=== PATIENT | female | born 1980 | race Caucasian/White ===

== ENCOUNTER 2016-10-01 10:56 | Outpatient (CLI) | payer OTHER ==
[2016-10-01 11:44] LABS: AMNISURE (ROM) POSITIVE (NEGATIVE)
[2016-10-01 11:57] LABS: APPEARANCE,URINE SLIGHTLY HAZY; BILIRUBIN,URINE NEGATIVE (NEGATIVE); GLUCOSE, URINE NEGATIVE (NEGATIVE); KETONES,URINE NEGATIVE (NEGATIVE); PROTEIN,URINE 30 mg/dL (NEGATIVE); URINE SPECIFIC GRAVITY 1.023; UROBILINOGEN,URINE NEGATIVE mg/dL (<2.0)
[2016-10-01 11:58] LABS: LEUKOCYTE ESTERASE,URINE NEGATIVE (NEGATIVE); NITRITE,URINE NEGATIVE (NEGATIVE)
--- NOTE | 2016-10-01 12:00 | L&D Flow Sheet ---
LD Flowsheet Datetime Report Generated by CPN: 10/01/2016 12:00 Datetime: 10/01/2016 11:57 NBP Sys/Lizbet/Mean (mmHg): 132 (QS system process) : 78 (QS system process) : 100 (QS system process) Pulse: 76 (QS system process) LaborFlag: Antepartum (QS system process) Datetime: 10/01/2016 11:40 NBP Sys/Lizbet/Mean (mmHg): 105 (QS system process) : 60 (QS system process) : 77 (QS system process) Pulse: 88 (QS system process) LaborFlag: Antepartum (QS system process) Datetime: 10/01/2016 11:30 Monitor Mode: External; Palpation (Sandra Hall RN) Frequency (min): occasional (Sandra Hall RN) Quality: Mild/Moderate (Sandra Hall, BLANCA) Duration (sec): 50-60 (Sandra Hall RN) Duration Criteria: Less than Two 120 Second Contractions (Sandra Hall RN) Pattern: Normal: <= 5 Contractions in 10 Minutes (Sandra Hall RN) Resting Tone (Palpate): Relaxed (Sandra Hall, RN) Monitor Mode: External US (Sandra Hall, BLANCA) FHR Baseline Rate : 145 (Sandra Hall, RN) Variability: Moderate 6-25 bpm (Sandra Hall, RN) Accelerations: 15X15 (Sandra Hall, RN) Decelerations: None (Sandra Hall, RN) Datetime: 10/01/2016 11:25 NBP Sys/Lizbet/Mean (mmHg): 103 (QS system process) : 58 (QS system process) : 75 (QS system process) Pulse: 83 (QS system process) LaborFlag: Antepartum (QS system process) Datetime: 10/01/2016 11:18 Communication Comments: Fareed Talbot CNM at bedside, cervical exam performed, order for amnisure obtained (Sandra Hall RN) Datetime: 10/01/2016 11:16 Dilatation (cm): 0.0 (Sandra Hall RN) Effacement (%): 50 (Sandra Hall RN) Station: -2 (Sandra Hall RN) Exam by: Fareed Talbot CNM (Sandra Hall RN) Vaginal Bleeding: None (Sandra Hall RN) Cervix, Consistency: Soft (Sandra Hall RN) Cervix, Position: Midposition (Sandra Hall RN) Datetime: 10/01/2016 11:11 NBP Sys/Lizbet/Mean (mmHg): 112 (QS system process) : 61 (QS system process) : 80 (QS system process) Pulse: 86 (QS system process) LaborFlag: Antepartum (QS system process) Datetime: 10/01/2016 11:04 Monitor Interventions for UA: [place] Adjusted (Sandra Hall RN) Frequency (min): patient states contractions are appox. 4 minutes apart (Sandra Hall RN) Quality: Mild/Moderate (Sandra Hall RN) Pattern: Normal: <= 5 Contractions in 10 Minutes (Sandra Hall RN) Resting Tone (Palpate): Relaxed (Sandra Hall RN) Monitor Mode: External US (Sandra Hall RN) Pain Scale: 4 (Sandra Hall RN) Pain Presence: Intermittent (Sandra Hall RN) Pain Type: Contraction (Sandra Hall RN) Pain Location: Abdomen (Sandra Hall RN) Pain Goal: 1 (Sandra Hall RN) Pain Relief Measures: Comfort Measures (Sandra Hall RN) Pain Coping: Talking Through Contractions (Sandra Hall RN) Membrane Status: Intact (Annotations: intact per patient) (Sandra Hall RN) Vaginal Bleeding: None (Sandra Hall RN) Level of Consciousness: Fully Conscious (Sandra Hall RN) DTR's/Clonus: DTRs 2+; No Clonus (Sandra Rafael, RN) Headache: Denies (Sandra Hall, RN) Breath Sounds, Left: Clear and Equal (Sandra Hall RN) Breath Sounds, Right: Clear and Equal (Sandra Hall, RN) Nausea/Vomiting: Denies (Sandra Hall, BLANCA) RUQ Epigastric Pain: Denies (Sandra Hall, RN) Oxygen Method: Room Air (Sandra Hall, RN) Patient Position/Activity: Right Tilt; Low Fowlers (Sandra Hall, RN) I/O Interventions: Clear Liquids Given (Sandra Hall RN) Provider Reviewed Strip: Yes (Sandra Hall, BLANCA) Instructional Method: Verbal (Sandra Hall RN) Plan of Care: Plan of Care Discussed (Sandra Hall, RN) Unit Routine: [place] to Room; Call [place]; Bed; Visiting Policy (Sandra Hall, BLANCA) Labor/Induction: Labor Stages (Sandra Hall, RN) Related: Common Discomforts of (Sandra Hall, RN) LaborFlag: Antepartum (QS system process)
[2016-10-01 12:14] LABS: URINE BARBITURATES SCREEN NEGATIVE; URINE METHADONE SCREEN NEGATIVE; URINE PHENCYCLIDINE SCREEN NEGATIVE
--- NOTE | 2016-10-01 12:56 | Non Stress Test Report ---
Non Stress Test Datetime Report Generated by CPN: 10/01/2016 12:55 DEMOGRAPHIC EGA NST: 39.0 INDICATION Indication for Study: Ordered by Provider MONITORING Monitor Explained: Monitor Explained; Test Explained; Patient Verbalized Understanding Time on Monitor: 10/01/2016 11:07 Time off Monitor: 10/01/2016 12:15 NST Duration: 68 NST INTERVENTIONS NST Interventions: PO Hydration; Reposition Patient Physician Notified NST: H. Antione, CNM BABY A Contraction Frequency : occasional FHR Baseline : 140 Accelerations : 15X15 Decelerations : None Variability : Moderate 6-25bpm NST Review: Meets Criteria for Reactive NST NST Review and Verified By : BLANCA Serrano Results: Reactive NST COMMENTS NST Comments: see flowsheet for vital signs NST REPORT Report Trigger: Send Report
--- NOTE | 2016-10-02 04:45 | Antepartum Discharge Summary ---
Antepartum DC Datetime Report Generated by CPN: 10/02/2016 04:45 Diet: Regular (10/01/2016 11:42:Sandra Hall RN) Activity: Normal Activity (10/01/2016 11:42:Sandra Hall RN) Instructions Given To: patient and patient's (10/01/2016 11:42:Sandra Hall RN) Instructions Understood: Patient Verbalized Understanding; Support Person Verbalized Understanding (10/01/2016 11:42:Sandra Hall RN) Referrals: None (10/01/2016 11:42:Sandra Hall RN) Educational Materials- Other: kiverónica counts, (10/01/2016 11:42:Sandra Hall RN) Discharged AMA: No (10/01/2016 11:42:Sandra Hall RN) Discharged To: Home (10/01/2016 11:42:Sandra Hall RN) Discharge Provider Name: Fareed Talbot CNM (10/01/2016 11:42:Sandra Hall RN) Accompanied By: (10/01/2016 11:42:Sandra Hall RN) Discharge Method: Ambulatory (10/01/2016 11:42:Sandra Hall RN) Condition: Stable (10/01/2016 11:42:Sandra Hall RN) Follow Up With: [facility] (10/01/2016 11:42:Sandra Hall RN) Follow Up On: As Scheduled (10/01/2016 11:42:Sandra Hall RN) Follow Up Phone Number: [facility] - (10/01/2016 11:42:Sandra Hall RN) Contractions: Contractions or cramps become more frequent than 8 in one hour or 4 in 20 minutes; Regular painful contractions every 5 minutes or less for one hour. Time your contractions from the beginning of one to the beginning of the next (10/01/2016 11:42:Sandra Hall RN) Pressure: Pressure in your vagina or lower abdomen that may feel like the baby is pushing down (10/01/2016 11:42:Sandra Hall RN) Period Like Cramps: Period-like cramps or low dull backache that may come and go (10/01/2016 11:42:Sandra Hall RN) Cramps/Diarrhea: Abdominal cramps that may be accompanied by diarrhea (10/01/2016 11:42:Sandra Hall RN) Gush of Fluid/Blood: Gush of fluid or blood from your vagina (it is normal to have spotting after vaginal exam or intercourse) (10/01/2016 11:42:Sandra Hall RN) Vaginal Discharge: Change in the type or amount of vaginal discharge (10/01/2016 11:42:Sandra Hall RN) Decreased Movement: Your baby is not moving as much as usual- 4 movements in 1 hour after drinking and resting on side (10/01/2016 11:42:Sandra Hall RN) Temperature: Temperature greater than 100.0(F) orally (10/01/2016 11:42:Sandra Hall RN) Hypertension Signs/Symptoms: Severe headache which is not relieved 30 minutes after taking Tylenol(Acetaminophen); Blurry vision or spots before your eyes; Severe heartburn or pain on the upper right side of your abdomen that is not relieved by an antacid; Increased swelling in your face, hands or feet (10/01/2016 11:42:Sandra Hall RN) Urinary Output: Decreased urinary output or dark colored urine (10/01/2016 11:42:Sandra Hall RN)
--- NOTE | 2016-10-03 11:08 | Antepartum Discharge Summary ---
Antepartum DC Datetime Report Generated by CPN: 10/03/2016 11:08 Diet: Regular (10/01/2016 11:42:Sandra Hall RN) Activity: Normal Activity (10/01/2016 11:42:Sandra Hall RN) Instructions Given To: patient and patient's (10/01/2016 11:42:Sandra Hall RN) Instructions Understood: Patient Verbalized Understanding; Support Person Verbalized Understanding (10/01/2016 11:42:Sandra Hall RN) Referrals: None (10/01/2016 11:42:Sandra Hall RN) Educational Materials- Other: kiverónica counts, (10/01/2016 11:42:Sandra Hall RN) Discharged AMA: No (10/01/2016 11:42:Snadra Hall RN) Discharged To: Home (10/01/2016 11:42:Sandra Hall RN) Discharge Provider Name: Fareed Talbot CNM (10/01/2016 11:42:Sandra Hall RN) Accompanied By: (10/01/2016 11:42:Sandra Hall RN) Discharge Method: Ambulatory (10/01/2016 11:42:Sandra Hall RN) Condition: Stable (10/01/2016 11:42:Sandra Hall RN) Follow Up With: [facility] (10/01/2016 11:42:Sandra Hall RN) Follow Up On: As Scheduled (10/01/2016 11:42:Sandra Hlal RN) Follow Up Phone Number: [facility] - (10/01/2016 11:42:Sandra Hall RN) Contractions: Contractions or cramps become more frequent than 8 in one hour or 4 in 20 minutes; Regular painful contractions every 5 minutes or less for one hour. Time your contractions from the beginning of one to the beginning of the next (10/01/2016 11:42:Sandra Hall RN) Pressure: Pressure in your vagina or lower abdomen that may feel like the baby is pushing down (10/01/2016 11:42:Sandra Hall RN) Period Like Cramps: Period-like cramps or low dull backache that may come and go (10/01/2016 11:42:Sandra Hall RN) Cramps/Diarrhea: Abdominal cramps that may be accompanied by diarrhea (10/01/2016 11:42:Sandra Hall RN) Gush of Fluid/Blood: Gush of fluid or blood from your vagina (it is normal to have spotting after vaginal exam or intercourse) (10/01/2016 11:42:Sandra Hall RN) Vaginal Discharge: Change in the type or amount of vaginal discharge (10/01/2016 11:42:Sandra Hlal RN) Decreased Movement: Your baby is not moving as much as usual- 4 movements in 1 hour after drinking and resting on side (10/01/2016 11:42:Sandra Hall RN) Temperature: Temperature greater than 100.0(F) orally (10/01/2016 11:42:Sandra Hall RN) Hypertension Signs/Symptoms: Severe headache which is not relieved 30 minutes after taking Tylenol(Acetaminophen); Blurry vision or spots before your eyes; Severe heartburn or pain on the upper right side of your abdomen that is not relieved by an antacid; Increased swelling in your face, hands or feet (10/01/2016 11:42:Sandra Hall RN) Urinary Output: Decreased urinary output or dark colored urine (10/01/2016 11:42:Sandra Hall RN)
--- NOTE | 2016-10-03 11:10 | L&D Flow Sheet ---
LD Flowsheet Datetime Report Generated by CPN: 10/03/2016 11:10 Datetime: 10/01/2016 13:02 Communication Comments: Kick counts and term care notes reviewed with patient, patient and verablize understanding. Patient states she doesn't need Vistaril that she has a prescription at home (Sandra Hall, RN) Datetime: 10/01/2016 12:50 Communication Comments: H. Antione, CNM notified of patient's US results of THANG of 10.2. Negative fern. Order received for patient's discharge home, Vistaril 50 mg PO. (Sandra Hall, RN) Datetime: 10/01/2016 12:42 Communication Comments: patient returned to room from US, order received for patient to remain off monitors (Sandra Hall, RN) Datetime: 10/01/2016 12:40 NBP Sys/Lizbet/Mean (mmHg): 122 (QS system process) : 76 (QS system process) : 94 (QS system process) Pulse: 82 (QS system process) Datetime: 10/01/2016 12:35 Communication: Returns from U/S . Provider on unit verbal report of negative fern result given. Strip reviewed. order received not to place EFM (Melanie Aguirre, NICKO) Datetime: 10/01/2016 12:15 Monitor Mode: External; Palpation (Sandra Hall, BLANCA) Frequency (min): 3-7 (Sandra Hall RN) Quality: Mild/Moderate (Sandra Hall RN) Duration (sec): 60-150 (Sandra Hall, BLANCA) Duration Criteria: Less than Two 120 Second Contractions (Sandra Hall, BLANCA) Pattern: Normal: <= 5 Contractions in 10 Minutes (Sandra Hall, BLANCA) Resting Tone (Palpate): Relaxed (Sandra Hall, RN) Contraction Comments: irritability (Sandra Hall, RN) Monitor Mode: External US (Sandra Hall, RN) FHR Baseline Rate : 140 (Sandra Hall, RN) Variability: Moderate 6-25 bpm (Sandra Hall, RN) Accelerations: 15X15 (Sandra Hall, RN) Decelerations: None (Sandra Hall, BLANCA) Communication Comments: monitors removed for patient's transport to US (Sandra Hall, BLANCA) Datetime: 10/01/2016 12:14 NBP Sys/Lizbet/Mean (mmHg): 119 (QS system process) : 71 (QS system process) : 91 (QS system process) Pulse: 82 (QS system process) Datetime: 10/01/2016 12:10 I/O Interventions: Up to BR (Sandra Hall RN) Datetime: 10/01/2016 12:00 Monitor Mode: External; Palpation (Sandra Hall RN) Frequency (min): x2 (Sandra Hall RN) Quality: Mild/Moderate (Sandra Hall RN) Duration (sec): 70-80 (Sandra Hall RN) Duration Criteria: Less than Two 120 Second Contractions (Sandra Hall RN) Pattern: Normal: <= 5 Contractions in 10 Minutes (Sandra Hall RN) Resting Tone (Palpate): Relaxed (Sandra Hall RN) Contraction Comments: irritability (Sandra Hall RN) Monitor Mode: External US (Sandra Hall RN) FHR Baseline Rate : 140 (Sandra Hall, RN) Variability: Moderate 6-25 bpm (Sandra Hall, RN) Accelerations: 15X15 (Sandra Hall, RN) Decelerations: None (Sandra Hall, RN) Datetime: 10/01/2016 11:57 NBP Sys/Lizbet/Mean (mmHg): 132 (QS system process) : 78 (QS system process) : 100 (QS system process) Pulse: 76 (QS system process) Respirations: 16 (Melanie Camp, RNC) Datetime: 10/01/2016 11:55 Communication: RN at Bedside (Sandra Hall, RN) Communication Comments: wet prep and fern collected and sent (Sandra Hall, RN) Datetime: 10/01/2016 11:52 Communication Comments: H. Antione, CNM notified of positive amnisure, order recieved for wet prep and fern (Sandra Hall RN) Datetime: 10/01/2016 11:40 NBP Sys/Lizbet/Mean (mmHg): 105 (QS system process) : 60 (QS system process) : 77 (QS system process) Pulse: 88 (QS system process) Respirations: 16 (Melanie Camp, RNC) Datetime: 10/01/2016 11:30 Monitor Mode: External; Palpation (Sandra Hall RN) Frequency (min): occasional (Sandra Hall RN) Quality: Mild/Moderate (Sandra Hall RN) Duration (sec): 50-60 (Sandra Hall RN) Duration Criteria: Less than Two 120 Second Contractions (Sandra Hall RN) Pattern: Normal: <= 5 Contractions in 10 Minutes (Sandra Hall RN) Resting Tone (Palpate): Relaxed (Sandra Hall RN) Monitor Mode: External US (Sandra Hall RN) FHR Baseline Rate : 145 (Sandra Hall RN) Variability: Moderate 6-25 bpm (Sandra Hall RN) Accelerations: 15X15 (Sandra Hall RN) Decelerations: None (Sandra Hall, RN) Datetime: 10/01/2016 11:25 NBP Sys/Lizbet/Mean (mmHg): 103 (QS system process) : 58 (QS system process) : 75 (QS system process) Pulse: 83 (QS system process) Datetime: 10/01/2016 11:18 Communication Comments: H. Antione CNM at bedside, cervical exam performed, order for amnisure obtained (Sandra Hall RN) Datetime: 10/01/2016 11:16 Dilatation (cm): 0.0 (Sandra Hall RN) Effacement (%): 50 (Sandra Hall RN) Station: -2 (Sandra Hall RN) Exam by: Fareed Talbot CNM (Sandra Hall RN) Vaginal Bleeding: None (Sandra Hall RN) Cervix, Consistency: Soft (Sandra Hall RN) Cervix, Position: Midposition (Sandra Hall RN) Datetime: 10/01/2016 11:11 NBP Sys/Lizbet/Mean (mmHg): 112 (QS system process) : 61 (QS system process) : 80 (QS system process) Pulse: 86 (QS system process) Datetime: 10/01/2016 11:04 Monitor Interventions for UA: [place] Adjusted (Sandra Hall RN) Frequency (min): patient states contractions are appox. 4 minutes apart (Sandra Hall RN) Quality: Mild/Moderate (Sandra Hall RN) Pattern: Normal: <= 5 Contractions in 10 Minutes (Sandra Hall RN) Resting Tone (Palpate): Relaxed (Sandra Hall RN) Monitor Mode: External US (Sandra Hall RN) Pain Scale: 4 (Sandra Hall RN) Pain Presence: Intermittent (Sandra Hall RN) Pain Type: Contraction (Sandra Hall RN) Pain Location: Abdomen (Sandra Hall RN) Pain Goal: 1 (Sandra Hall RN) Pain Relief Measures: Comfort Measures (Sandra Hall RN) Pain Coping: Talking Through Contractions (Sandra Hall RN) Membrane Status: Intact (Annotations: intact per patient) (Sandra Hall RN) Vaginal Bleeding: None (Sandra Hall RN) Level of Consciousness: Fully Conscious (Sandra Hall RN) DTR's/Clonus: DTRs 2+; No Clonus (Sandra Hall RN) Headache: Denies (Sandra Hall RN) Breath Sounds, Left: Clear and Equal (Sandra Hall RN) Breath Sounds, Right: Clear and Equal (Sandra Hall RN) Nausea/Vomiting: Denies (Sandra Hall RN) RUQ Epigastric Pain: Denies (Sandra Hall, BLANCA) Oxygen Method: Room Air (Sandra Hall RN) Patient Position/Activity: Right Tilt; Low Fowlers (Sandra Hall, RN) I/O Interventions: Clear Liquids Given (Sandra Hall RN) Provider Reviewed Strip: Yes (Sandra Hall RN) Instructional Method: Verbal (Sandra Hall RN) Plan of Care: Plan of Care Discussed (Sandra Hall, RN) Unit Routine: [place] to Room; Call [facility]; Bed; Visiting Policy (Sandra Hall, BLANCA) Labor/Induction: Labor Stages (Sandra Hall, BLANCA) Related: Common Discomforts of (Sandra Hall, BLANCA)
--- NOTE | 2016-10-03 11:17 | L&D Discharge Summary ---
OB Discharge Summary Datetime Report Generated by CPN: 10/03/2016 11:17 DISCHARGE DIAGNOSIS Diagnosis/Symptoms: False Labor Diagnoses/Symptoms Other: IUP at 39 weeks, not in labor, membranes intact Treatment/Procedures Other: amnisure - negative Gestation: 39.2 Number of Babies in Womb: 1 Parity: 0 DIET/ACTIVITY/RESTRICTIONS Diet: Regular Activity: Normal Activity TEACHING/INSTRUCTIONS/REFERRALS Instructions Given To: patient and patient's Instructions Understood: Patient Verbalized Understanding; Support Person Verbalized Understanding Referrals: None Educational Materials- Other: kick counts, DISCHARGE INFORMATION Discharged AMA: No Discharge Date/Time: 10/01/2016 11:42 Discharged To: Home Discharge Provider Name: Fareed Talbot CNM Accompanied By: Discharge Method: Ambulatory Condition: Stable FOLLOW UP INFORMATION Follow Up With: [facility] Follow Up On: As Scheduled Follow Up Phone Number: [facility] - Comments: Pt verbalizes understanding instructions, s/s to report, when to return to hospital for evaluation, to keep scheduled appointments. No distress noted, ambulates without difficulty, denies complaints. Reactive NST GENERAL INSTR-CALL PROVIDER IF: Contractions: Contractions or cramps become more frequent than 8 in one hour or 4 in 20 minutes; Regular painful contractions every 5 minutes or less for one hour. Time your contractions from the beginning of one to the beginning of the next Pressure: Pressure in your vagina or lower abdomen that may feel like the baby is pushing down Period Like Cramps: Period-like cramps or low dull backache that may come and go Cramps/Diarrhea: Abdominal cramps that may be accompanied by diarrhea Gush of Fluid/Blood: Gush of fluid or blood from your vagina (it is normal to have spotting after vaginal exam or intercourse) Vaginal Discharge: Change in the type or amount of vaginal discharge Decreased Movement: Your baby is not moving as much as usual- 4 movements in 1 hour after drinking and resting on side Temperature: Temperature greater than 100.0(F) orally
--- NOTE | 2016-10-03 11:24 | L&D General Admission ---
General Admit Datetime Report Generated by CPN: 10/03/2016 11:24 INFORMATION Patient Age: 36 (07/16/2016 14:28:QS system process) EDC: 10/08/2016 00:00 (08/25/2016 11:43:Maddy Pierson RN) EDC per Ultrasound: 10/12/2016 00:00 (08/25/2016 11:43:Maddy Pierson RN) LMP: 01/02/2016 00:00 (08/25/2016 11:43:Maddy Pierson RN) Para: 0 (10/01/2016 11:42:Sandra Hall RN) Para: 0 (09/27/2016 15:55:Ellie Galeana RN) Para: 0 (08/26/2016 17:25:Nathaly Piedra RN) Para: 0 (08/25/2016 11:43:Maddy Pierson RN) Term: 0 (08/25/2016 11:43:Maddy Pierson RN) : 0 (08/25/2016 11:43:Maddy Pierson RN) Induced Abortions: 0 (08/25/2016 11:43:Maddy Pierson RN) Livin (08/25/2016 11:43:Maddy Pierson RN) Cesareans: 0 (08/25/2016 11:43:Maddy Pierson RN) VBACs: 0 (08/25/2016 11:43:Maddy Pierson RN) Ectopic: 0 (08/25/2016 11:43:Maddy Pierson RN) Multiple Births: 0 (08/25/2016 11:43:Maddy Pierson RN) Baby, Number in Womb: 1 (10/01/2016 11:42:Sandra Hall RN) Baby, Number in Womb: 1 (09/27/2016 15:55:Ellie Galeana RN) Baby, Number in Womb: 1 (08/26/2016 17:25:NICKO Jaquez) Baby, Number in Womb: 0 (08/25/2016 11:43:Maddy Pierson RN) CARE Primary Drum Handler: [facility] (08/25/2016 11:43:Maddy Pierson RN) Month of 1st Visit: February 2016 (08/25/2016 11:43:Ellie Galeana RN) Adequate Care: Yes (08/25/2016 11:43:Maddy Pierson RN) Prepregnancy Weight (lb): 160 (08/25/2016 11:43:Maddy Pierson RN) ALLERGIES Medication Allergy: No (08/25/2016 11:43:Maddy Pierson RN) Medication Allergies: No Known Allergies (10/01/2016) (10/01/2016 11:05:QS system process) Medication Allergies: No Known Allergies (09/12/2016) (09/12/2016 13:51:QS system process) Medication Allergies: No Known Allergies (09/09/2016) (09/09/2016 12:05:QS system process) Medication Allergies: No Known Allergies (08/25/2016) (08/25/2016 12:07:QS system process) Latex Allergy: No Latex Allergies (08/25/2016 11:43:Maddy Pierson RN) Food Allergies: None (08/25/2016 11:43:Maddy Pierson RN) Environmental Allergies: None (08/25/2016 11:43:Maddy Pierson RN) COMMUNICATION Primary Language: Kyrgyz (08/25/2016 11:43:Maddy Pierson RN) Medical Tx Preferred Language: Kyrgyz (08/25/2016 11:43:Maddy Pierson RN) Communication Barrier(s): None (08/25/2016 11:43:Ellie Galeana RN) DEMOGRAPHICS Address: [address] [place] [address] (09/09/2016 11:47:QS system process) Address: [address] [place] [address] (07/16/2016 14:28:QS system process) Zipcode: [address] (09/09/2016 11:47:QS system process) Zipcode: [address] (07/16/2016 14:28:QS system process) Home (07/16/2016 14:28:QS system process) SSN: [id number] (07/16/2016 14:28:QS system process) Next of Kin Name: TOVA RODRIGUEZ (07/16/2016 14:28:QS system process) Next of Kin (07/16/2016 14:28:QS system process) Next of Kin Relationship: SPO (07/16/2016 14:28:QS system process) Date of : 1980 (07/16/2016 14:28:QS system process) Marital Status: (07/16/2016 14:28:QS system process) Sex: Female (07/16/2016 14:28:QS system process) 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 [id number] (08/25/2016 11:43:Maddy Pierson RN) Marijuana: No (08/25/2016 11:43:Maddy Pierson RN) Cocaine: No (08/25/2016 11:43:Maddy Pierson RN) Other Illicit Drugs: No (08/25/2016 11:43:Maddy Pierson RN) VACCINE HISTORY Influenza Vaccine: Yes (08/25/2016 11:43:Maddy Pierson RN) Influenza Date: 07/16/2016 (08/25/2016 11:43:Maddy Pierson RN) Pneumococcal Vaccine: No (08/25/2016 11:43:Maddy Pierson RN) Tetanus Vaccine: Yes (08/25/2016 11:43:Ellie Galeana RN) Tetanus Date: 08/06/2016 (08/25/2016 11:43:Ellie Galeana RN) Tdap Vaccine: Yes (08/25/2016 11:43:Maddy Pierson RN) Tdap Date: 08/06/2016 (08/25/2016 11:43:Maddy Pierson RN) Hepatitis B Vaccine: Yes (08/25/2016 11:43:Maddy Pierson RN) Feeding Preference: Breast (08/25/2016 11:43:Maddy Pierson RN) Benefit of Breast Feed Discussed: Yes (08/25/2016 11:43:Maddy Pierson RN) Circumcision: N/A (08/25/2016 11:43:Maddy Pierson RN) Classes Attended: No (08/25/2016 11:43:Maddy Pierson RN) Tubal Ligation: No (08/25/2016 11:43:Maddy Pierson RN) Tubal Authorization Signed: N/A (08/25/2016 11:43:Maddy Pierson RN) Consent: N/A (08/25/2016 11:43:Maddy Pierson RN) Consent Signed: N/A (08/25/2016 11:43:Maddy Pierson RN) Pain Management Plans: Medications; Epidural (08/25/2016 11:43:Maddy Pierson RN) Plans for Labor and Delivery: None (08/25/2016 11:43:Maddy Pierson RN) Support Person: Tovaradha Rodriguez (08/25/2016 11:43:Maddy Pierson RN) Support Person Relationship: (08/25/2016 11:43:Maddy Pierson RN) Cultural/Spritual Practice: No (08/25/2016 11:43:Maddy Pierson RN) Spir/Cult Dietary Needs: No (08/25/2016 11:43:Maddy Pierson RN) LIVING SITUATION/DISCHARGE PLAN Living Arrangements: House (08/25/2016 11:43:Maddy Pierson RN) Adequate Access to:: Electric; Heat; Refrigeration; Plumbing/Running water; Phone; Transportation (08/25/2016 11:43:Maddy Pierson RN) WIC Program: Yes (08/25/2016 11:43:Maddy Pierson RN) Discharge Pediatric Geneticist Person: Tova Rodriguez (08/25/2016 11:43:Maddy Pierson RN) Person to Help after Discharge: Braulio (08/25/2016 11:43:Maddy Pierson RN) Currently Using Commun Resources: No (08/25/2016 11:43:Maddy Pierson RN) Outside Agency/Hole Filler: No (08/25/2016 11:43:Maddy Pierson RN) Car Seat for Discharge: Yes (08/25/2016 11:43:Maddy Pierson RN) Adoption Requested: No (08/25/2016 11:43:Maddy Pierson RN) Pt Contact w/ Post : N/A (08/25/2016 11:43:Maddy Pierson RN) LABS Blood Type: B Positive (08/25/2016 11:43:Renetta Paniagua RN) Hemoglobin: 11.6 L (08/25/2016 15:10:QS system process) Hematocrit: 33.3 L (08/25/2016 15:10:QS system process) MCV: 88 (08/25/2016 15:10:QS system process) Group Beta Strep: Unknown (08/25/2016 11:43:Renetta Paniagua RN) Gonorrhea: Negative (08/25/2016 11:43:Renetta Paniagua RN) Chlamydia: Negative (08/25/2016 11:43:Renetta Paniagua RN) RPR/VDRL: Nonreactive (08/25/2016 11:43:Renetta Paniagua RN) Hepatitis B: Negative (08/25/2016 11:43:Renetta Paniagua RN) Rubella: Immune (08/25/2016 11:43:Renetta Paniagua RN) OB/PREVIOUS HISTORY LMP: 01/02/2016 00:00 (08/25/2016 11:43:Maddy Pierson RN) Previous Procedures: None (08/25/2016 11:43:Maddy Pierson RN) Current Procedures: Ultrasound (08/25/2016 11:43:Maddy Pierson RN) History of Previous : No (08/25/2016 11:43:Maddy Pierson RN) History of Gestational Diabetes: No (08/25/2016 11:43:Maddy Pierson RN) History of PIH: No (08/25/2016 11:43:Maddy Pierson RN) History of Incompetent Cervix: No (08/25/2016 11:43:Maddy Pierson RN) History of Placenta Previa/Abrup: No (08/25/2016 11:43:Maddy Pierson RN) History of Macrosomia: No (08/25/2016 11:43:Maddy Pierson RN) History of IUGR: No (08/25/2016 11:43:Maddy Pierson RN) History of Hemorrhage: No (08/25/2016 11:43:Maddy Pierson RN) History of Loss/Stillborn: No (08/25/2016 11:43:Maddy Pierson RN) History of : No (08/25/2016 11:43:Maddy Pierson RN) History of D (Rh) Sensitization: No (08/25/2016 11:43:Maddy Pierson RN) History Recurrent Loss/Stillborn: No (08/25/2016 11:43:Maddy Pierson RN) History Depression/PP Depression: No (08/25/2016 11:43:Maddy Pierson RN) History of Uterine Anomaly/JA: No (08/25/2016 11:43:Maddy Pierson RN) History of Infertility: Yes (08/25/2016 11:43:Maddy Pierson RN) History of ART Treatment: No (08/25/2016 11:43:Maddy Pierson RN) History of JA: No (08/25/2016 11:43:Maddy Pierson RN) Comments Obstetrical History: G1 - SAB G2 - current - AMA Infertility r/t uterine fibroids (08/25/2016 11:43:Maddy Pierson RN) MEDICAL HISTORY Med Hx Diabetes: No (08/25/2016 11:43:Maddy Pierson RN) Med Hx Hypertension: No (08/25/2016 11:43:Maddy Pierson RN) Med Hx Heart Disease: Yes (08/25/2016 11:43:Maddy Pierson RN) Med Hx Autoimmune Disorder: No (08/25/2016 11:43:Maddy Pierson RN) Med Hx Kidney Disease/UTI: No (08/25/2016 11:43:Maddy Pierson RN) Med Hx Neurologic/Epilepsy: No (08/25/2016 11:43:Maddy Pierson RN) Med Hx Psychiatric Disorders: No (08/25/2016 11:43:Maddy Pierson RN) Med Hx Hepatitis/Liver Disease: No (08/25/2016 11:43:Maddy Pierson RN) Med Hx Varicosities/Phlebitis: No (08/25/2016 11:43:Maddy Pierson RN) Med Hx Thyroid Dysfunction: No (08/25/2016 11:43:Maddy Pierson RN) Med Hx Trauma/Violence: No (08/25/2016 11:43:Maddy Pierson RN) Med Hx Blood Transfusion: No (08/25/2016 11:43:Maddy Pierson RN) Med Hx Pulmonary (Asthma,TB): No (08/25/2016 11:43:Maddy Pierson RN) Med Hx Breast: No (08/25/2016 11:43:Maddy Pierson RN) Med Hx SHALLOT PACKER Surgery: No (08/25/2016 11:43:Maddy Pierson RN) Med Hx Hospitalization/Surgery: Yes (08/25/2016 11:43:Maddy Pierson RN) Med Hx Anesthetic Complications: No (08/25/2016 11:43:Maddy Pierson RN) Med Hx Abnormal Pap Smear: No (08/25/2016 11:43:Maddy Pierson RN) Other Medical Diseases: No (08/25/2016 11:43:Maddy Pierson RN) Med Hx Significant Family Hx: No (08/25/2016 11:43:Maddy Pierson RN) Details of Med/Surg Hx: Hx of PVC - took Ca Channel kellee, stopped for 2014 - Ear surgery for ear drum 2013 - surgical removal of mirena 2000 - right knee surgery (08/25/2016 11:43:Maddy Pierson RN) INFECTIOUS HISTORY Inf Hx Gonorrhea: No (08/25/2016 11:43:Maddy Pierson RN) Inf Hx Chlamydia: No (08/25/2016 11:43:Maddy Pierson RN) Inf Hx Syphilis: No (08/25/2016 11:43:Maddy Pierson RN) Inf Hx HIV/AIDS: No (08/25/2016 11:43:Maddy Pierson RN) Inf Hx Human Papilloma Virus: No (08/25/2016 11:43:Maddy Pierson RN) Inf Hx Pt/Partner Genital Herpes: No (08/25/2016 11:43:Maddy Pierson RN) Inf Hx Tuberculosis/Exposure: No (08/25/2016 11:43:Maddy Pierson RN) Inf Hx Hepatitis B,C: No (08/25/2016 11:43:Maddy Pierson RN) Inf Hx Rash or Viral Illness: No (08/25/2016 11:43:Maddy Pierson RN) GENETIC HISTORY Gen Hx Age >=35 at [place]: No (08/25/2016 11:43:Maddy Pierson RN) Gen Hx Thalassemia: No (08/25/2016 11:43:Maddy Pierson RN) Gen Hx Congenital Heart Defect: No (08/25/2016 11:43:Maddy Pierson RN) Gen Hx Neural Tube Defect: No (08/25/2016 11:43:Maddy Pierson RN) Gen Hx Down's Syndrome: No (08/25/2016 11:43:Maddy Pierson RN) Gen Hx Celestino-Sachs: No (08/25/2016 11:43:Maddy Pierson RN) Gen Hx Doug: No (08/25/2016 11:43:Maddy Pierson RN) Gen Hx Familial Dysautonomia: No (08/25/2016 11:43:Maddy Pierson RN) Gen Hx Sickle Cell Disease/Trait: No (08/25/2016 11:43:Maddy Pierson RN) Gen Hx Hemophilia/Blood Disorder: No (08/25/2016 11:43:Maddy Pierson RN) Gen Hx Muscular Dystrophy: No (08/25/2016 11:43:Maddy Pierson RN) Gen Hx Cystic Fibrosis: No (08/25/2016 11:43:Maddy Pierson RN) Gen Hx Huntingtons Chorea: No (08/25/2016 11:43:Maddy Pierson RN) Gen Hx Mental Retardation/Autism: No (08/25/2016 11:43:Maddy Pierson RN) Gen Hx Tested for Fragile X: No (08/25/2016 11:43:Maddy Pierson RN) Gen Hx Other Inher/Chromosomal: No (08/25/2016 11:43:Maddy Pierson RN) Gen Hx Maternal Metabolic DO: No (08/25/2016 11:43:Maddy Pierson RN) Gen Hx Pt Father or FOB Defect: No (08/25/2016 11:43:Maddy Pierson RN) Gen Hx Other Genetic History: No (08/25/2016 11:43:Maddy Pierson RN) Gen Hx Drugs/Meds since LMP: Yes (08/25/2016 11:43:Maddy Pierson RN) Gen Hx Medications: PNV, Prilosec (08/25/2016 11:43:Maddy Pierson RN)
== END 2016-10-01 13:02 | disposition home or self-care (01) ==
LOC: LC 10:56
PROVIDERS: ATTEND Obstetrics & Gynecology
PROC: 4A1HXCZ Monitoring of Products of Conception, Cardiac Rate, External Approach (ICD-10-PCS; principal; 2016-10-01)
DX: O47.1 False labor at or after 37 completed weeks of gestation (principal); Z3A.39 39 weeks gestation of pregnancy
CPT/HCPCS: 59025; 84112; 87210; 81005; 76815; Q0114; G0479; 80307

== ENCOUNTER 2016-10-02 00:37 | Inpatient (IN) | payer OTHER ==
[2016-10-02 01:18] LABS: APPEARANCE,URINE SLIGHTLY-CLOUDY; BILIRUBIN,URINE NEGATIVE (NEGATIVE); GLUCOSE, URINE NEGATIVE (NEGATIVE); KETONES,URINE NEGATIVE (NEGATIVE); LEUKOCYTE ESTERASE,URINE NEGATIVE (NEGATIVE); NITRITE,URINE NEGATIVE (NEGATIVE); PROTEIN,URINE NEGATIVE (NEGATIVE); URINE SPECIFIC GRAVITY 1.016; UROBILINOGEN,URINE NEGATIVE mg/dL (<2.0)
[2016-10-02 01:20] LABS: AMNISURE (ROM) POSITIVE (NEGATIVE)
[2016-10-02 01:41] LABS: URINE BARBITURATES SCREEN NEGATIVE; URINE METHADONE SCREEN NEGATIVE; URINE PHENCYCLIDINE SCREEN NEGATIVE
[2016-10-02] MEDS ORDERED: RINGERS SOLUTION,LACTATED 1,000 ML IV PRN (01:41)
[2016-10-02] MEDS ORDERED: RINGERS SOLUTION,LACTATED 1,000 ML IV ONE (01:41)
[2016-10-02 02:12] LABS: ABSOLUTE BASOPHILS # (AUTO) 0.1 10^3/uL (0.0-0.2); ABSOLUTE EOSINOPHILS # (AUTO) 0.1 10^3/uL (0.0-0.6); ABSOLUTE MONOCYTES (AUTO) 1.1 10^3/uL (0.1-1.4); ABSOLUTE NEUT (AUTO) 10.5 10^3/uL (1.7-8.2); BASOPHILS % (AUTO) 0.4 % (0-2); EOSINOPHILS % (AUTO) 0.6 % (0-6); HEMATOCRIT 35.4 % (36.0-47.0); HEMOGLOBIN 12.4 g/dL (12.0-15.5); HGB HCT DIFFERENCE 1.8; LYMPHOCYTES % (AUTO) 14.6 % (13-45); MEAN CORPUSCULAR HEMOGLOBIN 30.5 pg (27.0-33.4); MEAN CORPUSCULAR HGB CONC 35.1 g/dL (32.0-36.0); MEAN CORPUSCULAR VOLUME 87 fl (80-97); MONOCYTES % (AUTO) 8.3 % (3-13); RED BLOOD COUNT 4.08 10^6/uL (3.72-5.28); RED CELL DISTRIBUTION WIDTH 13.3 % (11.5-14.0); SEGMENTED NEUTROPHILS % (AUTO) 76.1 % (42-78); WHITE BLOOD COUNT 13.8 10^3/uL (4.0-10.5)
[2016-10-02] MEDS ORDERED: PROMETHAZINE HCL INJ 25 MG/1 ML VIAL ONE (02:34)
[2016-10-02] MEDS ORDERED: DINOPROSTONE 10 MG VAGINAL INSERT.SR ONE (02:35)
[2016-10-02] MEDS ORDERED: NALBUPHINE HCL INJ 10 MG/1 ML AMPULE ONE (02:35)
--- NOTE | 2016-10-02 04:45 | L&D Current Admission ---
Current Admit Datetime Report Generated by CPN: 10/02/2016 04:45 ADMISSION INFORMATION Current Admit Date/Time: 10/02/2016 01:43 (10/02/2016 01:30:Socorro Biswas RN) Reason for Admission: Rupture of Membranes (10/02/2016 01:30:Socorro Biswas RN) Chief Complaint: Suspected Rupture of Membranes (10/02/2016 01:30:Socorro Biswas RN) Chief Complaint: Contractions; Suspected Rupture of Membranes (10/02/2016 01:05:Socorro Biswas RN) Chief Complaint: Contractions (10/01/2016 11:04:Sandra Hall RN) Chief Complaint: Contractions (09/27/2016 14:25:Ellie Galeana RN) Medications During : Vitamin; Hydroxyzine (Vistaril) (10/02/2016 01:30:Socorro Biswas RN) EGA per Dates: 39.1 (10/02/2016 01:30:QS system process) EGA per US: 38.4 (10/02/2016 01:30:QS system process) Method of Arrival: Wheelchair (10/02/2016 01:30:Socorro Biswas RN) Admitted From: Home (10/02/2016 01:30:Socorro Biswas RN) Reason for Induction: Premature Rupture of Membranes (10/02/2016 01:30:Socorro Biswas RN) Records Available: Yes (10/02/2016 01:30:Socorro Biswas RN) General Admission Information: Reviewed; Updated; Confirmed (10/02/2016 01:30:Socorro Biswas RN) General Admission Reviewed By: Janice Biswas RN (10/02/2016 01:30:Socorro Biswas RN) BELONGINGS/ADVANCED DIRECTIVES Other Belongings: See [facility] belongings from (10/02/2016 01:30:Socorro Biswas RN) Durable Power of Floor Assembler: No (10/02/2016 01:30:Socorro Biswas RN) Living Will: No (10/02/2016 01:30:Socorro Biswas RN) Organ Donor: No (10/02/2016 01:30:Socorro Biswas RN) Pt Rights Information Given: Yes (10/02/2016 01:30:Socorro Biswas RN) Pt Understands Pt Rights: Yes (10/02/2016 01:30:Socorro Biswas RN) LEARNING ASSESSMENT Knowledge Level: Understands L_D Process (10/02/2016 01:30:Socorro Biswas RN) Barriers to Learning: Emotional State; Pain (10/02/2016 01:30:Socorro Biswas RN) Learning Readiness: Motivated (10/02/2016 01:30:Socorro Biswas RN) Learns Best By: 1 to 1 Instruction (10/02/2016 01:30:Socorro Biswas RN) Learning Needs: Labor and Delivery Process; Pain Management; Symptoms to Report; Treatment Plan; Medication; Diagnosis; Nutrition; Equipment; Care (10/02/2016 01:30:Socorro Biswas RN) DOMESTIC VIOLANCE SCREENING Reason Unable to Complete Screen: No Opportunity to Talk Privately (10/02/2016 01:30:Socorro Biswas RN) NUTRITIONAL/FUNCTIONAL SCREENING Problem with Appetite >5 Days: No (10/02/2016 01:30:Socorro Biswas RN) Chew/Swallow Difficulties: No (10/02/2016 01:30:Socorro Biswas RN) Inappropriate Wt Gain/Loss: No (10/02/2016 01:30:Socorro Biswas RN) Presence Skin Breakdown/Ulcer: No (10/02/2016 01:30:Socorro Biswas RN) Special Diet: No (10/02/2016 01:30:Socorro Biswas RN) Pt Requests Smooth And Burr Worker Composites Visit: No (10/02/2016 01:30:Socorro Biswas RN) Hx of Any of the Following?: N/A (10/02/2016 01:30:Socorro Biswas RN) New Diagnosis of: N/A (10/02/2016 01:30:Socorro Biswas RN) Requires Assist w/Ambulation: No (10/02/2016 01:30:Socorro Biswas RN) Uses Assist Device to Ambulate: No (10/02/2016 01:30:Socorro Biswas RN) Pt Requires Help w/ADL's: No (10/02/2016 01:30:Socorro Biswas RN)
--- NOTE | 2016-10-02 04:45 | L&D Admission Assessment ---
LD ADM ASMT Datetime Report Generated by CPN: 10/02/2016 04:45 Assessment Type: Triage (10/02/2016 01:05:Socorro Biswas RN) Assessment Type: Admission Assessment (10/01/2016 11:04:Sandra Hall RN) Weight (lb): 191 (10/02/2016 01:39:QS system process) Weight (lb): 189 (10/01/2016 11:22:QS system process) Weight (kg): 86.8 (10/02/2016 01:39:QS system process) Weight (kg): 85.9 (10/01/2016 11:22:QS system process) Total Wt Gain (lb): 31 (10/02/2016 01:39:QS system process) Total Wt Gain (lb): 29 (10/01/2016 11:22:QS system process) Wt Gain (kg): 14.3 (10/02/2016 01:39:QS system process) Wt Gain (kg): 13.3 (10/01/2016 11:22:QS system process) BMI: 29.0 (10/02/2016 01:39:QS system process) BMI: 28.7 (10/01/2016 11:22:QS system process) Pain Scale: 4.5 (10/02/2016 01:05:Socorro Biswas RN) Pain Scale: 4 (10/01/2016 11:04:Sandra Hall RN) Pain Presence: Intermittent (10/02/2016 01:05:Socorro Biswas RN) Pain Presence: Intermittent (10/01/2016 11:04:Sandra Hall RN) Pain Type: Contraction (10/02/2016 01:05:Socorro Biswas RN) Pain Type: Contraction (10/01/2016 11:04:Sandra Hall RN) Pain Location: Abdomen (10/02/2016 01:05:Socorro Biswas RN) Pain Location: Abdomen (10/01/2016 11:04:Sandra Hall RN) Pain Goal: 2 (10/02/2016 01:05:Socorro Biswas RN) Pain Goal: 1 (10/01/2016 11:04:Sandra Hall RN) Pain Related to Contraction: Yes (10/02/2016 01:05:Socorro Biswas RN) Pain Related to Contraction: Yes (10/01/2016 11:04:Sandra Hall RN) Frequency (min): 4-7 (10/02/2016 03:00:Socorro Biswas RN) Frequency (min): 2-6 (10/02/2016 02:30:Socorro Biswas RN) Frequency (min): 2-6 (10/02/2016 02:00:Socorro Biswas RN) Frequency (min): 2-5 (10/02/2016 01:30:Socorro Biswas RN) Frequency (min): q 4 per pt (10/02/2016 01:05:Socorro Biswas RN) Frequency (min): 3-7 (10/01/2016 12:15:Sandra Hall RN) Frequency (min): x2 (10/01/2016 12:00:Sandra Hall RN) Frequency (min): occasional (10/01/2016 11:30:Sandra Hall RN) Frequency (min): patient states contractions are appox. 4 minutes apart (10/01/2016 11:04:Sandra Hall RN) Duration (sec): 70-120 (10/02/2016 03:00:Socorro Biswas RN) Duration (sec): 60-180 (10/02/2016 02:30:Socorro Biswas RN) Duration (sec): 60-100 (10/02/2016 02:00:Socorro Biswas RN) Duration (sec): 50-120 (10/02/2016 01:30:Socorro True, RN) Duration (sec): 60-150 (10/01/2016 12:15:Sandra Hall RN) Duration (sec): 70-80 (10/01/2016 12:00:Sandra Hall RN) Duration (sec): 50-60 (10/01/2016 11:30:Sandra Hall, RN) Quality: Moderate (10/02/2016 03:00:Socorro True, RN) Quality: Moderate (10/02/2016 02:30:Socorro True, RN) Quality: Moderate (10/02/2016 02:00:Socorrokarina Tiwaril, RN) Quality: Moderate (10/02/2016 01:30:Socorro Biswas, RN) Quality: Mild/Moderate (10/01/2016 12:15:Sandra Hall RN) Quality: Mild/Moderate (10/01/2016 12:00:Sandra Hall RN) Quality: Mild/Moderate (10/01/2016 11:30:Sandra Hall RN) Quality: Mild/Moderate (10/01/2016 11:04:Sandra Hall RN) Pattern: Normal: <= 5 Contractions in 10 Minutes (10/01/2016 12:15:Sandra Hall RN) Pattern: Normal: <= 5 Contractions in 10 Minutes (10/01/2016 12:00:Sandra Hall RN) Pattern: Normal: <= 5 Contractions in 10 Minutes (10/01/2016 11:30:Sandra Hall, RN) Pattern: Normal: <= 5 Contractions in 10 Minutes (10/01/2016 11:04:Sandra Hall RN) Resting Tone [place]: Relaxed (10/02/2016 03:00:Socorro True, RN) Resting Tone [place]: Relaxed (10/02/2016 02:30:Socorrokarina Tiwaril, RN) Resting Tone [place]: Relaxed (10/02/2016 02:00:Socorro True, RN) Resting Tone [place]: Relaxed (10/02/2016 01:30:Socorrokarina [place], RN) Resting Tone [place]: Relaxed (10/01/2016 12:15:Sandra Hall RN) Resting Tone [place]: Relaxed (10/01/2016 12:00:Sandra Hall RN) Resting Tone [place]: Relaxed (10/01/2016 11:30:Sandra Hall RN) Resting Tone [place]: Relaxed (10/01/2016 11:04:Sandra Hall RN) Contraction Comments: irritability (10/01/2016 12:15:Sandra Hall RN) Contraction Comments: irritability (10/01/2016 12:00:Sandra Hall RN) Dilatation (cm): 0.0 (10/02/2016 01:05:Socorro Biswas RN) Dilatation (cm): 0.0 (10/01/2016 11:16:Sandra Hall RN) Effacement (%): 50 (10/02/2016 01:05:Socorro Biswas RN) Effacement (%): 50 (10/01/2016 11:16:Sandra Hall RN) Station: -3 (10/02/2016 01:05:Socorro Biswas RN) Station: -2 (10/01/2016 11:16:Sandra Hall RN) Membranes Status: Ruptured (10/02/2016 01:21:Amy Rodríguez RN) Membranes Status: Intact (Annotations: intact per patient) (10/01/2016 11:04:Sandra Hall RN) Membranes Rupture D/ (10/02/2016 01:21:Amy Rodríguez RN) ROM Method: Spontaneous (10/02/2016 01:21:Amy Rodríguez RN) Fern: Positive (10/02/2016 01:21:Socorro Biswas RN) Fern: collected and sent (10/02/2016 01:04:Socorro Biswas RN) Holcomb's Score Dilatation (cm): Closed (10/02/2016 01:05:Socorro Biswas RN) Holcomb's Score Effacement (%): 40-50_ effaced (10/02/2016 01:05:Socorro Biswas RN) Holcomb's Score Station: minus 3 (10/02/2016 01:05:Socorro Biswas RN) Holcomb's Score Consistency: Firm (10/02/2016 01:05:Socorro Biswas RN) Holcomb's Score Position: Posterior (10/02/2016 01:05:Socorro Biswas RN) Total Holcomb's Score: 1 (10/02/2016 01:05:QS system process) Holcomb's Score Text: 0-4 = Unfavorable cervix (10/02/2016 01:05:QS system process) Level of Consciousness: Fully Conscious (10/02/2016 01:05:Socorro Biswas RN) Level of Consciousness: Fully Conscious (10/01/2016 11:04:Sandra Hall RN) DTR's/Clonus: DTRs 2+; No Clonus (10/02/2016 01:05:Socorro Biswas RN) DTR's/Clonus: DTRs 2+; No Clonus (10/01/2016 11:04:Sandra Hall RN) Headache: Denies (10/02/2016 01:05:Socorro Biswas RN) Headache: Denies (10/01/2016 11:04:Sandra Hall RN) Dizziness: No (10/02/2016 01:05:Socorro Biswas RN) Dizziness: No (10/01/2016 11:04:Sandra Hall RN) Blurred Vision: No (10/02/2016 01:05:Socorro Biswas RN) Blurred Vision: No (10/01/2016 11:04:Sandra Hall RN) Extremity Numbness/Tingling : None (10/02/2016 01:05:Socorro Biswas RN) Extremity Numbness/Tingling : None (10/01/2016 11:04:Sandra Hall RN) Extremity Movement: Full Range of Motion (10/02/2016 01:05:Socorro Biswas RN) Extremity Movement: Full Range of Motion (10/01/2016 11:04:Sandra Hall RN) Heart Rhythm: Regular (10/02/2016 01:05:Socorro Biswas RN) Heart Rhythm: Regular (10/01/2016 11:04:Sandra Hall RN) Nailbeds: [place] (10/02/2016 01:05:Socorro Biswas RN) Nailbeds: [place] (10/01/2016 11:04:Sandra Hall RN) Capillary Refill: Less than 3 Seconds (10/02/2016 01:05:Socorro Biswas RN) Capillary Refill: Less than 3 Seconds (10/01/2016 11:04:Sandra Hall RN) Lower Extremities Edema: None (10/02/2016 01:05:Socorro Biswas RN) Lower Extremities Edema: None (10/01/2016 11:04:Sandra Hall RN) Lower Extremities Edema Degree: None (10/02/2016 01:05:Socorro Biswas RN) Lower Extremities Edema Degree: None (10/01/2016 11:04:Sandra Hall RN) Upper Extremities Edema: None (10/02/2016 01:05:Socorro Biswas RN) Upper Extremities Edema: None (10/01/2016 11:04:Sandra Hall RN) Upper Extremities Edema Degree: None (10/02/2016 01:05:Socorro Biswas RN) Upper Extremities Edema Degree: None (10/01/2016 11:04:Sandra Hall RN) Facial Edema: None (10/02/2016 01:05:Socorro Biswas RN) Facial Edema: None (10/01/2016 11:04:Sandra Hall RN) Kamila's Sign Left Leg: Negative (10/01/2016 11:04:Sandra Hall RN) Kamila's Sign Right Leg: Negative (10/01/2016 11:04:Sandra Hall RN) DVT Risk Age: Age less than 41 years (10/01/2016 11:04:Sandra Hall RN) DVT Risk BMI: BMI<31 (10/01/2016 11:04:Sandra Hall RN) DVT Risk Surgery: None Applicable (10/01/2016 11:04:Sandra Hall RN) DVT Risk Other: Women Only- or (<1 month) (10/01/2016 11:04:Sandra Hall RN) DVT Risk Total: 1 (10/01/2016 11:04:QS system process) DVT Risk Text: Low Risk (<10%) No specific measures, early ambulation (10/01/2016 11:04:QS system process) Respiratory Effort: Unlabored (10/02/2016 01:05:Socorro Biswas RN) Respiratory Effort: Unlabored; Regular Rhythm; Equal Expansion (10/01/2016 11:04:Sandra Hall RN) Breath Sounds, Left: Clear and Equal (10/01/2016 11:04:Sandra Hall RN) Breath Sounds, Right: Clear and Equal (10/02/2016 01:05:Socorro Biswas RN) Breath Sounds, Right: Clear and Equal (10/01/2016 11:04:Sandra Hall RN) Cough Productivity: None (10/02/2016 01:05:Socorro Biswas RN) Cough Productivity: None (10/01/2016 11:04:Sandra Hall RN) Nausea/Vomiting: Denies (10/02/2016 01:05:Socorro Biswas RN) Nausea/Vomiting: Denies (10/01/2016 11:04:Sandra Hall RN) Bowel Sounds: Normoactive; All Quadrants (10/02/2016 01:05:Socorro Biswas RN) Bowel Sounds: Normoactive (10/01/2016 11:04:Sandra Hall RN) RUQ Epigastric Pain: Denies (10/02/2016 01:05:Socorro Biswas RN) RUQ Epigastric Pain: Denies (10/01/2016 11:04:Sandra Hall RN) Bowel Patterns: Soft, Formed Stool (10/01/2016 11:04:Sandra Hall RN) Hemorrhoids: None (10/01/2016 11:04:Sandra Hall RN) Diet Type: Regular diet (10/01/2016 11:04:Sandra Hall RN) Last Meal: 10/01/2016 09:00 (10/01/2016 11:04:Sandra Hall RN) Bladder: Nondistended (10/02/2016 01:05:Socorro Biswas RN) Bladder: Nondistended (10/01/2016 11:04:Sandra Hall RN) Frequency of Urination: No (10/02/2016 01:05:Socorro Biswas RN) Frequency of Urination: No (10/01/2016 11:04:Sandra Hall RN) Urination Burning: No (10/02/2016 01:05:Socorro Biswas RN) Urination Burning: No (10/01/2016 11:04:Sandra Hall RN) CVA Tenderness: No (10/02/2016 01:05:Socorro Biswas RN) CVA Tenderness: No (10/01/2016 11:04:Sandra Hall RN) Vaginal Bleeding: None (10/02/2016 01:05:Socorro Biswas RN) Vaginal Bleeding: None (10/01/2016 11:04:Sandra Hall RN) Vaginal Discharge Amount: None noted (10/02/2016 01:05:Socorro Biswas RN) Vaginal Discharge Amount: None (10/01/2016 11:04:Sandra Hall RN) Vaginal Discharge Color: N/A (10/02/2016 01:05:Socorro Biswas RN) Vaginal Discharge Color: N/A (10/01/2016 11:04:Sandra Hall RN) Vaginal Discharge Character: None (10/01/2016 11:04:Sandra Hall RN) Skin Color: Normal for Race (10/02/2016 01:05:Socorro Biswas RN) Skin Color: Normal for Race (10/01/2016 11:04:Sandra Hall RN) Skin Temperature: Warm (10/02/2016 01:05:Socorro Biswas RN) Skin Temperature: Warm (10/01/2016 11:04:Sandra Hall RN) Skin Moisture: Dry (10/02/2016 01:05:Socorro Biswas RN) Skin Moisture: Dry (10/01/2016 11:04:Sandra Hall RN) Abelino Scale Sensory Perception: No Impairment- Responds to verbal commands. Has no sensory deficit which would limit ability to feel or voice pain or discomfort (10/02/2016 01:05:Socorro Biswas RN) Abelino Scale Sensory Perception: No Impairment- Responds to verbal commands. Has no sensory deficit which would limit ability to feel or voice pain or discomfort (10/01/2016 11:04:Sandra Hall RN) Abelino Scale Moisture: Rarely Moist- Skin is usually dry. Linen only requires changing at routine intervals (10/02/2016 01:05:Socorro Biswas RN) Abelino Scale Moisture: Rarely Moist- Skin is usually dry. Linen only requires changing at routine intervals (10/01/2016 11:04:Sandra Hall RN) Abelino Scale Activity: Walks Frequently- Walks outside the room at least twice a day and inside room at least every 2 hours during the day. (10/02/2016 01:05:Socorro Biswas RN) Abelino Scale Activity: Walks Frequently- Walks outside the room at least twice a day and inside room at least every 2 hours during the day. (10/01/2016 11:04:Sandra Hall RN) Abelino Scale Mobility: No Limitations- Makes major and frequent changes in position without assistance (10/02/2016 01:05:Socorro Biswas RN) Abelino Scale Mobility: No Limitations- Makes major and frequent changes in position without assistance (10/01/2016 11:04:Sandra Hall RN) Abelino Scale Nutrition: Excellent- Eats most of every meal. Never refuses a meal. Usually eats a total of 4 or more servings of meat and dairy products. Occasionally eats between meals. Does not require supplementation (10/02/2016 01:05:Socorro Biswas RN) Abelino Scale Nutrition: Excellent- Eats most of every meal. Never refuses a meal. Usually eats a total of 4 or more servings of meat and dairy products. Occasionally eats between meals. Does not require supplementation (10/01/2016 11:04:Sandra Hall RN) Abelino Scale Friction and Shear: No Apparent Problem- Moves in bed and in chair independently and has sufficient muscle strength to lift up completely during move. Maintains good position in bed or chair at all times (10/02/2016 01:05:Socorro Biswas RN) Abelino Scale Friction and Shear: No Apparent Problem- Moves in bed and in chair independently and has sufficient muscle strength to lift up completely during move. Maintains good position in bed or chair at all times (10/01/2016 11:04:Sandra Hall RN) Abelino Scale Total: 23 (10/02/2016 01:05:QS system process) Abelino Scale Total: 23 (10/01/2016 11:04:QS system process) Abelino Scale Risk: No Risk of Pressure Ulcer Noted at this Time (10/02/2016 01:05:QS system process) Abelino Scale Risk: No Risk of Pressure Ulcer Noted at this Time (10/01/2016 11:04:QS system process) Family Support: Significant Other supportive, at bedside frequently (10/01/2016 11:04:Sandra Hall RN) Emotional State: Calm/Relaxed (10/01/2016 11:04:Sandra Hall RN) Call Dom[place]uez Within Reach: Yes (10/02/2016 01:05:Socorro Biswas RN) Call Dominguez Within Reach: Yes (10/01/2016 11:04:Sandra Hall RN) Side Rails Up: Yes (10/02/2016 01:05:Socorro Biswas RN) Side Rails Up: Yes (10/01/2016 11:04:Sandra Hall RN) Bed Wheels Locked: Yes (10/02/2016 01:05:Socorro Biswas RN) Bed Wheels Locked: Yes (10/01/2016 11:04:Sandra Hall RN) Arm Bands Present: Yes (10/02/2016 01:05:Socorro Biswas RN) Arm Bands Present: Yes (10/01/2016 11:04:Sandra Hall RN) Isolation: [place] (10/01/2016 11:04:Sandra Hall RN) Fall Risk History of Falling: (0) No (10/02/2016 01:05:Socorro Biswas RN) Fall Risk History of Falling: (0) No (10/01/2016 11:04:Sandra Hall RN) Fall Risk Secondary Diagnosis: (0) No (10/02/2016 01:05:Socorro Biswas RN) Fall Risk Secondary Diagnosis: (0) No (10/01/2016 11:04:Sandra Hall RN) Fall Risk Ambulatory Aid: (0) None/Bedrest/Wheelchair/Nurse Assist (10/02/2016 01:05:Socorro Biswas RN) Fall Risk Ambulatory Aid: (0) None/Bedrest/Wheelchair/Nurse Assist (10/01/2016 11:04:Sandra Hall RN) Fall Risk IV Therapy: (0) No (10/02/2016 01:05:Socorro Biswas RN) Fall Risk IV Therapy: (0) No (10/01/2016 11:04:Sandra Hall RN) Fall Risk Gait: (0) Normal/Bedrest/Immobile (10/02/2016 01:05:Socorro Biswas RN) Fall Risk Gait: (0) Normal/Bedrest/Immobile (10/01/2016 11:04:Sandra Hall RN) Fall Risk Mental Status: (0) Oriented to Own Ability (10/02/2016 01:05:Socorro Biswas RN) Fall Risk Mental Status: (0) Oriented to Own Ability (10/01/2016 11:04:Sandra Hall RN) Fall Risk Score: 0 (10/02/2016 01:05:QS system process) Fall Risk Score: 0 (10/01/2016 11:04:QS system process) Fall Risk Score Definition: No Risk: No action required (10/02/2016 01:05:QS system process) Fall Risk Score Definition: No Risk: No action required (10/01/2016 11:04:QS system process) Recent Exp Communicable Disease: No (10/01/2016 11:04:Sandra Hall RN) Cough or Fever: No (10/01/2016 11:04:Sandra Hall RN) Foreign Travel Past 10 Days: No (10/01/2016 11:04:Sandra Hall RN) Open Wounds or Sores: No (10/01/2016 11:04:Sadnra Hall RN) Prior Antibiotic Resistance Tx: No (10/01/2016 11:04:Sandra Hall RN) Cultures Obtained: Not Applicable (10/01/2016 11:04:Sandra Hall RN) Isolation Initiated: No (10/01/2016 11:04:Sandra Hall RN) Pt/Family Education: Handwashing Hygiene (10/01/2016 11:04:Sandra Hall RN) FHR Baseline Rate (bpm) Baby A: 135 (10/02/2016 03:00:Socorro Biswas RN) FHR Baseline Rate (bpm) Baby A: 135 (10/02/2016 02:30:Socorro Biswas RN) FHR Baseline Rate (bpm) Baby A: 125 (10/02/2016 02:00:Socorro Biswas RN) FHR Baseline Rate (bpm) Baby A: 130 (10/02/2016 01:30:Socorro Biswas RN) FHR Baseline Rate (bpm) Baby A: 140 (10/01/2016 12:15:Sandra Hall RN) FHR Baseline Rate (bpm) Baby A: 140 (10/01/2016 12:00:Sandra Hall RN) FHR Baseline Rate (bpm) Baby A: 145 (10/01/2016 11:30:Sandra Hall RN) Variability Baby A: Moderate 6-25 bpm (10/02/2016 03:00:Socorro Biswas RN) Variability Baby A: Moderate 6-25 bpm (10/02/2016 02:30:Socorro Biswas RN) Variability Baby A: Moderate 6-25 bpm (10/02/2016 02:00:Socorro Biswas RN) Variability Baby A: Moderate 6-25 bpm (10/02/2016 01:30:Socorro Biswas RN) Variability Baby A: Moderate 6-25 bpm (10/01/2016 12:15:Sandra Hall RN) Variability Baby A: Moderate 6-25 bpm (10/01/2016 12:00:Sandra Hall RN) Variability Baby A: Moderate 6-25 bpm (10/01/2016 11:30:Sandra Hall RN) Accelerations Baby A: 15X15 (10/02/2016 03:00:Socorro Biswas RN) Accelerations Baby A: 15X15 (10/02/2016 02:30:Socorro Biswas RN) Accelerations Baby A: 15X15 (10/02/2016 02:00:Socorro Biswas RN) Accelerations Baby A: 10X10 (10/02/2016 01:30:Socorro Biswas RN) Accelerations Baby A: 15X15 (10/01/2016 12:15:Sandra Hall RN) Accelerations Baby A: 15X15 (10/01/2016 12:00:Sandra Hall RN) Accelerations Baby A: 15X15 (10/01/2016 11:30:Sandra Hall RN) Decelerations Baby A: None (10/02/2016 03:00:Socorro Biswas RN) Decelerations Baby A: None (10/02/2016 02:30:Socorro Biswas RN) Decelerations Baby A: None (10/02/2016 02:00:Socorro Biswas RN) Decelerations Baby A: None (10/02/2016 01:30:Socorro Biswas RN) Decelerations Baby A: None (10/01/2016 12:15:Sandra Hall RN) Decelerations Baby A: None (10/01/2016 12:00:Sandra Hall RN) Decelerations Baby A: None (10/01/2016 11:30:Sandra Hall RN) Assessment Flag: Admission Assessment (10/01/2016 11:04:QS system process)
--- NOTE | 2016-10-02 04:45 | L&D Discharge Summary ---
OB Discharge Summary Datetime Report Generated by CPN: 10/02/2016 04:45 DISCHARGE DIAGNOSIS Diagnosis/Symptoms: False Labor Diagnoses/Symptoms Other: IUP at 39 weeks, not in labor, membranes intact Treatment/Procedures Other: amnisure - negative Gestation: 39.0 Number of Babies in Womb: 1 Parity: 0 DIET/ACTIVITY/RESTRICTIONS Diet: Regular Activity: Normal Activity TEACHING/INSTRUCTIONS/REFERRALS Instructions Given To: patient and patient's Instructions Understood: Patient Verbalized Understanding; Support Person Verbalized Understanding Referrals: None Educational Materials- Other: kick counts, DISCHARGE INFORMATION Discharged AMA: No Discharge Date/Time: 09/27/2016 15:55 Discharged To: Home Discharge Provider Name: Fareed Talbot CNM Accompanied By: Discharge Method: Ambulatory Condition: Stable FOLLOW UP INFORMATION Follow Up With: [facility] Follow Up On: As Scheduled Follow Up Phone Number: [facility] - Comments: Pt verbalizes understanding instructions, s/s to report, when to return to hospital for evaluation, to keep scheduled appointments. No distress noted, ambulates without difficulty, denies complaints. Reactive NST GENERAL INSTR-CALL PROVIDER IF: Contractions: Contractions or cramps become more frequent than 8 in one hour or 4 in 20 minutes; Regular painful contractions every 5 minutes or less for one hour. Time your contractions from the beginning of one to the beginning of the next Pressure: Pressure in your vagina or lower abdomen that may feel like the baby is pushing down Period Like Cramps: Period-like cramps or low dull backache that may come and go Cramps/Diarrhea: Abdominal cramps that may be accompanied by diarrhea Gush of Fluid/Blood: Gush of fluid or blood from your vagina (it is normal to have spotting after vaginal exam or intercourse) Vaginal Discharge: Change in the type or amount of vaginal discharge Decreased Movement: Your baby is not moving as much as usual- 4 movements in 1 hour after drinking and resting on side Temperature: Temperature greater than 100.0(F) orally
--- NOTE | 2016-10-02 04:45 | L&D General Admission ---
General Admit Datetime Report Generated by CPN: 10/02/2016 04:45 INFORMATION Para: 0 (10/01/2016 11:42:Sandra Hall RN) Para: 0 (09/27/2016 15:55:Ellie Galeana RN) Baby, Number in Womb: 1 (10/01/2016 11:42:Sandra Hall RN) Baby, Number in Womb: 1 (09/27/2016 15:55:Ellie Galeana RN) CARE Height (in): 68 (10/02/2016 01:39:QS system process) Height (in): 68 (10/01/2016 11:22:QS system process) Height (in): 68 (09/27/2016 14:48:QS system process) Height (in): 68 (09/12/2016 13:52:QS system process) Height (in): 69 (09/09/2016 12:06:QS system process) ALLERGIES Medication Allergies: No Known Allergies (10/01/2016) (10/01/2016 11:05:QS system process) Medication Allergies: No Known Allergies (09/12/2016) (09/12/2016 13:51:QS system process) Medication Allergies: No Known Allergies (09/09/2016) (09/09/2016 12:05:QS system process) DEMOGRAPHICS Address: [address] [place] [id number] (09/09/2016 11:47:QS system process) Zipcode: [address] (09/09/2016 11:47:QS system process) LABS Hemoglobin: 12.4 (10/02/2016 01:52:QS system process) Hematocrit: 35.4 L (10/02/2016 01:52:QS system process) MCV: 87 (10/02/2016 01:52:QS system process)
--- NOTE | 2016-10-02 04:45 | L&D Flow Sheet ---
LD Flowsheet Datetime Report Generated by CPN: 10/02/2016 04:45 Datetime: 10/02/2016 03:00 Monitor Mode: External (Socorro True, RN) Frequency (min): 4-7 (Socorro True, RN) Quality: Moderate (Socorro True, RN) Duration (sec): 70-120 (Socorro True, RN) Resting Tone (Palpate): Relaxed (Socorro True, RN) Monitor Mode: External US (Socorro True, RN) FHR Baseline Rate : 135 (Socorro True, RN) Variability: Moderate 6-25 bpm (Socorro True, RN) Accelerations: 15X15 (Socorro True, RN) Decelerations: None (Socorro True, RN) Datetime: 10/02/2016 02:50 Medication Comments: nubain 10 mg and phenergan 12.5 mg IV (Socorro True, RN) Datetime: 10/02/2016 02:48 Cervical Ripening Agents: Cervidil (Socorro True, RN) Datetime: 10/02/2016 02:40 I/O Interventions: Up to BR (Socorro True, RN) Datetime: 10/02/2016 02:30 Monitor Mode: External (Socorro True, RN) Frequency (min): 2-6 (Socorro True, RN) Quality: Moderate (Socorro True, RN) Duration (sec): 60-180 (Socorro True, RN) Resting Tone (Palpate): Relaxed (Socorro True, RN) Monitor Mode: External US (Socorro True, RN) FHR Baseline Rate : 135 (Socorro True, RN) Variability: Moderate 6-25 bpm (Socorro True, RN) Accelerations: 15X15 (Socorro True, RN) Decelerations: None (Socorro True, RN) Datetime: 10/02/2016 02:12 I/O Interventions: Up to BR (Socorro True, RN) Datetime: 10/02/2016 02:00 Monitor Mode: External (Socorro True, RN) Frequency (min): 2-6 (Socorro True, RN) Quality: Moderate (Socorro True, RN) Duration (sec): 60-100 (Socorro True, RN) Resting Tone (Palpate): Relaxed (Socorro True, RN) Monitor Mode: External US (Socorro True, RN) FHR Baseline Rate : 125 (Socorro True, RN) Variability: Moderate 6-25 bpm (Socorro True, RN) Accelerations: 15X15 (Socorro True, RN) Decelerations: None (Socorro True, RN) Datetime: 10/02/2016 01:59 IV/Blood Work: IV Started; IV Bolus Started; IV Bolus Given ml @ 300 (Socorro True, RN) Datetime: 10/02/2016 01:56 IV/Blood Work: Labs Drawn (Socorro True, RN) Datetime: 10/02/2016 01:31 Provider Reviewed Strip: Yes (Socorro True, RN) Datetime: 10/02/2016 01:30 Monitor Mode: External (Socorro True, RN) Frequency (min): 2-5 (Socorro True, RN) Quality: Moderate (Socorro True, RN) Duration (sec): 50-120 (Socorro True, RN) Resting Tone (Palpate): Relaxed (Socorro True, RN) Monitor Mode: External US (Socorro True, RN) FHR Baseline Rate : 130 (Socorro True, RN) Variability: Moderate 6-25 bpm (Socorro True, RN) Accelerations: 10X10 (Socorro True, RN) Decelerations: None (Socorro True, RN) Datetime: 10/02/2016 01:21 Membrane Status: Ruptured (Amy Rodríguez RN) Membranes Ruptured Date/Time: 10/01/2016 11:21 (Amy DwyertibBLANCA turner) Membranes Rupture Method: Spontaneous (Amy Rodríguez RN) Fern: Positive (Socorrokarina Biswas RN) Datetime: 10/02/2016 01:20 Communication Comments: Dr Cantu on unit, report given to include pt hx, SVE, positive amnisure/negative fern/THANG 10.2 from 10/01/16 and positive amnisure/positive fern this visit. Orders for nubain 10 mg IV _ phenergan 12.5 mg IV for pain control, cervidil for cervical ripening. POC to include considering ROM from first positive amnisure 10-01-16 at 1121. Pt and state amnisure from 10-01-16 was disregarded by providers d/t SVE using lubricating jelly. (Socorrokarina Biswas, BLANCA) Datetime: 10/02/2016 01:11 NBP Sys/Lizbet/Mean (mmHg): 125 (QS system process) : 76 (QS system process) : 95 (QS system process) Pulse: 86 (QS system process) Respirations: 16 (Socorro True, RN) Temperature (F): 98.0 (Socorro True, RN) Temperature (C): 36.7 (QS system process) Temperature Route: Oral (Socorro True, RN) LaborFlag: Antepartum (QS system process) Datetime: 10/02/2016 01:07 Stage of : Antepartum (Socorro True, RN) Datetime: 10/02/2016 01:05 Frequency (min): q 4 per pt (Socorro Biswas RN) Pain Scale: 4.5 (Socorro Biswas RN) Pain Presence: Intermittent (Socorro Biswas RN) Pain Type: Contraction (Socorro Biswas RN) Pain Location: Abdomen (Socorro Biswas RN) Pain Goal: 2 (Socorro Biswas RN) Pain Relief Measures: Comfort Measures (Socorro Biswas RN) Pain Coping: Breathing Through Contractions (Socorro Biswas RN) Dilatation (cm): 0.0 (Socorro Biswas RN) Effacement (%): 50 (Socorro Biswas RN) Station: -3 (Socorro Biswas RN) Exam by: Janice Biswas RN (Socorro Biswas RN) Vaginal Bleeding: None (Socorro Biswas RN) Cervix, Consistency: Firm (Socorro Biswas RN) Cervix, Position: Posterior (Socorro Biswas RN) Presentation 'A': Unable to Assess (Socorro Biswas RN) Vaginal Exam Comments: Rupture not evident upon SVE or examination of perineum (Socorro Biswas RN) Dilatation (cm): Closed (Socorro Biswas RN) Effacement: 40-50_ effaced (oScorro Biswas RN) Station: minus 3 (Socorro Biswas RN) Consistency: Firm (Socorro Biswas RN) Position: Posterior (Socorro Biswas RN) Total Holcomb's Score: 1 (QS system process) : 0-4 = Unfavorable cervix (QS system process) Level of Consciousness: Fully Conscious (Socorro Biswas RN) DTR's/Clonus: DTRs 2+; No Clonus (Socorro Biswas RN) Headache: Denies (Socorro Biswas RN) Breath Sounds, Right: Clear and Equal (Socorro Biswas RN) Nausea/Vomiting: Denies (Socorro Biswas RN) RUQ Epigastric Pain: Denies (Socorro Biswas RN) LaborFlag: Antepartum (QS system process) Datetime: 10/02/2016 01:04 Fern: collected and sent (Socorro Biswas RN)
--- NOTE | 2016-10-02 06:16 | L&D General Admission ---
General Admit Datetime Report Generated by CPN: 10/02/2016 06:00 INFORMATION Patient Age: 36 (07/16/2016 14:28:QS system process) EDC: 10/08/2016 00:00 (08/25/2016 11:43:Maddy Pierson RN) EDC per Ultrasound: 10/12/2016 00:00 (08/25/2016 11:43:Maddy Pierson RN) LMP: 01/02/2016 00:00 (08/25/2016 11:43:Maddy Pierson RN) : 2 (08/25/2016 11:43:Socorro Biswas RN) Para: 0 (10/01/2016 11:42:Sandra Hall RN) Term: 0 (08/25/2016 11:43:Maddy Pierson RN) : 0 (08/25/2016 11:43:Maddy Pierson RN) Spontaneous Abortions: 0 (08/25/2016 11:43:Maddy Pierson RN) Induced Abortions: 0 (08/25/2016 11:43:Maddy Pierson RN) Livin (08/25/2016 11:43:Maddy Pierson RN) Cesareans: 0 (08/25/2016 11:43:Maddy Pierson RN) VBACs: 0 (08/25/2016 11:43:Maddy Pierson RN) Ectopic: 0 (08/25/2016 11:43:Maddy Pierson RN) Multiple Births: 0 (08/25/2016 11:43:Maddy Pierson RN) Baby, Number in Womb: 1 (10/01/2016 11:42:Sandra Hall RN) 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: [employer] (08/25/2016 11:43:Maddy Pierson RN) Month of 1st Visit: February 2016 (08/25/2016 11:43:Ellie Galeana RN) Adequate Care: Yes (08/25/2016 11:43:Maddy Pierson RN) Prepregnancy Weight (lb): 160 (08/25/2016 11:43:Maddy Pierson RN) Prepregnancy Weight (kg): 72.7 (08/25/2016 11:43:QS system process) Height (in): 68 (10/02/2016 01:39:QS system process) ALLERGIES Medication Allergy: No (08/25/2016 11:43:Maddy Pierson RN) Medication Allergies: No Known Allergies (10/01/2016) (10/01/2016 11:05:QS system process) Latex Allergy: No Latex Allergies (08/25/2016 11:43:Maddy Pierson RN) Food Allergies: None (08/25/2016 11:43:Maddy Pierson RN) Environmental Allergies: None (08/25/2016 11:43:Maddy Pierson RN) COMMUNICATION Primary Language: Greek (08/25/2016 11:43:Maddy Pierson RN) Medical Tx Preferred Language: Greek (08/25/2016 11:43:Maddy Pierson RN) Communication Barrier(s): None (08/25/2016 11:43:Ellie Galeana RN) DEMOGRAPHICS Address: [address] [place] [id number] (09/09/2016 11:47:QS system process) Zipcode: [address] (09/09/2016 11:47:QS system process) Home (07/16/2016 14:28:QS system process) SSN: [id number] (07/16/2016 14:28:QS system process) Next of Kin Name: TOVA RODRIGUEZ (07/16/2016 14:28:QS system process) Next of Kin (07/16/2016 14:28:QS system process) Next of Kin Relationship: SPO (07/16/2016 14:28:QS system process) Date of : 1980 (07/16/2016 14:28:QS system process) Marital Status: (07/16/2016 14:28:QS system process) Sex: Female (07/16/2016 14:28:QS system process) 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 [id number] (08/25/2016 11:43:Maddy Pierson RN) Marijuana: No (08/25/2016 11:43:Maddy Pierson RN) Cocaine: No (08/25/2016 11:43:Maddy Pierson RN) Other Illicit Drugs: No (08/25/2016 11:43:Maddy Pierson RN) VACCINE HISTORY Influenza Vaccine: Yes (08/25/2016 11:43:Maddy Pierson RN) Influenza Date: 07/16/2016 (08/25/2016 11:43:Maddy Pierson RN) Pneumococcal Vaccine: No (08/25/2016 11:43:Maddy Pierson RN) Tetanus Vaccine: Yes (08/25/2016 11:43:Ellie Galeana RN) Tetanus Date: 08/06/2016 (08/25/2016 11:43:Ellie Galeana RN) Tdap Vaccine: Yes (08/25/2016 11:43:Maddy Pierson RN) Tdap Date: 08/06/2016 (08/25/2016 11:43:Maddy Pierson RN) Hepatitis B Vaccine: Yes (08/25/2016 11:43:Maddy Pierson RN) 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: [facility] (08/25/2016 11:43:Socorro Biswas RN) Feeding Preference: Breast (08/25/2016 11:43:Maddy Pierson RN) Benefit of Breast Feed Discussed: Yes (08/25/2016 11:43:Maddy Pierson RN) Circumcision: N/A (08/25/2016 11:43:Maddy Pierson RN) Classes Attended: No (08/25/2016 11:43:Maddy Pierson RN) Tubal Ligation: No (08/25/2016 11:43:Maddy Pierson RN) Tubal Authorization Signed: N/A (08/25/2016 11:43:Maddy Pierson RN) Consent: N/A (08/25/2016 11:43:Maddy Pierson RN) Consent Signed: N/A (08/25/2016 11:43:Maddy Pierson RN) Pain Management Plans: Medications; Epidural (08/25/2016 11:43:Maddy Pierson RN) Plans for Labor and Delivery: None (08/25/2016 11:43:Maddy Pierson RN) Support Person: Tova Rodriguez (08/25/2016 11:43:Maddy Pierson RN) Support Person Relationship: (08/25/2016 11:43:Maddy Pierson RN) Cultural/Spritual Practice: No (08/25/2016 11:43:Maddy Pierson RN) Spir/Cult Dietary Needs: No (08/25/2016 11:43:Maddy Pierson RN) LIVING SITUATION/DISCHARGE PLAN Living Arrangements: House (08/25/2016 11:43:Maddy Pierson RN) Adequate Access to:: Electric; Heat; Refrigeration; Plumbing/Running water; Phone; Transportation (08/25/2016 11:43:Maddy Pierson RN) WIC Program: Yes (08/25/2016 11:43:Maddy Pierson RN) 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 (08/25/2016 11:43:Maddy Pierson RN) Person to Help after Discharge: Braulio (08/25/2016 11:43:Maddy Pierson RN) Currently Using Commun Resources: No (08/25/2016 11:43:Maddy Pierson RN) Outside Agency/Chief Deputy: No (08/25/2016 11:43:Maddy Pierson RN) Car Seat for Discharge: Yes (08/25/2016 11:43:Maddy Pierson RN) Adoption Requested: No (08/25/2016 11:43:Maddy Pierson RN) Pt Contact w/ Post : N/A (08/25/2016 11:43:Maddy Pierson RN) LABS Blood Type: B Positive (08/25/2016 11:43:Renetta Paniagua RN) Antibody Screen: Negative (08/25/2016 11:43:Amy Rodríguez RN) Rho(G) this : Not Applicable (08/25/2016 11:43:Amy Rodrígeuz RN) Hemoglobin: 12.4 (10/02/2016 01:52:QS system process) Hematocrit: 35.4 L (10/02/2016 01:52:QS system process) MCV: 87 (10/02/2016 01:52:QS system process) Group Beta Strep: Negative (08/25/2016 14:25:Amy Rodríguez RN) Gonorrhea: Negative (08/25/2016 11:43:Renetta Paniagua RN) Chlamydia: Negative (08/25/2016 11:43:Renetta Paniagua RN) RPR/VDRL: Nonreactive (08/25/2016 11:43:Renetta Paniagua RN) HIV Results: Negative (08/25/2016 11:43:Amy Rodríguez RN) Hepatitis B: Negative (08/25/2016 11:43:Renetta Paniagua RN) Rubella: Immune (08/25/2016 11:43:Renetta Paniagua RN) OB/PREVIOUS HISTORY LMP: 01/02/2016 00:00 (08/25/2016 11:43:Maddy Pierson RN) Previous Procedures: None (08/25/2016 11:43:Maddy Pierson RN) Current Procedures: Ultrasound (08/25/2016 11:43:Maddy Pierson RN) History of Previous : No (08/25/2016 11:43:Maddy Pierson RN) History of Gestational Diabetes: No (08/25/2016 11:43:Maddy Pierson RN) History of PIH: No (08/25/2016 11:43:Maddy Pierson RN) History of Incompetent Cervix: No (08/25/2016 11:43:Maddy Pierson RN) History of Placenta Previa/Abrup: No (08/25/2016 11:43:Maddy Pierson RN) History of Macrosomia: No (08/25/2016 11:43:Maddy Pierson RN) History of IUGR: No (08/25/2016 11:43:Maddy Pierson RN) History of Hemorrhage: No (08/25/2016 11:43:Maddy Pierson RN) History of Loss/Stillborn: No (08/25/2016 11:43:Maddy Pierson RN) History of : No (08/25/2016 11:43:Maddy Pierson RN) History of D (Rh) Sensitization: No (08/25/2016 11:43:Maddy Pierson RN) History Recurrent Loss/Stillborn: No (08/25/2016 11:43:Maddy Pierson RN) History Depression/PP Depression: No (08/25/2016 11:43:Maddy Pierson RN) History of Uterine Anomaly/JA: No (08/25/2016 11:43:Maddy Pierson RN) History of Infertility: Yes (08/25/2016 11:43:Maddy Pierson RN) History of ART Treatment: No (08/25/2016 11:43:Maddy Pierson RN) History of JA: No (08/25/2016 11:43:Maddy Pierson RN) Comments Obstetrical History: G1 - SAB G2 - current - AMA Infertility r/t uterine fibroids (08/25/2016 11:43:Maddy Pierson RN) MEDICAL HISTORY Med Hx Diabetes: No (08/25/2016 11:43:Maddy Pierson RN) Med Hx Hypertension: No (08/25/2016 11:43:Maddy Pierson RN) Med Hx Heart Disease: Yes (08/25/2016 11:43:Maddy Pierson RN) Med Hx Autoimmune Disorder: No (08/25/2016 11:43:Maddy Pierson RN) Med Hx Kidney Disease/UTI: No (08/25/2016 11:43:Maddy Pierson RN) Med Hx Neurologic/Epilepsy: No (08/25/2016 11:43:Maddy Pierson RN) Med Hx Psychiatric Disorders: No (08/25/2016 11:43:Maddy Pierson RN) Med Hx Hepatitis/Liver Disease: No (08/25/2016 11:43:Maddy Pierson RN) Med Hx Varicosities/Phlebitis: No (08/25/2016 11:43:Maddy Pierson RN) Med Hx Thyroid Dysfunction: No (08/25/2016 11:43:Maddy Pierson RN) Med Hx Trauma/Violence: No (08/25/2016 11:43:Maddy Pierson RN) Med Hx Blood Transfusion: No (08/25/2016 11:43:Maddy Pierson RN) Med Hx Pulmonary (Asthma,TB): No (08/25/2016 11:43:Maddy Pierson RN) Med Hx Breast: No (08/25/2016 11:43:Maddy Pierson RN) Med Hx PARADICHLOROBENZENE TENDER Surgery: No (08/25/2016 11:43:Maddy Pierson RN) Med Hx Hospitalization/Surgery: Yes (08/25/2016 11:43:Maddy Pierson RN) Med Hx Anesthetic Complications: No (08/25/2016 11:43:Maddy Pierson RN) Med Hx Abnormal Pap Smear: No (08/25/2016 11:43:Maddy Pierson, RN) Other Medical Diseases: No (08/25/2016 11:43:Maddy Pierson RN) Med Hx Significant Family Hx: No (08/25/2016 11:43:Maddy Pierson RN) Details of Med/Surg Hx: Hx of PVC - took Ca Channel kellee, stopped for 2014 - Ear surgery for ear drum 2013 - surgical removal of mirena 2001 - right knee surgery (08/25/2016 11:43:Maddy Pierson RN) INFECTIOUS HISTORY Inf Hx Gonorrhea: No (08/25/2016 11:43:Maddy Pierson RN) Inf Hx Chlamydia: No (08/25/2016 11:43:Maddy Pierson RN) Inf Hx Syphilis: No (08/25/2016 11:43:Maddy Pierson RN) Inf Hx HIV/AIDS: No (08/25/2016 11:43:Maddy Pierson RN) Inf Hx Human Papilloma Virus: No (08/25/2016 11:43:Maddy Pierson RN) Inf Hx Pt/Partner Genital Herpes: No (08/25/2016 11:43:Maddy Pierson RN) Inf Hx Tuberculosis/Exposure: No (08/25/2016 11:43:Maddy Pierson RN) Inf Hx Hepatitis B,C: No (08/25/2016 11:43:Maddy Pierson RN) Inf Hx Rash or Viral Illness: No (08/25/2016 11:43:Maddy Pierson RN) GENETIC HISTORY Gen Hx Age >=35 at KIMBER[place]: No (08/25/2016 11:43:Maddy Pierson RN) Gen Hx Thalassemia: No (08/25/2016 11:43:Maddy Pierson RN) Gen Hx Congenital Heart Defect: No (08/25/2016 11:43:Maddy Pierson RN) Gen Hx Neural Tube Defect: No (08/25/2016 11:43:Maddy Pierson RN) Gen Hx Down's Syndrome: No (08/25/2016 11:43:Maddy Pierson RN) Gen Hx Celestino-Sachs: No (08/25/2016 11:43:Maddy Pierson RN) Gen Hx Doug: No (08/25/2016 11:43:Maddy Pierson RN) Gen Hx Familial Dysautonomia: No (08/25/2016 11:43:Maddy Pierson RN) Gen Hx Sickle Cell Disease/Trait: No (08/25/2016 11:43:Maddy Pierson RN) Gen Hx Hemophilia/Blood Disorder: No (08/25/2016 11:43:Maddy Pierson RN) Gen Hx Muscular Dystrophy: No (08/25/2016 11:43:Maddy Pierson RN) Gen Hx Cystic Fibrosis: No (08/25/2016 11:43:Maddy Pierson RN) Gen Hx Huntingtons Chorea: No (08/25/2016 11:43:Maddy Pierson RN) Gen Hx Mental Retardation/Autism: No (08/25/2016 11:43:Maddy Pierson RN) Gen Hx Tested for Fragile X: No (08/25/2016 11:43:Maddy Pierson RN) Gen Hx Other Inher/Chromosomal: No (08/25/2016 11:43:Maddy Pierson RN) Gen Hx Maternal Metabolic DO: No (08/25/2016 11:43:Maddy Pierson RN) Gen Hx Pt Father or FOB Defect: No (08/25/2016 11:43:Maddy Pierson RN) Gen Hx Other Genetic History: No (08/25/2016 11:43:Maddy Pierson RN) Gen Hx Drugs/Meds since LMP: Yes (08/25/2016 11:43:Maddy Pierson RN) Gen Hx Medications: PNV, Prilosec (08/25/2016 11:43:Maddy Pierson RN)
--- NOTE | 2016-10-02 06:16 | L&D Current Admission ---
Current Admit Datetime Report Generated by CPN: 10/02/2016 06:00 ADMISSION INFORMATION Current Admit Date/Time: 10/02/2016 01:43 (10/02/2016 01:30:Socorro Biswas RN) Reason for Admission: Rupture of Membranes (10/02/2016 01:30:Socorro Biswas RN) Chief Complaint: Suspected Rupture of Membranes (10/02/2016 01:30:Socorro Biswas RN) Medications During : Vitamin; Hydroxyzine (Vistaril) (10/02/2016 01:30:Socorro Biswas RN) Meds During -Oth: Prilosec (08/25/2016 15:14:Maddy Pierson RN) EGA per Dates: 39.1 (10/02/2016 01:30:QS system process) EGA per US: 38.4 (10/02/2016 01:30:QS system process) Method of Arrival: Wheelchair (10/02/2016 01:30:Socorro Biswas RN) Admitted From: Home (10/02/2016 01:30:Socorro Biswas RN) Reason for Induction: Premature Rupture of Membranes (10/02/2016 01:30:Socorro Biswas RN) Records Available: Yes (10/02/2016 01:30:Socorro Biswas RN) General Admission Information: Reviewed; Updated; Confirmed (10/02/2016 01:30:Socorro Biswas RN) General Admission Reviewed By: Janice Biswas RN (10/02/2016 01:30:Socorro Biswas RN) BELONGINGS/ADVANCED DIRECTIVES Valuables/Personal Effects: None (08/25/2016 15:14:Maddy Pierson RN) Other Belongings: See [facility] belongings from (10/02/2016 01:30:Socorro Biswas RN) Disposition of Belongings: Kept with Patient (08/25/2016 15:14:Maddy Pierson RN) Advance Direct for Healthcare: No, and Wants No Information (08/25/2016 15:14:Maddy Pierson RN) Durable Power of Bed Laster: No (10/02/2016 01:30:Socorro Biswas RN) Living Will: No (10/02/2016 01:30:Socorro Biswas RN) Organ Donor: No (10/02/2016 01:30:Socorro Biswas RN) Pt Rights Information Given: Yes (10/02/2016 01:30:Socorro Biswas RN) Pt Understands Pt Rights: Yes (10/02/2016 01:30:Socorro Biswas RN) LEARNING ASSESSMENT Knowledge Level: Understands L_D Process (10/02/2016 01:30:Socorro Biswas RN) Barriers to Learning: Emotional State; Pain (10/02/2016 01:30:Socorro Biswas RN) Learning Readiness: Motivated (10/02/2016 01:30:Socorro Biswas RN) Learns Best By: 1 to 1 Instruction (10/02/2016 01:30:Socorro Biswas RN) Learning Needs: Labor and Delivery Process; Pain Management; Symptoms to Report; Treatment Plan; Medication; Diagnosis; Nutrition; Equipment; Care (10/02/2016 01:30:Socorro Biswas RN) DOMESTIC VIOLANCE SCREENING Dom Viol Threatened/Hurt: No (08/25/2016 15:14:Maddy Pierson RN) Hx of Abuse/Neglect past 2yrs: No (08/25/2016 15:14:Maddy Pierson RN) Feel Unsafe Going Home: No (08/25/2016 15:14:Maddy Pierson RN) Addt'l Observ Indicating Abuse: No (08/25/2016 15:14:Maddy Peirson RN) Reason Unable to Complete Screen: No Opportunity to Talk Privately (10/02/2016 01:30:Socorro Biswas RN) Considered Personal Harm/Suicide: No (08/25/2016 15:14:Maddy Pierson RN) NUTRITIONAL/FUNCTIONAL SCREENING Problem with Appetite >5 Days: No (10/02/2016 01:30:Socorro Biswas RN) Chew/Swallow Difficulties: No (10/02/2016 01:30:Socorro Biswas RN) Inappropriate Wt Gain/Loss: No (10/02/2016 01:30:Socorro Biswas RN) Presence Skin Breakdown/Ulcer: No (10/02/2016 01:30:Socorro Biswas RN) Special Diet: No (10/02/2016 01:30:Socorro Biswas RN) Pt Requests It Teacher Visit: No (10/02/2016 01:30:Socorro Biswas RN) Hx of Any of the Following?: N/A (10/02/2016 01:30:Socorro Biswas RN) New Diagnosis of: N/A (10/02/2016 01:30:Socorro Biswas RN) Requires Assist w/Ambulation: No (10/02/2016 01:30:Socorro Biswas RN) Uses Assist Device to Ambulate: No (10/02/2016 01:30:Socorro Biswas RN) Pt Requires Help w/ADL's: No (10/02/2016 01:30:Socorro Biswas RN)
--- NOTE | 2016-10-02 08:00 | L&D Flow Sheet ---
LD Flowsheet Datetime Report Generated by CPN: 10/02/2016 08:00 Datetime: 10/02/2016 07:22 NBP Sys/Lizbet/Mean (mmHg): 144 (QS system process) : 75 (QS system process) : 101 (QS system process) Pulse: 85 (QS system process) LaborFlag: Antepartum (QS system process) Datetime: 10/02/2016 07:15 Additional Nursing Comments: Report to [facility] RN, care relinquished at this time (Annotations: Previous strip charting done in error ) (Socorro True, RN) Datetime: 10/02/2016 07:00 Monitor Mode: External (Socorro True, RN) Frequency (min): 5-7 (Socorro True, RN) Quality: Moderate (Socorro True, RN) Duration (sec): 120-180 (Socorro True, RN) Resting Tone (Palpate): Relaxed (Socorro True, RN) Monitor Mode: External US (Socorro True, RN) FHR Baseline Rate : 135 (Socorro True, RN) Variability: Moderate 6-25 bpm (Socorro True, RN) Accelerations: 15X15 (Socorro True, RN) Decelerations: None (Socorro True, RN) Datetime: 10/02/2016 06:55 IV/Blood Work: IV Infusing per Order; New IV Bag Hung (Socorro True, RN) Datetime: 10/02/2016 06:42 NBP Sys/Lizbet/Mean (mmHg): 123 (QS system process) : 72 (QS system process) : 92 (QS system process) Pulse: 78 (QS system process) Respirations: 15 (Socorro True, RN) Temperature (F): 98.0 (Socorro True, RN) Temperature (C): 36.7 (QS system process) Temperature Route: Oral (Socorro Biswas RN) IV/Blood Work: IV Bolus Started; IV Bolus Given ml @ 300 (Socorro True, RN) LaborFlag: Antepartum (QS system process) Datetime: 10/02/2016 06:30 Monitor Mode: External (Socorro True, RN) Frequency (min): 3-9 (Socorro True, RN) Quality: Moderate (Socorro True, RN) Duration (sec): 60-100 (Socorro True, RN) Resting Tone (Palpate): Relaxed (Socorro True, RN) Monitor Mode: External US (Socorro True, RN) FHR Baseline Rate : 130 (Socorro True, RN) Variability: Moderate 6-25 bpm (Socorro True, RN) Accelerations: 10X10 (Socorro True, RN) Decelerations: None (Socorro True, RN) Datetime: 10/02/2016 06:00 Monitor Mode: External (Socorro True, RN) Frequency (min): 10 (Socorro True, RN) Quality: Moderate (Socorro True, RN) Duration (sec): 60 (Socorro True, RN) Resting Tone (Palpate): Relaxed (Socorro True, RN) Monitor Mode: External US (Socorro True, RN) FHR Baseline Rate : 135 (Socorro True, RN) Variability: Moderate 6-25 bpm (Socorro True, RN) Accelerations: 10X10 (Socorro True, RN) Decelerations: None (Socorro True, RN) Datetime: 10/02/2016 05:52 Monitor Interventions for FHR: Ultrasound Adjusted (Socorro Tiwaril, RN) Pain Assessment Comments: Pt sleeping (Socorro Biswas, RN) Patient Position/Activity: Right Lateral (Socorro Biswas, RN) Communication: RN at Bedside (Socorro Biswas RN) LaborFlag: Antepartum (QS system process) Datetime: 10/02/2016 05:30 Monitor Mode: External (Socorro True, RN) Frequency (min): 8-9 (Socorro True, RN) Quality: Moderate (Socorro True, RN) Duration (sec): 80-90 (Socorro True, RN) Resting Tone (Palpate): Relaxed (Socorro True, RN) Monitor Mode: External US (Socorro True, RN) FHR Baseline Rate : 130 (Socorro True, RN) Variability: Moderate 6-25 bpm (Socorro True, RN) Accelerations: None (Socorro True, RN) Decelerations: None (Socorro True, RN) Datetime: 10/02/2016 05:01 Monitor Mode: External (Socorro True, RN) Frequency (min): 8 (Socorro True, RN) Quality: Moderate (Socorro True, RN) Duration (sec): 90-100 (Socorro True, RN) Resting Tone (Palpate): Relaxed (Socorro True, RN) Monitor Mode: External US (Socorro True, RN) FHR Baseline Rate : 130 (Socorro True, RN) Variability: Moderate 6-25 bpm (Socorro True, RN) Accelerations: None (Socorro True, RN) Decelerations: None (Socorro True, RN) Datetime: 10/02/2016 04:33 I/O Interventions: Up to BR (Socorro True, RN) Datetime: 10/02/2016 04:30 Monitor Mode: External (Socorro True, RN) Frequency (min): 5-7 (Socorro True, RN) Quality: Moderate (Socorro True, RN) Duration (sec): 80-120 (Socorro True, RN) Resting Tone (Palpate): Relaxed (Socorro True, RN) Monitor Mode: External US (Socorro True, RN) FHR Baseline Rate : 135 (Socorro True, RN) Variability: Moderate 6-25 bpm (Socorro True, RN) Accelerations: 10X10 (Socorro True, RN) Decelerations: None (Socorro True, RN) Datetime: 10/02/2016 04:00 Monitor Mode: External (Socorro True, RN) Frequency (min): 4-8 (Socorro True, RN) Quality: Moderate (Socorro True, RN) Duration (sec): 100-240 (Socorro True, RN) Resting Tone (Palpate): Relaxed (Socorro True, RN) Monitor Mode: External US (Socorro True, RN) FHR Baseline Rate : 135 (Socorro True, RN) Variability: Moderate 6-25 bpm (Socorro True, RN) Accelerations: None (Socorro True, RN) Decelerations: None (Socorro True, RN) Datetime: 10/02/2016 03:53 Monitor Interventions for FHR: Ultrasound Adjusted (Socorro True, RN) Communication: RN at Bedside (Socorro True, RN) Datetime: 10/02/2016 03:31 Monitor Mode: External (Socorro True, RN) Frequency (min): 4-7 (Socorro True, RN) Quality: Moderate (Socorro True, RN) Duration (sec): 120-180 (Socorro True, RN) Resting Tone (Palpate): Relaxed (Socorro True, RN) Monitor Mode: External US (Socorro True, RN) FHR Baseline Rate : 135 (Socorro True, RN) Variability: Moderate 6-25 bpm (Socorro True, RN) Accelerations: None (Socorro True, RN) Decelerations: None (Socorro True, RN) Datetime: 10/02/2016 03:30 Pain Assessment Comments: Pt reporting pain control (Socorro True, RN) LaborFlag: Antepartum (QS system process) Datetime: 10/02/2016 03:00 Monitor Mode: External (Socorro True, RN) Frequency (min): 4-7 (Socorro True, RN) Quality: Moderate (Socorro True, RN) Duration (sec): 70-120 (Socorro True, RN) Resting Tone (Palpate): Relaxed (Socorro True, RN) Monitor Mode: External US (Socorro True, RN) FHR Baseline Rate : 135 (Socorro True, RN) Variability: Moderate 6-25 bpm (Socorro True, RN) Accelerations: 15X15 (Socorro True, RN) Decelerations: None (Socorro True, RN) Datetime: 10/02/2016 02:50 Medication Comments: nubain 10 mg and phenergan 12.5 mg IV (Socorro True, RN) Datetime: 10/02/2016 02:48 Cervical Ripening Agents: Cervidil (Socorro True, RN) Datetime: 10/02/2016 02:40 I/O Interventions: Up to BR (Socorro True, RN) Datetime: 10/02/2016 02:30 Monitor Mode: External (Socorro True, RN) Frequency (min): 2-6 (Socorro True, RN) Quality: Moderate (Socorro True, RN) Duration (sec): 60-180 (Socorro True, RN) Resting Tone (Palpate): Relaxed (Socorro True, RN) Monitor Mode: External US (Socorro True, RN) FHR Baseline Rate : 135 (Socorro True, RN) Variability: Moderate 6-25 bpm (Socorro True, RN) Accelerations: 15X15 (Socorro True, RN) Decelerations: None (Socorro True, RN) Datetime: 10/02/2016 02:12 I/O Interventions: Up to BR (Socorro True, RN) Datetime: 10/02/2016 02:00 Monitor Mode: External (Socorro True, RN) Frequency (min): 2-6 (Socorro True, RN) Quality: Moderate (Socorro True, RN) Duration (sec): 60-100 (Socorro True, RN) Resting Tone (Palpate): Relaxed (Socorro True, RN) Monitor Mode: External US (Socorro True, RN) FHR Baseline Rate : 125 (Socorro True, RN) Variability: Moderate 6-25 bpm (Socorro True, RN) Accelerations: 15X15 (Socorro True, RN) Decelerations: None (Socorro True, RN) Datetime: 10/02/2016 01:59 IV/Blood Work: IV Started; IV Bolus Started; IV Bolus Given ml @ 300 (Socorro True, RN) Datetime: 10/02/2016 01:56 IV/Blood Work: Labs Drawn (Socorro True, RN) Datetime: 10/02/2016 01:31 Provider Reviewed Strip: Yes (Socorro True, RN) Datetime: 10/02/2016 01:30 Monitor Mode: External (Socorro True, RN) Frequency (min): 2-5 (Socorro True, RN) Quality: Moderate (Socorro True, RN) Duration (sec): 50-120 (Socorro True, RN) Resting Tone (Palpate): Relaxed (Socorro True, RN) Monitor Mode: External US (Socorro True, RN) FHR Baseline Rate : 130 (Socorro True, RN) Variability: Moderate 6-25 bpm (Socorro True, RN) Accelerations: 10X10 (Socorro True, RN) Decelerations: None (Socorro True, RN) Datetime: 10/02/2016 01:21 Membrane Status: Ruptured (Amy Rodríguez, BLANCA) Membranes Ruptured Date/Time: 10/01/2016 11:21 (Amy Rodríguez, RN) Membranes Rupture Method: Spontaneous (Amy Rodríguez, RN) Fern: Positive (Socorro Biswas, BLANCA) Datetime: 10/02/2016 01:20 Communication Comments: Dr Cantu on unit, report given to include pt hx, SVE, positive amnisure/negative fern/THANG 10.2 from 10/01/16 and positive amnisure/positive fern this visit. Orders for nubain 10 mg IV _ phenergan 12.5 mg IV for pain control, cervidil for cervical ripening. POC to include considering ROM from first positive amnisure 10-01-16 at 1121. Pt and state amnisure from 10-01-16 was disregarded by providers d/t SVE using lubricating jelly. (Socorro Biswas, RN) Datetime: 10/02/2016 01:11 NBP Sys/Lizbet/Mean (mmHg): 125 (QS system process) : 76 (QS system process) : 95 (QS system process) Pulse: 86 (QS system process) Respirations: 16 (Socorro True, RN) Temperature (F): 98.0 (Socorro True, RN) Temperature (C): 36.7 (QS system process) Temperature Route: Oral (Socorro True, RN) LaborFlag: Antepartum (QS system process) Datetime: 10/02/2016 01:07 Stage of : Antepartum (Socorro True, RN) Datetime: 10/02/2016 01:05 Frequency (min): q 4 per pt (Socorro True, RN) Pain Scale: 4.5 (Socorro True, RN) Pain Presence: Intermittent (Socorro True, RN) Pain Type: Contraction (Socorro True, RN) Pain Location: Abdomen (Socorro Biswas RN) Pain Goal: 2 (Socorro Biswas RN) Pain Relief Measures: Comfort Measures (Socorro Biswas RN) Pain Coping: Breathing Through Contractions (Socorro Biswas RN) Dilatation (cm): 0.0 (Socorro Biswas RN) Effacement (%): 50 (Socorro Biswas RN) Station: -3 (Socorro Biswas RN) Exam by: Janice Biswas RN (Socorro Biswas RN) Vaginal Bleeding: None (Socorro Biswas RN) Cervix, Consistency: Firm (Socorro Biswas RN) Cervix, Position: Posterior (Socorro Biswas RN) Presentation 'A': Unable to Assess (Socorro Biswas RN) Vaginal Exam Comments: Rupture not evident upon SVE or examination of perineum (Socorro Biswas RN) Dilatation (cm): Closed (Socorro Biswas RN) Effacement: 40-50_ effaced (Socorro Biswas RN) Station: minus 3 (Socorro Biswas RN) Consistency: Firm (Socorro Biswas RN) Position: Posterior (Socorro Biswas RN) Total Holcomb's Score: 1 (QS system process) : 0-4 = Unfavorable cervix (QS system process) Level of Consciousness: Fully Conscious (Socorro Biswas RN) DTR's/Clonus: DTRs 2+; No Clonus (Socorro Biswas RN) Headache: Denies (Socorro Biswas RN) Breath Sounds, Left: Clear and Equal (Socorro Biswas RN) Breath Sounds, Right: Clear and Equal (Socorro Biswas RN) Nausea/Vomiting: Denies (Socorro Biswas RN) RUQ Epigastric Pain: Denies (Socorro Biswas RN) Patient Position/Activity: Right Tilt (Socorro Biswas RN) Comfort Measures: Family Support (Socorro Biswas RN) Instructional Method: Verbal; Patient Instructed; Family/Support Person Instructed; Verbalized Understanding (Socorro Biswas RN) Plan of Care: Plan of Care Discussed (Socorro Biswas RN) LaborFlag: Antepartum (QS system process) Datetime: 10/02/2016 01:04 Fern: collected and sent (Socorro Biswas RN)
--- NOTE | 2016-10-02 12:00 | L&D Flow Sheet ---
LD Flowsheet Datetime Report Generated by CPN: 10/02/2016 12:00 Datetime: 10/02/2016 11:30 Stage of : Antepartum (Bhavya Reynolds RN) Respirations: 18 (Bhavya Reynolds RN) Monitor Mode: External (Bhavya Reynolds RN) Monitor Interventions for UA: [place] Adjusted (Bhavya Reynolds RN) Frequency (min): 4-6 (Bhavya Reynolds RN) Quality: Mild/Moderate (Bhavya Reynolds RN) Resting Tone (Palpate): Relaxed (Bhavya Reynolds RN) Monitor Mode: External US (Bhavya Reynolds RN) FHR Baseline Changes: No Baseline Change (Bhavya Reynolds RN) Variability: Moderate 6-25 bpm (Bhavya Reynolds RN) Accelerations: 10X10 (Bhavya Reynolds RN) Decelerations: None (Bhavya Reynolds RN) Pain Scale: 1 (Bhavya Reynolds RN) Pain Presence: Intermittent (Bhavya Reynolds RN) Pain Type: Cramping (Bhavya Reynolds RN) Pain Location: Abdomen (Bhavya Reynolds RN) Pain Relief Measures: Comfort Measures (Bhavya Reynolds RN) Pain Coping: Talking Through Contractions (Bhavya Reynolds RN) IV/Blood Work: IV Infusing per Order (Bhavya Reynolds RN) Patient Position/Activity: Left Lateral; Low Fowlers (Bhavya Reynolds RN) Comfort Measures: Family Support (Bhavya Reynolds RN) Communication: RN at Bedside; RN Reviewed Strip (Bhavya Reynolds RN) LaborFlag: Antepartum (QS system process) Datetime: 10/02/2016 11:22 NBP Sys/Lizbet/Mean (mmHg): 134 (QS system process) : 63 (QS system process) : 91 (QS system process) Pulse: 82 (QS system process) LaborFlag: Antepartum (QS system process) Datetime: 10/02/2016 11:02 Stage of : Antepartum (Bhavya Reynolds, RN) Respirations: 18 (Bhavya Reynolds, RN) Monitor Mode: External (Bhavya Reynolds, BLANCA) Monitor Interventions for UA: [place] Adjusted (Bhavya Reynolds, RN) Frequency (min): IRREG (Bhavya Reynolds, RN) Quality: Mild/Moderate (Bhavya Reynolds RN) Duration (sec): 40-90 (Bhavya Reynolds, RN) Resting Tone (Palpate): Relaxed (Bhavya Reynolds, BLANCA) Monitor Mode: External US (Bhavya Reynolds, BLANCA) Monitor Interventions for FHR: Ultrasound Adjusted (Bhavya Reynolds RN) FHR Baseline Rate : 145 (Bhavya Reynolds, BLANCA) FHR Baseline Changes: No Baseline Change (Bhavya Reynolds, BLANCA) Variability: Moderate 6-25 bpm (Bhavya Reynolds, BLANCA) Accelerations: 15X15 (Bhavya Reynolds, RN) Decelerations: None (Bhavya Reynolds, BLANCA) Pain Scale: 1 (Bhavya Reynolds, BLANCA) Pain Presence: Intermittent (Bhavya Reynolds, BLANCA) Pain Type: Cramping (Bhavya Reynolds, RN) Pain Location: Abdomen (Bhavya Reynolds, RN) Pain Relief Measures: Comfort Measures (Bhavya Reynolds, BLANCA) Pain Coping: Talking Through Contractions (Bhavya Reynolds, RN) IV/Blood Work: IV Infusing per Order (Bhavya Reynolds, RN) Patient Position/Activity: Left Tilt; Semi-Fowlers (Bhavya Reynolds, RN) Comfort Measures: Rocking Chair; Family Support (Bhavya Reynolds, RN) Hygiene: Underpad Changed; Peripad Changed (Bhavya Reynolds, RN) I/O Interventions: Up to BR (Bhavya Reynolds, RN) Instructional Method: Verbal; Patient Instructed; Verbalized Understanding (Bhavya Reynolds, BLANCA) Plan of Care: Plan of Care Discussed (Bhavya Reynolds RN) Pain Management: Comfort Measures (Bhavya Reynolds, BLANCA) Communication: RN at Bedside; RN Reviewed Strip (Bhavya Reynolds RN) LaborFlag: Antepartum (QS system process) Datetime: 10/02/2016 10:30 Stage of : Antepartum (Bhavya Reynolds RN) Respirations: 18 (Bhavya Reynolds RN) Monitor Mode: External (Bhavya Reynolds RN) Frequency (min): 4-9 (Bhavya Reynolds RN) Quality: Mild/Moderate (Bhavya Reynolds RN) Duration (sec): 100-180 (Bhavya Reynolds, BLANCA) Resting Tone (Palpate): Relaxed (Bhavya Reynolds RN) Monitor Mode: External US (Bhavya Reynolds RN) FHR Baseline Rate : 130 (Bhavya Reynolds RN) FHR Baseline Changes: No Baseline Change (Bhavya Reynolds RN) Variability: Moderate 6-25 bpm (Bhavya Reynolds, RN) Accelerations: 15X15 (Bhavya Reynolds, RN) Decelerations: None (Bhavya Reynolds, BLANCA) Pain Relief Measures: Comfort Measures (Bhavya Reynolds RN) Pain Coping: Talking Through Contractions (Bhavya Reynolds, BLANCA) IV/Blood Work: IV Infusing per Order (Bhavya Reynolds, BLANCA) Patient Position/Activity: Right Tilt; Semi-Fowlers (Bhavya Reynolds, RN) Comfort Measures: Family Support (Bhavya Reynolds RN) Communication: RN at Bedside; RN Reviewed Strip (Bhavya Reynolds RN) LaborFlag: Antepartum (QS system process) Datetime: 10/02/2016 10:16 Stage of : Antepartum (Bhavya Reynolds RN) Monitor Interventions for FHR: Ultrasound Adjusted (Bhavya Reynolds RN) Pain Scale: 1 (Bhavya Reynolds RN) Pain Presence: Intermittent (Bhavya Reynolds, BLANCA) Pain Type: Cramping (Bhavya Reynolds, BLANCA) Pain Location: Abdomen (Bhavya Reynolds, RN) Pain Relief Measures: Comfort Measures (Bhavya Reynolds RN) Pain Coping: Talking Through Contractions (Bhavya Reynolds, BLANCA) Comfort Measures: Family Support (Bhavya Reynolds, BLANCA) Provider Reviewed Strip: Yes (Bhavya Reynolds RN) Instructional Method: Verbal; Patient Instructed; Family/Support Person Instructed; Verbalized Understanding (Bhavya Reynolds, BLANCA) Plan of Care: Plan of Care Discussed; Labor (Bhavya Reynolds, RN) Labor/Induction: Cervical Ripening (Bhavya Reynolds, BLANCA) Pain Management: Comfort Measures (Bhavya Reynolds, BLANCA) Medications: Cervical Ripening; Pitocin (Bhavya Reynolds, RN) Communication: RN at Bedside; RN Reviewed Strip; Provider at Bedside (Bhavya Reynolds RN) LaborFlag: Antepartum (QS system process) Datetime: 10/02/2016 10:02 Stage of : Antepartum (Bhavya Reynolds, RN) Respirations: 18 (Bhavya Reynolds, RN) Monitor Mode: External (Bhavya Reynolds, RN) Monitor Interventions for UA: [place] Adjusted (Bhavya Reynolds, RN) Frequency (min): 5-7 (Bhavya Reynolds, RN) Quality: Mild (Bhavya Reynolds, RN) Duration (sec): 60-120 (Bhavya Reynolds, RN) Resting Tone (Palpate): Relaxed (Bhavya Reynolds, RN) Monitor Mode: External US (Bhavya Reynolds, RN) Monitor Interventions for FHR: Ultrasound Adjusted (Bhavya Reynolds, BLANCA) FHR Baseline Rate : 145 (Bhavya Reynolds, RN) FHR Baseline Changes: No Baseline Change (Bhavya Reynolds, RN) Variability: Moderate 6-25 bpm (Bhavya Reynolds, RN) Accelerations: 15X15 (Bhavya Reynolds, RN) Decelerations: None (Bhavya Reynolds, RN) Pain Relief Measures: Comfort Measures (Bhavya Reynolds, BLANCA) Pain Coping: Talking Through Contractions (Bhavya Reynolds, BLANCA) IV/Blood Work: IV Infusing per Order (Bhavya Reynolds, BLANCA) Patient Position/Activity: Right Tilt; Semi-Fowlers (Bhavya Reynolds, RN) Comfort Measures: Family Support (Bhavya Reynolds, RN) Communication: RN at Bedside; RN Reviewed Strip (Bhavya Reynolds, BLANCA) LaborFlag: Antepartum (QS system process) Datetime: 10/02/2016 09:42 Monitor Interventions for UA: [place] Adjusted (Bhavya Reynolds RN) Monitor Interventions for FHR: Ultrasound Adjusted (Bhavya Reynolds RN) I/O Interventions: Up to BR (Bhavya Reynolds RN) Datetime: 10/02/2016 09:30 Stage of : Antepartum (Bhavya Reynolds RN) Respirations: 16 (Bhavya Reynolds RN) Temperature (F): 98.4 (Bhavya Reynolds RN) Temperature (C): 36.9 (QS system process) Monitor Mode: External (Bhavya Reynolds RN) Frequency (min): 5-7 (Bhavya Reynolds RN) Quality: Mild (Bhavya Reynolds RN) Duration (sec): 90-240 (Bhavya Reynolds RN) Resting Tone (Palpate): Relaxed (Bhavya Marian Roulund, RN) Monitor Mode: External US (Bhavya Reynolds, LBANCA) Monitor Interventions for FHR: Ultrasound Adjusted (Bhavya Reynolds, RN) FHR Baseline Rate : 130 (Bhavya Reynolds, BLANCA) FHR Baseline Changes: No Baseline Change (Bhavya Reynolds RN) Variability: Moderate 6-25 bpm (Bhavya Reynolds, RN) Accelerations: 15X15 (Bhavya Reynolds, RN) Decelerations: None (Bhavya Reynolds, RN) Pain Relief Measures: Comfort Measures (Bhavya Reynolds, BLANCA) Pain Coping: Talking Through Contractions (Bhavya Reynolds, RN) IV/Blood Work: IV Infusing per Order (Bhavya Reynolds, BLANCA) Patient Position/Activity: Right Tilt; Semi-Fowlers (Bhavya Reynolds, BLANCA) Communication: RN at Bedside; RN Reviewed Strip (Bhavya Reynolds, BLANCA) LaborFlag: Antepartum (QS system process) Datetime: 10/02/2016 09:23 NBP Sys/Lizbet/Mean (mmHg): 132 (QS system process) : 74 (QS system process) : 97 (QS system process) Pulse: 93 (QS system process) LaborFlag: Antepartum (QS system process) Datetime: 10/02/2016 09:02 Stage of : Antepartum (Bhavya Reynolds RN) Respirations: 16 (Bhavya Reynolds, BLANCA) Monitor Mode: External (Bhavya Reynolds, RN) Monitor Interventions for UA: [place] Adjusted (Bhavya Reynolds, BLANCA) Frequency (min): irreg (Bhavya Reynolds, RN) Quality: Mild (Bhavya Reynolds, RN) Duration (sec): 90-180 (Bhavya Reynolds, BLANCA) Resting Tone (Palpate): Relaxed (Bhavya Reynolds, BLANCA) Monitor Mode: External US (Bhavya Reynolds, BLANCA) Monitor Interventions for FHR: Ultrasound Adjusted (Bhavya Reynolds RN) FHR Baseline Rate : 130 (Bhayva Reynolds RN) FHR Baseline Changes: No Baseline Change (Bhavya Reynolds, BLANCA) Variability: Moderate 6-25 bpm (Bhavya Reynolds, BLANCA) Accelerations: 10X10 (Bhavya Reynolds, BLANCA) Decelerations: None (Bhavya Reynolds, BLANCA) Pain Relief Measures: Comfort Measures (Bhavya Reynolds RN) Pain Coping: Talking Through Contractions (Bhavya Reynolds, BLANCA) Patient Position/Activity: Left Tilt; Semi-Fowlers (Bhavya Reynolds, BLANCA) Communication: RN at Bedside; RN Reviewed Strip (Bhavya Reynolds RN) LaborFlag: Antepartum (QS system process) Datetime: 10/02/2016 08:35 Stage of : Antepartum (Bhavya Reynolds RN) Monitor Interventions for UA: [place] Adjusted (Bhavya Reynolds RN) Monitor Interventions for FHR: Ultrasound Adjusted (Bhavya Reynolds RN) I/O Interventions: Up to BR (Bhavya Reynolds RN) Communication: RN at Bedside; RN Reviewed Strip (Bhavya Reynolds RN) Datetime: 10/02/2016 08:30 Stage of : Antepartum (Bhavya Reynolds RN) Respirations: 18 (Bhavya Reynolds RN) Monitor Mode: External (Bhavya Reynolds RN) Frequency (min): IRREG (Bhavya Reynolds RN) Quality: Mild (Bhavya Reynolds RN) Duration (sec): 60-100 (Bhavya Reynolds RN) Resting Tone (Palpate): Relaxed (Bhavya Reynodls RN) Monitor Mode: External US (Bhavya Reynolds RN) FHR Baseline Rate : 135 (Bhavya Reynolds RN) FHR Baseline Changes: No Baseline Change (Bhavya Reynolds RN) Variability: Moderate 6-25 bpm (Bhavya Reynolds RN) Accelerations: 15X15 (Bhavya Reynolds RN) Decelerations: None (Bhavya Reynolds RN) Pain Presence: None/Denies (Bhavya Reynolds RN) Pain Type: N/A (Bhavya Reynolds RN) Pain Relief Measures: Comfort Measures (Bhavya Reynolds RN) Pain Coping: Talking Through Contractions (Bhayva Reynolds RN) Communication: RN at Bedside; RN Reviewed Strip (Bhavya Reynolds RN) LaborFlag: Antepartum (QS system process) Datetime: 10/02/2016 08:22 NBP Sys/Lizbet/Mean (mmHg): 103 (QS system process) : 59 (QS system process) : 76 (QS system process) Pulse: 73 (QS system process) LaborFlag: Antepartum (QS system process) Datetime: 10/02/2016 08:02 Stage of : Antepartum (Bhavya Reynolds RN) Respirations: 16 (Bhavya Reynolds RN) Monitor Mode: External (Bhavya Reynolds RN) Frequency (min): IRREG (Bhavya Reynolds RN) Quality: Mild (Bhavya Reynolds RN) Duration (sec): 60-120 (Bhavya Reynolds RN) Resting Tone (Palpate): Relaxed (Bhavya Reynolds RN) Monitor Mode: External US (Bhavya Reynolds RN) FHR Baseline Rate : 130 (Bhavya Reynolds RN) FHR Baseline Changes: No Baseline Change (Bhavya Reynolds RN) Variability: Moderate 6-25 bpm (Bhavya Reynolds RN) Accelerations: 15X15 (Bhavya Reynolds RN) Decelerations: None (Bhavya Reynolds RN) Pain Relief Measures: Comfort Measures (Bhavya Reynolds RN) Pain Coping: Talking Through Contractions (Bhavya Reynolds RN) Communication: RN Reviewed Strip (Bhavya Reynolds RN) LaborFlag: Antepartum (QS system process) Datetime: 10/02/2016 08:00 Communication Comments: Report to Cr Reynolds RN, care relinquished at this time. (Oscar Ace RN)
[2016-10-02] MEDS ORDERED: OXYTOCIN/NORMAL SALINE 1,000 ML IV PRN (13:48)
[2016-10-02] MEDS ORDERED: OXYTOCIN/NORMAL SALINE 20 UNIT/1,000 ML RTUINJ ONE (13:51)
[2016-10-02] MEDS ORDERED: FENTANYL CITRATE INJ/PF 100 MCG/2 ML AMPUL ONE (14:24)
[2016-10-02] MEDS ORDERED: EPHEDRINE SULFATE INJ 50 MG/1 ML AMPULE ONE (14:24)
[2016-10-02] MEDS ORDERED: PHENYLEPHRINE HCL INJ/PF 10 MG/1 ML SDV ONE (14:24)
[2016-10-02] MEDS ORDERED: FENTANYL/BUPIVACAINE/NS/PF 200 MCG/100 ML RTUINJ EPI ONE (14:24)
[2016-10-02] MEDS ORDERED: BUPIVACAINE HCL 0.25 % INJ/PF (2.5 MG/1 ML) 30 ML VIAL ONE (14:25)
[2016-10-02] MEDS ORDERED: LIDOCAINE 1% INJ-PF (10 MG/ML) 30 ML SDV ONE ×2 (15:12→17:28)
--- NOTE | 2016-10-02 16:00 | L&D Flow Sheet ---
LD Flowsheet Datetime Report Generated by CPN: 10/02/2016 16:00 Datetime: 10/02/2016 15:58 NBP Sys/Lizbet/Mean (mmHg): 130 (QS system process) : 56 (QS system process) : 87 (QS system process) Pulse: 81 (QS system process) LaborFlag: Antepartum (QS system process) Datetime: 10/02/2016 15:57 NBP Sys/Lizbet/Mean (mmHg): 133 (QS system process) : 63 (QS system process) : 90 (QS system process) Pulse: 75 (QS system process) LaborFlag: Antepartum (QS system process) Datetime: 10/02/2016 15:55 NBP Sys/Lizbet/Mean (mmHg): 137 (QS system process) : 63 (QS system process) : 91 (QS system process) Pulse: 76 (QS system process) LaborFlag: Antepartum (QS system process) Datetime: 10/02/2016 15:52 NBP Sys/Lizbet/Mean (mmHg): 129 (QS system process) : 61 (QS system process) : 88 (QS system process) Pulse: 70 (QS system process) LaborFlag: Antepartum (QS system process) Datetime: 10/02/2016 15:50 NBP Sys/Lizbet/Mean (mmHg): 123 (QS system process) : 58 (QS system process) : 83 (QS system process) Pulse: 75 (QS system process) LaborFlag: Antepartum (QS system process) Datetime: 10/02/2016 15:49 NBP Sys/Lizbet/Mean (mmHg): 129 (QS system process) : 59 (QS system process) : 85 (QS system process) Pulse: 73 (QS system process) LaborFlag: Antepartum (QS system process) Datetime: 10/02/2016 15:46 NBP Sys/Lizbet/Mean (mmHg): 126 (QS system process) : 60 (QS system process) : 86 (QS system process) Pulse: 68 (QS system process) LaborFlag: Antepartum (QS system process) Datetime: 10/02/2016 15:45 NBP Sys/Lizbet/Mean (mmHg): 128 (QS system process) : 59 (QS system process) : 87 (QS system process) Pulse: 71 (QS system process) Monitor Mode: External; Palpation (Ruthann Vitrano, RN) Frequency (min): 1.5-5 (Ruthann Vitrano, RN) Quality: Moderate to Strong (Ruthann Vitrano, RN) Duration (sec): 50-100 (Ruthann Vitrano, RN) Duration Criteria: Less than Two 120 Second Contractions (Ruthann Vitrano, RN) Pattern: Normal: <= 5 Contractions in 10 Minutes (Ruthann Vitrano, RN) Resting Tone (Palpate): Relaxed (Ruthann Vitrano, RN) Monitor Mode: External US (Ruthann Vitrano, RN) FHR Baseline Rate : 150 (Ruthann Vitrano, RN) Variability: Moderate 6-25 bpm (Ruthann Vitrano, RN) Accelerations: None (Ruthann Vitrano, RN) Decelerations: Late; Variable (Ruthann Vitrano, RN) LaborFlag: Antepartum (QS system process) Datetime: 10/02/2016 15:44 NBP Sys/Lizbet/Mean (mmHg): 121 (QS system process) : 60 (QS system process) : 86 (QS system process) Pulse: 68 (QS system process) Monitor Interventions for UA: Roseto Adjusted (Ruthann Sarabia RN) LaborFlag: Antepartum (QS system process) Datetime: 10/02/2016 15:43 NBP Sys/Lizbet/Mean (mmHg): 126 (QS system process) : 59 (QS system process) : 84 (QS system process) Pulse: 66 (QS system process) IV/Blood Work: New IV Bag Hung (Ruthann Sarabia RN) Patient Care Comments: Continued at bolus rate (Ruthann Sarabia RN) LaborFlag: Antepartum (QS system process) Datetime: 10/02/2016 15:42 NBP Sys/Lizbet/Mean (mmHg): 129 (QS system process) : 66 (QS system process) : 91 (QS system process) Pulse: 70 (QS system process) LaborFlag: Antepartum (QS system process) Datetime: 10/02/2016 15:41 NBP Sys/Lizbet/Mean (mmHg): 140 (QS system process) : 70 (QS system process) : 96 (QS system process) Pulse: 65 (QS system process) LaborFlag: Antepartum (QS system process) Datetime: 10/02/2016 15:40 NBP Sys/Lizbet/Mean (mmHg): 111 (QS system process) : 61 (QS system process) : 71 (QS system process) Pulse: 73 (QS system process) Oxygen Amount : 10 (Ruthann Vitrano, RN) Oxygen Method: Non-Rebreather (Ruthann Vitrano, RN) LaborFlag: Antepartum (QS system process) Datetime: 10/02/2016 15:39 Exam by: RGabe Sarabia RN (Ruthann Vitrano, RN) Vaginal Exam Comments: Unchanged (Ruthann Vitrano, RN) Datetime: 10/02/2016 15:38 NBP Sys/Lizbet/Mean (mmHg): 113 (QS system process) : 64 (QS system process) : 82 (QS system process) Pulse: 67 (QS system process) Pitocin (milliunit): Pitocin Discontinued (Ruthann Cornell, RN) Medication Comments: Ephedrine 5 mg IV (Ruthann Cornell, RN) Patient Position/Activity: Left Lateral (Ruthannstu Sarabia, RN) Anesthesia Interventions Other: Ephedrine (Ruthann Harvinderano, RN) LaborFlag: Antepartum (QS system process) Datetime: 10/02/2016 15:37 NBP Sys/Lizbet/Mean (mmHg): 110 (QS system process) : 56 (QS system process) : 77 (QS system process) Pulse: 78 (QS system process) LaborFlag: Antepartum (QS system process) Datetime: 10/02/2016 15:36 NBP Sys/Lizbet/Mean (mmHg): 109 (QS system process) : 56 (QS system process) : 78 (QS system process) Pulse: 75 (QS system process) Medication Comments: Ephedrine 5 mg IB (Ruthann Harvinderano RN) Anesthesia Interventions Other: Ephedrine (Ruthann Vitrano, RN) LaborFlag: Antepartum (QS system process) Datetime: 10/02/2016 15:35 NBP Sys/Lizbet/Mean (mmHg): 102 (QS system process) : 53 (QS system process) : 73 (QS system process) Pulse: 75 (QS system process) Patient Position/Activity: Right Lateral (Ruthann Vitrano, RN) LaborFlag: Antepartum (QS system process) Datetime: 10/02/2016 15:34 NBP Sys/Lizbet/Mean (mmHg): 131 (QS system process) : 62 (QS system process) : 89 (QS system process) Pulse: 72 (QS system process) LaborFlag: Antepartum (QS system process) Datetime: 10/02/2016 15:33 NBP Sys/Lizbet/Mean (mmHg): 147 (QS system process) : 63 (QS system process) : 91 (QS system process) Pulse: 79 (QS system process) LaborFlag: Antepartum (QS system process) Datetime: 10/02/2016 15:32 Patient Position/Activity: Left Lateral (Ruthann Vitrano, RN) Datetime: 10/02/2016 15:31 NBP Sys/Lizbet/Mean (mmHg): 132 (QS system process) : 66 (QS system process) : 91 (QS system process) Pulse: 72 (QS system process) LaborFlag: Antepartum (QS system process) Datetime: 10/02/2016 15:30 NBP Sys/Lizbet/Mean (mmHg): 138 (QS system process) : 68 (QS system process) : 95 (QS system process) Pulse: 77 (QS system process) Monitor Mode: External (Ruthann Vitrano, RN) Frequency (min): 1.5-3 (Ruthann Vitrano, RN) Quality: Moderate to Strong (Ruthann Vitrano, RN) Duration (sec): 50-80 (Ruthann Vitrano, RN) Duration Criteria: Less than Two 120 Second Contractions (Ruthann Vitrano, RN) Pattern: Normal: <= 5 Contractions in 10 Minutes (Ruthann Vitrano, RN) Resting Tone (Palpate): Relaxed (Ruthann Vitrano, RN) Monitor Mode: External US (Ruthann Vitrano, RN) FHR Baseline Rate : 150 (Ruthannsut Sarabia, RN) Variability: Moderate 6-25 bpm (Ruthann Cornell, RN) Accelerations: 15X15 (Ruthann Cornell, RN) Decelerations: None (Ruthann Sarabia, RN) Pitocin (milliunit): Pitocin Remains (milliunits) @ 6 (Ruthann Sarabia, RN) Hygiene: Underpad Changed (Ruthann Sarabia RN) I/O Interventions: Portillo Cath Inserted (Ruthann Sarabia RN) Patient Care Comments: Clear urine draining (Ruthann Sarabia RN) LaborFlag: Antepartum (QS system process) Datetime: 10/02/2016 15:29 NBP Sys/Lizbet/Mean (mmHg): 135 (QS system process) : 70 (QS system process) : 95 (QS system process) Pulse: 78 (QS system process) LaborFlag: Antepartum (QS system process) Datetime: 10/02/2016 15:28 NBP Sys/Lizbet/Mean (mmHg): 134 (QS system process) : 71 (QS system process) : 96 (QS system process) Pulse: 76 (QS system process) Pain Presence: None/Denies (Ruthann Vitrano, RN) Pain Type: N/A (Ruthann Vitrano, RN) LaborFlag: Antepartum (QS system process) Datetime: 10/02/2016 15:27 NBP Sys/Lizbet/Mean (mmHg): 136 (QS system process) : 75 (QS system process) : 98 (QS system process) Pulse: 81 (QS system process) LaborFlag: Antepartum (QS system process) Datetime: 10/02/2016 15:26 NBP Sys/Lizbet/Mean (mmHg): 140 (QS system process) : 73 (QS system process) : 100 (QS system process) Pulse: 76 (QS system process) LaborFlag: Antepartum (QS system process) Datetime: 10/02/2016 15:25 NBP Sys/Lizbet/Mean (mmHg): 139 (QS system process) : 84 (QS system process) : 103 (QS system process) Pulse: 83 (QS system process) LaborFlag: Antepartum (QS system process) Datetime: 10/02/2016 15:24 NBP Sys/Lizbet/Mean (mmHg): 141 (QS system process) : 74 (QS system process) : 99 (QS system process) LaborFlag: Antepartum (QS system process) Datetime: 10/02/2016 15:23 NBP Sys/Lizbet/Mean (mmHg): 148 (QS system process) : 80 (QS system process) : 104 (QS system process) Pulse: 95 (QS system process) Anesthesia Plans: Epidural (Ruthann Vitrano, RN) Epidural Procedure: Loading Dose (Ruthann Vitrano, RN) Anesthesia Comments: No difficulty (Ruthann Vitrano, RN) LaborFlag: Antepartum (QS system process) Datetime: 10/02/2016 15:22 NBP Sys/Lizbet/Mean (mmHg): 134 (QS system process) : 78 (QS system process) : 101 (QS system process) Pulse: 96 (QS system process) Anesthesia Plans: Epidural (Ruthann Vitrano, RN) Epidural Procedure: Cath Placed (Ruthann Vitrano, RN) Epidural Procedure: Test Dose (Ruthann Vitrano, RN) LaborFlag: Antepartum (QS system process) Datetime: 10/02/2016 15:21 NBP Sys/Lizbet/Mean (mmHg): 129 (QS system process) : 76 (QS system process) : 97 (QS system process) Pulse: 85 (QS system process) LaborFlag: Antepartum (QS system process) Datetime: 10/02/2016 15:20 NBP Sys/Lizbet/Mean (mmHg): 133 (QS system process) : 77 (QS system process) : 100 (QS system process) Pulse: 84 (QS system process) LaborFlag: Antepartum (QS system process) Datetime: 10/02/2016 15:19 NBP Sys/Lizbet/Mean (mmHg): 132 (QS system process) : 73 (QS system process) : 94 (QS system process) Pulse: 86 (QS system process) Anesthesia Comments: Loading dose meeting resistance, epidural d/c by Dr. Herrera. Blue tip noted. New epidural kit opened (Ruthann Sarabia RN) LaborFlag: Antepartum (QS system process) Datetime: 10/02/2016 15:18 NBP Sys/Lizbet/Mean (mmHg): 130 (QS system process) : 76 (QS system process) : 97 (QS system process) Pulse: 80 (QS system process) LaborFlag: Antepartum (QS system process) Datetime: 10/02/2016 15:17 NBP Sys/Lizbet/Mean (mmHg): 138 (QS system process) : 79 (QS system process) : 103 (QS system process) Pulse: 84 (QS system process) LaborFlag: Antepartum (QS system process) Datetime: 10/02/2016 15:16 NBP Sys/Lizbet/Mean (mmHg): 136 (QS system process) : 79 (QS system process) : 101 (QS system process) Pulse: 75 (QS system process) Anesthesia Plans: Epidural (Ruthann Vitrano, RN) Epidural Procedure: Loading Dose (Ruthann Vitrano, RN) LaborFlag: Antepartum (QS system process) Datetime: 10/02/2016 15:15 NBP Sys/Lizbet/Mean (mmHg): 136 (QS system process) : 79 (QS system process) : 101 (QS system process) Pulse: 75 (QS system process) Monitor Mode: External (Ruthann Vitrano, RN) Frequency (min): 1.5-3 (Ruthann Vitrano, RN) Quality: Moderate to Strong (Ruthann Vitrano, RN) Duration (sec): 50-80 (Ruthann Vitrano, RN) Duration Criteria: Less than Two 120 Second Contractions (Ruthann Vitrano, RN) Pattern: Normal: <= 5 Contractions in 10 Minutes (Ruthann Vitrano, RN) Resting Tone (Palpate): Relaxed (Ruthann Vitrano, RN) Monitor Mode: External US (Ruthann Vitrano, RN) FHR Baseline Rate : 140 (Ruthann Vitrano, RN) Variability: Moderate 6-25 bpm (Ruthann Vitrano, RN) Accelerations: None (Ruthann Vitrano, RN) Decelerations: None (Ruthann Vitrano, RN) Pitocin (milliunit): Pitocin Remains (milliunits) @ 6 (Ruthann Vitrano, RN) Anesthesia Plans: Epidural (Ruthann Vitrano, RN) Epidural Procedure: Cath Placed (Ruthann Vitrano, RN) Epidural Procedure: Test Dose (Ruthann Vitrano, RN) LaborFlag: Antepartum (QS system process) Datetime: 10/02/2016 15:04 Monitor Interventions for FHR: Ultrasound Adjusted (Ruthann Cornell, RN) Datetime: 10/02/2016 15:03 Procedure Verify: Correct Patient Identity; Correct Side and Site are Marked; Accurate Procedure Consent Form; Agreement on Procedure to be Done; Correct Patient Position; Relevant Images and Results are Properly Labeled and Displayed; Addressed Need to Administer Antibiotics or Fluids for Irrigation; Safety Precautions Based on Patient History or Medication Use (Ruthann Sarabia RN) Anesthesia Plans: Epidural (Ruthann Sarabia RN) Epidural Positioning: Sitting (Ruthann Sarabia RN) Anesthesia Comments: Dr. Negron at bedside (Ruthann Sarabia RN) Datetime: 10/02/2016 15:00 Monitor Mode: External; Palpation (Ruthann Vitrano, RN) Frequency (min): 2-3.5 (Ruthann Vitrano, RN) Quality: Moderate to Strong (Ruthann Vitrano, RN) Duration (sec): 50-90 (Ruthann Vitrano, RN) Duration Criteria: Less than Two 120 Second Contractions (Ruthann Vitrano, RN) Pattern: Normal: <= 5 Contractions in 10 Minutes (Ruthann Vitrano, RN) Resting Tone (Palpate): Relaxed (Ruthann Vitrano, RN) Monitor Mode: External US (Ruthann Vitrano, RN) FHR Baseline Rate : 150 (Ruthann Vitrano, RN) Variability: Moderate 6-25 bpm (Ruthann Vitrano, RN) Accelerations: 15X15 (Ruthann Vitrano, RN) Decelerations: None (Ruthann Vitrano, RN) Pitocin (milliunit): Pitocin Remains (milliunits) @ 6 (Ruthann Vitrano, RN) Datetime: 10/02/2016 14:59 Patient Care Comments: Emesis x1 (Ruthann Vitrano, RN) Datetime: 10/02/2016 14:54 NBP Sys/Lizbet/Mean (mmHg): 146 (QS system process) : 78 (QS system process) : 104 (QS system process) Pulse: 71 (QS system process) LaborFlag: Antepartum (QS system process) Datetime: 10/02/2016 14:50 Pitocin (milliunit): Pitocin Increased to (milliunits) @ 6 (Ruthann Sarabia RN) Procedure Verify: Correct Patient Identity; Correct Side and Site are Marked; Accurate Procedure Consent Form; Agreement on Procedure to be Done; Correct Patient Position; Relevant Images and Results are Properly Labeled and Displayed; Addressed Need to Administer Antibiotics or Fluids for Irrigation; Safety Precautions Based on Patient History or Medication Use (Ruthann Sarabia RN) Anesthesia Plans: Epidural (Ruthann Sarabia RN) Epidural Positioning: Sitting (Ruthann Sarabia RN) Anesthesia Comments: Dr. Negron called for epidural (Ruthann Sarabia RN) Datetime: 10/02/2016 14:46 Anesthesia Plans: Epidural (Ruthann Vitrano, RN) Epidural Positioning: Sitting (Ruthann Vitrano, RN) Datetime: 10/02/2016 14:45 Monitor Mode: External; Palpation (Ruthann Vitrano, RN) Frequency (min): 3-4 (Ruthann Vitrano, RN) Quality: Moderate to Strong (Ruthann Vitrano, RN) Duration (sec): 60-90 (Ruthann Vitrano, RN) Duration Criteria: Less than Two 120 Second Contractions (Ruthann Vitrano, RN) Pattern: Normal: <= 5 Contractions in 10 Minutes (Ruthann Vitrano, RN) Resting Tone (Palpate): Relaxed (Ruthann Vitrano, RN) Monitor Mode: External US (Ruthann Vitrano, RN) FHR Baseline Rate : 150 (Ruthann Vitrano, RN) Variability: Moderate 6-25 bpm (Ruthann Vitrano, RN) Accelerations: 15X15 (Ruthann Vitrano, RN) Decelerations: None (Ruthann Vitrano, RN) Pitocin (milliunit): Pitocin Remains (milliunits) @ 4 (Ruthann Vitrano, RN) Hygiene: Underpad Changed (Ruthann Vitrano, RN) Datetime: 10/02/2016 14:44 I/O Interventions: Up to BR (Ruthann Vitrano, RN) Datetime: 10/02/2016 14:35 Temperature (F): 98.0 (Ruthann Vitrano, RN) Temperature (C): 36.7 (QS system process) Temperature Route: Axillary (Ruthann Vitrano, RN) LaborFlag: Antepartum (QS system process) Datetime: 10/02/2016 14:30 Monitor Mode: External; Palpation (Ruthann Vitrano, RN) Frequency (min): 3-4 (Ruthann Vitrano, RN) Quality: Mild/Moderate (Ruthann Vitrano, RN) Duration (sec): 50-80 (Ruthann Vitrano, RN) Duration Criteria: Less than Two 120 Second Contractions (Ruthann Vitrano, RN) Pattern: Normal: <= 5 Contractions in 10 Minutes (Ruthann Vitrano, RN) Resting Tone (Palpate): Relaxed (Ruthann Vitrano, RN) Monitor Mode: External US (Ruthann Vitrano, RN) FHR Baseline Rate : 145 (Ruthann Vitrano, RN) Variability: Moderate 6-25 bpm (Ruthann Vitrano, RN) Accelerations: 15X15 (Ruthann Vitrano, RN) Decelerations: None (Ruthann Vitrano, RN) Pitocin (milliunit): Pitocin Remains (milliunits) @ 4 (Ruthann Vitrano, RN) Datetime: 10/02/2016 14:17 Monitor Interventions for FHR: Ultrasound Adjusted (Ruthann Vitrano, RN) Datetime: 10/02/2016 14:16 IV/Blood Work: IV Infusing per Order; New IV Bag Hung (Ruthann Vitrano, RN) Datetime: 10/02/2016 14:15 Monitor Mode: External (Ruthann Vitrano, RN) Frequency (min): 2-4 (Ruthann Vitrano, RN) Quality: Mild/Moderate (Ruthann Vitrano, RN) Duration (sec): 50-80 (Ruthann Vitrano, RN) Duration Criteria: Less than Two 120 Second Contractions (Ruthann Vitrano, RN) Pattern: Normal: <= 5 Contractions in 10 Minutes (Ruthann Vitrano, RN) Resting Tone (Palpate): Relaxed (Ruthann Vitrano, RN) Monitor Mode: External US (Ruthann Vitrano, RN) FHR Baseline Rate : 140 (Ruthann Vitrano, RN) Variability: Moderate 6-25 bpm (Ruthann Vitrano, RN) Accelerations: 15X15 (Ruthann Vitrano, RN) Decelerations: None (Ruthann Vitrano, RN) Pitocin (milliunit): Pitocin Increased to (milliunits) @ 4 (Ruthann Vitrano, RN) Datetime: 10/02/2016 14:00 Monitor Mode: External (Ruthann Vitrano, RN) Frequency (min): 3-5 (Ruthann Vitrano, RN) Quality: Mild/Moderate (Ruthann Vitrano, RN) Duration (sec): 60-120 (Ruthann Vitrano, RN) Duration Criteria: Less than Two 120 Second Contractions (Ruthann Vitrano, RN) Pattern: Normal: <= 5 Contractions in 10 Minutes (Ruthann Vitrano, RN) Resting Tone (Palpate): Relaxed (Ruthann Vitrano, RN) Monitor Mode: External US (Ruthann Vitrano, RN) FHR Baseline Rate : 145 (Ruthann Vitrano, RN) Variability: Moderate 6-25 bpm (Ruthann Vitrano, RN) Accelerations: 15X15 (Ruthann Vitrano, RN) Decelerations: None (Ruthann Vitrano, RN) Pitocin (milliunit): Pitocin Started (milliunits) @ 2; Pitocin 20 Units in 1000ml NS (Ruthann Vitrano, RN) Datetime: 10/02/2016 13:59 Patient Care Comments: Up to birthing ball (Ruthann Vitrano, RN) Datetime: 10/02/2016 13:53 I/O Interventions: Up to BR (Ruthann Vitrano, RN) Datetime: 10/02/2016 13:50 IV/Blood Work: IV Bolus Started (Ruthann Sarabia RN) Procedure Verify: Correct Patient Identity; Correct Side and Site are Marked; Accurate Procedure Consent Form; Agreement on Procedure to be Done; Relevant Images and Results are Properly Labeled and Displayed; Addressed Need to Administer Antibiotics or Fluids for Irrigation; Safety Precautions Based on Patient History or Medication Use (Ruthann Sarabia RN) Anesthesia Plans: Epidural (Ruthann Sarabia RN) Communication Comments: Pt requesting pain management; orders from Fernando Glasgow CNM to start bolus for pt epidural (Ruthannstu Sarabia RN) Datetime: 10/02/2016 13:48 Communication Comments: Orders from CNM to start Pitocin 20 units in 1000 mL NS at 2 mU/min increasing q 15 by 2 mU/min to a max of 20 mU/min or until adequate pattern of labor is established (Ruthann Vitrano, RN) Datetime: 10/02/2016 13:47 Dilatation (cm): 0.0 (Ruthann Vitrano, RN) Effacement (%): 50 (Ruthann Vitrano, RN) Station: -1 (Ruthann Vitrano, RN) Exam by: Fernando Glasgow CNM (Ruthann Vitrano, RN) Vaginal Bleeding: None (Ruthann Vitrano, RN) Cervix, Consistency: Soft (Ruthann Vitrano, RN) Cervix, Position: Posterior (Ruthann Vitrano, RN) Vaginal Exam Comments: Scar tissue evident (Ruthann Vitrano, RN) Datetime: 10/02/2016 13:45 Monitor Mode: External; Palpation (Ruthann Vitrano, RN) Frequency (min): 1.5-3 (Ruthann Vitrano, RN) Quality: Mild/Moderate (Ruthann Vitrano, RN) Duration (sec): 50-120 (Ruthann Vitrano, RN) Duration Criteria: Less than Two 120 Second Contractions (Ruthann Vitrano, RN) Pattern: Normal: <= 5 Contractions in 10 Minutes (Ruthann Vitrano, RN) Resting Tone (Palpate): Relaxed (Ruthann Vitrano, RN) Monitor Mode: External US (Ruthann Vitrano, RN) FHR Baseline Rate : 145 (Ruthann Vitrano, RN) Variability: Moderate 6-25 bpm (Ruthann Vitrano, RN) Accelerations: 15X15 (Ruthann Vitrano, RN) Decelerations: None (Ruthann Vitrano, RN) Datetime: 10/02/2016 13:42 Communication: RN at Bedside; Provider at Bedside (Ruthann Vitrano, RN) Datetime: 10/02/2016 13:30 Monitor Mode: External (Ruthann Vitrano, RN) Frequency (min): Irregular (Ruthann Vitrano, RN) Quality: Mild/Moderate (Ruthann Vitrano, RN) Duration (sec): 60-90 (Ruthann Vitrano, RN) Duration Criteria: Less than Two 120 Second Contractions (Ruthann Vitrano, RN) Pattern: Normal: <= 5 Contractions in 10 Minutes (Ruthann Vitrano, RN) Resting Tone (Palpate): Relaxed (Ruthann Vitrano, RN) Monitor Mode: External US (Ruthann Vitrano, RN) FHR Baseline Rate : 145 (Ruthann Vitrano, RN) Variability: Moderate 6-25 bpm (Ruthann Vitrano, RN) Accelerations: None (Ruthann Vitrano, RN) Decelerations: None (Ruthann Vitrano, RN) Datetime: 10/02/2016 13:28 Patient Care Comments: Pt sitting on side of bed (Ruthann Vitrano, RN) Datetime: 10/02/2016 13:25 I/O Interventions: Up to BR (Ruthann Vitrano, RN) Datetime: 10/02/2016 13:24 I/O Interventions: Clear Liquids Given (Ruthann Vitrano, RN) Datetime: 10/02/2016 13:15 Monitor Mode: External; Palpation (Ruthann Vitrano, RN) Frequency (min): Irregular (Ruthann Vitrano, RN) Quality: Mild/Moderate (Ruthann Vitrano, RN) Duration (sec): 60-80 (Ruthann Vitrano, RN) Duration Criteria: Less than Two 120 Second Contractions (Ruthann Vitrano, RN) Pattern: Normal: <= 5 Contractions in 10 Minutes (Ruthann Vitrano, RN) Resting Tone (Palpate): Relaxed (Ruthann Vitrano, RN) Monitor Mode: External US (Ruthann Vitrano, RN) FHR Baseline Rate : 135 (Ruthann Vitrano, RN) Variability: Moderate 6-25 bpm (Ruthann Vitrano, RN) Comments: Broken tracing d/t maternal movement, US adjusted (Ruthann Vitrano, RN) Level of Consciousness: Fully Conscious (Ruthann Vitrano, RN) DTR's/Clonus: DTRs 2+; No Clonus (Ruthann Vitrano, RN) Headache: Denies (Ruthann Vitrano, RN) Breath Sounds, Left: Clear and Equal (Ruthann Vitrano, RN) Breath Sounds, Right: Clear and Equal (Ruthann Vitrano, RN) Nausea/Vomiting: Denies (Ruthann Vitrano, RN) RUQ Epigastric Pain: Denies (Ruthann Vitrano, RN) Communication Comments: Report received from Dex Reynolds RN, care assumed (Ruthann Vitrano, RN) Datetime: 10/02/2016 13:02 Stage of : Antepartum (Bhavya Reynolds RN) Respirations: 18 (Bhavya Reynolds RN) Monitor Mode: External (Bhavya Reynolds, BLANCA) Monitor Interventions for UA: Roseto Adjusted (Bhavya Reynolds RN) Frequency (min): IRREG (Bhavya Reynolds, BLANCA) Quality: Mild/Moderate (Bhavya Reynolds, BLANCA) Duration (sec): 80-110 (Bhavya Reynolds, BLANCA) Resting Tone (Palpate): Relaxed (Bhavya Reynolds, BLANCA) Monitor Mode: External US (Bhavya Reynolds RN) Monitor Interventions for FHR: Ultrasound Adjusted (Bhavya Reynolds RN) FHR Baseline Rate : 135 (Bhavya Reynolds RN) FHR Baseline Changes: No Baseline Change (Bhavya Reynolds, BLANCA) Variability: Moderate 6-25 bpm (Bhavya Reynolds, BLANCA) Accelerations: 15X15 (Bhavya Reynolds, BLANCA) Decelerations: Early (Bhavya Reynolds RN) Pain Scale: 1 (Bhavya Reynolds RN) Pain Presence: Intermittent (Bhavya Reynolds, BLANCA) Pain Type: Cramping (Bhavya Reynolds RN) Pain Location: Abdomen (Bhavya Reynolds RN) Pain Relief Measures: Comfort Measures (Bhavya Reynolds RN) Pain Coping: Talking Through Contractions (Bhavya Reynolds RN) IV/Blood Work: IV Infusing per Order (Bhavya Reynolds RN) Patient Position/Activity: Left Lateral; Low Fowlers (Bhavya Reynolds RN) Comfort Measures: Family Support (Bhavya Reynolds RN) Communication: RN at Bedside; RN Reviewed Strip (Bhavya Reynolds RN) LaborFlag: Antepartum (QS system process) Datetime: 10/02/2016 12:56 Stage of : Antepartum (Bhavya Reynolds RN) Monitor Interventions for UA: Roseto Adjusted (Bhavya Reynolds RN) Monitor Interventions for FHR: Ultrasound Adjusted (Bhavya Reynolds RN) Medication Comments: CERVIDIL FELL OUT IN THE BR- Joy GLASGOW CNM NOTIFIED (Bhavya Reynolds RN) Communication: RN at Bedside; RN Reviewed Strip; Report Given to @ Joy GLASGOW CNM (Bhavya Reynolds RN) Notification Reason: Status Update (Bhavya Reynolds RN) Datetime: 10/02/2016 12:30 Stage of : Antepartum (Bhavya Reynolds RN) Respirations: 18 (Bhavya Reynolds BLANCA) Temperature (F): 98.0 (Bhavya Reynolds, RN) Temperature (C): 36.7 (QS system process) Monitor Mode: External (Bhavya Reynolds RN) Monitor Interventions for UA: Roseto Adjusted (Bhavya Reynolds, BLANCA) Frequency (min): IRREG (Bhavya Reynolds, BLANCA) Quality: Mild/Moderate (Bhavya Reynolds RN) Duration (sec): 80-240 (Bhavya Reynolds, BLANCA) Resting Tone (Palpate): Relaxed (Bhavya Reynolds, BLANCA) Monitor Mode: External US (Bhavya Reynolds RN) Monitor Interventions for FHR: Ultrasound Adjusted (Bhavya Reynolds RN) FHR Baseline Rate : 145 (Bhavya Reynolds, BLANCA) FHR Baseline Changes: No Baseline Change (Bhavya Reynolds RN) Variability: Moderate 6-25 bpm (Bhavya Reynolds, BLANCA) Accelerations: None (Bhavya Reynolds, BLANCA) Decelerations: None (Bhavya Reynolds, BLANCA) Pain Scale: 1 (Bhavya Reynolds, BLANCA) Pain Presence: Intermittent (Bhavya Reynolds, BLANCA) Pain Type: Cramping (Bhavya Reynolds, BLANCA) Pain Location: Abdomen (Bhavya Reynolds, BLANCA) Pain Relief Measures: Comfort Measures (Bhavya Reynolds, BLANCA) Pain Coping: Talking Through Contractions (Bhavya Reynolds, BLANCA) Patient Position/Activity: High Fowlers (Bhavya Reynolds, RN) Comfort Measures: Family Support (Bhavya Reynolds, BLANCA) Patient Care Comments: ATE LUNCH (Bhavya Reynolds, BLANCA) Communication: RN at Bedside; RN Reviewed Strip (Bhavya Reynolds RN) LaborFlag: Antepartum (QS system process) Datetime: 10/02/2016 12:23 NBP Sys/Lizbet/Mean (mmHg): 123 (QS system process) : 62 (QS system process) : 88 (QS system process) Pulse: 82 (QS system process) LaborFlag: Antepartum (QS system process) Datetime: 10/02/2016 12:02 Stage of : Antepartum (Bhavya Reynolds RN) Respirations: 18 (Bhavya Reynolds RN) Monitor Mode: External (Bhavya Reynolds RN) Monitor Interventions for UA: [place] Adjusted (Bhavya Reynolds RN) Frequency (min): IRREG (Bhavya Reynolds RN) Quality: Mild/Moderate (Bhavya Reynolds RN) Duration (sec): 90-110 (Bhavya Reynolds RN) Resting Tone (Palpate): Relaxed (hBavya Reynolds RN) Monitor Mode: External US (Bhavya Reynolds RN) Monitor Interventions for FHR: Ultrasound Adjusted (Bhavya Reynolds RN) FHR Baseline Rate : 145 (Bhavya Reynolds RN) FHR Baseline Changes: No Baseline Change (Bhavya Reynolds RN) Variability: Moderate 6-25 bpm (Bhavya Reynolds RN) Accelerations: 15X15 (Bhavya Reynolds, BLANCA) Decelerations: None (Bhavya Reynolds, BLANCA) Pain Scale: 1 (Bhavya Reynolds, BLANCA) Pain Presence: Intermittent (Bhavya Reynolds, BLANCA) Pain Type: Cramping (Bhavya Reynolds, BLANCA) Pain Location: Abdomen (Bhavya Reynolds, BLANCA) Pain Relief Measures: Comfort Measures (Bhavya Reynolds RN) Pain Coping: Talking Through Contractions (Bhavay Reynolds, BLANCA) Patient Position/Activity: Left Lateral; Low Fowlers (Bhavya Reynolds, BLANCA) Comfort Measures: Family Support (Bhavya Reynolds, BLANCA) Provider Reviewed Strip: Yes (Bhavya Reynolds RN) Communication: RN at Bedside; RN Reviewed Strip (Bhavya Reynolds RN) LaborFlag: Antepartum (QS system process)
--- NOTE | 2016-10-02 16:56 | L&D Progress Notes ---
PROGRESS NOTES Datetime Report Generated by CPN: 10/02/2016 16:56 PROGRESS NOTE Vital Signs : Reviewed Comment: epidural in place pt comfortable after epidural noted scar tissue- reviewed with pt and spouse scar tissue released cvx- 4/90/-1 continue pitocin augmentation VAGINAL EXAM Dilatation: 0 Effacement: 50 Station: -1 Contractions: q6-7 Contractions: q2 MEMBRANES Membranes: Ruptured Membranes: Intact Amniotic Fluid Color: Clear FETUS A Monitoring: External US Decelerations: Late SIGNATURE SIGNATURE: [id number];[id number];13,[id number] SIGNATURE: 13,[id number];14,[id number] SIGNATURE: 14,[id number];13,[id number] SIGNATURE: ,[id number];14,[id number] SIGNATURE: 14,[id number] SIGNATURE: 14,[id number] SIGNATURE: 14,[id number] SIGNATURE: 14,[id number] Assignment: Talat Frazier DO Signature: with User ID: [email or web address] : with User ID: [email or web address]
[2016-10-02] MEDS ORDERED: MISOPROSTOL 0.2 MG TABLET ONE (17:28)
[2016-10-02] MEDS ORDERED: CEFAZOLIN 2 GM/D5W RTU 2 GM/50 ML RTUPB IV ONE ×2 (18:14→19:00)
[2016-10-02] MEDS ORDERED: ONDANSETRON HCL INJ/PF 4 MG/2 ML SDV ONE (19:18)
--- NOTE | 2016-10-02 20:01 | L&D Flow Sheet ---
LD Flowsheet Datetime Report Generated by CPN: 10/02/2016 20:00 Datetime: 10/02/2016 19:59 Patient Position/Activity: Left Lateral; Peanut Ball (Ruthann Vitrano, RN) Datetime: 10/02/2016 19:58 Comments: O2 d/c (Ruthann Vitrano, RN) IV/Blood Work: IV Infusing per Order (Ruthann Vitrano, RN) Datetime: 10/02/2016 19:56 Communication Comments: Dr. Frazier on unit, reviewed strip. Orders recieved to re start Pitocin 20 units in 1000 mL NS at 6 mU/min increasing per previous orders (Ruthann Vitrano, RN) Datetime: 10/02/2016 19:48 NBP Sys/Lizbet/Mean (mmHg): 116 (QS system process) : 62 (QS system process) : 83 (QS system process) Pulse: 73 (QS system process) LaborFlag: Labor (QS system process) Datetime: 10/02/2016 19:45 Monitor Mode: External (Ruthann Vitrano, RN) Frequency (min): 1.5-3 (Ruthann Vitrano, RN) Quality: Moderate to Strong (Ruthann Vitrano, RN) Duration (sec): 50-100 (Ruthann Vitrano, RN) Duration Criteria: Less than Two 120 Second Contractions (Ruthann Vitrano, RN) Pattern: Normal: <= 5 Contractions in 10 Minutes (Ruthann Vitrano, RN) Resting Tone (Palpate): Relaxed (Ruthann Vitrano, RN) Monitor Mode: Internal Scalp Electrode (Ruthann Vitrano, RN) FHR Baseline Rate : 155 (Ruthann Vitrano, RN) Variability: Moderate 6-25 bpm (Ruthann Vitrano, RN) Accelerations: 15X15 (Ruthann Vitrano, RN) Decelerations: None (Ruthann Vitrano, RN) Datetime: 10/02/2016 19:43 Patient Care Comments: Pt states nausea relieved (Ruthann Vitrano, RN) Datetime: 10/02/2016 19:41 Patient Position/Activity: Left Lateral (Ruthann Vitrano, RN) Datetime: 10/02/2016 19:38 Monitor Interventions for FHR: FSE Applied (Ruthann Vitrano, RN) Vaginal Bleeding: Normal Show (Ruthann Vitrano, RN) Cervix, Position: Anterior (Ruthann Vitrano, RN) Datetime: 10/02/2016 19:37 Exam by: Dr. Frazier (Ruthann Vitrano, RN) Vaginal Exam Comments: No change (Ruthann Vitrano, RN) Datetime: 10/02/2016 19:36 Patient Position/Activity: Left Tilt; Semi-Fowlers (Ruthann Sarabia RN) Provider Reviewed Strip: Yes (Ruthann Sarabia RN) Communication: RN at Bedside; RN Reviewed Strip; Provider at Bedside (Ruthann Sarabia RN) Datetime: 10/02/2016 19:35 Provider Reviewed Strip: Yes (Socorro Biswas RN) Communication: Provider at Bedside (Socorro Biswas RN) Communication Comments: Dr Frazier at bedside (Socorro Biswas RN) Datetime: 10/02/2016 19:32 NBP Sys/Lizbet/Mean (mmHg): 136 (QS system process) : 68 (QS system process) : 94 (QS system process) Pulse: 81 (QS system process) Respirations: 16 (Ruthann Sarabia RN) LaborFlag: Labor (QS system process) Datetime: 10/02/2016 19:30 Monitor Mode: External; Palpation (Ruthann Vitrano, RN) Frequency (min): 1.5-3 (Ruthann Vitrano, RN) Quality: Moderate to Strong (Ruthann Vitrano, RN) Duration (sec): 60-110 (Ruthann Vitrano, RN) Duration Criteria: Less than Two 120 Second Contractions (Ruthann Vitrano, RN) Pattern: Normal: <= 5 Contractions in 10 Minutes (Ruthann Vitrano, RN) Resting Tone (Palpate): Relaxed (Ruthann Vitrano, RN) Monitor Mode: External US (Ruthann Vitrano, RN) FHR Baseline Rate : 155 (Ruthann Vitrano, RN) Variability: Moderate 6-25 bpm (Ruthann Vitrano, RN) Accelerations: None (Ruthann Vitrano, RN) Decelerations: Late; Prolonged (Ruthann Vitrano, RN) Datetime: 10/02/2016 19:29 Actions for Decelerations: Hands and Knees (Ruthann Vitrano, RN) Datetime: 10/02/2016 19:27 Actions for Decelerations: Side to Side; Oxygen Applied; Pitocin Off; IV Bolus; Sterile Vaginal Exam (Ruthann Harvinderano, RN) Dilatation (cm): 4.5 (Ruthann Vitrano, RN) Effacement (%): 100 (Ruthann Vitrholly, RN) Station: -1 (Ruthann Cornell, RN) Exam by: Abel Sarabia RN (Ruthann Vitrano, RN) Pitocin (milliunit): Pitocin Discontinued (Ruthann Vitrano, RN) Datetime: 10/02/2016 19:26 Patient Position/Activity: Left Lateral (Ruthann Vitrano, RN) Datetime: 10/02/2016 19:23 Patient Position/Activity: Right Lateral (Ruthann Vitrano, RN) Datetime: 10/02/2016 19:19 Medication Comments: Zofran 8 mg IV slow push (Ruthann Vitrano, RN) Datetime: 10/02/2016 19:17 NBP Sys/Lizbet/Mean (mmHg): 144 (QS system process) : 71 (QS system process) : 100 (QS system process) Pulse: 83 (QS system process) Respirations: 16 (Ruthann Vitrano, RN) Communication Comments: Orders received from Dr. Frazier for Zofran 8 mg IV x1 now for nausea (Ruthann Vitrano, RN) LaborFlag: Labor (QS system process) Datetime: 10/02/2016 19:16 Patient Care Comments: Pt nauseated, requesting IV medication (Ruthann Vitrano, RN) Datetime: 10/02/2016 19:15 Monitor Mode: External (Ruthann Vitrano, RN) Frequency (min): 1.5-3 (Ruthann Vitrano, RN) Quality: Moderate to Strong (Ruthann Vitrano, RN) Duration (sec): 60-100 (Ruthann Vitrano, RN) Duration Criteria: Less than Two 120 Second Contractions (Ruthann Vitrano, RN) Pattern: Normal: <= 5 Contractions in 10 Minutes (Ruthann Vitrano, RN) Resting Tone (Palpate): Relaxed (Ruthann Vitrano, RN) Monitor Mode: External US (Ruthann Vitrano, RN) FHR Baseline Rate : 165 (Ruthann Vitrano, RN) Variability: Moderate 6-25 bpm (Ruthann Vitrano, RN) Accelerations: None (Ruthann Vitrano, RN) Decelerations: None (Ruthann Vitrano, RN) Pitocin (milliunit): Pitocin Remains (milliunits) @ 12 (Ruthann Vitrano, RN) Patient Position/Activity: Left Lateral (Ruthann Vitrano, RN) Datetime: 10/02/2016 19:03 NBP Sys/Lizbet/Mean (mmHg): 133 (QS system process) : 76 (QS system process) : 97 (QS system process) Pulse: 78 (QS system process) Respirations: 16 (Ruthann Vitrano, RN) LaborFlag: Labor (QS system process) Datetime: 10/02/2016 19:01 Patient Care Comments: Lea karey per pt request for nausea, denies IV medications (Ruthann Vitrano, RN) Datetime: 10/02/2016 19:00 Monitor Mode: External; Palpation (Ruthann Vitrano, RN) Frequency (min): 1.5-3.5 (Ruthann Vitrano, RN) Quality: Moderate to Strong (Ruthann Vitrano, RN) Duration (sec): 70-100 (Ruthann Vitrano, RN) Duration Criteria: Less than Two 120 Second Contractions (Ruthann Vitrano, RN) Pattern: Normal: <= 5 Contractions in 10 Minutes (Ruthann Vitrano, RN) Resting Tone (Palpate): Relaxed (Ruthann Vitrano, RN) Monitor Mode: External US (Ruthann Vitrano, RN) FHR Baseline Rate : 160 (Ruthann Vitrano, RN) Variability: Moderate 6-25 bpm (Ruthann Vitrano, RN) Accelerations: 10X10 (Ruthann Vitrano, RN) Decelerations: Variable (Ruthann Vitrano, RN) Pitocin (milliunit): Pitocin Increased to (milliunits) @ 12 (Ruthann Vitrano, RN) Datetime: 10/02/2016 18:48 NBP Sys/Lizbet/Mean (mmHg): 131 (QS system process) : 73 (QS system process) : 96 (QS system process) Pulse: 80 (QS system process) Respirations: 16 (Ruthann Vitrano, RN) LaborFlag: Labor (QS system process) Datetime: 10/02/2016 18:45 Monitor Mode: External (Ruthann Vitrano, RN) Frequency (min): 1.5-3 (Ruthann Vitrano, RN) Quality: Moderate to Strong (Ruthann Vitrano, RN) Duration (sec): 70-100 (Ruthann Vitrano, RN) Duration Criteria: Less than Two 120 Second Contractions (Ruthann Vitrano, RN) Pattern: Normal: <= 5 Contractions in 10 Minutes (Ruthann Vitrano, RN) Resting Tone (Palpate): Relaxed (Ruthann Vitrano, RN) Monitor Mode: External US (Ruthann Vitrano, RN) FHR Baseline Rate : 150 (Ruthann Vitrano, RN) Variability: Moderate 6-25 bpm (Ruthann Vitrano, RN) Accelerations: None (Ruthann Vitrano, RN) Decelerations: Variable (Ruthann Vitrano, RN) Pitocin (milliunit): Pitocin Remains (milliunits) @ 10 (Ruthann Vitrano, RN) Datetime: 10/02/2016 18:35 Monitor Interventions for FHR: Ultrasound Adjusted (Ruthann Vitrano, RN) Patient Position/Activity: Right Tilt; Tailors (Ruthann Vitrano, RN) Datetime: 10/02/2016 18:34 Pain Assessment Comments: Pt reporting intermittent perineal pressure (Ruthann Vitrano, RN) Dilatation (cm): 4.0 (Ruthann Vitrano, RN) Effacement (%): 100 (Ruthann Vitrano, RN) Station: -2 (Ruthann Vitrano, RN) Exam by: Jackie Sarabia RN (Ruthann Vitrano, RN) LaborFlag: Labor (QS system process) Datetime: 10/02/2016 18:33 NBP Sys/Lizbet/Mean (mmHg): 136 (QS system process) : 69 (QS system process) : 96 (QS system process) Pulse: 73 (QS system process) Respirations: 16 (Ruthann Vitrano, RN) LaborFlag: Labor (QS system process) Datetime: 10/02/2016 18:31 Temperature (F): 98.4 (Ruthann Vitrano, RN) Temperature (C): 36.9 (QS system process) Temperature Route: Oral (Ruthann Vitrano, RN) LaborFlag: Labor (QS system process) Datetime: 10/02/2016 18:30 Monitor Mode: External; Palpation (Ruthann Vitrano, RN) Frequency (min): 1.5-3.5 (Ruthann Vitrano, RN) Quality: Moderate to Strong (Ruthann Vitrano, RN) Duration (sec): 70-100 (Ruthann Vitrano, RN) Duration Criteria: Less than Two 120 Second Contractions (Ruthann Vitrano, RN) Pattern: Normal: <= 5 Contractions in 10 Minutes (Ruthann Vitrano, RN) Resting Tone (Palpate): Relaxed (Ruthann Vitrano, RN) Monitor Mode: External US (Ruthann Vitrano, RN) FHR Baseline Rate : 150 (Ruthann Vitrano, RN) Variability: Moderate 6-25 bpm (Ruthann Vitrano, RN) Accelerations: 15X15 (Ruthann Vitrano, RN) Decelerations: None (Ruthann Vitrano, RN) Pitocin (milliunit): Pitocin Remains (milliunits) @ 10 (Ruthann Vitrano, RN) Datetime: 10/02/2016 18:18 Antibiotics: Start Antibiotics; Ancef IV (Gm) @ 2 (Ruthann Vitrano, RN) Datetime: 10/02/2016 18:17 Communication Comments: Orders received from Dr. Frazier to start Ancef 2 gm IVPB q 6 hr d/t prolonged SROM (Ruthann Vitrano, RN) Datetime: 10/02/2016 18:16 NBP Sys/Lizbet/Mean (mmHg): 118 (QS system process) : 58 (QS system process) : 81 (QS system process) Pulse: 85 (QS system process) Respirations: 16 (Ruthann Vitrano, RN) LaborFlag: Labor (QS system process) Datetime: 10/02/2016 18:15 Monitor Mode: External (Ruthann Vitrano, RN) Frequency (min): 2-6 (Ruthann Vitrano, RN) Quality: Moderate to Strong (Ruthann Vitrano, RN) Duration (sec): 70-100 (Ruthann Vitrano, RN) Duration Criteria: Less than Two 120 Second Contractions (Ruthann Vitrano, RN) Pattern: Normal: <= 5 Contractions in 10 Minutes (Ruthann Vitrano, RN) Resting Tone (Palpate): Relaxed (Ruthann Vitrano, RN) Monitor Mode: External US (Ruthann Vitrano, RN) FHR Baseline Rate : 150 (Ruthann Vitrano, RN) Variability: Moderate 6-25 bpm (Ruthann Vitrano, RN) Accelerations: 15X15 (Ruthann Vitrano, RN) Decelerations: None (Ruthann Vitrano, RN) Pitocin (milliunit): Pitocin Increased to (milliunits) @ 10 (Ruthann Vitrano, RN) Datetime: 10/02/2016 18:02 NBP Sys/Lizbet/Mean (mmHg): 126 (QS system process) : 64 (QS system process) : 88 (QS system process) Pulse: 76 (QS system process) Respirations: 16 (Ruthann Vitrano, RN) LaborFlag: Labor (QS system process) Datetime: 10/02/2016 18:01 Monitor Interventions for UA: Man Adjusted (Ruthann Vitrano, RN) Datetime: 10/02/2016 18:00 Monitor Mode: External; Palpation (Ruthann Vitrano, RN) Frequency (min): 2-8 (Ruthann Vitrano, RN) Quality: Moderate to Strong (Ruthann Vitrano, RN) Duration (sec): 70-120 (Ruthann Vitrano, RN) Duration Criteria: Less than Two 120 Second Contractions (Ruthann Vitrano, RN) Pattern: Normal: <= 5 Contractions in 10 Minutes (Ruhtann Vitrano, RN) Resting Tone (Palpate): Relaxed (Ruthann Vitrano, RN) Monitor Mode: External US (Ruthann Vitrano, RN) FHR Baseline Rate : 155 (Ruthann Vitrano, RN) Variability: Moderate 6-25 bpm (Ruthann Vitrano, RN) Accelerations: 15X15 (Ruthann Vitrano, RN) Decelerations: None (Ruthann Vitrano, RN) Pitocin (milliunit): Pitocin Increased to (milliunits) @ 8 (Ruthann Vitrano, RN) Datetime: 10/02/2016 17:47 NBP Sys/Lizbet/Mean (mmHg): 109 (QS system process) : 55 (QS system process) : 78 (QS system process) Pulse: 82 (QS system process) Respirations: 16 (Ruthann Vitrano, RN) LaborFlag: Labor (QS system process) Datetime: 10/02/2016 17:45 Monitor Mode: External (Ruthann Vitrano, RN) Frequency (min): 2-6 (Ruthann Vitrano, RN) Quality: Moderate to Strong (Ruthann Vitrano, RN) Duration (sec): 60-120 (Ruthann Vitrano, RN) Duration Criteria: Less than Two 120 Second Contractions (Ruthann Vitrano, RN) Pattern: Normal: <= 5 Contractions in 10 Minutes (Ruthann Vitrano, RN) Resting Tone (Palpate): Relaxed (Ruthann Vitrano, RN) Monitor Mode: External US (Ruthann Vitrano, RN) FHR Baseline Rate : 150 (Ruthann Vitrano, RN) Variability: Moderate 6-25 bpm (Ruthann Vitrano, RN) Accelerations: 15X15 (Ruthann Vitrano, RN) Decelerations: None (Ruthann Vitrano, RN) Pitocin (milliunit): Pitocin Remains (milliunits) @ 6 (Ruthann Vitrano, RN) Datetime: 10/02/2016 17:40 Monitor Interventions for UA: Man Adjusted (Ruthann Vitrano, RN) Pitocin (milliunit): Pitocin Increased to (milliunits) @ 6 (Ruthann Vitrano, RN) Datetime: 10/02/2016 17:39 Patient Position/Activity: Right Lateral; Peanut Ball (Ruthann Vitrano, RN) Datetime: 10/02/2016 17:32 NBP Sys/Lizbet/Mean (mmHg): 131 (QS system process) : 74 (QS system process) : 95 (QS system process) Pulse: 77 (QS system process) Respirations: 16 (Ruthann Vitrano, RN) LaborFlag: Labor (QS system process) Datetime: 10/02/2016 17:30 Monitor Mode: External; Palpation (Ruthann Vitrano, RN) Frequency (min): 3-5 (Ruthann Vitrano, RN) Quality: Moderate to Strong (Ruthann Vitrano, RN) Duration (sec): 70-110 (Ruthann Vitrano, RN) Duration Criteria: Less than Two 120 Second Contractions (Ruthann Vitrano, RN) Pattern: Normal: <= 5 Contractions in 10 Minutes (Ruthann Vitrano, RN) Resting Tone (Palpate): Relaxed (Ruthann Vitrano, RN) Monitor Mode: External US (Ruthann Vitrano, RN) FHR Baseline Rate : 140 (Ruthann Vitrano, RN) Variability: Moderate 6-25 bpm (Ruthann Vitrano, RN) Accelerations: None (Ruthann Vitrano, RN) Decelerations: Variable (Ruthann Vitrano, RN) Pitocin (milliunit): Pitocin Remains (milliunits) @ 4 (Ruthann Vitrano, RN) Datetime: 10/02/2016 17:23 Patient Care Comments: Warm blankets (Ruthann Vitrano, RN) Datetime: 10/02/2016 17:20 Pitocin (milliunit): Pitocin Increased to (milliunits) @ 4 (Ruthann Vitrano, RN) Datetime: 10/02/2016 17:17 NBP Sys/Lizbet/Mean (mmHg): 124 (QS system process) : 64 (QS system process) : 86 (QS system process) Pulse: 73 (QS system process) Respirations: 16 (Ruthann Vitrano, RN) LaborFlag: Labor (QS system process) Datetime: 10/02/2016 17:15 Monitor Mode: External; Palpation (Ruthann Vitrano, RN) Frequency (min): 3-6.5 (Ruthann Vitrano, RN) Quality: Mild/Moderate (Ruthann Vitrano, RN) Duration (sec): 70-110 (Ruthann Vitrano, RN) Duration Criteria: Less than Two 120 Second Contractions (Ruthann Vitrano, RN) Pattern: Normal: <= 5 Contractions in 10 Minutes (Ruthann Vitrano, RN) Resting Tone (Palpate): Relaxed (Ruthann Vitrano, RN) Monitor Mode: External US (Ruthann Vitrano, RN) FHR Baseline Rate : 140 (Ruthann Vitrano, RN) Variability: Moderate 6-25 bpm (Ruthann Vitrano, RN) Accelerations: 10X10 (Ruthann Vitrano, RN) Decelerations: None (Ruthann Vitrano, RN) Pitocin (milliunit): Pitocin Remains (milliunits) @ 2 (Ruthann Vitrano, RN) Datetime: 10/02/2016 17:05 Pitocin (milliunit): Pitocin Started (milliunits) @ 2; Pitocin 20 Units in 1000ml NS (Ruthann Sarabia RN) IV/Blood Work: IV Infusing per Order (Ruthann Sarabia RN) Patient Care Comments: 125 mL/hour (Ruthann Sarabia RN) Communication Comments: Fernando Armas CNM on unit, reviewed strip. Orders to restart Pitocin at 2 mU/min increasing per previous order (Ruthann Sarabia RN) Datetime: 10/02/2016 17:02 NBP Sys/Lizbet/Mean (mmHg): 124 (QS system process) : 67 (QS system process) : 90 (QS system process) Pulse: 73 (QS system process) Respirations: 16 (Ruthann Sarabia RN) LaborFlag: Labor (QS system process) Datetime: 10/02/2016 17:00 Monitor Mode: External; Palpation (Ruthann Vitrano, RN) Frequency (min): 4.5-5 (Ruthann Vitrano, RN) Quality: Moderate to Strong (Ruthann Vitrano, RN) Duration (sec): 70-90 (Ruthann Vitrano, RN) Duration Criteria: Less than Two 120 Second Contractions (Ruthann Vitrano, RN) Pattern: Normal: <= 5 Contractions in 10 Minutes (Ruthann Vitrano, RN) Resting Tone (Palpate): Relaxed (Ruthann Vitrano, RN) Monitor Mode: External US (Ruthann Vitrano, RN) FHR Baseline Rate : 145 (Ruthann Vitrano, RN) Variability: Minimal - Undetectable to <=5 bpm (Ruthann Vitrano, RN) Accelerations: None (Ruthann Vitrano, RN) Decelerations: Early; Prolonged (Ruthann Vitrano, RN) Datetime: 10/02/2016 16:56 Comments: O2 d/c (Ruthann Vitrano, RN) Datetime: 10/02/2016 16:53 Patient Position/Activity: Left Lateral; Peanut Ball (Ruthann Vitrano, RN) Datetime: 10/02/2016 16:49 Patient Position/Activity: Left Lateral (Ruthann Vitrano, RN) Datetime: 10/02/2016 16:48 Stage of : Labor (Ruthann Sarabia RN) Monitor Interventions for FHR: Ultrasound Adjusted (Ruthann Sarabia RN) Decelerations: Prolonged (Ruthann Sarabia RN) Actions for Decelerations: Side to Side; Oxygen Applied; Pitocin Off; IV Bolus (Ruthann Sraabia RN) Oxygen Method: Non-Rebreather (Ruthann Sarabia RN) Patient Position/Activity: Right Lateral (Ruthann Sarabia RN) Provider Reviewed Strip: Yes (Ruthann Sarabia RN) Communication: RN at Bedside; Provider at Bedside (Ruthann Sarabia RN) Communication Comments: cristy armas cnm @ bs (Ruthann Sarabia RN) Datetime: 10/02/2016 16:47 NBP Sys/Lizbet/Mean (mmHg): 130 (QS system process) : 74 (QS system process) : 95 (QS system process) Pulse: 85 (QS system process) Respirations: 16 (Ruthann Cornell, RN) LaborFlag: Antepartum (QS system process) Datetime: 10/02/2016 16:46 Dilatation (cm): 4.0 (Ruthann Cornell, RN) Effacement (%): 90 (Ruthann Vitrano, RN) Station: -1 (Ruthann Vitrano, RN) Exam by: Fernando Armas CNM (Ruthann Vitrano, RN) Vaginal Bleeding: None (Ruthann Harvinderano, RN) Cervix, Consistency: Soft (Ruthann Vitrano, RN) Datetime: 10/02/2016 16:45 Monitor Mode: External (Ruthann Vitrano, RN) Frequency (min): 3-5 (Ruthann Vitrano, RN) Quality: Moderate to Strong (Ruthann Vitrano, RN) Duration (sec): 50-100 (Ruthann Vitrano, RN) Duration Criteria: Less than Two 120 Second Contractions (Ruthann Vitrano, RN) Pattern: Normal: <= 5 Contractions in 10 Minutes (Ruthann Vitrano, RN) Resting Tone (Palpate): Relaxed (Ruthann Vitrano, RN) Monitor Mode: External US (Ruthann Vitrano, RN) FHR Baseline Rate : 145 (Ruthann Vitrano, RN) Variability: Moderate 6-25 bpm (Ruthann Vitrano, RN) Accelerations: 10X10 (Ruthann Vitrano, RN) Decelerations: None (Ruthann Vitrano, RN) Membrane Status: Ruptured (Ruthann Vitrano, RN) Membranes Rupture Method: Artificial (Ruthann Vitrano, RN) Amniotic Fluid Color: Clear (Ruthann Vitrano, RN) Amniotic Fluid Amount: Moderate (Ruthann Vitrano, RN) Membrane Comments: Forebag ruptured (Ruthann Vitrano, RN) Pitocin (milliunit): Pitocin Remains (milliunits) @ 6 (Ruthann Vitrano, RN) Datetime: 10/02/2016 16:44 Communication Comments: A. Emmel, CNM at bedside to assess pt (Ruthann Vitrano, RN) Datetime: 10/02/2016 16:31 NBP Sys/Lizbet/Mean (mmHg): 116 (QS system process) : 62 (QS system process) : 82 (QS system process) Pulse: 76 (QS system process) Respirations: 16 (Ruthann Vitrano, RN) Temperature (F): 97.6 (Ruthann Vitrano, RN) Temperature (C): 36.4 (QS system process) Temperature Route: Axillary (Ruthann Vitrano, RN) LaborFlag: Antepartum (QS system process) Datetime: 10/02/2016 16:30 Monitor Mode: External (Ruthann Vitrano, RN) Frequency (min): 2-4 (Ruthann Vitrano, RN) Quality: Moderate to Strong (Ruthann Vitrano, RN) Duration (sec): 50-120 (Ruthann Vitrano, RN) Duration Criteria: Less than Two 120 Second Contractions (Ruthann Vitrano, RN) Pattern: Normal: <= 5 Contractions in 10 Minutes (Ruthann Vitrano, RN) Resting Tone (Palpate): Relaxed (Ruthann Vitrano, RN) Monitor Mode: External US (Ruthann Vitrano, RN) FHR Baseline Rate : 145 (Ruthann Vitrano, RN) Variability: Moderate 6-25 bpm (Ruthann Vitrano, RN) Accelerations: 15X15 (Ruthann Vitrano, RN) Decelerations: None (Ruthann Vitrano, RN) Pitocin (milliunit): Pitocin Increased to (milliunits) @ 6 (Ruthann Vitrano, RN) Datetime: 10/02/2016 16:17 NBP Sys/Lizbet/Mean (mmHg): 115 (QS system process) : 58 (QS system process) : 80 (QS system process) Pulse: 84 (QS system process) Respirations: 16 (Ruthann Vitrano, RN) LaborFlag: Antepartum (QS system process) Datetime: 10/02/2016 16:15 Monitor Mode: External; Palpation (Ruthann Vitrano, RN) Frequency (min): 4-5 (Ruthann Vitrano, RN) Quality: Moderate to Strong (Ruthann Vitrano, RN) Duration (sec): 60-120 (Ruthann Vitrano, RN) Duration Criteria: Less than Two 120 Second Contractions (Ruthann Vitrano, RN) Pattern: Normal: <= 5 Contractions in 10 Minutes (Ruthann Vitrano, RN) Resting Tone (Palpate): Relaxed (Ruthann Vitrano, RN) Monitor Mode: External US (Ruthann Vitrano, RN) FHR Baseline Rate : 145 (Ruthann Vitrano, RN) Variability: Moderate 6-25 bpm (Ruthann Vitrano, RN) Accelerations: 10X10 (Ruthann Vitrano, RN) Decelerations: None (Ruthann Vitrano, RN) Pitocin (milliunit): Pitocin Increased to (milliunits) @ 4 (Ruthann Vitrano, RN) Datetime: 10/02/2016 16:00 NBP Sys/Lizbet/Mean (mmHg): 129 (QS system process) : 61 (QS system process) : 88 (QS system process) Pulse: 78 (QS system process) Respirations: 16 (Ruthann Vitrano, RN) Monitor Mode: External; Palpation (Ruthann Vitrano, RN) Monitor Interventions for UA: Man Adjusted (Ruthann Vitrano, RN) Frequency (min): 4-6 (Ruthann Vitrano, RN) Quality: Moderate to Strong (Ruthann Vitrano, RN) Duration (sec): 60-80 (Ruthann Vitrano, RN) Duration Criteria: Less than Two 120 Second Contractions (Ruthann Vitrano, RN) Pattern: Normal: <= 5 Contractions in 10 Minutes (Ruthann Vitrano, RN) Resting Tone (Palpate): Relaxed (Ruthann Sarabia RN) Monitor Mode: External US (Ruthann Sarabia RN) Monitor Interventions for FHR: Ultrasound Adjusted (Ruthann Sarabia RN) FHR Baseline Rate : 145 (Ruthann Sarabia RN) Variability: Minimal - Undetectable to <=5 bpm (Ruthann Sarabia RN) Accelerations: None (Ruthann Sarabia RN) Decelerations: None (Ruthann Sarabia RN) Pitocin (milliunit): Pitocin Started (milliunits) @ 2; Pitocin 20 Units in 1000ml NS (Ruthann Sarabia RN) LaborFlag: Antepartum (QS system process)
[2016-10-03] MEDS ORDERED: CEFAZOLIN 2 GM/D5W RTU 2 GM/50 ML RTUPB IV SCH
[2016-10-03] MEDS ORDERED: FENTANYL/BUPIVACAINE/NS/PF 200 MCG/100 ML RTUINJ EPI ONE (00:13)
[2016-10-03] MEDS ORDERED: CEFAZOLIN 2 GM/D5W RTU 2 GM/50 ML RTUPB IV ONE ×2 (00:25→01:43)
[2016-10-03] MEDS ORDERED: CEFAZOLIN 2 GM/D5W RTU 2 GM/50 ML RTUPB IV PRN (01:28)
[2016-10-03] MEDS ORDERED: CITRIC ACID/SODIUM CITRATE ORAL SOLN 15 ML UDCUP ONE (01:43)
[2016-10-03] MEDS ORDERED: LIDOCAINE 2% INJ-PF (20 MG/ML) 10 ML AMPUL ONE (01:55)
[2016-10-03] MEDS ORDERED: FENTANYL CITRATE INJ/PF 100 MCG/2 ML AMPUL ONE ×2 (02:02→03:14)
[2016-10-03] MEDS ORDERED: OXYTOCIN 10 UNIT/ML VIAL ONE (02:02)
[2016-10-03] MEDS ORDERED: MIDAZOLAM 2 MG/2 ML INJ ONE (02:03)
[2016-10-03] MEDS ORDERED: FENTANYL CITRATE INJ/PF 250 MCG/5 ML AMPULE ONE (02:03)
[2016-10-03] MEDS ORDERED: OXYTOCIN/NORMAL SALINE 20 UNIT/1,000 ML RTUINJ ONE (02:03)
[2016-10-03] MEDS ORDERED: ONDANSETRON HCL INJ/PF 4 MG/2 ML SDV ONE (02:03)
[2016-10-03] MEDS ORDERED: EPHEDRINE SULFATE INJ 50 MG/1 ML AMPULE ONE (02:03)
[2016-10-03] MEDS ORDERED: FENTANYL CITRATE INJ/PF 100 MCG/2 ML AMPUL IV PRN ×3 (02:26)
[2016-10-03] MEDS ORDERED: PROMETHAZINE HCL INJ 25 MG/1 ML VIAL IV PRN ×3 (02:26→02:46)
[2016-10-03] MEDS ORDERED: OXYCODONE-ACETAMINOPHEN 5-325 MG TABLET PO PRN ×2 (02:26)
[2016-10-03] MEDS ORDERED: MORPHINE SULFATE 10 MG/ML INJ IV PRN (02:26)
[2016-10-03] MEDS ORDERED: MEPERIDINE HCL/PF INJ 25 MG/1 ML DISP.SYRIN IV PRN (02:26)
[2016-10-03] MEDS ORDERED: DIPHENHYDRAMINE HCL 50 MG/ML VIAL IV PRN (02:26)
[2016-10-03] MEDS ORDERED: SIMETHICONE 80 MG TAB.CHEW PO PRN (02:46)
[2016-10-03] MEDS ORDERED: DIPH/PERTUSS(ACELL)/TETANUS VAC/PF 0.5 ML SYR (>=10YO) IM PRN (02:46)
[2016-10-03] MEDS ORDERED: ACETAMINOPHEN 325 MG TABLET PO PRN (02:46)
[2016-10-03] MEDS ORDERED: OXYTOCIN/NORMAL SALINE 1,000 ML IV PRN (02:46)
[2016-10-03] MEDS ORDERED: HYDROMORPHONE HCL INJ/PF 2 MG/ML AMPULE IV PRN (03:05)
[2016-10-03] MEDS ORDERED: MEPERIDINE HCL/PF INJ 25 MG/1 ML DISP.SYRIN ONE (03:14)
[2016-10-03] MEDS ORDERED: MORPHINE SULFATE 10 MG/ML INJ ONE (03:14)
[2016-10-03] MEDS ORDERED: KETOROLAC TROMETHAMINE INJ/PF 30 MG/1 ML SDV ONE (03:34)
[2016-10-03] MEDS ORDERED: HYDROMORPHONE HCL INJ/PF 2 MG/ML AMPULE ONE (04:44)
--- NOTE | 2016-10-03 04:46 | L&D Flow Sheet ---
LD Flowsheet Datetime Report Generated by CPN: 10/03/2016 04:45 Datetime: 10/03/2016 04:30 NBP Sys/Lizbet/Mean (mmHg): 129 (QS system process) : 71 (QS system process) : 96 (QS system process) Pulse: 93 (QS system process) Datetime: 10/03/2016 04:16 NBP Sys/Lizbet/Mean (mmHg): 132 (QS system process) : 76 (QS system process) : 98 (QS system process) Pulse: 96 (QS system process) Datetime: 10/03/2016 04:15 Pain Scale: 3 (Socorro True, RN) Pain Presence: Constant (Socorro True, RN) Pain Type: Ache (Socorro True, RN) Pain Location: Abdomen (Socorro True, RN) Pain Goal: 2 (Socorro True, RN) Pain Relief Measures: Pain Medication Given (Socorro True, RN) Datetime: 10/03/2016 04:01 NBP Sys/Lizbet/Mean (mmHg): 166 (QS system process) : 68 (QS system process) : 98 (QS system process) Pulse: 95 (QS system process) Datetime: 10/03/2016 03:45 NBP Sys/Lizbet/Mean (mmHg): 140 (QS system process) : 76 (QS system process) : 102 (QS system process) Pulse: 83 (QS system process) Datetime: 10/03/2016 03:32 Stage of : Recovery (Socorro True, RN) Datetime: 10/03/2016 03:31 Pulse: 81 (QS system process) SpO2 (%): 98 (QS system process) Datetime: 10/03/2016 03:30 Pain Scale: 3 (Socorro True, RN) Pain Presence: Constant (Socorro True, RN) Datetime: 10/03/2016 03:26 Pulse: 80 (QS system process) SpO2 (%): 98 (QS system process) Datetime: 10/03/2016 03:25 NBP Sys/Lizbet/Mean (mmHg): 156 (QS system process) : 70 (QS system process) : 104 (QS system process) Pulse: 87 (QS system process) Datetime: 10/03/2016 03:22 Medication Comments: demerol 12.5 mg IV (Socorro True, RN) Datetime: 10/03/2016 03:21 NBP Sys/Lizbet/Mean (mmHg): 156 (QS system process) : 79 (QS system process) : 101 (QS system process) Pulse: 90 (QS system process) Pulse: 93 (QS system process) SpO2 (%): 100 (QS system process) Datetime: 10/03/2016 03:17 Medication Comments: demerol 12.5 mg IV (Socorro True, RN) Datetime: 10/03/2016 03:16 Pulse: 91 (QS system process) SpO2 (%): 99 (QS system process) Medication Comments: fentanyl 100 mcg IV (Socorro Biswas, RN) Datetime: 10/03/2016 03:12 NBP Sys/Lizbet/Mean (mmHg): 144 (QS system process) : 63 (QS system process) : 91 (QS system process) Pulse: 83 (QS system process) Respirations: 22 (Socorro Biswas RN) Temperature (F): 98.0 (Socorro Biswas, RN) Temperature (C): 36.7 (QS system process) Temperature Route: Oral (Socorro Biswas RN) Pain Scale: 5 (Socorro Biswas RN) Pain Presence: Constant (Socorro Biswsa, RN) Pain Type: Sharp; Stabbing; Ache (Socorro Biswas, RN) Pain Location: Abdomen (Socorro Biswas RN) Pain Goal: 1 (Socorro Biswas RN) Pain Relief Measures: Pain Medication Given; Comfort Measures (Socorro True, RN) Datetime: 10/03/2016 03:11 Stage of : Recovery (Socorro True, RN) Pulse: 88 (QS system process) SpO2 (%): 100 (QS system process) Datetime: 10/03/2016 02:15 Communication Comments: Pt to OR via bed in stable condition per J [place] CADDIE and K True RN (Socorro True, RN) Datetime: 10/03/2016 02:12 Monitor Mode: Internal; Palpation (Socorro True, RN) Frequency (min): 3-4 (Socorro True, RN) Quality: Moderate to Strong (Socorro True, RN) Duration (sec): 60-90 (Socorro True, RN) Resting Tone (Palpate): Relaxed (Socorro True, RN) Monitor Mode: Internal Scalp Electrode (Socorro True, RN) FHR Baseline Rate : 145 (Socorro True, RN) Variability: Moderate 6-25 bpm (Socorro True, RN) Accelerations: None (Socorro True, RN) Decelerations: None (Socorro True, RN) Comments: monitors removed (Socorro True, RN) Medication Comments: ancef 2 gm IVPB (Socorro True, RN) Datetime: 10/03/2016 02:03 Communication Comments: Dr Pérez at bedside bolusing epidural (Socorro True, RN) Datetime: 10/03/2016 02:02 NBP Sys/Lizbet/Mean (mmHg): 141 (QS system process) : 68 (QS system process) : 97 (QS system process) Pulse: 84 (QS system process) LaborFlag: Labor (QS system process) Datetime: 10/03/2016 02:00 Monitor Mode: Internal; Palpation (Socorro True, RN) Frequency (min): 1-4 (Socorro True, RN) Quality: Moderate to Strong (Socorro True, RN) Duration (sec): 50-90 (Socorro True, RN) Resting Tone (Palpate): Relaxed (Socorro True, RN) Monitor Mode: Internal Scalp Electrode (Socorro True, RN) FHR Baseline Rate : 150 (Socorro True, RN) Variability: Moderate 6-25 bpm (Socorro True, RN) Accelerations: 15X15 (Socorro True, RN) Decelerations: None (Socorro True, RN) Datetime: 10/03/2016 01:49 Communication Comments: Informed 2 [place], Mel RN that has been called. (Amy Lattibeaudeir, RN) Datetime: 10/03/2016 01:46 NBP Sys/Lizbet/Mean (mmHg): 133 (QS system process) : 76 (QS system process) : 97 (QS system process) Pulse: 82 (QS system process) Communication Comments: Informed ADDIS Gong that called as Urgent. (Amy Rodríguez RN) LaborFlag: Labor (QS system process) Datetime: 10/03/2016 01:45 Monitor Mode: Internal; Palpation (Socorro True, RN) Frequency (min): 4-5 (Socorro True, RN) Quality: Moderate to Strong (Socorro True, RN) Duration (sec): 60-90 (Socorro True, RN) Resting Tone (Palpate): Relaxed (Socorro True, RN) Monitor Mode: Internal Scalp Electrode (Socorro True, RN) FHR Baseline Rate : 145 (Socorro True, RN) Variability: Moderate 6-25 bpm (Socorro True, RN) Accelerations: 10X10 (Socorro True, RN) Decelerations: None (Socorro True, RN) Communication Comments: Informed Technical Marketing Engineer, [place], that called for arrest of dilatation. (Amy Lattibeaudeir, RN) Datetime: 10/03/2016 01:40 Patient Care Comments: singer catheter emptied for 1800 mL yellow clear urine (Socorro True, RN) Datetime: 10/03/2016 01:33 NBP Sys/Lizbet/Mean (mmHg): 136 (QS system process) : 77 (QS system process) : 98 (QS system process) Pulse: 79 (QS system process) LaborFlag: Labor (QS system process) Datetime: 10/03/2016 01:30 Monitor Mode: Internal; Palpation (Socorro True, RN) Frequency (min): 2-4 (Socorro True, RN) Quality: Moderate to Strong (Socorro True, RN) Duration (sec): 60-90 (Socorro True, RN) Resting Tone (Palpate): Relaxed (Socorro True, RN) Monitor Mode: Internal Scalp Electrode (Socorro True, RN) FHR Baseline Rate : 150 (Socorro True, RN) Variability: Moderate 6-25 bpm (Socorro True, RN) Accelerations: 15X15 (Socorro True, RN) Decelerations: None (Socorro True, RN) Patient Care Comments: marlene wipes to abd (Socorro True, RN) Datetime: 10/03/2016 01:28 Patient Care Comments: pt shaved (Socorro True, RN) Datetime: 10/03/2016 01:23 Patient Care Comments: TEDs and SCDs applied (Socorro Biswas RN) Datetime: 10/03/2016 01:21 Provider Reviewed Strip: Yes (Socorro Biswas RN) Communication: Provider at Bedside; Provider Orders Received (Socorro Biswas RN) Communication Comments: Dr Frazier at bedside, discussing POC for c/s. Dx primary c/s d/t arrest of dilatation. Pitocin discontinued. Pt and FOB questions answered at this time. (Socorro Biswas RN) Datetime: 10/03/2016 01:19 NBP Sys/Lizbet/Mean (mmHg): 116 (QS system process) : 56 (QS system process) : 81 (QS system process) Pulse: 82 (QS system process) LaborFlag: Labor (QS system process) Datetime: 10/03/2016 01:15 Monitor Mode: Internal (Socorro True, RN) Frequency (min): 2-3 (Socorro True, RN) Quality: Moderate to Strong (Socorro True, RN) Duration (sec): 40-60 (Socorro True, RN) Resting Tone (Palpate): Relaxed (Socorro True, RN) Monitor Mode: Internal Scalp Electrode (Socorro True, RN) FHR Baseline Rate : 150 (Socorro True, RN) Variability: Moderate 6-25 bpm (Socorro True, RN) Accelerations: 15X15 (Socorro True, RN) Decelerations: Late (Socorro True, RN) Pitocin (milliunit): Pitocin Remains (milliunits) @ 8 (Socorro True, RN) Datetime: 10/03/2016 01:08 Dilatation (cm): 5.0 (Socorro Biswas, RN) Effacement (%): 70 (Socorro True, RN) Station: 0 (Socorroradha Biswas, RN) Exam by: Janice Biswas RN (Socorro Biswas, RN) Vaginal Exam Comments: cervical swelling noted (Socorro True, RN) Datetime: 10/03/2016 01:02 NBP Sys/Lizbet/Mean (mmHg): 117 (QS system process) : 58 (QS system process) : 82 (QS system process) Pulse: 80 (QS system process) LaborFlag: Labor (QS system process) Datetime: 10/03/2016 01:00 Monitor Mode: Internal (Socorro True, RN) Frequency (min): 2-4 (Socorro True, RN) Duration (sec): 60-90 (Socorro True, RN) Resting Tone (Palpate): Relaxed (Socorro True, RN) Resting Tone IUP (mmHg): 30 (Socorro True, RN) Contraction Comments: intensity 90-110; MVU 190 (Socorro True, RN) Monitor Mode: Internal Scalp Electrode (Socorro True, RN) FHR Baseline Rate : 145 (Socorro True, RN) Variability: Moderate 6-25 bpm (Socorro True, RN) Accelerations: 15X15 (Socorro True, RN) Decelerations: Variable (Socorro True, RN) Datetime: 10/03/2016 00:46 NBP Sys/Lizbet/Mean (mmHg): 125 (QS system process) : 58 (QS system process) : 84 (QS system process) Pulse: 80 (QS system process) LaborFlag: Labor (QS system process) Datetime: 10/03/2016 00:45 Monitor Mode: Internal (Socorro True, RN) Frequency (min): 2-3 (Socorro True, RN) Duration (sec): 60-120 (Socorro True, RN) Resting Tone (Palpate): Relaxed (Socorro True, RN) Resting Tone IUP (mmHg): 30 (Socorro True, RN) Contraction Comments: Intensity 85-95; MVU 235 (Socorro True, RN) Monitor Mode: Internal Scalp Electrode (Socorro True, RN) FHR Baseline Rate : 145 (Socorro True, RN) Variability: Moderate 6-25 bpm (Socorro True, RN) Accelerations: 15X15 (Socorro True, RN) Decelerations: None (Socorro True, RN) Pitocin (milliunit): Pitocin Remains (milliunits) @ 8 (Socorro True, RN) Datetime: 10/03/2016 00:33 NBP Sys/Lizbet/Mean (mmHg): 128 (QS system process) : 75 (QS system process) : 90 (QS system process) Pulse: 83 (QS system process) Respirations: 18 (Socorro True, RN) Temperature (F): 98.2 (Socorro True, RN) Temperature (C): 36.8 (QS system process) Hygiene: Underpad Changed; Peripad Changed (Socorro True, RN) LaborFlag: Labor (QS system process) Datetime: 10/03/2016 00:32 Antibiotics: Ancef IV (Gm) @ 2 (Socorro True, RN) Datetime: 10/03/2016 00:30 Monitor Mode: Internal (Socorro True, RN) Frequency (min): 2.5-3 (Socorro True, RN) Duration (sec): 60-80 (Socorro True, RN) Resting Tone (Palpate): Relaxed (Socorro True, RN) Resting Tone IUP (mmHg): 35 (Socorro True, RN) Contraction Comments: Intensity 75-120 MVU 200 (Socorro True, RN) Monitor Mode: Internal Scalp Electrode (Socorro True, RN) FHR Baseline Rate : 145 (Socorro True, RN) Variability: Moderate 6-25 bpm (Socorro True, RN) Accelerations: 15X15 (Socorro True, RN) Decelerations: None (Socorro True, RN) Datetime: 10/03/2016 00:17 NBP Sys/Lizbet/Mean (mmHg): 122 (QS system process) : 58 (QS system process) : 83 (QS system process) Pulse: 84 (QS system process) LaborFlag: Labor (QS system process) Datetime: 10/03/2016 00:15 Monitor Mode: Internal (Socorro True, RN) Frequency (min): 2-4.5 (Socorro True, RN) Duration (sec): 80-120 (Socorro True, RN) Resting Tone (Palpate): Relaxed (Socorro True, RN) Resting Tone IUP (mmHg): 30 (Socorro True, RN) Contraction Comments: intensity 75-100; MVU 195 (Socorro True, RN) Monitor Mode: Internal Scalp Electrode (Socorro True, RN) FHR Baseline Rate : 145 (Socorro True, RN) Variability: Moderate 6-25 bpm (Socorro True, RN) Accelerations: 15X15 (Socorro True, RN) Decelerations: None (Socorro True, RN) Pitocin (milliunit): Pitocin Remains (milliunits) @ (Annotations: 8) (Socorro True, RN) Datetime: 10/03/2016 00:10 Anesthesia Comments: Dr Beto called to replace epidural bag (Socorro Wynnesel, RN) Datetime: 10/03/2016 00:03 Pitocin (milliunit): Pitocin Remains (milliunits) @ (Annotations: 8) (Socorro Wynnesel, RN) Datetime: 10/03/2016 00:01 NBP Sys/Lizbet/Mean (mmHg): 121 (QS system process) : 57 (QS system process) : 83 (QS system process) Pulse: 90 (QS system process) LaborFlag: Labor (QS system process) Datetime: 10/03/2016 00:00 Monitor Mode: Internal (Socorro True, RN) Frequency (min): 2-4 (Socorro True, RN) Duration (sec): 80-100 (Socorro True, RN) Resting Tone (Palpate): Relaxed (Socorro True, RN) Resting Tone IUP (mmHg): 30 (Socorro True, RN) Contraction Comments: intensity 80-100; MVU 255 (Socorro True, RN) Monitor Mode: Internal Scalp Electrode (Socorro True, RN) FHR Baseline Rate : 145 (Socorro True, RN) Variability: Moderate 6-25 bpm (Socorro True, RN) Accelerations: 10X10 (Socorro True, RN) Decelerations: Late; Variable (Socorro True, RN) Pitocin (milliunit): Pitocin Remains (milliunits) @ (Annotations: 8) (Socorro True, RN) Datetime: 10/02/2016 23:52 Actions for Decelerations: Side to Side; Oxygen Applied; IV Bolus (Socorro True, RN) Patient Position/Activity: Right Lateral (Socorro True, RN) Datetime: 10/02/2016 23:50 Communication: RN Reviewed Strip (Socorro True, RN) Datetime: 10/02/2016 23:48 Amnioinfusion: Discontinued (Socorro True, RN) Communication: RN at Bedside (Socorro True, RN) Datetime: 10/02/2016 23:47 NBP Sys/Lizbet/Mean (mmHg): 132 (QS system process) : 64 (QS system process) : 92 (QS system process) Pulse: 72 (QS system process) Amnioinfusion: Fluid Returned (Socorro True, RN) LaborFlag: Labor (QS system process) Datetime: 10/02/2016 23:45 Monitor Mode: Internal (Socorro True, RN) Frequency (min): 2-3 (Socorro True, RN) Duration (sec): 80-100 (Socorro True, RN) Resting Tone (Palpate): Relaxed (Socorro True, RN) Resting Tone IUP (mmHg): 30 (Socorro True, RN) Contraction Comments: Intensity 90-100; MVU 280 (Socorro True, RN) Monitor Mode: Internal Scalp Electrode (Socorro True, RN) FHR Baseline Rate : 145 (Socorro True, RN) Variability: Moderate 6-25 bpm (Socorro True, RN) Accelerations: 15X15 (Socorro True, RN) Decelerations: None (Socorro True, RN) Pitocin (milliunit): Pitocin Remains (milliunits) @ (Annotations: 8) (Socorro True, RN) Datetime: 10/02/2016 23:33 Contraction Comments: MVU 270, report to Dr Frazier on unit re: MVU, no additional orders at this time, will keep pitocin running 8 milliunits/min. POC to monitor MVUs for 2 hours, if adequate ctx for 2 hours and no cervical change to discuss c/s (Socorro Biswas RN) Datetime: 10/02/2016 23:32 NBP Sys/Lizbet/Mean (mmHg): 134 (QS system process) : 72 (QS system process) : 95 (QS system process) Pulse: 76 (QS system process) LaborFlag: Labor (QS system process) Datetime: 10/02/2016 23:30 Monitor Mode: Internal (Socorro Biswas RN) Frequency (min): 1-4 (Socorro Biswas RN) Duration (sec): 70-120 (Socorro Biswas RN) Resting Tone (Palpate): Relaxed (Socorro Biswas RN) Resting Tone IUP (mmHg): 25 (Socorro Biswas, RN) Contraction Comments: intensity 75-100 mmHg; MVU 215 (Socorro True, RN) Monitor Mode: Internal Scalp Electrode (Socorro True, RN) FHR Baseline Rate : 150 (Socorro True, RN) Variability: Moderate 6-25 bpm (Socorro True, RN) Accelerations: 15X15 (Socorro True, RN) Decelerations: Late (Socorro True, RN) Pitocin (milliunit): Pitocin Remains (milliunits) @ (Annotations: 8) (Socorro True, RN) Datetime: 10/02/2016 23:20 Communication Comments: Report to Courtney Biswas, RN, care relinquished (Ruthann Vitrano, RN) Datetime: 10/02/2016 23:19 Patient Position/Activity: Left Tilt; Semi-Fowlers (Ruthann Vitrano, RN) Datetime: 10/02/2016 23:17 NBP Sys/Lizbet/Mean (mmHg): 129 (QS system process) : 84 (QS system process) : 102 (QS system process) Pulse: 82 (QS system process) Respirations: 17 (Ruthann Vitrano, RN) LaborFlag: Labor (QS system process) Datetime: 10/02/2016 23:16 Amnioinfusion: Started (Socorro Biswas RN) Patient Care Comments: orders for amnioinfusion 250 bolus, no maintenance fluid after bolus finishes. (Socorro Biswas, BLANCA) Datetime: 10/02/2016 23:15 Monitor Mode: External (Ruthann Vitrano, RN) Frequency (min): 2-4 (Ruthann Vitrano, RN) Quality: Moderate to Strong (Ruthann Vitrano, RN) Duration (sec): 60-90 (Ruthann Vitrano, RN) Duration Criteria: Less than Two 120 Second Contractions (Ruthann Vitrano, RN) Pattern: Normal: <= 5 Contractions in 10 Minutes (Ruthann Vitrano, RN) Resting Tone (Palpate): Relaxed (Ruthann Vitrano, RN) Monitor Mode: Internal Scalp Electrode (Ruthann Vitrano, RN) FHR Baseline Rate : 145 (Ruthann Vitrano, RN) Variability: Moderate 6-25 bpm (Ruthann Vitrano, RN) Accelerations: 15X15 (Ruthann Vitrano, RN) Decelerations: None (Ruthann Vitrano, RN) Pitocin (milliunit): Pitocin Remains (milliunits) @ 8 (Ruthann Vitrano, RN) Communication Comments: Orders from Dr. Frazier for Amnioinfusion bolus of 250 mL NSS (Ruthann Vitrano, RN) Datetime: 10/02/2016 23:14 Hygiene: Underpad Changed (Ruthann Vitrano, RN) Datetime: 10/02/2016 23:12 Monitor Interventions for UA: IUPC Inserted (Socorro True, RN) Datetime: 10/02/2016 23:11 Provider Reviewed Strip: Yes (Ruthann Vitrano, RN) Communication: RN at Bedside; Provider at Bedside (Ruthann Vitrano, RN) Datetime: 10/02/2016 23:06 Communication Comments: Dr. Frazier on unit, reviewed strip and SVE. No new orders, continue current POC (Ruthann Vitrano, RN) Datetime: 10/02/2016 23:03 NBP Sys/Lizbet/Mean (mmHg): 127 (QS system process) : 66 (QS system process) : 90 (QS system process) Pulse: 81 (QS system process) Respirations: 16 (Ruthann Vitrano, RN) LaborFlag: Labor (QS system process) Datetime: 10/02/2016 23:01 Monitor Interventions for UA: [place] Adjusted (Ruthann Vitrano, RN) Datetime: 10/02/2016 23:00 Monitor Mode: External; Palpation (Ruthann Vitrano, RN) Monitor Interventions for UA: [place] Adjusted (Ruthann Vitrano, RN) Frequency (min): 2-3 (Ruthann Vitrano, RN) Quality: Moderate to Strong (Ruthann Vitrano, RN) Duration (sec): 70-100 (Ruthann Vitrano, RN) Duration Criteria: Less than Two 120 Second Contractions (Ruthann Vitrano, RN) Pattern: Normal: <= 5 Contractions in 10 Minutes (Ruthann Vitrano, RN) Resting Tone (Palpate): Relaxed (Ruthann Vitrano, RN) Monitor Mode: Internal Scalp Electrode (Ruthann Vitrano, RN) FHR Baseline Rate : 160 (Ruthann Vitrano, RN) Variability: Moderate 6-25 bpm (Ruthann Vitrano, RN) Accelerations: 15X15 (Ruthann Vitrano, RN) Decelerations: Late; Variable (Ruthann Vitrano, RN) Pitocin (milliunit): Pitocin Remains (milliunits) @ 8 (Ruthann Vitrano, RN) Datetime: 10/02/2016 22:54 Patient Position/Activity: Hands-Knees (Ruthann Vitrano, RN) Datetime: 10/02/2016 22:52 IV/Blood Work: IV Bolus Started (Ruthann Vitrano, RN) Datetime: 10/02/2016 22:51 Pitocin (milliunit): Pitocin Decreased to (milliunits) @ 8 (Ruthann Vitrano, RN) Datetime: 10/02/2016 22:50 Patient Position/Activity: Left Tilt; Semi-Fowlers (Ruthann Vitrano, RN) Datetime: 10/02/2016 22:49 NBP Sys/Lzibet/Mean (mmHg): 119 (QS system process) : 56 (QS system process) : 80 (QS system process) Pulse: 84 (QS system process) Respirations: 16 (Ruthann Vitrano, RN) LaborFlag: Labor (QS system process) Datetime: 10/02/2016 22:45 Monitor Mode: External; Palpation (Ruthann Vitrano, RN) Frequency (min): 1.5-3 (Ruthann Vitrano, RN) Quality: Moderate to Strong (Ruthann Vitrano, RN) Duration (sec): 60-90 (Ruthann Vitrano, RN) Duration Criteria: Less than Two 120 Second Contractions (Ruthann Vitrano, RN) Pattern: Normal: <= 5 Contractions in 10 Minutes (Ruthann Vitrano, RN) Resting Tone (Palpate): Relaxed (Ruthann Vitrano, RN) Monitor Mode: Internal Scalp Electrode (Ruthann Vitrano, RN) FHR Baseline Rate : 145 (Ruthann Vitrano, RN) Variability: Moderate 6-25 bpm (Ruthann Vitrano, RN) Accelerations: 15X15 (Ruthann Vitrano, RN) Decelerations: Variable (Ruthann Vitrano, RN) Pitocin (milliunit): Pitocin Remains (milliunits) @ 10 (Ruthann Vitrano, RN) IV/Blood Work: IV Infusing per Order; New IV Bag Hung (Ruthann Vitrano, RN) Datetime: 10/02/2016 22:42 Patient Position/Activity: Right Lateral; Peanut Ball (Ruthann Vitrano, RN) Datetime: 10/02/2016 22:41 Temperature (F): 98.3 (Ruthann Vitrano, RN) Temperature (C): 36.8 (QS system process) Temperature Route: Oral (Ruthann Vitrano, RN) Patient Position/Activity: Right Lateral (Ruthann Vitrano, RN) LaborFlag: Labor (QS system process) Datetime: 10/02/2016 22:39 Patient Position/Activity: Right Tilt; Tailors (Ruthann Vitrano, RN) Datetime: 10/02/2016 22:37 Dilatation (cm): 5.0 (Ruthann Vitrano, RN) Effacement (%): 100 (Ruthann Vitrano, RN) Station: -1 (Ruthann Vitrano, RN) Exam by: Jackie Sarabia RN (Ruthann Vitrano, RN) Datetime: 10/02/2016 22:36 Pain Assessment Comments: Pt complaining of pain/pressure in perineum (Ruthann Vitrano, RN) LaborFlag: Labor (QS system process) Datetime: 10/02/2016 22:33 NBP Sys/Lizbet/Mean (mmHg): 120 (QS system process) : 65 (QS system process) : 86 (QS system process) Pulse: 78 (QS system process) Respirations: 16 (Ruthann Vitrano, RN) LaborFlag: Labor (QS system process) Datetime: 10/02/2016 22:30 Monitor Mode: External; Palpation (Ruthann Vitrano, RN) Frequency (min): 1.5-4 (Ruthann Vitrano, RN) Quality: Moderate to Strong (Ruthann Vitrano, RN) Duration (sec): 60-100 (Ruthann Vitrano, RN) Duration Criteria: Less than Two 120 Second Contractions (Urthann Vitrano, RN) Pattern: Normal: <= 5 Contractions in 10 Minutes (Ruthann Vitrano, RN) Resting Tone (Palpate): Relaxed (Ruthann Vitrano, RN) Monitor Mode: Internal Scalp Electrode (Ruthann Vitrano, RN) FHR Baseline Rate : 145 (Ruthann Vitrano, RN) Variability: Moderate 6-25 bpm (Ruthann Vitrano, RN) Accelerations: 15X15 (Ruthann Vitrano, RN) Decelerations: None (Ruthann Vitrano, RN) Pitocin (milliunit): Pitocin Remains (milliunits) @ 10 (Ruthann Vitrano, RN) Datetime: 10/02/2016 22:19 NBP Sys/Lizbet/Mean (mmHg): 115 (QS system process) : 61 (QS system process) : 81 (QS system process) Pulse: 80 (QS system process) Respirations: 16 (Ruthann Vitrano, RN) LaborFlag: Labor (QS system process) Datetime: 10/02/2016 22:15 Monitor Mode: External; Palpation (Ruthann Vitrano, RN) Frequency (min): 2-4 (Ruthann Vitrano, RN) Quality: Moderate to Strong (Ruthann Vitrano, RN) Duration (sec): 50-100 (Ruthann Vitrano, RN) Duration Criteria: Less than Two 120 Second Contractions (Ruthann Vitrano, RN) Pattern: Normal: <= 5 Contractions in 10 Minutes (Ruthann Vitrano, RN) Resting Tone (Palpate): Relaxed (Ruthann Vitrano, RN) Monitor Mode: Internal Scalp Electrode (Ruthann Vitrano, RN) FHR Baseline Rate : 145 (Ruthann Vitrano, RN) Variability: Moderate 6-25 bpm (Ruthann Vitrano, RN) Accelerations: 15X15 (Ruthann Vitrano, RN) Decelerations: None (Rutahnn Vitrano, RN) Pitocin (milliunit): Pitocin Remains (milliunits) @ 10 (Ruthann Vitrano, RN) Datetime: 10/02/2016 22:10 Pitocin (milliunit): Pitocin Increased to (milliunits) @ 10 (Ruthann Vitrano, RN) Datetime: 10/02/2016 22:02 NBP Sys/Lizbet/Mean (mmHg): 111 (QS system process) : 58 (QS system process) : 76 (QS system process) Pulse: 82 (QS system process) Respirations: 16 (Ruthann Vitrano, RN) LaborFlag: Labor (QS system process) Datetime: 10/02/2016 22:00 Monitor Mode: External; Palpation (Ruthann Vitrano, RN) Frequency (min): 2-4 (Ruthann Vitrano, RN) Quality: Moderate to Strong (Ruthann Vitrano, RN) Duration (sec): 60-80 (Ruthann Vitrano, RN) Duration Criteria: Less than Two 120 Second Contractions (Ruthann Vitrano, RN) Pattern: Normal: <= 5 Contractions in 10 Minutes (Ruthann Vitrano, RN) Resting Tone (Palpate): Relaxed (Ruthann Vitrano, RN) Monitor Mode: Internal Scalp Electrode (Ruthann Vitrano, RN) FHR Baseline Rate : 150 (Ruthann Vitrano, RN) Variability: Moderate 6-25 bpm (Ruthann Vitrano, RN) Accelerations: 15X15 (Ruthann Vitrano, RN) Decelerations: None (Ruthann Vitrano, RN) Pitocin (milliunit): Pitocin Remains (milliunits) @ 8 (Ruthann Vitrano, RN) Datetime: 10/02/2016 21:48 NBP Sys/Lizbet/Mean (mmHg): 117 (QS system process) : 58 (QS system process) : 81 (QS system process) Pulse: 78 (QS system process) Respirations: 16 (Ruthann Vitrano, RN) LaborFlag: Labor (QS system process) Datetime: 10/02/2016 21:45 Monitor Mode: External; Palpation (Ruthann Vitrano, RN) Frequency (min): 1.5-4 (Ruthann Vitrano, RN) Quality: Moderate to Strong (Ruthann Vitrano, RN) Duration (sec): 70-100 (Ruthann Vitrano, RN) Duration Criteria: Less than Two 120 Second Contractions (Ruthann Vitrano, RN) Pattern: Normal: <= 5 Contractions in 10 Minutes (Ruthann Vitrano, RN) Resting Tone (Palpate): Relaxed (Ruthann Vitrano, RN) Monitor Mode: Internal Scalp Electrode (Ruthann Vitrano, RN) FHR Baseline Rate : 145 (Ruthann Vitrano, RN) Variability: Moderate 6-25 bpm (Ruthann Vitrano, RN) Accelerations: None (Ruthann Vitrano, RN) Decelerations: Variable (Ruthann Vitrano, RN) Pitocin (milliunit): Pitocin Remains (milliunits) @ 8 (Ruthann Vitrano, RN) Datetime: 10/02/2016 21:40 Pitocin (milliunit): Pitocin Increased to (milliunits) @ 8 (Ruthann Vitrano, RN) Datetime: 10/02/2016 21:39 Patient Position/Activity: Left Lateral; Peanut Ball (Ruthann Vitrano, RN) Datetime: 10/02/2016 21:31 NBP Sys/Lizbet/Mean (mmHg): 118 (QS system process) : 57 (QS system process) : 81 (QS system process) Pulse: 90 (QS system process) Respirations: 16 (Ruthann Vitrano, RN) LaborFlag: Labor (QS system process) Datetime: 10/02/2016 21:30 Monitor Mode: External (Ruthann Vitrano, RN) Frequency (min): 2-4.5 (Ruthann Vitrano, RN) Quality: Moderate to Strong (Ruthann Vitrano, RN) Duration (sec): 60-100 (Ruthann Vitrano, RN) Duration Criteria: Less than Two 120 Second Contractions (Ruthann Vitrano, RN) Pattern: Normal: <= 5 Contractions in 10 Minutes (Ruthann Vitrano, RN) Resting Tone (Palpate): Relaxed (Ruthann Vitrano, RN) Monitor Mode: Internal Scalp Electrode (Ruthann Vitrano, RN) FHR Baseline Rate : 145 (Ruthann Vitrano, RN) Variability: Moderate 6-25 bpm (Ruthann Vitrano, RN) Accelerations: None (Ruthann Vitrano, RN) Decelerations: None (Ruthann Vitrano, RN) Pitocin (milliunit): Pitocin Remains (milliunits) @ 6 (Ruthann Vitrano, RN) Datetime: 10/02/2016 21:18 NBP Sys/Lizbet/Mean (mmHg): 110 (QS system process) : 55 (QS system process) : 76 (QS system process) Pulse: 81 (QS system process) Respirations: 16 (Ruthann Vitrano, RN) LaborFlag: Labor (QS system process) Datetime: 10/02/2016 21:15 Monitor Mode: External (Ruthann Vitrano, RN) Frequency (min): 2-5 (Ruthann Vitrano, RN) Quality: Moderate to Strong (Ruthann Vitrano, RN) Duration (sec): 70-120 (Ruthann Vitrano, RN) Duration Criteria: Less than Two 120 Second Contractions (Ruthann Vitrano, RN) Pattern: Normal: <= 5 Contractions in 10 Minutes (Ruthann Vitrano, RN) Resting Tone (Palpate): Relaxed (Ruthann Vitrano, RN) Monitor Mode: Internal Scalp Electrode (Ruthann Vitrano, RN) FHR Baseline Rate : 145 (Ruthann Vitrano, RN) Variability: Moderate 6-25 bpm (Ruthann Vitrano, RN) Accelerations: 15X15 (Ruthann Vitrano, RN) Decelerations: None (Ruthann Vitrano, RN) Pitocin (milliunit): Pitocin Remains (milliunits) @ 6 (Ruthann Vitrano, RN) Datetime: 10/02/2016 21:08 Patient Position/Activity: Right Lateral; Peanut Ball (Ruthann Vitrano, RN) Datetime: 10/02/2016 21:01 NBP Sys/Lizbet/Mean (mmHg): 139 (QS system process) : 71 (QS system process) : 99 (QS system process) Pulse: 103 (QS system process) Respirations: 16 (Ruthann Vitrano, RN) LaborFlag: Labor (QS system process) Datetime: 10/02/2016 21:00 Monitor Mode: External; Palpation (Ruthann Vitrano, RN) Frequency (min): 2-4 (Ruthann Vitrano, RN) Quality: Moderate to Strong (Ruthann Vitrano, RN) Duration (sec): 70-100 (Ruthann Vitrano, RN) Duration Criteria: Less than Two 120 Second Contractions (Ruthann Vitrano, RN) Pattern: Normal: <= 5 Contractions in 10 Minutes (Ruthann Vitrano, RN) Resting Tone (Palpate): Relaxed (Ruthann Vitrano, RN) Monitor Mode: Internal Scalp Electrode (Ruthann Vitrano, RN) FHR Baseline Rate : 145 (Ruthann Vitrano, RN) Variability: Moderate 6-25 bpm (Ruthann Vitrano, RN) Accelerations: None (Ruthann Vitrano, RN) Decelerations: None (Ruthann Vitrano, RN) Pitocin (milliunit): Pitocin Remains (milliunits) @ 6 (Ruthann Vitrano, RN) Datetime: 10/02/2016 20:48 NBP Sys/Lizbet/Mean (mmHg): 133 (QS system process) : 68 (QS system process) : 94 (QS system process) Pulse: 96 (QS system process) Respirations: 16 (Ruthann Vitrano, RN) LaborFlag: Labor (QS system process) Datetime: 10/02/2016 20:45 Monitor Mode: External (Ruthann Vitrano, RN) Frequency (min): 2-4 (Ruthann Vitrano, RN) Quality: Moderate to Strong (Ruthann Vitrano, RN) Duration (sec): 70-100 (Ruthann Vitrano, RN) Duration Criteria: Less than Two 120 Second Contractions (Ruthann Vitrano, RN) Pattern: Normal: <= 5 Contractions in 10 Minutes (Ruthann Vitrano, RN) Resting Tone (Palpate): Relaxed (Ruthann Vitrano, RN) Monitor Mode: Internal Scalp Electrode (Ruthann Vitrano, RN) FHR Baseline Rate : 145 (Ruthann Vitrano, RN) Variability: Moderate 6-25 bpm (Ruthann Vitrano, RN) Accelerations: 15X15 (Ruthann Vitrano, RN) Decelerations: Variable (Ruthann Vitrano, RN) Pitocin (milliunit): Pitocin Remains (milliunits) @ 6 (Ruthann Vitrano, RN) Datetime: 10/02/2016 20:32 NBP Sys/Lizbet/Mean (mmHg): 125 (QS system process) : 73 (QS system process) : 95 (QS system process) Pulse: 79 (QS system process) Respirations: 16 (Ruthann Vitrano, RN) LaborFlag: Labor (QS system process) Datetime: 10/02/2016 20:31 Temperature (F): 98.3 (Ruthann Vitrano, RN) Temperature (C): 36.8 (QS system process) Temperature Route: Oral (Ruthann Vitrano, RN) LaborFlag: Labor (QS system process) Datetime: 10/02/2016 20:30 Monitor Mode: External; Palpation (Ruthann Vitrano, RN) Frequency (min): 2-4 (Ruthann Vitrano, RN) Quality: Moderate to Strong (Ruthann Vitrano, RN) Duration (sec): 60-90 (Ruthann Vitrano, RN) Duration Criteria: Less than Two 120 Second Contractions (Ruthann Vitrano, RN) Pattern: Normal: <= 5 Contractions in 10 Minutes (Ruthann Vitrano, RN) Resting Tone (Palpate): Relaxed (Ruthann Vitrano, RN) Monitor Mode: Internal Scalp Electrode (Ruthann Vitrano, RN) FHR Baseline Rate : 145 (Ruthann Vitrano, RN) Variability: Moderate 6-25 bpm (Ruthann Vitrano, RN) Accelerations: None (Ruthann Vitrano, RN) Decelerations: Variable (Ruthann Vitrano, RN) Pitocin (milliunit): Pitocin Remains (milliunits) @ 6 (Ruthann Vitrano, RN) Patient Position/Activity: Left Tilt; Tailors (Ruthann Vitrano, RN) Datetime: 10/02/2016 20:16 NBP Sys/Lizbet/Mean (mmHg): 125 (QS system process) : 70 (QS system process) : 91 (QS system process) Pulse: 81 (QS system process) Respirations: 16 (Ruthann Vitrano, RN) LaborFlag: Labor (QS system process) Datetime: 10/02/2016 20:15 Monitor Mode: External (Ruthann Vitrano, RN) Frequency (min): 2-4 (Ruthann Vitrano, RN) Quality: Moderate to Strong (Ruthann Vitrano, RN) Duration (sec): 50-90 (Ruthann Vitrano, RN) Duration Criteria: Less than Two 120 Second Contractions (Ruthann Vitrano, RN) Pattern: Normal: <= 5 Contractions in 10 Minutes (Ruthann Vitrano, RN) Resting Tone (Palpate): Relaxed (Ruthann Vitrano, RN) Monitor Mode: Internal Scalp Electrode (Ruthann Vitrano, RN) FHR Baseline Rate : 150 (Ruthann Vitrano, RN) Variability: Moderate 6-25 bpm (Ruthann Vitrano, RN) Accelerations: 15X15 (Ruthann Vitrano, RN) Decelerations: None (Ruthann Vitrano, RN) Pitocin (milliunit): Pitocin Remains (milliunits) @ 6 (Ruthann Vitrano, RN) Datetime: 10/02/2016 20:03 NBP Sys/Lizbet/Mean (mmHg): 120 (QS system process) : 65 (QS system process) : 87 (QS system process) Pulse: 82 (QS system process) Respirations: 16 (Ruthann Vitrano, RN) LaborFlag: Labor (QS system process) Datetime: 10/02/2016 20:00 Monitor Mode: External; Palpation (Ruthann Vitrano, RN) Frequency (min): 1-4 (Ruthann Vitrano, RN) Quality: Moderate to Strong (Ruthann Vitrano, RN) Duration (sec): 50-90 (Ruthann Vitrano, RN) Duration Criteria: Less than Two 120 Second Contractions (Ruthann Vitrano, RN) Pattern: Normal: <= 5 Contractions in 10 Minutes (Ruthann Vitrano, RN) Resting Tone (Palpate): Relaxed (Ruthann Vitrano, RN) Monitor Mode: Internal Scalp Electrode (Ruthann Vitrano, RN) FHR Baseline Rate : 155 (Ruthann Vitrano, RN) Variability: Moderate 6-25 bpm (Ruthann Vitrano, RN) Accelerations: 15X15 (Ruthann Vitrano, RN) Decelerations: None (Ruthann Vitrano, RN) Pitocin (milliunit): Pitocin Started (milliunits) @ 6; Pitocin 20 Units in 1000ml NS (Ruthann Vitrano, RN) Instructional Method: Verbal; Patient Instructed; Family/Support Person Instructed; Verbalized Understanding (Ruthannstu Sarabia, RN) Plan of Care: Plan of Care Discussed (Ruthannstu Sarabia, RN) Datetime: 10/02/2016 19:59 Patient Position/Activity: Left Lateral; Peanut Ball (Ruthann Vitrano, RN) Datetime: 10/02/2016 19:58 Comments: O2 d/c (Ruthann Vitrano, RN) IV/Blood Work: IV Infusing per Order (Ruthann Vitrano, RN) Datetime: 10/02/2016 19:56 Communication Comments: Dr. Frazier on unit, reviewed strip. Orders recieved to re start Pitocin 20 units in 1000 mL NS at 6 mU/min increasing per previous orders (Ruthann Vitrano, RN) Datetime: 10/02/2016 19:48 NBP Sys/Lizbet/Mean (mmHg): 116 (QS system process) : 62 (QS system process) : 83 (QS system process) Pulse: 73 (QS system process) Respirations: 16 (Ruthann Vitrano, RN) Pain Copin (Ruthann Vitrano, RN) LaborFlag: Labor (QS system process) Datetime: 10/02/2016 19:45 Monitor Mode: External (Ruthann Vitrano, RN) Frequency (min): 1.5-3 (Ruthann Vitrano, RN) Quality: Moderate to Strong (Ruthann Vitrano, RN) Duration (sec): 50-100 (Ruthann Vitrano, RN) Duration Criteria: Less than Two 120 Second Contractions (Ruthann Vitrano, RN) Pattern: Normal: <= 5 Contractions in 10 Minutes (Ruthann Vitrano, RN) Resting Tone (Palpate): Relaxed (Ruthann Vitrano, RN) Monitor Mode: Internal Scalp Electrode (Ruthann Vitrano, RN) FHR Baseline Rate : 155 (Ruthann Vitrano, RN) Variability: Moderate 6-25 bpm (Ruthann Vitrano, RN) Accelerations: 15X15 (Ruthann Vitrano, RN) Decelerations: None (Ruthann Vitrano, RN) Datetime: 10/02/2016 19:43 Patient Care Comments: Pt states nausea relieved (Ruthann Vitrano, RN) Datetime: 10/02/2016 19:41 Patient Position/Activity: Left Lateral (Ruthann Vitrano, RN) Datetime: 10/02/2016 19:38 Monitor Interventions for FHR: FSE Applied (Ruthann Vitrano, RN) Vaginal Bleeding: Normal Show (Ruthann Vitrano, RN) Cervix, Position: Anterior (Ruthann Vitrano, RN) Datetime: 10/02/2016 19:37 Exam by: Dr. Frazier (Ruthann Vitrano, RN) Vaginal Exam Comments: No change (Ruthann Vitrano, RN) Datetime: 10/02/2016 19:36 Patient Position/Activity: Left Tilt; Semi-Fowlers (Ruthann Vitrano, RN) Provider Reviewed Strip: Yes (Ruthann Vitrano, RN) Communication: RN at Bedside; RN Reviewed Strip; Provider at Bedside (Ruthann Vitrano, RN) Datetime: 10/02/2016 19:35 Provider Reviewed Strip: Yes (Socorro Biswas RN) Communication: Provider at Bedside (Socorro Biswas RN) Communication Comments: Dr Frazier at bedside (Socorro Biswas RN) Datetime: 10/02/2016 19:32 NBP Sys/Lizbet/Mean (mmHg): 136 (QS system process) : 68 (QS system process) : 94 (QS system process) Pulse: 81 (QS system process) Respirations: 16 (Ruthann Vitrano, RN) LaborFlag: Labor (QS system process) Datetime: 10/02/2016 19:30 Monitor Mode: External; Palpation (Ruthann Vitrano, RN) Frequency (min): 1.5-3 (Ruthann Vitrano, RN) Quality: Moderate to Strong (Ruthann Vitrano, RN) Duration (sec): 60-110 (Ruthann Vitrano, RN) Duration Criteria: Less than Two 120 Second Contractions (Ruthann Vitrano, RN) Pattern: Normal: <= 5 Contractions in 10 Minutes (Ruthann Vitrano, RN) Resting Tone (Palpate): Relaxed (Ruthann Sarabia RN) Monitor Mode: External US (Ruthann Sarabia RN) FHR Baseline Rate : 155 (Ruthann Sarabia RN) Variability: Moderate 6-25 bpm (Ruthann Sarabia, RN) Accelerations: None (Ruthann Sarabia RN) Decelerations: Late; Prolonged (Ruthann Sarabia, RN) Datetime: 10/02/2016 19:29 Actions for Decelerations: Hands and Knees (Ruthann Sarabia RN) Datetime: 10/02/2016 19:27 Actions for Decelerations: Side to Side; Oxygen Applied; Pitocin Off; IV Bolus; Sterile Vaginal Exam (Ruthann Sarabia RN) Dilatation (cm): 4.5 (Ruthann Sarabia RN) Effacement (%): 100 (Ruthann Sarabia RN) Station: -1 (Ruthann Sarabia RN) Exam by: Abel Sarabia RN (Ruthann Sarabia RN) Pitocin (milliunit): Pitocin Discontinued (Ruthann Vitrano, RN) Datetime: 10/02/2016 19:26 Patient Position/Activity: Left Lateral (Ruthann Vitrano, RN) Datetime: 10/02/2016 19:23 Patient Position/Activity: Right Lateral (Ruthann Vitrano, RN) Datetime: 10/02/2016 19:19 Medication Comments: Zofran 8 mg IV slow push (Ruthann Vitrano, RN) Datetime: 10/02/2016 19:17 NBP Sys/Lizbet/Mean (mmHg): 144 (QS system process) : 71 (QS system process) : 100 (QS system process) Pulse: 83 (QS system process) Respirations: 16 (Ruthann Vitrano, RN) Communication Comments: Orders received from Dr. Frazier for Zofran 8 mg IV x1 now for nausea (Ruthann Vitrano, RN) LaborFlag: Labor (QS system process) Datetime: 10/02/2016 19:16 Patient Care Comments: Pt nauseated, requesting IV medication (Ruthann Vitrano, RN) Datetime: 10/02/2016 19:15 Monitor Mode: External (Ruthann Vitrano, RN) Frequency (min): 1.5-3 (Ruthann Vitrano, RN) Quality: Moderate to Strong (Ruthann Vitrano, RN) Duration (sec): 60-100 (Ruthann Vitrano, RN) Duration Criteria: Less than Two 120 Second Contractions (Ruthann Vitrano, RN) Pattern: Normal: <= 5 Contractions in 10 Minutes (Ruthann Vitrano, RN) Resting Tone (Palpate): Relaxed (Ruthann Vitrano, RN) Monitor Mode: External US (Ruthann Vitrano, RN) FHR Baseline Rate : 165 (Ruthann Vitrano, RN) Variability: Moderate 6-25 bpm (Ruthann Vitrano, RN) Accelerations: None (Ruthann Vitrano, RN) Decelerations: None (Ruthann Vitrano, RN) Pitocin (milliunit): Pitocin Remains (milliunits) @ 12 (Ruthann Vitrano, RN) Patient Position/Activity: Left Lateral (Ruthann Vitrano, RN) Datetime: 10/02/2016 19:03 NBP Sys/Lizbet/Mean (mmHg): 133 (QS system process) : 76 (QS system process) : 97 (QS system process) Pulse: 78 (QS system process) Respirations: 16 (Ruthann Vitrano, RN) LaborFlag: Labor (QS system process) Datetime: 10/02/2016 19:01 Patient Care Comments: Lea karey per pt request for nausea, denies IV medications (Ruthann Vitrano, RN) Datetime: 10/02/2016 19:00 Monitor Mode: External; Palpation (Ruthann Vitrano, RN) Frequency (min): 1.5-3.5 (Ruthann Vitrano, RN) Quality: Moderate to Strong (Ruthann Vitrano, RN) Duration (sec): 70-100 (Ruthann Vitrano, RN) Duration Criteria: Less than Two 120 Second Contractions (Ruthann Vitrano, RN) Pattern: Normal: <= 5 Contractions in 10 Minutes (Ruthann Vitrano, RN) Resting Tone (Palpate): Relaxed (Ruthann Vitrano, RN) Monitor Mode: External US (Ruthann Vitrano, RN) FHR Baseline Rate : 160 (Ruthann Vitrano, RN) Variability: Moderate 6-25 bpm (Ruthann Vitrano, RN) Accelerations: 10X10 (Ruthann Vitrano, RN) Decelerations: Variable (Ruthann Vitrano, RN) Pitocin (milliunit): Pitocin Increased to (milliunits) @ 12 (Ruthann Vitrano, RN) Datetime: 10/02/2016 18:48 NBP Sys/Lizbet/Mean (mmHg): 131 (QS system process) : 73 (QS system process) : 96 (QS system process) Pulse: 80 (QS system process) Respirations: 16 (Ruthann Vitrano, RN) LaborFlag: Labor (QS system process) Datetime: 10/02/2016 18:45 Monitor Mode: External (Ruthann Vitrano, RN) Frequency (min): 1.5-3 (Ruthann Vitrano, RN) Quality: Moderate to Strong (Ruthann Vitrano, RN) Duration (sec): 70-100 (Ruthann Vitrano, RN) Duration Criteria: Less than Two 120 Second Contractions (Ruthann Vitrano, RN) Pattern: Normal: <= 5 Contractions in 10 Minutes (Ruthann Vitrano, RN) Resting Tone (Palpate): Relaxed (Ruthann Vitrano, RN) Monitor Mode: External US (Ruthann Vitrano, RN) FHR Baseline Rate : 150 (Ruthann Vitrano, RN) Variability: Moderate 6-25 bpm (Ruthann Vitrano, RN) Accelerations: None (Ruthann Cornell, RN) Decelerations: Variable (Ruthann Sarabia, RN) Pitocin (milliunit): Pitocin Remains (milliunits) @ 10 (Ruthann Sarabia, RN) Datetime: 10/02/2016 18:35 Monitor Interventions for FHR: Ultrasound Adjusted (Ruthann Sarabia RN) Patient Position/Activity: Right Tilt; Tailors (Ruthann Sarabia, RN) Datetime: 10/02/2016 18:34 Pain Assessment Comments: Pt reporting intermittent perineal pressure (Ruthann Sarabia RN) Dilatation (cm): 4.0 (Ruthann Sarabia RN) Effacement (%): 100 (Ruthann Sarabia RN) Station: -2 (Ruthann Sarabia RN) Exam by: Jackie Sarabia RN (Ruthann Sarabia RN) LaborFlag: Labor (QS system process) Datetime: 10/02/2016 18:33 NBP Sys/Lizbet/Mean (mmHg): 136 (QS system process) : 69 (QS system process) : 96 (QS system process) Pulse: 73 (QS system process) Respirations: 16 (Ruthann Vitrano, RN) LaborFlag: Labor (QS system process) Datetime: 10/02/2016 18:31 Temperature (F): 98.4 (Ruthann Vitrano, RN) Temperature (C): 36.9 (QS system process) Temperature Route: Oral (Ruthann Vitrano, RN) LaborFlag: Labor (QS system process) Datetime: 10/02/2016 18:30 Monitor Mode: External; Palpation (Ruthann Vitrano, RN) Frequency (min): 1.5-3.5 (Ruthann Vitrano, RN) Quality: Moderate to Strong (Ruthann Vitrano, RN) Duration (sec): 70-100 (Ruthann Vitrano, RN) Duration Criteria: Less than Two 120 Second Contractions (Ruthann Vitrano, RN) Pattern: Normal: <= 5 Contractions in 10 Minutes (Ruthann Vitrano, RN) Resting Tone (Palpate): Relaxed (Ruthann Vitrano, RN) Monitor Mode: External US (Ruthann Vitrano, RN) FHR Baseline Rate : 150 (Ruthann Vitrano, RN) Variability: Moderate 6-25 bpm (Ruthann Vitrano, RN) Accelerations: 15X15 (Ruthann Vitrano, RN) Decelerations: None (Ruthann Vitrano, RN) Pitocin (milliunit): Pitocin Remains (milliunits) @ 10 (Ruthann Vitrano, RN) Datetime: 10/02/2016 18:18 Antibiotics: Start Antibiotics; Ancef IV (Gm) @ 2 (Ruthann Vitrano, RN) Datetime: 10/02/2016 18:17 Communication Comments: Orders received from Dr. Frazier to start Ancef 2 gm IVPB q 6 hr d/t prolonged SROM (Ruthann Vitrano, RN) Datetime: 10/02/2016 18:16 NBP Sys/Lizbet/Mean (mmHg): 118 (QS system process) : 58 (QS system process) : 81 (QS system process) Pulse: 85 (QS system process) Respirations: 16 (Ruthann Vitrano, RN) LaborFlag: Labor (QS system process) Datetime: 10/02/2016 18:15 Monitor Mode: External (Ruthann Vitrano, RN) Frequency (min): 2-6 (Ruthann Vitrano, RN) Quality: Moderate to Strong (Ruthann Vitrano, RN) Duration (sec): 70-100 (Ruthann Vitrano, RN) Duration Criteria: Less than Two 120 Second Contractions (Ruthann Vitrano, RN) Pattern: Normal: <= 5 Contractions in 10 Minutes (Ruthann Vitrano, RN) Resting Tone (Palpate): Relaxed (Ruthann Vitrano, RN) Monitor Mode: External US (Ruthann Vitrano, RN) FHR Baseline Rate : 150 (Ruthann Vitrano, RN) Variability: Moderate 6-25 bpm (Ruthann Vitrano, RN) Accelerations: 15X15 (Ruthann Vitrano, RN) Decelerations: None (Ruthann Vitrano, RN) Pitocin (milliunit): Pitocin Increased to (milliunits) @ 10 (Ruthann Vitrano, RN) Datetime: 10/02/2016 18:02 NBP Sys/Lizbet/Mean (mmHg): 126 (QS system process) : 64 (QS system process) : 88 (QS system process) Pulse: 76 (QS system process) Respirations: 16 (Ruthann Vitrano, RN) LaborFlag: Labor (QS system process) Datetime: 10/02/2016 18:01 Monitor Interventions for UA: [place] Adjusted (Ruthann Vitrano, RN) Datetime: 10/02/2016 18:00 Monitor Mode: External; Palpation (Ruthann Vitrano, RN) Frequency (min): 2-8 (Ruthann Vitrano, RN) Quality: Moderate to Strong (Ruthann Vitrano, RN) Duration (sec): 70-120 (Ruthann Vitrano, RN) Duration Criteria: Less than Two 120 Second Contractions (Ruthann Vitrano, RN) Pattern: Normal: <= 5 Contractions in 10 Minutes (Ruthann Vitrano, RN) Resting Tone (Palpate): Relaxed (Ruthann Vitrano, RN) Monitor Mode: External US (Ruthann Vitrano, RN) FHR Baseline Rate : 155 (Ruthann Vitrano, RN) Variability: Moderate 6-25 bpm (Ruthann Vitrano, RN) Accelerations: 15X15 (Ruthann Vitrano, RN) Decelerations: None (Ruthann Vitrano, RN) Pitocin (milliunit): Pitocin Increased to (milliunits) @ 8 (Ruthann Vitrano, RN) Datetime: 10/02/2016 17:47 NBP Sys/Lizbet/Mean (mmHg): 109 (QS system process) : 55 (QS system process) : 78 (QS system process) Pulse: 82 (QS system process) Respirations: 16 (Ruthann Vitrano, RN) LaborFlag: Labor (QS system process) Datetime: 10/02/2016 17:45 Monitor Mode: External (Ruthann Vitrano, RN) Frequency (min): 2-6 (Ruthann Vitrano, RN) Quality: Moderate to Strong (Ruthann Vitrano, RN) Duration (sec): 60-120 (Ruthann Vitrano, RN) Duration Criteria: Less than Two 120 Second Contractions (Ruthann Vitrano, RN) Pattern: Normal: <= 5 Contractions in 10 Minutes (Ruthann Vitrano, RN) Resting Tone (Palpate): Relaxed (Ruthann Vitrano, RN) Monitor Mode: External US (Ruthann Vitrano, RN) FHR Baseline Rate : 150 (Ruthann Vitrano, RN) Variability: Moderate 6-25 bpm (Ruthann Vitrano, RN) Accelerations: 15X15 (Ruthann Vitrano, RN) Decelerations: None (Ruthann Vitrano, RN) Pitocin (milliunit): Pitocin Remains (milliunits) @ 6 (Ruthann Vitrano, RN) Datetime: 10/02/2016 17:40 Monitor Interventions for UA: [place] Adjusted (Ruthann Vitrano, RN) Pitocin (milliunit): Pitocin Increased to (milliunits) @ 6 (Ruthann Vitrano, RN) Datetime: 10/02/2016:39 Patient Position/Activity: Right Lateral; Peanut Ball (Ruthann Vitrano, RN) Datetime: 10/02/2016 17:32 NBP Sys/Lizbet/Mean (mmHg): 131 (QS system process) : 74 (QS system process) : 95 (QS system process) Pulse: 77 (QS system process) Respirations: 16 (Ruthann Vitrano, RN) LaborFlag: Labor (QS system process) Datetime: 10/02/2016 17:30 Monitor Mode: External; Palpation (Ruthann Vitrano, RN) Frequency (min): 3-5 (Ruthann Vitrano, RN) Quality: Moderate to Strong (Ruthann Vitrano, RN) Duration (sec): 70-110 (Ruthann Vitrano, RN) Duration Criteria: Less than Two 120 Second Contractions (Ruthann Vitrano, RN) Pattern: Normal: <= 5 Contractions in 10 Minutes (Ruthann Vitrano, RN) Resting Tone (Palpate): Relaxed (Ruthann Vitrano, RN) Monitor Mode: External US (Ruthann Vitrano, RN) FHR Baseline Rate : 140 (Ruthann Vitrano, RN) Variability: Moderate 6-25 bpm (Ruthann Vitrano, RN) Accelerations: None (Ruthann Vitrano, RN) Decelerations: Variable (Ruthann Vitrano, RN) Pitocin (milliunit): Pitocin Remains (milliunits) @ 4 (Ruthann Vitrano, RN) Datetime: 10/02/2016 17:23 Patient Care Comments: Warm blankets (Ruthann Vitrano, RN) Datetime: 10/02/2016 17:20 Pitocin (milliunit): Pitocin Increased to (milliunits) @ 4 (Ruthann Vitrano, RN) Datetime: 10/02/2016:17 NBP Sys/Lizbet/Mean (mmHg): 124 (QS system process) : 64 (QS system process) : 86 (QS system process) Pulse: 73 (QS system process) Respirations: 16 (Ruthann Vitrano, RN) LaborFlag: Labor (QS system process) Datetime: 10/02/2016 17:15 Monitor Mode: External; Palpation (Ruthann Vitrano, RN) Frequency (min): 3-6.5 (Ruthann Vitrano, RN) Quality: Mild/Moderate (Ruthann Vitrano, RN) Duration (sec): 70-110 (Ruthann Vitrano, RN) Duration Criteria: Less than Two 120 Second Contractions (Ruthann Vitrano, RN) Pattern: Normal: <= 5 Contractions in 10 Minutes (Ruthann Vitrano, RN) Resting Tone (Palpate): Relaxed (Ruthann Vitrano, RN) Monitor Mode: External US (Ruthann Vitrano, RN) FHR Baseline Rate : 140 (Ruthann Vitrano, RN) Variability: Moderate 6-25 bpm (Ruthann Vitrano, RN) Accelerations: 10X10 (Ruthann Vitrano, RN) Decelerations: None (Ruthann Vitrano, RN) Pitocin (milliunit): Pitocin Remains (milliunits) @ 2 (Ruthann Vitrano, RN) Datetime: 10/02/2016 17:05 Pitocin (milliunit): Pitocin Started (milliunits) @ 2; Pitocin 20 Units in 1000ml NS (Ruthannstu Sarabia, RN) IV/Blood Work: IV Infusing per Order (Ruthann Sarabia, RN) Patient Care Comments: 125 mL/hour (Ruthannstu Sarabia, RN) Communication Comments: Fernando Abraham CNM on unit, reviewed strip. Orders to restart Pitocin at 2 mU/min increasing per previous order (Ruthann Cornell, RN) Datetime: 10/02/2016 17:02 NBP Sys/Lizbet/Mean (mmHg): 124 (QS system process) : 67 (QS system process) : 90 (QS system process) Pulse: 73 (QS system process) Respirations: 16 (Ruthann Vitrano, RN) LaborFlag: Labor (QS system process) Datetime: 10/02/2016 17:00 Monitor Mode: External; Palpation (Ruthann Vitrano, RN) Frequency (min): 4.5-5 (Ruthann Vitrano, RN) Quality: Moderate to Strong (Ruthann Vitrano, RN) Duration (sec): 70-90 (Ruthann Vitrano, RN) Duration Criteria: Less than Two 120 Second Contractions (Ruthann Vitrano, RN) Pattern: Normal: <= 5 Contractions in 10 Minutes (Ruthann Vitrano, RN) Resting Tone (Palpate): Relaxed (Ruthann Vitrano, RN) Monitor Mode: External US (Ruthann Vitrano, RN) FHR Baseline Rate : 145 (Ruthann Vitrano, RN) Variability: Minimal - Undetectable to <=5 bpm (Ruthann Vitrano, RN) Accelerations: None (Ruthann Vitrano, RN) Decelerations: Early; Prolonged (Ruthann Vitrano, RN) Datetime: 10/02/2016 16:56 Comments: O2 d/c (Ruthann Vitrano, RN) Datetime: 10/02/2016 16:53 Patient Position/Activity: Left Lateral; Peanut Ball (Ruthann Vitrano, RN) Datetime: 10/02/2016 16:49 Patient Position/Activity: Left Lateral (Ruthann Vitrano, RN) Datetime: 10/02/2016 16:48 Stage of : Labor (Ruthann Sarabia RN) Monitor Interventions for FHR: Ultrasound Adjusted (Ruthann Sarabia RN) Decelerations: Prolonged (Ruthann Sarabia RN) Actions for Decelerations: Side to Side; Oxygen Applied; Pitocin Off; IV Bolus (Ruthann Sarabia RN) Oxygen Method: Non-Rebreather (Ruthann Sarabia RN) Patient Position/Activity: Right Lateral (Ruthann Sarabia RN) Provider Reviewed Strip: Yes (Ruthann Sarabia RN) Communication: RN at Bedside; Provider at Bedside (Ruthann Sarabia RN) Communication Comments: cristy abraham cnm @ bs (Ruthann Sarabia RN) Datetime: 10/02/2016 16:47 NBP Sys/Lizbet/Mean (mmHg): 130 (QS system process) : 74 (QS system process) : 95 (QS system process) Pulse: 85 (QS system process) Respirations: 16 (Ruthann Sarabia RN) LaborFlag: Antepartum (QS system process) Datetime: 10/02/2016 16:46 Dilatation (cm): 4.0 (Ruthann Vitrano, RN) Effacement (%): 90 (Ruthann Vitrano, RN) Station: -1 (Ruthann Vitrano, RN) Exam by: Fernando Abraham CNM (Ruthann Vitrano, RN) Vaginal Bleeding: None (Ruthann Vitrano, RN) Cervix, Consistency: Soft (Ruthann Vitrano, RN) Datetime: 10/02/2016 16:45 Monitor Mode: External (Ruthann Vitrano, RN) Frequency (min): 3-5 (Ruthann Vitrano, RN) Quality: Moderate to Strong (Ruthann Vitrano, RN) Duration (sec): 50-100 (Ruthann Vitrano, RN) Duration Criteria: Less than Two 120 Second Contractions (Ruthann Vitrano, RN) Pattern: Normal: <= 5 Contractions in 10 Minutes (Ruthann Vitrano, RN) Resting Tone (Palpate): Relaxed (Ruthann Vitrano, RN) Monitor Mode: External US (Ruthann Vitrano, RN) FHR Baseline Rate : 145 (Ruthann Sarabia RN) Variability: Moderate 6-25 bpm (Ruthann Sarabia RN) Accelerations: 10X10 (Ruthann Sarabia RN) Decelerations: None (Ruthann Sarabia RN) Membrane Status: Ruptured (Ruthann Sarabia RN) Membranes Rupture Method: Spontaneous (Amy Rodríguez RN) Amniotic Fluid Color: Clear (Ruthann Sarabia RN) Amniotic Fluid Amount: Moderate (Ruthann Sarabia RN) Membrane Comments: Forebag ruptured (Ruthann Sarabia RN) Pitocin (milliunit): Pitocin Remains (milliunits) @ 6 (Ruthann Sarabia RN)
--- NOTE | 2016-10-03 04:46 | L&D Admission Assessment ---
LD ADM ASMT Datetime Report Generated by N: 10/03/2016 04:45 Assessment Type: Ongoing Assessment (10/02/2016 13:15:Ruthann Sarabia RN) Pain Scale: 3 (10/03/2016 04:15:Socorro Biswas RN) Pain Scale: 3 (10/03/2016 03:30:Socorro Biswas RN) Pain Scale: 5 (10/03/2016 03:12:Socorro Biswas RN) Pain Scale: 1 (10/02/2016 13:02:Bhavya Reynolds RN) Pain Scale: 1 (10/02/2016 12:30:Bhavya Reynolds RN) Pain Scale: 1 (10/02/2016 12:02:Bhavya Reynolds RN) Pain Scale: 1 (10/02/2016 11:30:Bhavya Reynolds RN) Pain Scale: 1 (10/02/2016 11:02:Bhavya Reynolds RN) Pain Scale: 1 (10/02/2016 10:16:Bhavya Reynolds RN) Pain Presence: Constant (10/03/2016 04:15:Socorro Biswas RN) Pain Presence: Constant (10/03/2016 03:30:Socorro Biswas RN) Pain Presence: Constant (10/03/2016 03:12:Socorro Biswas RN) Pain Presence: None/Denies (10/02/2016 15:28:Ruthann Sarabia RN) Pain Presence: Intermittent (10/02/2016 13:02:Bhavya Reynolds RN) Pain Presence: Intermittent (10/02/2016 12:30:Bhavya Reynolds RN) Pain Presence: Intermittent (10/02/2016 12:02:Bhavya Reynolds RN) Pain Presence: Intermittent (10/02/2016 11:30:Bhavya Reynolds RN) Pain Presence: Intermittent (10/02/2016 11:02:Bhavya Reynolds RN) Pain Presence: Intermittent (10/02/2016 10:16:Bhavya Reynolds RN) Pain Presence: None/Denies (10/02/2016 08:30:Bhavya Reynolds RN) Pain Type: Ache (10/03/2016 04:15:Socorro Bsiwas RN) Pain Type: Sharp; Stabbing; Ache (10/03/2016 03:12:Socorro Biswas RN) Pain Type: N/A (10/02/2016 15:28:Ruthnan Sarabia RN) Pain Type: Cramping (10/02/2016 13:02:Bhavya Reynolds RN) Pain Type: Cramping (10/02/2016 12:30:Bhavya Reynolds RN) Pain Type: Cramping (10/02/2016 12:02:Bhavya Reynolds RN) Pain Type: Cramping (10/02/2016 11:30:Bhavya Reynolds RN) Pain Type: Cramping (10/02/2016 11:02:Bhavya Reynolds RN) Pain Type: Cramping (10/02/2016 10:16:Bhavya Reynolds RN) Pain Type: N/A (10/02/2016 08:30:Bhavya Reynolds RN) Pain Location: Abdomen (10/03/2016 04:15:Socorro Biswas RN) Pain Location: Abdomen (10/03/2016 03:12:Socorro Biswas RN) Pain Location: Abdomen (10/02/2016 13:02:Bhavya Reynolds RN) Pain Location: Abdomen (10/02/2016 12:30:Bhavya Reynolds RN) Pain Location: Abdomen (10/02/2016 12:02:Bhavya Reynolds RN) Pain Location: Abdomen (10/02/2016 11:30:Bhavya Reynolds RN) Pain Location: Abdomen (10/02/2016 11:02:Bhavya Reynolds RN) Pain Location: Abdomen (10/02/2016 10:16:Bhavya Reynolds RN) Pain Goal: 2 (10/03/2016 04:15:Socorro Biswas RN) Pain Goal: 1 (10/03/2016 03:12:Socorro Biswas RN) Pain Comments: Pt complaining of pain/pressure in perineum (10/02/2016 22:36:Ruthann Sarabia RN) Pain Comments: Pt reporting intermittent perineal pressure (10/02/2016 18:34:Ruthann Sarabia RN) Pain Comments: Pt sleeping (10/02/2016 05:52:Socorro Biswas RN) Frequency (min): 3-4 (10/03/2016 02:12:Socorro Biswas RN) Frequency (min): 1-4 (10/03/2016 02:00:Socorro Biswas RN) Frequency (min): 4-5 (10/03/2016 01:45:Socorro True, RN) Frequency (min): 2-4 (10/03/2016 01:30:Socorro True, RN) Frequency (min): 2-3 (10/03/2016 01:15:Socorro True RN) Frequency (min): 2-4 (10/03/2016 01:00:Socorro True, RN) Frequency (min): 2-3 (10/03/2016 00:45:Socorro True, RN) Frequency (min): 2.5-3 (10/03/2016 00:30:Socorro True, RN) Frequency (min): 2-4.5 (10/03/2016 00:15:Socorro True, RN) Frequency (min): 2-4 (10/03/2016 00:00:Socorro True, RN) Frequency (min): 2-3 (10/02/2016 23:45:Socorro True, RN) Frequency (min): 1-4 (10/02/2016 23:30:Socorro True, RN) Frequency (min): 2-4 (10/02/2016 23:15:Ruthann Vitrano, RN) Frequency (min): 2-3 (10/02/2016 23:00:Ruthann Vitrano, RN) Frequency (min): 1.5-3 (10/02/2016 22:45:Ruthann Vitrano, RN) Frequency (min): 1.5-4 (10/02/2016 22:30:Ruthann Vitrano, RN) Frequency (min): 2-4 (10/02/2016 22:15:Ruthann Vitrano, RN) Frequency (min): 2-4 (10/02/2016 22:00:Ruthann Vitrano, RN) Frequency (min): 1.5-4 (10/02/2016 21:45:Ruthann Vitrano, RN) Frequency (min): 2-4.5 (10/02/2016 21:30:Ruthann Vitrano, RN) Frequency (min): 2-5 (10/02/2016 21:15:Ruthann Vitrano, RN) Frequency (min): 2-4 (10/02/2016 21:00:Ruthann Vitrano, RN) Frequency (min): 2-4 (10/02/2016 20:45:Ruthann Vitrano, RN) Frequency (min): 2-4 (10/02/2016 20:30:Ruthann Vitrano, RN) Frequency (min): 2-4 (10/02/2016 20:15:Ruthann Vitrano, RN) Frequency (min): 1-4 (10/02/2016 20:00:Ruthann Vitrano, RN) Frequency (min): 1.5-3 (10/02/2016 19:45:Ruthann Vitrano, RN) Frequency (min): 1.5-3 (10/02/2016 19:30:Ruthann Vitrano, RN) Frequency (min): 1.5-3 (10/02/2016 19:15:Ruthann Vitrano, RN) Frequency (min): 1.5-3.5 (10/02/2016 19:00:Ruthann Vitrano, RN) Frequency (min): 1.5-3 (10/02/2016 18:45:Ruthann Vitrano, RN) Frequency (min): 1.5-3.5 (10/02/2016 18:30:Ruthann Vitrano, RN) Frequency (min): 2-6 (10/02/2016 18:15:Ruthann Vitrano, RN) Frequency (min): 2-8 (10/02/2016 18:00:Ruthann Vitrano, RN) Frequency (min): 2-6 (10/02/2016 17:45:Ruthann Vitrano, RN) Frequency (min): 3-5 (10/02/2016 17:30:Ruthann Vitrano, RN) Frequency (min): 3-6.5 (10/02/2016 17:15:Ruthann Vitrano, RN) Frequency (min): 4.5-5 (10/02/2016 17:00:Ruthann Vitrano, RN) Frequency (min): 3-5 (10/02/2016 16:45:Ruthann Vitrano, RN) Frequency (min): 2-4 (10/02/2016 16:30:Ruthann Vitrano, RN) Frequency (min): 4-5 (10/02/2016 16:15:Ruthann Vitrano, RN) Frequency (min): 4-6 (10/02/2016 16:00:Ruthann Vitrano, RN) Frequency (min): 2-5 (10/02/2016 15:45:Ruthann Vitrano, RN) Frequency (min): 1.5-5 (10/02/2016 15:45:Ruthann Vitrano, RN) Frequency (min): 1.5-3 (10/02/2016 15:30:Ruthann Vitrano, RN) Frequency (min): 1.5-3 (10/02/2016 15:15:Ruthann Vitrano, RN) Frequency (min): 2-3.5 (10/02/2016 15:00:Ruthann Vitrano, RN) Frequency (min): 3-4 (10/02/2016 14:45:Ruthann Vitrano, RN) Frequency (min): 3-4 (10/02/2016 14:30:Ruthann Vitrano, RN) Frequency (min): 2-4 (10/02/2016 14:15:Ruthann Vitrano, RN) Frequency (min): 3-5 (10/02/2016 14:00:Ruthann Vitrano, RN) Frequency (min): 1.5-3 (10/02/2016 13:45:Ruthann Vitrano, RN) Frequency (min): Irregular (10/02/2016 13:30:Ruthann Vitrano, RN) Frequency (min): Irregular (10/02/2016 13:15:Ruthann Vitrano, RN) Frequency (min): IRREG (10/02/2016 13:02:Bhavya Reynolds, RN) Frequency (min): IRREG (10/02/2016 12:30:Bhavyaonesimo Riverand, RN) Frequency (min): IRREG (10/02/2016 12:02:Bhavya Marian River[place], RN) Frequency (min): 4-6 (10/02/2016 11:30:Bhavya Marian [place], RN) Frequency (min): IRREG (10/02/2016 11:02:Bhavya Marian [place], RN) Frequency (min): 4-9 (10/02/2016 10:30:Bhavya Marian [place], RN) Frequency (min): 5-7 (10/02/2016 10:02:Bhavya Marian [place], RN) Frequency (min): 5-7 (10/02/2016 09:30:Bhavya Marian [place], RN) Frequency (min): irreg (10/02/2016 09:02:Bhavyaonesimo Riverand, RN) Frequency (min): IRREG (10/02/2016 08:30:Bhavyaonesimo Riverand, RN) Frequency (min): IRREG (10/02/2016 08:02:Bhavya Riverand, RN) Frequency (min): IRREG WITH IRRITABILITY (10/02/2016 07:30:Bhavya Reynolds RN) Frequency (min): 5-7 (10/02/2016 07:00:Socorro True, RN) Frequency (min): 3-9 (10/02/2016 06:30:Socorro True, RN) Frequency (min): 10 (10/02/2016 06:00:Socorro True, RN) Frequency (min): 8-9 (10/02/2016 05:30:Socorro True, RN) Frequency (min): 8 (10/02/2016 05:01:Socorro True, RN) Duration (sec): 60-90 (10/03/2016 02:12:Socorro True, RN) Duration (sec): 50-90 (10/03/2016 02:00:Socorro True, RN) Duration (sec): 60-90 (10/03/2016 01:45:Socorro True, RN) Duration (sec): 60-90 (10/03/2016 01:30:Socorro True, RN) Duration (sec): 40-60 (10/03/2016 01:15:Socorro True, RN) Duration (sec): 60-90 (10/03/2016 01:00:Socorro True, RN) Duration (sec): 60-120 (10/03/2016 00:45:Socorro True, RN) Duration (sec): 60-80 (10/03/2016 00:30:Socorro True, RN) Duration (sec): 80-120 (10/03/2016 00:15:Socorro True, RN) Duration (sec): 80-100 (10/03/2016 00:00:Socorro True, RN) Duration (sec): 80-100 (10/02/2016 23:45:Socorro True, RN) Duration (sec): 70-120 (10/02/2016 23:30:Socorro True, RN) Duration (sec): 60-90 (10/02/2016 23:15:Ruthann Sarabia RN) Duration (sec): 70-100 (10/02/2016 23:00:Ruthann Vitrano, RN) Duration (sec): 60-90 (10/02/2016 22:45:Ruthann Vitrano, RN) Duration (sec): 60-100 (10/02/2016 22:30:Ruthann Vitrano, RN) Duration (sec): 50-100 (10/02/2016 22:15:Ruthann Vitrano, RN) Duration (sec): 60-80 (10/02/2016 22:00:Ruthann Vitrano, RN) Duration (sec): 70-100 (10/02/2016 21:45:Ruthann Vitrano, RN) Duration (sec): 60-100 (10/02/2016 21:30:Ruthann Vitrano, RN) Duration (sec): 70-120 (10/02/2016 21:15:Ruthann Vitrano, RN) Duration (sec): 70-100 (10/02/2016 21:00:Ruthann Vitrano, RN) Duration (sec): 70-100 (10/02/2016 20:45:Ruthann Vitrano, RN) Duration (sec): 60-90 (10/02/2016 20:30:Ruthann Vitrano, RN) Duration (sec): 50-90 (10/02/2016 20:15:Ruthann Vitrano, RN) Duration (sec): 50-90 (10/02/2016 20:00:Ruthann Vitrano, RN) Duration (sec): 50-100 (10/02/2016 19:45:Ruthann Vitrano, RN) Duration (sec): 60-110 (10/02/2016 19:30:Ruthann Vitrano, RN) Duration (sec): 60-100 (10/02/2016 19:15:Ruthann Vitrano, RN) Duration (sec): 70-100 (10/02/2016 19:00:Ruthann Vitrano, RN) Duration (sec): 70-100 (10/02/2016 18:45:Ruthann Vitrano, RN) Duration (sec): 70-100 (10/02/2016 18:30:Ruthann Vitrano, RN) Duration (sec): 70-100 (10/02/2016 18:15:Ruthann Vitrano, RN) Duration (sec): 70-120 (10/02/2016 18:00:Ruthann Vitrano, RN) Duration (sec): 60-120 (10/02/2016 17:45:Ruthann Vitrano, RN) Duration (sec): 70-110 (10/02/2016 17:30:Ruthann Vitrano, RN) Duration (sec): 70-110 (10/02/2016 17:15:Ruthann Vitrano, RN) Duration (sec): 70-90 (10/02/2016 17:00:Ruthann Vitrano, RN) Duration (sec): 50-100 (10/02/2016 16:45:Ruthann Vitrano, RN) Duration (sec): 50-120 (10/02/2016 16:30:Ruthann Vitrano, RN) Duration (sec): 60-120 (10/02/2016 16:15:Ruthann Vitrano, RN) Duration (sec): 60-80 (10/02/2016 16:00:Ruthann Vitrano, RN) Duration (sec): 50-120 (10/02/2016 15:45:Ruthann Vitrano, RN) Duration (sec): 50-100 (10/02/2016 15:45:Ruthann Vitrano, RN) Duration (sec): 50-80 (10/02/2016 15:30:Ruthann Vitrano, RN) Duration (sec): 50-80 (10/02/2016 15:15:Ruthann Vitrano, RN) Duration (sec): 50-90 (10/02/2016 15:00:Ruthann Vitrano, RN) Duration (sec): 60-90 (10/02/2016 14:45:Ruthann Vitrano, RN) Duration (sec): 50-80 (10/02/2016 14:30:Ruthann Vitrano, RN) Duration (sec): 50-80 (10/02/2016 14:15:Ruthann Vitrano, RN) Duration (sec): 60-120 (10/02/2016 14:00:Ruthann Vitrano, RN) Duration (sec): 50-120 (10/02/2016 13:45:Ruthann Vitrano, RN) Duration (sec): 60-90 (10/02/2016 13:30:Ruthann Sarabia RN) Duration (sec): 60-80 (10/02/2016 13:15:Ruthann Sarabia RN) Duration (sec): 80-110 (10/02/2016 13:02:Bhavya Reynolds RN) Duration (sec): 80-240 (10/02/2016 12:30:Bhavya Reynolds RN) Duration (sec): 90-110 (10/02/2016 12:02:Bhavya Reynolds RN) Duration (sec): 40-90 (10/02/2016 11:02:Bhavya Reynolds RN) Duration (sec): 100-180 (10/02/2016 10:30:Bhavya Reynolds RN) Duration (sec): 60-120 (10/02/2016 10:02:Bhavya Reynolds RN) Duration (sec): 90-240 (10/02/2016 09:30:Bhavya Reynolds RN) Duration (sec): 90-180 (10/02/2016 09:02:Bhavya Reynolds RN) Duration (sec): 60-100 (10/02/2016 08:30:Bhavya Reynolds RN) Duration (sec): 60-120 (10/02/2016 08:02:Bhavya Reynolds RN) Duration (sec): 40-90 (10/02/2016 07:30:Bhavya Reynolds RN) Duration (sec): 120-180 (10/02/2016 07:00:Socorro Biswas RN) Duration (sec): 60-100 (10/02/2016 06:30:Socorro Biswas RN) Duration (sec): 60 (10/02/2016 06:00:Socorro Biswas RN) Duration (sec): 80-90 (10/02/2016 05:30:Socorro Biswas RN) Duration (sec): 90-100 (10/02/2016 05:01:Socorro Biswas RN) Quality: Moderate to Strong (10/03/2016 02:12:Socorro True, RN) Quality: Moderate to Strong (10/03/2016 02:00:Socorro True, RN) Quality: Moderate to Strong (10/03/2016 01:45:Socorro True, RN) Quality: Moderate to Strong (10/03/2016 01:30:Socorro True, RN) Quality: Moderate to Strong (10/03/2016 01:15:Socorro True, RN) Quality: Moderate to Strong (10/02/2016 23:15:Ruthann Vitrano, RN) Quality: Moderate to Strong (10/02/2016 23:00:Ruthann Vitrano, RN) Quality: Moderate to Strong (10/02/2016 22:45:Ruthann Vitrano, RN) Quality: Moderate to Strong (10/02/2016 22:30:Ruthann Vitrano, RN) Quality: Moderate to Strong (10/02/2016 22:15:Ruthann Vitrano, RN) Quality: Moderate to Strong (10/02/2016 22:00:Ruthann Vitrano, RN) Quality: Moderate to Strong (10/02/2016 21:45:Ruthann Vitrano, RN) Quality: Moderate to Strong (10/02/2016 21:30:Ruthann Vitrano, RN) Quality: Moderate to Strong (10/02/2016 21:15:Ruthann Vitrano, RN) Quality: Moderate to Strong (10/02/2016 21:00:Ruthann Vitrano, RN) Quality: Moderate to Strong (10/02/2016 20:45:Ruthann Vitrano, RN) Quality: Moderate to Strong (10/02/2016 20:30:Ruthann Vitrano, RN) Quality: Moderate to Strong (10/02/2016 20:15:Ruthann Vitrano, RN) Quality: Moderate to Strong (10/02/2016 20:00:Ruthann Vitrano, RN) Quality: Moderate to Strong (10/02/2016 19:45:Ruthann Vitrano, RN) Quality: Moderate to Strong (10/02/2016 19:30:Ruthann Vitrano, RN) Quality: Moderate to Strong (10/02/2016 19:15:Ruthann Vitrano, RN) Quality: Moderate to Strong (10/02/2016 19:00:Ruthann Vitrano, RN) Quality: Moderate to Strong (10/02/2016 18:45:Ruthann Vitrano, RN) Quality: Moderate to Strong (10/02/2016 18:30:Ruthann Vitrano, RN) Quality: Moderate to Strong (10/02/2016 18:15:Ruthann Vitrano, RN) Quality: Moderate to Strong (10/02/2016 18:00:Ruthann Vitrano, RN) Quality: Moderate to Strong (10/02/2016 17:45:Ruthann Vitrano, RN) Quality: Moderate to Strong (10/02/2016 17:30:Ruthann Vitrano, RN) Quality: Mild/Moderate (10/02/2016 17:15:Ruthann Vitrano, RN) Quality: Moderate to Strong (10/02/2016 17:00:Ruthann Vitrano, RN) Quality: Moderate to Strong (10/02/2016 16:45:Ruthann Vitrano, RN) Quality: Moderate to Strong (10/02/2016 16:30:Ruthann Vitrano, RN) Quality: Moderate to Strong (10/02/2016 16:15:Ruthann Vitrano, RN) Quality: Moderate to Strong (10/02/2016 16:00:Ruthann Vitrano, RN) Quality: Moderate to Strong (10/02/2016 15:45:Ruthann Vitrano, RN) Quality: Moderate to Strong (10/02/2016 15:30:Ruthann Vitrano, RN) Quality: Moderate to Strong (10/02/2016 15:15:Ruthann Vitrano, RN) Quality: Moderate to Strong (10/02/2016 15:00:Ruthann Vitrano, RN) Quality: Moderate to Strong (10/02/2016 14:45:Ruthann Vitrano, RN) Quality: Mild/Moderate (10/02/2016 14:30:Ruthann Vitrano, RN) Quality: Mild/Moderate (10/02/2016 14:15:Ruthann Vitrano, RN) Quality: Mild/Moderate (10/02/2016 14:00:Ruthann Vitrano, RN) Quality: Mild/Moderate (10/02/2016 13:45:Ruthann Sarabia RN) Quality: Mild/Moderate (10/02/2016 13:30:Ruthann Sarabia RN) Quality: Mild/Moderate (10/02/2016 13:15:Ruthann Sarabia RN) Quality: Mild/Moderate (10/02/2016 13:02:Bhavya Reynolds RN) Quality: Mild/Moderate (10/02/2016 12:30:Bhavya Reynolds RN) Quality: Mild/Moderate (10/02/2016 12:02:Bhavya Reynolds RN) Quality: Mild/Moderate (10/02/2016 11:30:Bhavya Reynolds RN) Quality: Mild/Moderate (10/02/2016 11:02:Bhavya Reynolds RN) Quality: Mild/Moderate (10/02/2016 10:30:Bhavya Reynolds RN) Quality: Mild (10/02/2016 10:02:Bhavya Reynolds RN) Quality: Mild (10/02/2016 09:30:Bhavya Reynolds RN) Quality: Mild (10/02/2016 09:02:Bhavya Reynolds RN) Quality: Mild (10/02/2016 08:30:Bhavya Reynolds RN) Quality: Mild (10/02/2016 08:02:Bhavya Reynolds RN) Quality: Mild (10/02/2016 07:30:Bhavya Reynolds RN) Quality: Moderate (10/02/2016 07:00:Socorro Biswas RN) Quality: Moderate (10/02/2016 06:30:Socorro Biswas RN) Quality: Moderate (10/02/2016 06:00:Socorro Biswas RN) Quality: Moderate (10/02/2016 05:30:Socorro Biswas RN) Quality: Moderate (10/02/2016 05:01:Socorro Biswas RN) Pattern: Normal: <= 5 Contractions in 10 Minutes (10/02/2016 23:15:Ruthann Sarabia RN) Pattern: Normal: <= 5 Contractions in 10 Minutes (10/02/2016 23:00:Ruthann Vitrano, RN) Pattern: Normal: <= 5 Contractions in 10 Minutes (10/02/2016 22:45:Ruthann Vitrano, RN) Pattern: Normal: <= 5 Contractions in 10 Minutes (10/02/2016 22:30:Ruthann Vitrano, RN) Pattern: Normal: <= 5 Contractions in 10 Minutes (10/02/2016 22:15:Ruthann Vitrano, RN) Pattern: Normal: <= 5 Contractions in 10 Minutes (10/02/2016 22:00:Ruthann Vitrano, RN) Pattern: Normal: <= 5 Contractions in 10 Minutes (10/02/2016 21:45:Ruthann Vitrano, RN) Pattern: Normal: <= 5 Contractions in 10 Minutes (10/02/2016 21:30:Ruthann Vitrano, RN) Pattern: Normal: <= 5 Contractions in 10 Minutes (10/02/2016 21:15:Ruthann Vitrano, RN) Pattern: Normal: <= 5 Contractions in 10 Minutes (10/02/2016 21:00:Ruthann Vitrano, RN) Pattern: Normal: <= 5 Contractions in 10 Minutes (10/02/2016 20:45:Ruthann Vitrano, RN) Pattern: Normal: <= 5 Contractions in 10 Minutes (10/02/2016 20:30:Ruthann Vitrano, RN) Pattern: Normal: <= 5 Contractions in 10 Minutes (10/02/2016 20:15:Ruthann Vitrano, RN) Pattern: Normal: <= 5 Contractions in 10 Minutes (10/02/2016 20:00:Ruthann Vitrano, RN) Pattern: Normal: <= 5 Contractions in 10 Minutes (10/02/2016 19:45:Ruthann Vitrano, RN) Pattern: Normal: <= 5 Contractions in 10 Minutes (10/02/2016 19:30:Ruthann Vitrano, RN) Pattern: Normal: <= 5 Contractions in 10 Minutes (10/02/2016 19:15:Ruthann Vitrano, RN) Pattern: Normal: <= 5 Contractions in 10 Minutes (10/02/2016 19:00:Ruthann Vitrano, RN) Pattern: Normal: <= 5 Contractions in 10 Minutes (10/02/2016 18:45:Ruthann Vitrano, RN) Pattern: Normal: <= 5 Contractions in 10 Minutes (10/02/2016 18:30:Ruthann Vitrano, RN) Pattern: Normal: <= 5 Contractions in 10 Minutes (10/02/2016 18:15:Ruthann Vitrano, RN) Pattern: Normal: <= 5 Contractions in 10 Minutes (10/02/2016 18:00:Ruthann Vitrano, RN) Pattern: Normal: <= 5 Contractions in 10 Minutes (10/02/2016 17:45:Ruthann Vitrano, RN) Pattern: Normal: <= 5 Contractions in 10 Minutes (10/02/2016 17:30:Ruthann Vitrano, RN) Pattern: Normal: <= 5 Contractions in 10 Minutes (10/02/2016 17:15:Ruthann Vitrano, RN) Pattern: Normal: <= 5 Contractions in 10 Minutes (10/02/2016 17:00:Ruthann Vitrano, RN) Pattern: Normal: <= 5 Contractions in 10 Minutes (10/02/2016 16:45:Ruthann Vitrano, RN) Pattern: Normal: <= 5 Contractions in 10 Minutes (10/02/2016 16:30:Ruthann Vitrano, RN) Pattern: Normal: <= 5 Contractions in 10 Minutes (10/02/2016 16:15:Ruthann Vitrano, RN) Pattern: Normal: <= 5 Contractions in 10 Minutes (10/02/2016 16:00:Ruthann Vitrano, RN) Pattern: Normal: <= 5 Contractions in 10 Minutes (10/02/2016 15:45:Ruthann Vitrano, RN) Pattern: Normal: <= 5 Contractions in 10 Minutes (10/02/2016 15:30:Ruthann Vitrano, RN) Pattern: Normal: <= 5 Contractions in 10 Minutes (10/02/2016 15:15:Ruthann Vitrano, RN) Pattern: Normal: <= 5 Contractions in 10 Minutes (10/02/2016 15:00:Ruthann Vitrano, RN) Pattern: Normal: <= 5 Contractions in 10 Minutes (10/02/2016 14:45:Ruthann Vitrano, RN) Pattern: Normal: <= 5 Contractions in 10 Minutes (10/02/2016 14:30:Ruthann Vitrano, RN) Pattern: Normal: <= 5 Contractions in 10 Minutes (10/02/2016 14:15:Ruthann Vitrano, RN) Pattern: Normal: <= 5 Contractions in 10 Minutes (10/02/2016 14:00:Ruthann Vitrano, RN) Pattern: Normal: <= 5 Contractions in 10 Minutes (10/02/2016 13:45:Ruthann Vitrano, RN) Pattern: Normal: <= 5 Contractions in 10 Minutes (10/02/2016 13:30:Ruthann Vitrano, RN) Pattern: Normal: <= 5 Contractions in 10 Minutes (10/02/2016 13:15:Ruthann Vitrano, RN) Resting Tone [place]: Relaxed (10/03/2016 02:12:Socorro True, RN) Resting Tone [place]: Relaxed (10/03/2016 02:00:Socorro True, RN) Resting Tone [place]: Relaxed (10/03/2016 01:45:Socorro True, RN) Resting Tone [place]: Relaxed (10/03/2016 01:30:Socorro True, RN) Resting Tone [place]: Relaxed (10/03/2016 01:15:Socorro True, RN) Resting Tone [place]: Relaxed (10/03/2016 01:00:Socorro True, RN) Resting Tone [place]: Relaxed (10/03/2016 00:45:Socorro True, RN) Resting Tone [place]: Relaxed (10/03/2016 00:30:Socorro True, RN) Resting Tone [place]: Relaxed (10/03/2016 00:15:Socorro True, RN) Resting Tone [place]: Relaxed (10/03/2016 00:00:Socorro True, RN) Resting Tone [place]: Relaxed (10/02/2016 23:45:Socorro True, RN) Resting Tone [place]: Relaxed (10/02/2016 23:30:Socorro True, RN) Resting Tone [place]: Relaxed (10/02/2016 23:15:Ruthann Vitrano, RN) Resting Tone [place]: Relaxed (10/02/2016 23:00:Ruthann Vitrano, RN) Resting Tone [place]: Relaxed (10/02/2016 22:45:Ruthann Vitrano, RN) Resting Tone [place]: Relaxed (10/02/2016 22:30:Ruthann Vitrano, RN) Resting Tone [place]: Relaxed (10/02/2016 22:15:Ruthann Vitrano, RN) Resting Tone [place]: Relaxed (10/02/2016 22:00:Ruthann Vitrano, RN) Resting Tone [place]: Relaxed (10/02/2016 21:45:Ruthann Vitrano, RN) Resting Tone [place]: Relaxed (10/02/2016 21:30:Ruthann Vitrano, RN) Resting Tone [place]: Relaxed (10/02/2016 21:15:Ruthann Vitrano, RN) Resting Tone [place]: Relaxed (10/02/2016 21:00:Ruthann Vitrano, RN) Resting Tone [place]: Relaxed (10/02/2016 20:45:Ruthann Vitrano, RN) Resting Tone [place]: Relaxed (10/02/2016 20:30:Ruthann Harvinderano, RN) Resting Tone [place]: Relaxed (10/02/2016 20:15:Ruthann Vitrano, RN) Resting Tone [place]: Relaxed (10/02/2016 20:00:Ruthann Vitrano, RN) Resting Tone [place]: Relaxed (10/02/2016 19:45:Ruthann Vitrano, RN) Resting Tone [place]: Relaxed (10/02/2016 19:30:Ruthann Vitrano, RN) Resting Tone [place]: Relaxed (10/02/2016 19:15:Ruthann Harvinderano, RN) Resting Tone [place]: Relaxed (10/02/2016 19:00:Ruthann Vitrano, RN) Resting Tone [place]: Relaxed (10/02/2016 18:45:Ruthann Vitrano, RN) Resting Tone [place]: Relaxed (10/02/2016 18:30:Ruthann Vitrano, RN) Resting Tone [place]: Relaxed (10/02/2016 18:15:Ruthann Vitrano, RN) Resting Tone [place]: Relaxed (10/02/2016 18:00:Ruthann Vitrano, RN) Resting Tone [place]: Relaxed (10/02/2016 17:45:Ruthann Vitrano, RN) Resting Tone [place]: Relaxed (10/02/2016 17:30:Ruthann Harvinderano, RN) Resting Tone [place]: Relaxed (10/02/2016 17:15:Ruthann Vitrano, RN) Resting Tone [place]: Relaxed (10/02/2016 17:00:Ruthann Harvinderano, RN) Resting Tone [place]: Relaxed (10/02/2016 16:45:Ruthann Harvinderano, RN) Resting Tone [place]: Relaxed (10/02/2016 16:30:Ruthann Harvinderano, RN) Resting Tone [place]: Relaxed (10/02/2016 16:15:Ruthann Harvinderano, RN) Resting Tone [place]: Relaxed (10/02/2016 16:00:Ruthannstu Sarabia, RN) Resting Tone [place]: Relaxed (10/02/2016 15:45:Ruthann Harvinderano, RN) Resting Tone [place]: Relaxed (10/02/2016 15:30:Ruthann Harvinderano, RN) Resting Tone [place]: Relaxed (10/02/2016 15:15:Ruthann Cornell, RN) Resting Tone [place]: Relaxed (10/02/2016 15:00:Ruthann Cornell, RN) Resting Tone [place]: Relaxed (10/02/2016 14:45:Ruthann Cornell, RN) Resting Tone [place]: Relaxed (10/02/2016 14:30:Ruthann Harvinderano, RN) Resting Tone [place]: Relaxed (10/02/2016 14:15:Ruthann Harvinderano, RN) Resting Tone [place]: Relaxed (10/02/2016 14:00:Ruthannstu Sarabia, RN) Resting Tone [place]: Relaxed (10/02/2016 13:45:Ruthann Harvinderano, RN) Resting Tone [place]: Relaxed (10/02/2016 13:30:Ruthann Harvinderano, RN) Resting Tone [place]: Relaxed (10/02/2016 13:15:Ruthann Cornell, RN) Resting Tone [place]: Relaxed (10/02/2016 13:02:Bhavya Reynolds RN) Resting Tone [place]: Relaxed (10/02/2016 12:30:Bhavya Reynolds RN) Resting Tone [place]: Relaxed (10/02/2016 12:02:Bhavya Reynolds RN) Resting Tone [place]: Relaxed (10/02/2016 11:30:Bhavya Reynolds RN) Resting Tone [place]: Relaxed (10/02/2016 11:02:Bhavya Reynolds RN) Resting Tone [place]: Relaxed (10/02/2016 10:30:Bhavya Reynolds RN) Resting Tone [place]: Relaxed (10/02/2016 10:02:Bhavya Reynolds RN) Resting Tone [place]: Relaxed (10/02/2016 09:30:Bhavya Reynolds RN) Resting Tone [place]: Relaxed (10/02/2016 09:02:Bhavya Reynolds RN) Resting Tone [place]: Relaxed (10/02/2016 08:30:Bhavya Reynolds RN) Resting Tone [place]: Relaxed (10/02/2016 08:02:Bhavya Reynolds RN) Resting Tone [place]: Relaxed (10/02/2016 07:30:Bhavya Reynolds RN) Resting Tone [place]: Relaxed (10/02/2016 07:00:Socorro Biswas RN) Resting Tone [place]: Relaxed (10/02/2016 06:30:Socorro Biswas RN) Resting Tone [place]: Relaxed (10/02/2016 06:00:Socorro Biswas RN) Resting Tone [place]: Relaxed (10/02/2016 05:30:Socorro Biswas RN) Resting Tone [place]: Relaxed (10/02/2016 05:01:Socorro Biswas RN) Contraction Comments: intensity 90-110; MVU 190 (10/03/2016 01:00:Socorro Biswas RN) Contraction Comments: Intensity 85-95; MVU 235 (10/03/2016 00:45:[place] Biswas RN) Contraction Comments: Intensity 75-120 MVU 200 (10/03/2016 00:30:Socorro Biswas RN) Contraction Comments: intensity 75-100; MVU 195 (10/03/2016 00:15:Socorro Biswas RN) Contraction Comments: intensity 80-100; MVU 255 (10/03/2016 00:00:Socorro Biswas RN) Contraction Comments: Intensity 90-100; MVU 280 (10/02/2016 23:45:Socorro Biswas RN) Contraction Comments: MVU 270, report to Dr Frazier on unit re: MVU, no additional orders at this time, will keep pitocin running 8 milliunits/min. POC to monitor MVUs for 2 hours, if adequate ctx for 2 hours and no cervical change to discuss c/s (10/02/2016 23:33:Socorro Biswas RN) Contraction Comments: intensity 75-100 mmHg; MVU 215 (10/02/2016 23:30:Socorro Biswas RN) Dilatation (cm): 5.0 (10/03/2016 01:08:Socorro Biswas RN) Dilatation (cm): 5.0 (10/02/2016 22:37:Ruthann Sarabia RN) Dilatation (cm): 4.5 (10/02/2016 19:27:Ruthann Sarabia RN) Dilatation (cm): 4.0 (10/02/2016 18:34:Ruthann Sarabia RN) Dilatation (cm): 4.0 (10/02/2016 16:46:Ruthann Sarabia RN) Dilatation (cm): 0.0 (10/02/2016 13:47:Ruthann Sarabia RN) Effacement (%): 70 (10/03/2016 01:08:Socorro Biswas RN) Effacement (%): 100 (10/02/2016 22:37:Ruthann Sarabia RN) Effacement (%): 100 (10/02/2016 19:27:Ruthann Sarabia RN) Effacement (%): 100 (10/02/2016 18:34:Ruthann Sarabia RN) Effacement (%): 90 (10/02/2016 16:46:Ruthann Sarabia RN) Effacement (%): 50 (10/02/2016 13:47:Ruthann Sarabia RN) Station: 0 (10/03/2016 01:08:Socorro Biswas RN) Station: -1 (10/02/2016 22:37:Ruthann Sarabia RN) Station: -1 (10/02/2016 19:27:Ruthann Sarabia RN) Station: -2 (10/02/2016 18:34:Ruthann Sarabia RN) Station: -1 (10/02/2016 16:46:Ruthann Sarabia RN) Station: -1 (10/02/2016 13:47:Ruthann Sarabia RN) Membranes Status: Ruptured (10/02/2016 16:45:Ruthann Sarabia RN) ROM Method: Spontaneous (10/02/2016 16:45:Amy Rodríguez RN) Amniotic Fluid Color: Clear (10/02/2016 16:45:Ruthann Sarabia RN) Amniotic Fluid Amount: Moderate (10/02/2016 16:45:Ruthann Sarabia RN) Level of Consciousness: Fully Conscious (10/02/2016 13:15:Ruthann Sarabia RN) DTR's/Clonus: DTRs 2+; No Clonus (10/02/2016 13:15:Ruthann Sarabia RN) Headache: Denies (10/02/2016 13:15:Ruthann Sarabia RN) Dizziness: No (10/02/2016 13:15:Ruthann Sarabia RN) Blurred Vision: No (10/02/2016 13:15:Ruthann Sarabia RN) Extremity Numbness/Tingling : None (10/02/2016 13:15:Ruthann Sarabia RN) Extremity Movement: Full Range of Motion (10/02/2016 13:15:Ruthann Sarabia RN) Heart Rhythm: Regular (10/02/2016 13:15:Ruthann Sarabia RN) Nailbeds: [place] (10/02/2016 13:15:Ruthann Sarabia RN) Capillary Refill: Less than 3 Seconds (10/02/2016 13:15:Ruthann Sarabia RN) Lower Extremities Edema: Bilateral Lower Extremities (10/02/2016 13:15:Ruthann Sarabia RN) Lower Extremities Edema Degree: 1+ (10/02/2016 13:15:Ruthann Sarabia RN) Upper Extremities Edema: None (10/02/2016 13:15:Ruthann Sarabai RN) Upper Extremities Edema Degree: None (10/02/2016 13:15:Ruthann Sarabia RN) Facial Edema: None (10/02/2016 13:15:Ruthann Sarabia RN) Kamila's Sign Left Leg: Negative (10/02/2016 13:15:Ruthann Sarabia RN) Kamila's Sign Right Leg: Negative (10/02/2016 13:15:Ruthann Sarabia RN) DVT Risk Age: Age less than 41 years (10/02/2016 13:15:Ruthann Sarabia RN) DVT Risk BMI: BMI<31 (10/02/2016 13:15:Ruthann Sarabia RN) DVT Risk Surgery: None Applicable (10/02/2016 13:15:Ruthann Sarabia RN) DVT Risk Other: Women Only- or (<1 month) (10/02/2016 13:15:Ruthann Sarabia RN) DVT Risk Total: 1 (10/02/2016 13:15:QS system process) DVT Risk Text: Low Risk (<10%) No specific measures, early ambulation (10/02/2016 13:15:QS system process) Respiratory Effort: Unlabored; Regular Rhythm; Equal Expansion (10/02/2016 13:15:Ruthann Sarabia RN) Breath Sounds, Left: Clear and Equal (10/02/2016 13:15:Ruthann Sarabia RN) Breath Sounds, Right: Clear and Equal (10/02/2016 13:15:Ruthann Sarabia RN) Cough Productivity: None (10/02/2016 13:15:Ruthann Sarabia RN) Nausea/Vomiting: Denies (10/02/2016 13:15:Ruthann Sarabia RN) Bowel Sounds: Normoactive (10/02/2016 13:15:Ruthann Sarabia RN) RUQ Epigastric Pain: Denies (10/02/2016 13:15:Ruthann Sarabia RN) Bowel Patterns: Soft, Formed Stool (10/02/2016 13:15:Ruthann Sarabia RN) Hemorrhoids: None (10/02/2016 13:15:Ruthann Sarabia RN) Diet Type: Regular diet (10/02/2016 13:15:Ruthann Sarabia RN) Bladder: Nondistended (10/02/2016 13:15:Ruthann Sarabia RN) Frequency of Urination: No (10/02/2016 13:15:Ruthann Sarabia RN) Urination Burning: No (10/02/2016 13:15:Ruthann Sarabia RN) CVA Tenderness: No (10/02/2016 13:15:Ruthann Sarabia RN) Vaginal Discharge Amount: Small (10/02/2016 13:15:Ruthann Sarabia RN) Vaginal Discharge Color: N/A (10/02/2016 13:15:Ruthann Sarabia RN) Vaginal Discharge Odor: Non-Odorous (10/02/2016 13:15:Ruthann Sarabia RN) Vaginal Discharge Character: Thin (10/02/2016 13:15:Ruthann Sarabia RN) Skin Color: Normal for Race (10/02/2016 13:15:Ruthann Sarabia RN) Skin Temperature: Warm (10/02/2016 13:15:Ruthann Sarabia RN) Skin Moisture: Dry (10/02/2016 13:15:Ruthann Sarabia RN) Abelino Scale Sensory Perception: No Impairment- Responds to verbal commands. Has no sensory deficit which would limit ability to feel or voice pain or discomfort (10/02/2016 13:15:Ruthann Sarabia RN) Abelino Scale Moisture: Rarely Moist- Skin is usually dry. Linen only requires changing at routine intervals (10/02/2016 13:15:Ruthann Sarabia RN) Abelino Scale Activity: Walks Frequently- Walks outside the room at least twice a day and inside room at least every 2 hours during the day. (10/02/2016 13:15:Ruthann Sarabia RN) Abelino Scale Mobility: No Limitations- Makes major and frequent changes in position without assistance (10/02/2016 13:15:Ruthann Sarabia RN) Abelino Scale Nutrition: Excellent- Eats most of every meal. Never refuses a meal. Usually eats a total of 4 or more servings of meat and dairy products. Occasionally eats between meals. Does not require supplementation (10/02/2016 13:15:Ruthann Sarabia RN) Abelino Scale Friction and Shear: No Apparent Problem- Moves in bed and in chair independently and has sufficient muscle strength to lift up completely during move. Maintains good position in bed or chair at all times (10/02/2016 13:15:Ruthann Sarabia RN) Abelino Scale Total: 23 (10/02/2016 13:15:QS system process) Abelino Scale Risk: No Risk of Pressure Ulcer Noted at this Time (10/02/2016 13:15:QS system process) Family Support: Significant Other supportive, at bedside frequently (10/02/2016 13:15:Ruthann Sarabia RN) Emotional State: Calm/Relaxed (10/02/2016 13:15:Ruthann Sarabia RN) Call [place] Within Reach: Yes (10/02/2016 13:15:Ruthann Sarabia RN) Side Rails Up: Yes (10/02/2016 13:15:Ruthann Sarabia RN) Bed Wheels Locked: Yes (10/02/2016 13:15:Ruthann Sarabia RN) Arm Bands Present: Yes (10/02/2016 13:15:Ruthann Sarabia RN) Isolation: [place] (10/02/2016 13:15:Ruthann Sarabia RN) Fall Risk History of Falling: (0) No (10/02/2016 13:15:Ruthann Sarabia RN) Fall Risk Secondary Diagnosis: (0) No (10/02/2016 13:15:Ruthann Sarabia RN) Fall Risk Ambulatory Aid: (0) None/Bedrest/Wheelchair/Nurse Assist (10/02/2016 13:15:Ruthann Sarabia RN) Fall Risk IV Therapy: (20) Yes (10/02/2016 13:15:Ruthann Sarabia RN) Fall Risk Gait: (0) Normal/Bedrest/Immobile (10/02/2016 13:15:Ruthann Sarabia RN) Fall Risk Mental Status: (0) Oriented to Own Ability (10/02/2016 13:15:Ruthann Sarabia RN) Fall Risk Score: 20 (10/02/2016 13:15:QS system process) Fall Risk Score Definition: No Risk: No action required (10/02/2016 13:15:QS system process) Recent Exp Communicable Disease: No (10/02/2016 13:15:Ruthann Sarabia RN) Cough or Fever: No (10/02/2016 13:15:Ruthann Sarabia RN) Foreign Travel Past 10 Days: No (10/02/2016 13:15:Ruthann Sarabia RN) Open Wounds or Sores: No (10/02/2016 13:15:Ruthann Sarabia RN) Prior Antibiotic Resistance Tx: No (10/02/2016 13:15:Ruthann Sarabia RN) Cultures Obtained: Not Applicable (10/02/2016 13:15:Ruthann Sarabia RN) Isolation Initiated: No (10/02/2016 13:15:Ruthann Sarabia RN) Pt/Family Education: Not Applicable (10/02/2016 13:15:Ruthann Sarabia RN) FHR Baseline Rate (bpm) Baby A: 145 (10/03/2016 02:12:Socorro Biswas RN) FHR Baseline Rate (bpm) Baby A: 150 (10/03/2016 02:00:Socorro Biswas RN) FHR Baseline Rate (bpm) Baby A: 145 (10/03/2016 01:45:Socorro Biswas RN) FHR Baseline Rate (bpm) Baby A: 150 (10/03/2016 01:30:Socorro Biswas RN) FHR Baseline Rate (bpm) Baby A: 150 (10/03/2016 01:15:Socorro Biswas RN) FHR Baseline Rate (bpm) Baby A: 145 (10/03/2016 01:00:Socorro Biswas RN) FHR Baseline Rate (bpm) Baby A: 145 (10/03/2016 00:45:Socorro Biswas RN) FHR Baseline Rate (bpm) Baby A: 145 (10/03/2016 00:30:Socorro Biswas RN) FHR Baseline Rate (bpm) Baby A: 145 (10/03/2016 00:15:Socorro Biswas RN) FHR Baseline Rate (bpm) Baby A: 145 (10/03/2016 00:00:Socorro Biswas RN) FHR Baseline Rate (bpm) Baby A: 145 (10/02/2016 23:45:Socorro Biswas RN) FHR Baseline Rate (bpm) Baby A: 150 (10/02/2016 23:30:Socorro Biswas RN) FHR Baseline Rate (bpm) Baby A: 145 (10/02/2016 23:15:Ruthann Sarabia RN) FHR Baseline Rate (bpm) Baby A: 160 (10/02/2016 23:00:Ruthann Sarabia RN) FHR Baseline Rate (bpm) Baby A: 145 (10/02/2016 22:45:Ruthann Sarabia RN) FHR Baseline Rate (bpm) Baby A: 145 (10/02/2016 22:30:Ruthann Sarabia RN) FHR Baseline Rate (bpm) Baby A: 145 (10/02/2016 22:15:Ruthann Sarabia RN) FHR Baseline Rate (bpm) Baby A: 150 (10/02/2016 22:00:Ruthann Sarabia RN) FHR Baseline Rate (bpm) Baby A: 145 (10/02/2016 21:45:Ruthann Sarabia RN) FHR Baseline Rate (bpm) Baby A: 145 (10/02/2016 21:30:Ruthann Sarabia RN) FHR Baseline Rate (bpm) Baby A: 145 (10/02/2016 21:15:Ruthann Sarabia RN) FHR Baseline Rate (bpm) Baby A: 145 (10/02/2016 21:00:Ruthann Sarabia RN) FHR Baseline Rate (bpm) Baby A: 145 (10/02/2016 20:45:Ruthann Sarabia RN) FHR Baseline Rate (bpm) Baby A: 145 (10/02/2016 20:30:Ruthann Sarabia RN) FHR Baseline Rate (bpm) Baby A: 150 (10/02/2016 20:15:Ruthann Sarabia RN) FHR Baseline Rate (bpm) Baby A: 155 (10/02/2016 20:00:Ruthann Sarabia RN) FHR Baseline Rate (bpm) Baby A: 155 (10/02/2016 19:45:Ruthann Sarabia RN) FHR Baseline Rate (bpm) Baby A: 155 (10/02/2016 19:30:Ruthann Sarabia RN) FHR Baseline Rate (bpm) Baby A: 165 (10/02/2016 19:15:Ruthann Sarabia RN) FHR Baseline Rate (bpm) Baby A: 160 (10/02/2016 19:00:Ruthann Sarabia RN) FHR Baseline Rate (bpm) Baby A: 150 (10/02/2016 18:45:Ruthann Sarabia RN) FHR Baseline Rate (bpm) Baby A: 150 (10/02/2016 18:30:Ruthann Sarabia RN) FHR Baseline Rate (bpm) Baby A: 150 (10/02/2016 18:15:Ruthann Sarabia RN) FHR Baseline Rate (bpm) Baby A: 155 (10/02/2016 18:00:Ruthann Sarabia RN) FHR Baseline Rate (bpm) Baby A: 150 (10/02/2016 17:45:Ruthann Sarabia RN) FHR Baseline Rate (bpm) Baby A: 140 (10/02/2016 17:30:Ruthann Sarabia RN) FHR Baseline Rate (bpm) Baby A: 140 (10/02/2016 17:15:Ruthann Sarabia RN) FHR Baseline Rate (bpm) Baby A: 145 (10/02/2016 17:00:Ruthann Sarabia RN) FHR Baseline Rate (bpm) Baby A: 145 (10/02/2016 16:45:Ruthann Sarabia RN) FHR Baseline Rate (bpm) Baby A: 145 (10/02/2016 16:30:Ruthann Sarabia RN) FHR Baseline Rate (bpm) Baby A: 145 (10/02/2016 16:15:Ruthann Sarabia RN) FHR Baseline Rate (bpm) Baby A: 145 (10/02/2016 16:00:Ruthann Sarabia RN) FHR Baseline Rate (bpm) Baby A: 150 (10/02/2016 15:45:Ruthann Sarabia RN) FHR Baseline Rate (bpm) Baby A: 150 (10/02/2016 15:30:Ruthann Sarabia RN) FHR Baseline Rate (bpm) Baby A: 140 (10/02/2016 15:15:Ruthann Sarabia RN) FHR Baseline Rate (bpm) Baby A: 150 (10/02/2016 15:00:Ruthann Sarabia RN) FHR Baseline Rate (bpm) Baby A: 150 (10/02/2016 14:45:Ruthann Sarabia RN) FHR Baseline Rate (bpm) Baby A: 145 (10/02/2016 14:30:Ruthann Sarabia RN) FHR Baseline Rate (bpm) Baby A: 140 (10/02/2016 14:15:Ruthann Sarabia RN) FHR Baseline Rate (bpm) Baby A: 145 (10/02/2016 14:00:Ruthann Sarabia RN) FHR Baseline Rate (bpm) Baby A: 145 (10/02/2016 13:45:Ruthann Sarabia RN) FHR Baseline Rate (bpm) Baby A: 145 (10/02/2016 13:30:Ruthann Sarabia RN) FHR Baseline Rate (bpm) Baby A: 135 (10/02/2016 13:15:Ruthann Sarabia RN) FHR Baseline Rate (bpm) Baby A: 135 (10/02/2016 13:02:Bhavya Reynolds RN) FHR Baseline Rate (bpm) Baby A: 145 (10/02/2016 12:30:Bhavya Reynolds RN) FHR Baseline Rate (bpm) Baby A: 145 (10/02/2016 12:02:Bhavya Reynolds RN) FHR Baseline Rate (bpm) Baby A: 145 (10/02/2016 11:02:Bhavya Reynolds RN) FHR Baseline Rate (bpm) Baby A: 130 (10/02/2016 10:30:Bhavya Reynolds RN) FHR Baseline Rate (bpm) Baby A: 145 (10/02/2016 10:02:Bhavya Reynolds RN) FHR Baseline Rate (bpm) Baby A: 130 (10/02/2016 09:30:Bhavya Reynolds RN) FHR Baseline Rate (bpm) Baby A: 130 (10/02/2016 09:02:Bhavya Reynolds RN) FHR Baseline Rate (bpm) Baby A: 135 (10/02/2016 08:30:Bhavya Reynolds RN) FHR Baseline Rate (bpm) Baby A: 130 (10/02/2016 08:02:Bhavya Reynolds RN) FHR Baseline Rate (bpm) Baby A: 135 (10/02/2016 07:30:Bhavya Reynolds RN) FHR Baseline Rate (bpm) Baby A: 135 (10/02/2016 07:00:Socorro Biswas RN) FHR Baseline Rate (bpm) Baby A: 130 (10/02/2016 06:30:Socorro Biswas RN) FHR Baseline Rate (bpm) Baby A: 135 (10/02/2016 06:00:Socorro Biswas RN) FHR Baseline Rate (bpm) Baby A: 130 (10/02/2016 05:30:Socorro Biswas RN) FHR Baseline Rate (bpm) Baby A: 130 (10/02/2016 05:01:Socorro Biswas RN) Variability Baby A: Moderate 6-25 bpm (10/03/2016 02:12:Socorro Biswas RN) Variability Baby A: Moderate 6-25 bpm (10/03/2016 02:00:Socorro Biswas RN) Variability Baby A: Moderate 6-25 bpm (10/03/2016 01:45:Socorro Biswas RN) Variability Baby A: Moderate 6-25 bpm (10/03/2016 01:30:Socorro Biswas RN) Variability Baby A: Moderate 6-25 bpm (10/03/2016 01:15:Socorro Biswas RN) Variability Baby A: Moderate 6-25 bpm (10/03/2016 01:00:Socorro Biswas RN) Variability Baby A: Moderate 6-25 bpm (10/03/2016 00:45:Socorro Biswas RN) Variability Baby A: Moderate 6-25 bpm (10/03/2016 00:30:Socorro Biswas RN) Variability Baby A: Moderate 6-25 bpm (10/03/2016 00:15:Socorro True, RN) Variability Baby A: Moderate 6-25 bpm (10/03/2016 00:00:Socorro Biswas RN) Variability Baby A: Moderate 6-25 bpm (10/02/2016 23:45:Socorro Biswas RN) Variability Baby A: Moderate 6-25 bpm (10/02/2016 23:30:Socorro Biswas, RN) Variability Baby A: Moderate 6-25 bpm (10/02/2016 23:15:Ruthann Sarabia, RN) Variability Baby A: Moderate 6-25 bpm (10/02/2016 23:00:Ruthannyousif Sarabia, RN) Variability Baby A: Moderate 6-25 bpm (10/02/2016 22:45:Ruthannyousif Sarabia, RN) Variability Baby A: Moderate 6-25 bpm (10/02/2016 22:30:Ruthannstu Sarabia, RN) Variability Baby A: Moderate 6-25 bpm (10/02/2016 22:15:Ruthannyousif Sarabia, RN) Variability Baby A: Moderate 6-25 bpm (10/02/2016 22:00:Ruthannyousif Sarabia, RN) Variability Baby A: Moderate 6-25 bpm (10/02/2016 21:45:Ruthannyousif Sarabia, RN) Variability Baby A: Moderate 6-25 bpm (10/02/2016 21:30:Ruthannyousif Sarabia, RN) Variability Baby A: Moderate 6-25 bpm (10/02/2016 21:15:Ruthannyousif Sarabia, RN) Variability Baby A: Moderate 6-25 bpm (10/02/2016 21:00:Ruthannyousif Sarabia, RN) Variability Baby A: Moderate 6-25 bpm (10/02/2016 20:45:Ruthann Cornell, RN) Variability Baby A: Moderate 6-25 bpm (10/02/2016 20:30:Ruthann Cornell, RN) Variability Baby A: Moderate 6-25 bpm (10/02/2016 20:15:Ruthann Cornell, RN) Variability Baby A: Moderate 6-25 bpm (10/02/2016 20:00:Ruthann Cornell, RN) Variability Baby A: Moderate 6-25 bpm (10/02/2016 19:45:Ruthann Cornell, RN) Variability Baby A: Moderate 6-25 bpm (10/02/2016 19:30:Ruthann Vitrano, RN) Variability Baby A: Moderate 6-25 bpm (10/02/2016 19:15:Ruthann Vitrano, RN) Variability Baby A: Moderate 6-25 bpm (10/02/2016 19:00:Ruthann Vitrano, RN) Variability Baby A: Moderate 6-25 bpm (10/02/2016 18:45:Ruthann Vitrano, RN) Variability Baby A: Moderate 6-25 bpm (10/02/2016 18:30:Ruthann Vitrano, RN) Variability Baby A: Moderate 6-25 bpm (10/02/2016 18:15:Ruthann Vitrano, RN) Variability Baby A: Moderate 6-25 bpm (10/02/2016 18:00:Ruthann Vitrano, RN) Variability Baby A: Moderate 6-25 bpm (10/02/2016 17:45:Ruthann Vitrano, RN) Variability Baby A: Moderate 6-25 bpm (10/02/2016 17:30:Ruthann Vitrano, RN) Variability Baby A: Moderate 6-25 bpm (10/02/2016 17:15:Ruthann Vitrano, RN) Variability Baby A: Minimal - Undetectable to <=5 bpm (10/02/2016 17:00:Ruthann Vitrano, RN) Variability Baby A: Moderate 6-25 bpm (10/02/2016 16:45:Ruthann Vitrano, RN) Variability Baby A: Moderate 6-25 bpm (10/02/2016 16:30:Ruthann Vitrano, RN) Variability Baby A: Moderate 6-25 bpm (10/02/2016 16:15:Ruthann Vitrano, RN) Variability Baby A: Minimal - Undetectable to <=5 bpm (10/02/2016 16:00:Ruthann Vitrano, RN) Variability Baby A: Moderate 6-25 bpm (10/02/2016 15:45:Ruthann Vitrano, RN) Variability Baby A: Moderate 6-25 bpm (10/02/2016 15:30:Ruthann Vitrano, RN) Variability Baby A: Moderate 6-25 bpm (10/02/2016 15:15:Ruthann Vitrano, RN) Variability Baby A: Moderate 6-25 bpm (10/02/2016 15:00:Ruthann Vitrano, RN) Variability Baby A: Moderate 6-25 bpm (10/02/2016 14:45:Ruthann Sarabia RN) Variability Baby A: Moderate 6-25 bpm (10/02/2016 14:30:Ruthann Sarabia RN) Variability Baby A: Moderate 6-25 bpm (10/02/2016 14:15:Ruthann Sarabia RN) Variability Baby A: Moderate 6-25 bpm (10/02/2016 14:00:Ruthann Sarabia RN) Variability Baby A: Moderate 6-25 bpm (10/02/2016 13:45:Ruthann Sarabia RN) Variability Baby A: Moderate 6-25 bpm (10/02/2016 13:30:Ruthann Sarabia RN) Variability Baby A: Moderate 6-25 bpm (10/02/2016 13:15:Ruthann Sarabia RN) Variability Baby A: Moderate 6-25 bpm (10/02/2016 13:02:Bhavya Reynolds RN) Variability Baby A: Moderate 6-25 bpm (10/02/2016 12:30:Bhavya Reynolds RN) Variability Baby A: Moderate 6-25 bpm (10/02/2016 12:02:Bhavya Reynolds RN) Variability Baby A: Moderate 6-25 bpm (10/02/2016 11:30:Bhavya Reynolds RN) Variability Baby A: Moderate 6-25 bpm (10/02/2016 11:02:Bhavya Reynolds RN) Variability Baby A: Moderate 6-25 bpm (10/02/2016 10:30:Bhavya Reynolds RN) Variability Baby A: Moderate 6-25 bpm (10/02/2016 10:02:Bhavya Reynolds RN) Variability Baby A: Moderate 6-25 bpm (10/02/2016 09:30:Bhavya Reynolds RN) Variability Baby A: Moderate 6-25 bpm (10/02/2016 09:02:Bhavya Reynolds RN) Variability Baby A: Moderate 6-25 bpm (10/02/2016 08:30:Bhavya Reynolds RN) Variability Baby A: Moderate 6-25 bpm (10/02/2016 08:02:Bhavya Reynolds RN) Variability Baby A: Moderate 6-25 bpm (10/02/2016 07:30:Bhavya Reynolds RN) Variability Baby A: Moderate 6-25 bpm (10/02/2016 07:00:Socorro True, RN) Variability Baby A: Moderate 6-25 bpm (10/02/2016 06:30:Socorro True, RN) Variability Baby A: Moderate 6-25 bpm (10/02/2016 06:00:Socorro True, RN) Variability Baby A: Moderate 6-25 bpm (10/02/2016 05:30:Socorro True, RN) Variability Baby A: Moderate 6-25 bpm (10/02/2016 05:01:Socorro True, RN) Accelerations Baby A: None (10/03/2016 02:12:Socorro True, RN) Accelerations Baby A: 15X15 (10/03/2016 02:00:Socorro True, RN) Accelerations Baby A: 10X10 (10/03/2016 01:45:Socorro Ture, RN) Accelerations Baby A: 15X15 (10/03/2016 01:30:Socorro True, RN) Accelerations Baby A: 15X15 (10/03/2016 01:15:Socorro True, RN) Accelerations Baby A: 15X15 (10/03/2016 01:00:Socorro True, RN) Accelerations Baby A: 15X15 (10/03/2016 00:45:Socorro True, RN) Accelerations Baby A: 15X15 (10/03/2016 00:30:Socorro True, RN) Accelerations Baby A: 15X15 (10/03/2016 00:15:Socorro True, RN) Accelerations Baby A: 10X10 (10/03/2016 00:00:Socorro True, RN) Accelerations Baby A: 15X15 (10/02/2016 23:45:Socorro True, RN) Accelerations Baby A: 15X15 (10/02/2016 23:30:Socorro True, RN) Accelerations Baby A: 15X15 (10/02/2016 23:15:Ruthannyousif Sarabia RN) Accelerations Baby A: 15X15 (10/02/2016 23:00:Ruthannyousif Sarabia RN) Accelerations Baby A: 15X15 (10/02/2016 22:45:Ruthannstu Sarabia, RN) Accelerations Baby A: 15X15 (10/02/2016 22:30:Ruthannyousif Sarabia RN) Accelerations Baby A: 15X15 (10/02/2016 22:15:Ruthann Cornell, RN) Accelerations Baby A: 15X15 (10/02/2016 22:00:Ruthannstu Sarabia RN) Accelerations Baby A: None (10/02/2016 21:45:Ruthannstu Sarabia, RN) Accelerations Baby A: None (10/02/2016 21:30:Ruthannstu Sarabia RN) Accelerations Baby A: 15X15 (10/02/2016 21:15:Ruthannyousif Sarabia RN) Accelerations Baby A: None (10/02/2016 21:00:Ruthann Cornell RN) Accelerations Baby A: 15X15 (10/02/2016 20:45:Ruthannyousif Sarabia RN) Accelerations Baby A: None (10/02/2016 20:30:Ruthann Cornell RN) Accelerations Baby A: 15X15 (10/02/2016 20:15:Ruthannstu Sarabia RN) Accelerations Baby A: 15X15 (10/02/2016 20:00:Ruthannstu Sarabia RN) Accelerations Baby A: 15X15 (10/02/2016 19:45:Ruthann Cornell RN) Accelerations Baby A: None (10/02/2016 19:30:Ruthann Cornell RN) Accelerations Baby A: None (10/02/2016 19:15:Ruthann Cornell RN) Accelerations Baby A: 10X10 (10/02/2016 19:00:Ruthannstu Sarabia RN) Accelerations Baby A: None (10/02/2016 18:45:Ruthannstu Sarabia RN) Accelerations Baby A: 15X15 (10/02/2016 18:30:Ruthann Cornell, RN) Accelerations Baby A: 15X15 (10/02/2016 18:15:Ruthann Cornell, RN) Accelerations Baby A: 15X15 (10/02/2016 18:00:Ruthann Cornell, RN) Accelerations Baby A: 15X15 (10/02/2016 17:45:Ruthann Cornell, RN) Accelerations Baby A: None (10/02/2016 17:30:Ruthann Cornell, RN) Accelerations Baby A: 10X10 (10/02/2016 17:15:Ruthann Cornell, RN) Accelerations Baby A: None (10/02/2016 17:00:Ruthann Cornell, RN) Accelerations Baby A: 10X10 (10/02/2016 16:45:Ruthann Cornell, RN) Accelerations Baby A: 15X15 (10/02/2016 16:30:Ruthann Cornell, RN) Accelerations Baby A: 10X10 (10/02/2016 16:15:Ruthann Cornell, RN) Accelerations Baby A: None (10/02/2016 16:00:Ruthann Cornell, RN) Accelerations Baby A: None (10/02/2016 15:45:Ruthann Cornell, RN) Accelerations Baby A: 15X15 (10/02/2016 15:30:Ruthann Cornell, RN) Accelerations Baby A: None (10/02/2016 15:15:Ruthann Cornell, RN) Accelerations Baby A: 15X15 (10/02/2016 15:00:Ruthann Cornell, RN) Accelerations Baby A: 15X15 (10/02/2016 14:45:Ruthann Cornell, RN) Accelerations Baby A: 15X15 (10/02/2016 14:30:Ruthann Cornell, RN) Accelerations Baby A: 15X15 (10/02/2016 14:15:Ruthann Cornell, RN) Accelerations Baby A: 15X15 (10/02/2016 14:00:Ruthann Cornell, RN) Accelerations Baby A: 15X15 (10/02/2016 13:45:Ruthann Cornell RN) Accelerations Baby A: None (10/02/2016 13:30:Ruthnan Sarabia RN) Accelerations Baby A: 15X15 (10/02/2016 13:02:Bhavya Reynolds RN) Accelerations Baby A: None (10/02/2016 12:30:Bhavya Reynolds RN) Accelerations Baby A: 15X15 (10/02/2016 12:02:Bhavya Reynolds RN) Accelerations Baby A: 10X10 (10/02/2016 11:30:Bhavya Reynolds RN) Accelerations Baby A: 15X15 (10/02/2016 11:02:Bhavya Reynolds RN) Accelerations Baby A: 15X15 (10/02/2016 10:30:Bhavya Reynolds RN) Accelerations Baby A: 15X15 (10/02/2016 10:02:Bhavya Reynolds RN) Accelerations Baby A: 15X15 (10/02/2016 09:30:Bhavya Reynolds RN) Accelerations Baby A: 10X10 (10/02/2016 09:02:Bhavya Reynolds RN) Accelerations Baby A: 15X15 (10/02/2016 08:30:Bhavya Reynolds RN) Accelerations Baby A: 15X15 (10/02/2016 08:02:Bhavya Reynolds RN) Accelerations Baby A: 15X15 (10/02/2016 07:30:Bhavya Reynolds RN) Accelerations Baby A: 15X15 (10/02/2016 07:00:Socorro Biswas RN) Accelerations Baby A: 10X10 (10/02/2016 06:30:Socorro Biswas RN) Accelerations Baby A: 10X10 (10/02/2016 06:00:Socorro Biswas RN) Accelerations Baby A: None (10/02/2016 05:30:Socorro Biswas RN) Accelerations Baby A: None (10/02/2016 05:01:Socorro Biswas RN) Decelerations Baby A: None (10/03/2016 02:12:Socorro Biswas RN) Decelerations Baby A: None (10/03/2016 02:00:Socorro Biswas RN) Decelerations Baby A: None (10/03/2016 01:45:Socorro Biswas RN) Decelerations Baby A: None (10/03/2016 01:30:Socorro Biswas RN) Decelerations Baby A: Late (10/03/2016 01:15:Socorro Biswas RN) Decelerations Baby A: Variable (10/03/2016 01:00:Socorro Biswas RN) Decelerations Baby A: None (10/03/2016 00:45:Socorro Biswas RN) Decelerations Baby A: None (10/03/2016 00:30:Socorro Biswas RN) Decelerations Baby A: None (10/03/2016 00:15:Socorro Biswas RN) Decelerations Baby A: Late; Variable (10/03/2016 00:00:Socorro Biswas RN) Decelerations Baby A: None (10/02/2016 23:45:Socorro Biswas RN) Decelerations Baby A: Late (10/02/2016 23:30:Socorro Biswas RN) Decelerations Baby A: None (10/02/2016 23:15:Ruthann Sarabia RN) Decelerations Baby A: Late; Variable (10/02/2016 23:00:Ruthann Sarabia RN) Decelerations Baby A: Variable (10/02/2016 22:45:Ruthann Sarabia RN) Decelerations Baby A: None (10/02/2016 22:30:Ruthann Sarabia RN) Decelerations Baby A: None (10/02/2016 22:15:Ruthann Sarabia RN) Decelerations Baby A: None (10/02/2016 22:00:Ruthann Sarabia RN) Decelerations Baby A: Variable (10/02/2016 21:45:Ruthann Sarabia RN) Decelerations Baby A: None (10/02/2016 21:30:Ruthann Sarabia RN) Decelerations Baby A: None (10/02/2016 21:15:Ruthann Cornell RN) Decelerations Baby A: None (10/02/2016 21:00:Ruthann Cornell RN) Decelerations Baby A: Variable (10/02/2016 20:45:Ruthann Cornell, RN) Decelerations Baby A: Variable (10/02/2016 20:30:Ruthann Cornell RN) Decelerations Baby A: None (10/02/2016 20:15:Ruthann Cornell RN) Decelerations Baby A: None (10/02/2016 20:00:Ruthann Cornell RN) Decelerations Baby A: None (10/02/2016 19:45:Ruthann Cornell RN) Decelerations Baby A: Late; Prolonged (10/02/2016 19:30:Ruthann Cornell RN) Decelerations Baby A: None (10/02/2016 19:15:Ruthann Cornell RN) Decelerations Baby A: Variable (10/02/2016 19:00:Ruthann Cornell RN) Decelerations Baby A: Variable (10/02/2016 18:45:Ruthann Cornell RN) Decelerations Baby A: None (10/02/2016 18:30:Ruthann Cornell RN) Decelerations Baby A: None (10/02/2016 18:15:Ruthann Cornell RN) Decelerations Baby A: None (10/02/2016 18:00:Ruthann Cornell RN) Decelerations Baby A: None (10/02/2016 17:45:Ruthann Cornell RN) Decelerations Baby A: Variable (10/02/2016 17:30:Ruthann Cornell RN) Decelerations Baby A: None (10/02/2016 17:15:Ruthann Cornell RN) Decelerations Baby A: Early; Prolonged (10/02/2016 17:00:Ruthann Cornell RN) Decelerations Baby A: Prolonged (10/02/2016 16:48:Ruthann Cornell RN) Decelerations Baby A: None (10/02/2016 16:45:Ruthann Cornell RN) Decelerations Baby A: None (10/02/2016 16:30:Ruthann Sarabia RN) Decelerations Baby A: None (10/02/2016 16:15:Ruthann Sarabia RN) Decelerations Baby A: None (10/02/2016 16:00:Ruthann Sarabia RN) Decelerations Baby A: Late; Variable (10/02/2016 15:45:Ruthann Sarabia RN) Decelerations Baby A: None (10/02/2016 15:30:Ruthann Sarabia RN) Decelerations Baby A: None (10/02/2016 15:15:Ruthann Sarabia RN) Decelerations Baby A: None (10/02/2016 15:00:Ruthann Sarabia RN) Decelerations Baby A: None (10/02/2016 14:45:Ruthann Sarabia RN) Decelerations Baby A: None (10/02/2016 14:30:Ruthann Sarabia RN) Decelerations Baby A: None (10/02/2016 14:15:Ruthann Sarabia RN) Decelerations Baby A: None (10/02/2016 14:00:Ruthann Sarabia RN) Decelerations Baby A: None (10/02/2016 13:45:Ruthann Sarabia RN) Decelerations Baby A: None (10/02/2016 13:30:Ruthann Sarabia RN) Decelerations Baby A: Early (10/02/2016 13:02:Bhavya Reynolds RN) Decelerations Baby A: None (10/02/2016 12:30:Bhavya Reynolds RN) Decelerations Baby A: None (10/02/2016 12:02:Bhavya Reynolds RN) Decelerations Baby A: None (10/02/2016 11:30:Bhavya Reynolds RN) Decelerations Baby A: None (10/02/2016 11:02:Bhavya Reynolds RN) Decelerations Baby A: None (10/02/2016 10:30:Bhavya Reynolds RN) Decelerations Baby A: None (10/02/2016 10:02:Bhavya Reynolds RN) Decelerations Baby A: None (10/02/2016 09:30:Bhavya Reynolds RN) Decelerations Baby A: None (10/02/2016 09:02:Bhavya Reynolds RN) Decelerations Baby A: None (10/02/2016 08:30:Bhavya Reynolds RN) Decelerations Baby A: None (10/02/2016 08:02:Bhavya Reynolds RN) Decelerations Baby A: None (10/02/2016 07:30:Bhavya Reynolds RN) Decelerations Baby A: None (10/02/2016 07:00:Socorro Biswas RN) Decelerations Baby A: None (10/02/2016 06:30:Socorro Biswas RN) Decelerations Baby A: None (10/02/2016 06:00:Socorro Biswas RN) Decelerations Baby A: None (10/02/2016 05:30:Socorro Biswas RN) Decelerations Baby A: None (10/02/2016 05:01:Socorro Biswas RN)
--- NOTE | 2016-10-03 04:46 | L&D Discharge Summary ---
OB Discharge Summary Datetime Report Generated by CPN: 10/03/2016 04:45 DISCHARGE DIAGNOSIS Diagnosis/Symptoms: False Labor Diagnoses/Symptoms Other: IUP at 39 weeks, not in labor, membranes intact Treatment/Procedures Other: amnisure - negative Gestation: 39.2 Number of Babies in Womb: 1 Parity: 0 DIET/ACTIVITY/RESTRICTIONS Diet: Regular Activity: Normal Activity TEACHING/INSTRUCTIONS/REFERRALS Instructions Given To: patient and patient's Instructions Understood: Patient Verbalized Understanding; Support Person Verbalized Understanding Referrals: None Educational Materials- Other: kick counts, DISCHARGE INFORMATION Discharged AMA: No Discharge Date/Time: 09/27/2016 15:55 Discharged To: Home Discharge Provider Name: Fareed Talbot CNM Accompanied By: Discharge Method: Ambulatory Condition: Stable FOLLOW UP INFORMATION Follow Up With: [facility] Follow Up On: As Scheduled Follow Up Phone Number: [facility] - Comments: Pt verbalizes understanding instructions, s/s to report, when to return to hospital for evaluation, to keep scheduled appointments. No distress noted, ambulates without difficulty, denies complaints. Reactive NST GENERAL INSTR-CALL PROVIDER IF: Contractions: Contractions or cramps become more frequent than 8 in one hour or 4 in 20 minutes; Regular painful contractions every 5 minutes or less for one hour. Time your contractions from the beginning of one to the beginning of the next Pressure: Pressure in your vagina or lower abdomen that may feel like the baby is pushing down Period Like Cramps: Period-like cramps or low dull backache that may come and go Cramps/Diarrhea: Abdominal cramps that may be accompanied by diarrhea Gush of Fluid/Blood: Gush of fluid or blood from your vagina (it is normal to have spotting after vaginal exam or intercourse) Vaginal Discharge: Change in the type or amount of vaginal discharge Decreased Movement: Your baby is not moving as much as usual- 4 movements in 1 hour after drinking and resting on side Temperature: Temperature greater than 100.0(F) orally
--- NOTE | 2016-10-03 05:08 | Admission Physical ---
Datetime Report Generated by CPN: 10/03/2016 05:07 CURRENT ADMISSION Hx Assessment: The History has been Reviewed and is Current Chief Complaint: Uterine Contractions; Suspected Ruptured Membranes Chief Complaint Other: c/o ctx, ?lof, back pain Indication for Induction: Not Applicable Admit Plan: Admit to Unit; Initiate Labor Protocol ALLERGIES Medication Allergies: No Medication Allergies: No Known Allergies (10/01/2016) Latex: No Latex Allergies Food Allergies: None Environmental Allergies: None OBSTETRICAL HISTORY EDC: 10/08/2016 00:00 : 2 Para: 0 Term: 0 : 0 SAB: 1 IAB: 0 Ectopic: 0 Livin Cesareans: 0 VBACs: 0 Multiple Births: 0 Gestational Diabetes: No Rh Sensitization: No Incompetent Cervix: No JA: No Infertility: Yes ART Treatment: No Uterine Anomaly: No IUGR: No Hx Previous C/S: No Macrosomia: No Hx Loss/Stillborn: No PIH: No Hx : No Placenta Previa/Abruption: No Depression/PP Depression: No PTL/PROM: No Post Hemorrhage: No Current Procedures: Ultrasound Obstetrical History Comments: G1 - SAB G2 - current - AMA Infertility r/t uterine fibroids SEE RECORDS Alcohol: No Marijuana : No Cocaine: No Other Illicit Drugs: No Cigarettes: Current Everyday Smoker. 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 Surgery: No Heart Disease: Yes Hosp/Surgery: Yes Autoimmune Disorder: No Anesthetic Complications: No Kidney Disease: No Abnormal Pap Smear: No Neuro/Epilepsy: No Psychiatric Disorders: No Other Medical Diseases: No Hepatitis/Liver Disease: No Significant Family History: No Varicosities/Phlebitis: No Trauma/Violence : No Thyroid Dysfunction: No Medical History Comments: Hx of PVC - took Ca Channel kellee, stopped for 2014 - Ear surgery for ear drum 2013 - surgical removal of mirena 2000 - right knee surgery INFECTIOUS HISTORY Gonorrhea: No Genital Herpes: No Chlamydia: No Tuberculosis: No Syphilis: No Hepatitis: No HIV/AIDS Exposure: No Rash or Viral Illness: No HPV: No PHYSICAL EXAM General: Normal HEENT: Deferred Neurologic: Deferred Thyroid: Deferred Heart: Normal Lungs: Normal Breast: Deferred Back: Deferred Abdomen: Normal Genitourinary Exam: Normal Extremities: Normal DTRs: Normal Pelvic Type: Adequate Vital Signs: Reviewed; Within Normal Limits VAGINAL EXAM Dilatation: 0 Effacement: 50 Station: -1 Contraction Comments: q6-7 MEMBRANES Membranes: Ruptured Amniotic Fluid Color: Clear FETUS A EGA: 39.1 FHR- Baseline: 130 Variability: Moderate 6-25bpm Accelerations: 15X15 Decelerations: None FHR Category: Category I Admit Comment: Term srom w unfavorable cervix. cervidil tonight. gbs neg PLANS FOR LABOR AND DELIVERY Labor and Delivery: None Pain Management: Medications; Epidural Feeding Preference: Breast Benefit of Breast Feed Discussed: Yes Circumcision: N/A INFORMED CONSENT Signature: with User ID: [email or web address]
[2016-10-03] MEDS: OXYCODONE-ACETAMINOPHEN 5-325 MG TABLET PO PRN ×3 (06:13→16:50)
--- NOTE | 2016-10-03 06:16 | L&D General Admission ---
General Admit Datetime Report Generated by CPN: 10/03/2016 06:00 INFORMATION Patient Age: 36 (07/16/2016 14:28:QS system process) EDC: 10/08/2016 00:00 (08/25/2016 11:43:Maddy Pierson RN) EDC per Ultrasound: 10/12/2016 00:00 (08/25/2016 11:43:Maddy Pierson RN) LMP: 01/02/2016 00:00 (08/25/2016 11:43:Maddy Pierson RN) : 2 (08/25/2016 11:43:Socorro Biswas RN) Para: 0 (10/01/2016 11:42:Sandra Hall RN) Term: 0 (08/25/2016 11:43:Maddy Pierson RN) : 0 (08/25/2016 11:43:Maddy Pierson RN) Spontaneous Abortions: 1 (08/25/2016 11:43:Ruthann Sarabia RN) Induced Abortions: 0 (08/25/2016 11:43:Maddy Pierson RN) Livin (08/25/2016 11:43:Maddy Pierson RN) Cesareans: 0 (08/25/2016 11:43:Maddy Pierson RN) VBACs: 0 (08/25/2016 11:43:Maddy Pierson RN) Ectopic: 0 (08/25/2016 11:43:Maddy Pierson RN) Multiple Births: 0 (08/25/2016 11:43:Maddy Pierson RN) Baby, Number in Womb: 1 (10/01/2016 11:42:Sandra Hall RN) CARE Primary Die Reamer: [facility] (08/25/2016 11:43:Maddy Pierson RN) Month of 1st Visit: February 2016 (08/25/2016 11:43:Ellie Galeana RN) Adequate Care: Yes (08/25/2016 11:43:Maddy Pierson RN) Prepregnancy Weight (lb): 160 (08/25/2016 11:43:Maddy Pierson RN) Prepregnancy Weight (kg): 72.7 (08/25/2016 11:43:QS system process) Height (in): 68 (10/03/2016 05:06:QS system process) ALLERGIES Medication Allergy: No (08/25/2016 11:43:Maddy Pierson RN) Medication Allergies: No Known Allergies (10/01/2016) (10/01/2016 11:05:QS system process) Latex Allergy: No Latex Allergies (08/25/2016 11:43:Maddy Pierson RN) Food Allergies: None (08/25/2016 11:43:Maddy Pierson RN) Environmental Allergies: None (08/25/2016 11:43:Maddy Pierson RN) COMMUNICATION Primary Language: Afghan (08/25/2016 11:43:Maddy Pierson RN) Medical Tx Preferred Language: Afghan (08/25/2016 11:43:Maddy Pierson RN) Communication Barrier(s): None (08/25/2016 11:43:Ellie Galeana RN) DEMOGRAPHICS Address: [address] [place] [id number] (09/09/2016 11:47:QS system process) Zipcode: [address] (09/09/2016 11:47:QS system process) Home (07/16/2016 14:28:QS system process) SSN: [id number] (07/16/2016 14:28:QS system process) Next of Kin Name: TOVA RODRIGUEZ (07/16/2016 14:28:QS system process) Next of Kin (07/16/2016 14:28:QS system process) Next of Kin Relationship: SPO (07/16/2016 14:28:QS system process) Date of : 1980 (07/16/2016 14:28:QS system process) Marital Status: (07/16/2016 14:28:QS system process) Sex: Female (07/16/2016 14:28:QS system process) 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 [id number] (08/25/2016 11:43:Maddy Pierson RN) Marijuana: No (08/25/2016 11:43:Maddy Pierson RN) Cocaine: No (08/25/2016 11:43:Maddy Pierson RN) Other Illicit Drugs: No (08/25/2016 11:43:Maddy Pierson RN) VACCINE HISTORY Influenza Vaccine: Yes (08/25/2016 11:43:Maddy Pierson RN) Influenza Date: 07/16/2016 (08/25/2016 11:43:Maddy Pierson RN) Pneumococcal Vaccine: No (08/25/2016 11:43:Maddy Pierson RN) Tetanus Vaccine: Yes (08/25/2016 11:43:Ellie Galeana RN) Tetanus Date: 08/06/2016 (08/25/2016 11:43:Ellie Galeana RN) Tdap Vaccine: Yes (08/25/2016 11:43:Maddy Pierson RN) Tdap Date: 08/06/2016 (08/25/2016 11:43:Maddy Pierson RN) Hepatitis B Vaccine: Yes (08/25/2016 11:43:Maddy Pierson RN) Diamond Sorter: [facility] (08/25/2016 11:43:Socorro Biswas RN) Feeding Preference: Breast (08/25/2016 11:43:Maddy Pierson RN) Benefit of Breast Feed Discussed: Yes (08/25/2016 11:43:Maddy Pierson RN) Circumcision: N/A (08/25/2016 11:43:Maddy Pierson RN) Classes Attended: No (08/25/2016 11:43:Maddy Pierson RN) Tubal Ligation: No (08/25/2016 11:43:Maddy Pierson RN) Tubal Authorization Signed: N/A (08/25/2016 11:43:Maddy Pierson RN) Consent: N/A (08/25/2016 11:43:Maddy Pierson RN) Consent Signed: N/A (08/25/2016 11:43:Maddy Pierson RN) Pain Management Plans: Medications; Epidural (08/25/2016 11:43:Maddy Pierson RN) Plans for Labor and Delivery: None (08/25/2016 11:43:Maddy Pierson RN) Support Person: Tova Rodriguez (08/25/2016 11:43:Maddy Pierson RN) Support Person Relationship: (08/25/2016 11:43:Maddy Pierson RN) Cultural/Spritual Practice: No (08/25/2016 11:43:Maddy Pierson RN) Spir/Cult Dietary Needs: No (08/25/2016 11:43:Maddy Pierson RN) LIVING SITUATION/DISCHARGE PLAN Living Arrangements: House (08/25/2016 11:43:Maddy Pierson RN) Adequate Access to:: Electric; Heat; Refrigeration; Plumbing/Running water; Phone; Transportation (08/25/2016 11:43:Maddy Pierson RN) WIC Program: Yes (08/25/2016 11:43:Maddy Pierson RN) Discharge Tailman Person: Tova Braulio (08/25/2016 11:43:Maddy Pierson RN) Person to Help after Discharge: Braulio (08/25/2016 11:43:Maddy Pierson RN) Currently Using Commun Resources: No (08/25/2016 11:43:Maddy Pierson RN) Outside Agency/Building Maintenance Mechanic: No (08/25/2016 11:43:Maddy Pierson RN) Car Seat for Discharge: Yes (08/25/2016 11:43:Maddy Pierson RN) Adoption Requested: No (08/25/2016 11:43:Maddy Pierson RN) Pt Contact w/infant Post : N/A (08/25/2016 11:43:Maddy Pierson RN) LABS Blood Type: B Positive (08/25/2016 11:43:Renetta Paniagua RN) Antibody Screen: Negative (08/25/2016 11:43:Amy Rodríguez RN) Rho(G) this : Not Applicable (08/25/2016 11:43:Amy Rodríguez RN) Hemoglobin: 12.4 (10/02/2016 01:52:QS system process) Hematocrit: 35.4 L (10/02/2016 01:52:QS system process) MCV: 87 (10/02/2016 01:52:QS system process) Group Beta Strep: Negative (08/25/2016 14:25:Amy Rodríguez RN) Gonorrhea: Negative (08/25/2016 11:43:Renetta Paniagua RN) Chlamydia: Negative (08/25/2016 11:43:Renetta Paniagua RN) RPR/VDRL: Nonreactive (08/25/2016 11:43:Renetta Paniagua RN) HIV Results: Negative (08/25/2016 11:43:Amy Rodríguez RN) Hepatitis B: Negative (08/25/2016 11:43:Renetta Paniagua RN) Rubella: Immune (08/25/2016 11:43:Renetta Paniagua RN) OB/PREVIOUS HISTORY LMP: 01/02/2016 00:00 (08/25/2016 11:43:Maddy Pierson RN) Previous Procedures: None (08/25/2016 11:43:Maddy Pierson RN) Current Procedures: Ultrasound (08/25/2016 11:43:Maddy Pierson RN) History of Previous : No (08/25/2016 11:43:Maddy Pierson RN) History of Gestational Diabetes: No (08/25/2016 11:43:Maddy Pierson RN) History of PIH: No (08/25/2016 11:43:Maddy Pierson RN) History of Incompetent Cervix: No (08/25/2016 11:43:Maddy Pierson RN) History of Placenta Previa/Abrup: No (08/25/2016 11:43:Maddy Pierson RN) History of Macrosomia: No (08/25/2016 11:43:Maddy Pierson RN) History of IUGR: No (08/25/2016 11:43:Maddy Pierson RN) History of Hemorrhage: No (08/25/2016 11:43:Maddy Pierson RN) History of Loss/Stillborn: No (08/25/2016 11:43:Maddy Pierson RN) History of : No (08/25/2016 11:43:Maddy Pierson RN) History of D (Rh) Sensitization: No (08/25/2016 11:43:Maddy Pierson RN) History Recurrent Loss/Stillborn: No (08/25/2016 11:43:Maddy Pierson RN) History Depression/PP Depression: No (08/25/2016 11:43:Maddy Pierson RN) History of Uterine Anomaly/JA: No (08/25/2016 11:43:Maddy Pierson RN) History of Infertility: Yes (08/25/2016 11:43:Maddy Pierson RN) History of ART Treatment: No (08/25/2016 11:43:Maddy Pierson RN) History of JA: No (08/25/2016 11:43:Maddy Pierson RN) Comments Obstetrical History: G1 - SAB G2 - current - AMA Infertility r/t uterine fibroids (08/25/2016 11:43:Maddy Pierson RN) MEDICAL HISTORY Med Hx Diabetes: No (08/25/2016 11:43:Maddy Pierson RN) Med Hx Hypertension: No (08/25/2016 11:43:Maddy Pierson RN) Med Hx Heart Disease: Yes (08/25/2016 11:43:Maddy Pierson RN) Med Hx Autoimmune Disorder: No (08/25/2016 11:43:Maddy Pierson RN) Med Hx Kidney Disease/UTI: No (08/25/2016 11:43:Maddy Pierson RN) Med Hx Neurologic/Epilepsy: No (08/25/2016 11:43:Maddy Pierson RN) Med Hx Psychiatric Disorders: No (08/25/2016 11:43:Maddy Pierson RN) Med Hx Hepatitis/Liver Disease: No (08/25/2016 11:43:Maddy Pierson RN) Med Hx Varicosities/Phlebitis: No (08/25/2016 11:43:Maddy Pierson RN) Med Hx Thyroid Dysfunction: No (08/25/2016 11:43:Maddy Pierson RN) Med Hx Trauma/Violence: No (08/25/2016 11:43:Maddy Pierson RN) Med Hx Blood Transfusion: No (08/25/2016 11:43:Maddy Pierson RN) Med Hx Pulmonary (Asthma,TB): No (08/25/2016 11:43:Maddy Pierson RN) Med Hx Breast: No (08/25/2016 11:43:Maddy Pierson RN) Med Hx 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 (08/25/2016 11:43:Maddy Pierson RN) Med Hx Hospitalization/Surgery: Yes (08/25/2016 11:43:Maddy Pierson RN) Med Hx Anesthetic Complications: No (08/25/2016 11:43:Maddy Pierson RN) Med Hx Abnormal Pap Smear: No (08/25/2016 11:43:Maddy Pierson RN) Other Medical Diseases: No (08/25/2016 11:43:Maddy Pierson RN) Med Hx Significant Family Hx: No (08/25/2016 11:43:Maddy Pierson RN) Details of Med/Surg Hx: Hx of PVC - took Ca Channel kellee, stopped for 2014 - Ear surgery for ear drum 2013 - surgical removal of mirena 2001 - right knee surgery (08/25/2016 11:43:Maddy Pierson RN) INFECTIOUS HISTORY Inf Hx Gonorrhea: No (08/25/2016 11:43:Maddy Pierson RN) Inf Hx Chlamydia: No (08/25/2016 11:43:Maddy Pierson RN) Inf Hx Syphilis: No (08/25/2016 11:43:Maddy Pierson RN) Inf Hx HIV/AIDS: No (08/25/2016 11:43:Maddy Pierson RN) Inf Hx Human Papilloma Virus: No (08/25/2016 11:43:Maddy Pierson RN) Inf Hx Pt/Partner Genital Herpes: No (08/25/2016 11:43:Maddy Pierson RN) Inf Hx Tuberculosis/Exposure: No (08/25/2016 11:43:Maddy Pierson RN) Inf Hx Hepatitis B,C: No (08/25/2016 11:43:Maddy Pierson RN) Inf Hx Rash or Viral Illness: No (08/25/2016 11:43:Maddy Pierson RN) GENETIC HISTORY Gen Hx Age >=35 at [place]: No (08/25/2016 11:43:Maddy Pierson RN) Gen Hx Thalassemia: No (08/25/2016 11:43:Maddy Pierson RN) Gen Hx Congenital Heart Defect: No (08/25/2016 11:43:Maddy Pierson RN) Gen Hx Neural Tube Defect: No (08/25/2016 11:43:Maddy Pierson RN) Gen Hx Down's Syndrome: No (08/25/2016 11:43:Maddy Pierson RN) Gen Hx Celestino-Sachs: No (08/25/2016 11:43:Maddy Pierson RN) Gen Hx Doug: No (08/25/2016 11:43:Maddy Pierson RN) Gen Hx Familial Dysautonomia: No (08/25/2016 11:43:Maddy Pierson RN) Gen Hx Sickle Cell Disease/Trait: No (08/25/2016 11:43:Maddy Pierson RN) Gen Hx Hemophilia/Blood Disorder: No (08/25/2016 11:43:Maddy Pierson RN) Gen Hx Muscular Dystrophy: No (08/25/2016 11:43:Maddy Pierson RN) Gen Hx Cystic Fibrosis: No (08/25/2016 11:43:Maddy Pierson RN) Gen Hx Huntingtons Chorea: No (08/25/2016 11:43:Maddy Pierson RN) Gen Hx Mental Retardation/Autism: No (08/25/2016 11:43:Maddy Peirson RN) Gen Hx Tested for Fragile X: No (08/25/2016 11:43:Maddy Pierson RN) Gen Hx Other Inher/Chromosomal: No (08/25/2016 11:43:Maddy Pierson RN) Gen Hx Maternal Metabolic DO: No (08/25/2016 11:43:Maddy Pierson RN) Gen Hx Pt Father or FOB Defect: No (08/25/2016 11:43:Maddy Pierson RN) Gen Hx Other Genetic History: No (08/25/2016 11:43:Maddy Pierson RN) Gen Hx Drugs/Meds since LMP: Yes (08/25/2016 11:43:Maddy Pierson RN) Gen Hx Medications: PNV, Prilosec (08/25/2016 11:43:Maddy Pierson RN)
--- NOTE | 2016-10-03 06:16 | L&D Current Admission ---
Current Admit Datetime Report Generated by CPN: 10/03/2016 06:00 ADMISSION INFORMATION Current Admit Date/Time: 10/02/2016 01:43 (10/02/2016 01:30:Socorro Biswas RN) Reason for Admission: Rupture of Membranes (10/02/2016 01:30:Socorro Biswas RN) Chief Complaint: Suspected Rupture of Membranes (10/02/2016 01:30:Socorro Biswas RN) Medications During : Vitamin; Hydroxyzine (Vistaril) (10/02/2016 01:30:Socorro Biswas RN) Meds During -Oth: Prilosec (08/25/2016 15:14:Maddy Pierson RN) EGA per Dates: 39.1 (10/02/2016 01:30:QS system process) EGA per US: 38.4 (10/02/2016 01:30:QS system process) Method of Arrival: Wheelchair (10/02/2016 01:30:Socorro Biswas RN) Admitted From: Home (10/02/2016 01:30:Socorro Biswas RN) Reason for Induction: Premature Rupture of Membranes (10/02/2016 01:30:Socorro Biswas RN) Records Available: Yes (10/02/2016 01:30:Socorro Biswas RN) General Admission Information: Reviewed; Updated; Confirmed (10/02/2016 01:30:Socorro Biswas RN) General Admission Reviewed By: Janice Biswas RN (10/02/2016 01:30:Socorro Biswas RN) BELONGINGS/ADVANCED DIRECTIVES Valuables/Personal Effects: None (08/25/2016 15:14:Maddy Pierson RN) Other Belongings: See [facility] belongings from (10/02/2016 01:30:Socorro Biswas RN) Disposition of Belongings: Kept with Patient (08/25/2016 15:14:Maddy Pierson RN) Advance Direct for Healthcare: No, and Wants No Information (08/25/2016 15:14:Maddy Pierson RN) Durable Power of Continuous Improvement Engineer: No (10/02/2016 01:30:Socorro Biswas RN) Living Will: No (10/02/2016 01:30:Socorro Biswas RN) Organ Donor: No (10/02/2016 01:30:Socorro Biswas RN) Pt Rights Information Given: Yes (10/02/2016 01:30:Socorro Biswas RN) Pt Understands Pt Rights: Yes (10/02/2016 01:30:Socorro Biswas RN) LEARNING ASSESSMENT Knowledge Level: Understands L_D Process (10/02/2016 01:30:Socorro Biswas RN) Barriers to Learning: Emotional State; Pain (10/02/2016 01:30:Socorro Biswas RN) Learning Readiness: Motivated (10/02/2016 01:30:Socorro Biswas RN) Learns Best By: 1 to 1 Instruction (10/02/2016 01:30:Socorro Biswas RN) Learning Needs: Labor and Delivery Process; Pain Management; Symptoms to Report; Treatment Plan; Medication; Diagnosis; Nutrition; Equipment; Care (10/02/2016 01:30:Socorro Biswas RN) DOMESTIC VIOLANCE SCREENING Dom Viol Threatened/Hurt: No (08/25/2016 15:14:Maddy Pierson RN) Hx of Abuse/Neglect past 2yrs: No (08/25/2016 15:14:Maddy Pierson RN) Feel Unsafe Going Home: No (08/25/2016 15:14:Maddy Pierson RN) Addt'l Observ Indicating Abuse: No (08/25/2016 15:14:Maddy Pierson RN) Reason Unable to Complete Screen: No Opportunity to Talk Privately (10/02/2016 01:30:Socorro Biswas RN) Considered Personal Harm/Suicide: No (08/25/2016 15:14:Maddy Pierson RN) NUTRITIONAL/FUNCTIONAL SCREENING Problem with Appetite >5 Days: No (10/02/2016 01:30:Socorro Biswas RN) Chew/Swallow Difficulties: No (10/02/2016 01:30:Socorro Biswas RN) Inappropriate Wt Gain/Loss: No (10/02/2016 01:30:Socorro Biswas RN) Presence Skin Breakdown/Ulcer: No (10/02/2016 01:30:Socorro Biswas RN) Special Diet: No (10/02/2016 01:30:Socorro Biswas RN) Pt Requests Wafer Cleaner Visit: No (10/02/2016 01:30:Socorro Biswas RN) Hx of Any of the Following?: N/A (10/02/2016 01:30:Socorro Biswas RN) New Diagnosis of: N/A (10/02/2016 01:30:Socorro Biswas RN) Requires Assist w/Ambulation: No (10/02/2016 01:30:Socorro Biswas RN) Uses Assist Device to Ambulate: No (10/02/2016 01:30:Socorro Biswas RN) Pt Requires Help w/ADL's: No (10/02/2016 01:30:Socorro Biswas RN)
[2016-10-03] MEDS: KETOROLAC TROMETHAMINE INJ/PF 30 MG/1 ML SDV IV SCH ×3 (06:36→21:16)
--- NOTE | 2016-10-03 07:01 | L&D Flow Sheet ---
LD Flowsheet Datetime Report Generated by CPN: 10/03/2016 07:00 Datetime: 10/03/2016 05:00 NBP Sys/Lizbet/Mean (mmHg): 132 (QS system process) : 67 (QS system process) : 88 (QS system process) Pulse: 84 (QS system process) Respirations: 17 (Socorro Biswas RN) Temperature (F): 98.2 (Socorro Biswas RN) Temperature (C): 36.8 (QS system process) Temperature Route: Oral (Socorro True, RN) Datetime: 10/03/2016 04:59 Pain Scale: 2 (Socorro Biswas RN) Pain Presence: Constant (Socorro Biswas RN) Pain Type: Ache (Socorro Biswas, RN) Pain Location: Abdomen (Socorro Biswas RN) Pain Goal: 1 (Socorro Biswas RN) Pain Relief Measures: Pain Medication Given (Socorro Biswas RN) Pain Assessment Comments: pain medicine given before pt transfered to 2S (Socorro Biswas RN) Datetime: 10/03/2016 04:45 NBP Sys/Lizbet/Mean (mmHg): 135 (QS system process) : 66 (QS system process) : 95 (QS system process) Pulse: 83 (QS system process) Datetime: 10/03/2016 04:30 NBP Sys/Lizbet/Mean (mmHg): 129 (QS system process) : 71 (QS system process) : 96 (QS system process) Pulse: 93 (QS system process) Datetime: 10/03/2016 04:16 NBP Sys/Lizbet/Mean (mmHg): 132 (QS system process) : 76 (QS system process) : 98 (QS system process) Pulse: 96 (QS system process) Datetime: 10/03/2016 04:15 Pain Scale: 3 (Socorro True, RN) Pain Presence: Constant (Socorro True, RN) Pain Type: Ache (Socorro True, RN) Pain Location: Abdomen (Socorro True, RN) Pain Goal: 2 (Socorro True, RN) Pain Relief Measures: Pain Medication Given (Socorro True, RN) Datetime: 10/03/2016 04:01 NBP Sys/Lizbet/Mean (mmHg): 166 (QS system process) : 68 (QS system process) : 98 (QS system process) Pulse: 95 (QS system process) Datetime: 10/03/2016 03:45 NBP Sys/Lizbet/Mean (mmHg): 140 (QS system process) : 76 (QS system process) : 102 (QS system process) Pulse: 83 (QS system process) Datetime: 10/03/2016 03:32 Stage of : Recovery (Socorro True, RN) Datetime: 10/03/2016 03:31 Pulse: 81 (QS system process) SpO2 (%): 98 (QS system process) Datetime: 10/03/2016 03:30 Pain Scale: 3 (Socorro True, RN) Pain Presence: Constant (Socorro True, RN) Datetime: 10/03/2016 03:26 Pulse: 80 (QS system process) SpO2 (%): 98 (QS system process) Datetime: 10/03/2016 03:25 NBP Sys/Lizbet/Mean (mmHg): 156 (QS system process) : 70 (QS system process) : 104 (QS system process) Pulse: 87 (QS system process) Datetime: 10/03/2016 03:22 Medication Comments: demerol 12.5 mg IV (Socorro True, RN) Datetime: 10/03/2016 03:21 NBP Sys/Lizbet/Mean (mmHg): 156 (QS system process) : 79 (QS system process) : 101 (QS system process) Pulse: 90 (QS system process) Pulse: 93 (QS system process) SpO2 (%): 100 (QS system process) Datetime: 10/03/2016 03:17 Medication Comments: demerol 12.5 mg IV (Socorro Biswas, RN) Datetime: 10/03/2016 03:16 Pulse: 91 (QS system process) SpO2 (%): 99 (QS system process) Medication Comments: fentanyl 100 mcg IV (Socorro Biswas, RN) Datetime: 10/03/2016 03:12 NBP Sys/Lizbet/Mean (mmHg): 144 (QS system process) : 63 (QS system process) : 91 (QS system process) Pulse: 83 (QS system process) Respirations: 22 (Socorro Biswas RN) Temperature (F): 98.0 (Socorro Biswas RN) Temperature (C): 36.7 (QS system process) Temperature Route: Oral (Socorro Biswas RN) Pain Scale: 5 (Socorro Biswas RN) Pain Presence: Constant (Socorro Biswas RN) Pain Type: Sharp; Stabbing; Ache (Socorro Biswas RN) Pain Location: Abdomen (Socorro Biswas RN) Pain Goal: 1 (Socorro Biswas RN) Pain Relief Measures: Pain Medication Given; Comfort Measures (Socorro Biswas RN) Datetime: 10/03/2016 03:11 Stage of : Recovery (Socorro Biswas RN) Pulse: 88 (QS system process) SpO2 (%): 100 (QS system process) Datetime: 10/03/2016 02:15 Communication Comments: Pt to OR via bed in stable condition per Aubree Simon CRNA and Janice Biswas RN (Socorro Biswas RN) Datetime: 10/03/2016 02:12 Monitor Mode: Internal; Palpation (Socorro True, RN) Frequency (min): 3-4 (Socorro True, RN) Quality: Moderate to Strong (Socorro True, RN) Duration (sec): 60-90 (Socorro True, RN) Resting Tone (Palpate): Relaxed (Socorro True, RN) Monitor Mode: Internal Scalp Electrode (Socorro True, RN) FHR Baseline Rate : 145 (Socorro True, RN) Variability: Moderate 6-25 bpm (Socorro True, RN) Accelerations: None (Socorro True, RN) Decelerations: None (Socorro True, RN) Comments: monitors removed (Socorro True, RN) Medication Comments: ancef 2 gm IVPB (Socorro True, RN) Datetime: 10/03/2016 02:03 Communication Comments: Dr Beto at bedside bolusing epidural (Socorro True, RN) Datetime: 10/03/2016 02:02 NBP Sys/Lizbet/Mean (mmHg): 141 (QS system process) : 68 (QS system process) : 97 (QS system process) Pulse: 84 (QS system process) LaborFlag: Labor (QS system process) Datetime: 10/03/2016 02:00 Monitor Mode: Internal; Palpation (Socorro True, RN) Frequency (min): 1-4 (Socorro True, RN) Quality: Moderate to Strong (Socorro True, RN) Duration (sec): 50-90 (Socorro True, RN) Resting Tone (Palpate): Relaxed (Socorro True, RN) Monitor Mode: Internal Scalp Electrode (Socorro True, RN) FHR Baseline Rate : 150 (Socorro True, RN) Variability: Moderate 6-25 bpm (Socorro True, RN) Accelerations: 15X15 (Socorro True, RN) Decelerations: None (Socorro True, RN) Datetime: 10/03/2016 01:49 Communication Comments: Informed 2 [address], Mel RN that has been called. (Amy Lattibeaudeir, RN) Datetime: 10/03/2016 01:46 NBP Sys/Lizbet/Mean (mmHg): 133 (QS system process) : 76 (QS system process) : 97 (QS system process) Pulse: 82 (QS system process) Communication Comments: Informed Farideh, ACCOUNT GROUP SUPERVISOR that called as Urgent. (Amy Lattibeaudeir, RN) LaborFlag: Labor (QS system process) Datetime: 10/03/2016 01:45 Monitor Mode: Internal; Palpation (Socorro True, RN) Frequency (min): 4-5 (Socorro True, RN) Quality: Moderate to Strong (Socorro True, RN) Duration (sec): 60-90 (Socorro True, RN) Resting Tone (Palpate): Relaxed (Socorro True, RN) Monitor Mode: Internal Scalp Electrode (Socorro True, RN) FHR Baseline Rate : 145 (Socorro True, RN) Variability: Moderate 6-25 bpm (Socorro True, RN) Accelerations: 10X10 (Socorro True, RN) Decelerations: None (Socorro True, RN) Communication Comments: Informed Power Distribution EngineerNanette, that called for arrest of dilatation. (Amy Rodríguez, BLANCA) Datetime: 10/03/2016 01:40 Patient Care Comments: singer catheter emptied for 1800 mL yellow clear urine (Socorro True, RN) Datetime: 10/03/2016 01:33 NBP Sys/Lizbet/Mean (mmHg): 136 (QS system process) : 77 (QS system process) : 98 (QS system process) Pulse: 79 (QS system process) LaborFlag: Labor (QS system process) Datetime: 10/03/2016 01:30 Monitor Mode: Internal; Palpation (Socorro True, RN) Frequency (min): 2-4 (Socorro True, RN) Quality: Moderate to Strong (Socorro True, RN) Duration (sec): 60-90 (Socorro True, RN) Resting Tone (Palpate): Relaxed (Socorro True, RN) Monitor Mode: Internal Scalp Electrode (Socorro True, RN) FHR Baseline Rate : 150 (Socorro True, RN) Variability: Moderate 6-25 bpm (Socorro True, RN) Accelerations: 15X15 (Socorro True, RN) Decelerations: None (Socorro True, RN) Patient Care Comments: marlene wipes to abd (Socorro True, RN) Datetime: 10/03/2016 01:28 Patient Care Comments: pt shaved (Socorro Wynnesel, RN) Datetime: 10/03/2016 01:23 Patient Care Comments: TEDs and SCDs applied (Socorro Tiwaril, RN) Datetime: 10/03/2016 01:21 Provider Reviewed Strip: Yes (Socorro Biswas RN) Communication: Provider at Bedside; Provider Orders Received (Socorro Biswas RN) Communication Comments: Dr Frazier at bedside, discussing POC for c/s. Dx primary c/s d/t arrest of dilatation. Pitocin discontinued. Pt and FOB questions answered at this time. (Socorro Biswas RN) Datetime: 10/03/2016 01:19 NBP Sys/Lizbet/Mean (mmHg): 116 (QS system process) : 56 (QS system process) : 81 (QS system process) Pulse: 82 (QS system process) LaborFlag: Labor (QS system process) Datetime: 10/03/2016 01:15 Monitor Mode: Internal (Socorro True, RN) Frequency (min): 2-3 (Socorro True, RN) Quality: Moderate to Strong (Socorro True, RN) Duration (sec): 40-60 (Socorro True, RN) Resting Tone (Palpate): Relaxed (Socorro True, RN) Monitor Mode: Internal Scalp Electrode (Socorro True, RN) FHR Baseline Rate : 150 (Socorro True, RN) Variability: Moderate 6-25 bpm (Socorro True, RN) Accelerations: 15X15 (Socorro True, RN) Decelerations: Late (Socorro True, RN) Pitocin (milliunit): Pitocin Remains (milliunits) @ 8 (Socorro True, RN) Datetime: 10/03/2016 01:08 Dilatation (cm): 5.0 (Socorro Biswas RN) Effacement (%): 70 (Socorro Biswas, BLANCA) Station: 0 (Socorro Biswas RN) Exam by: Janice Biswas RN (Socorro Biswas RN) Vaginal Exam Comments: cervical swelling noted (Socorro Biswas RN) Datetime: 10/03/2016 01:02 NBP Sys/Lizbet/Mean (mmHg): 117 (QS system process) : 58 (QS system process) : 82 (QS system process) Pulse: 80 (QS system process) LaborFlag: Labor (QS system process) Datetime: 10/03/2016 01:00 Monitor Mode: Internal (Socorro True, RN) Frequency (min): 2-4 (Socorro True, RN) Duration (sec): 60-90 (Socorro True, RN) Resting Tone (Palpate): Relaxed (Socorro True, RN) Resting Tone IUP (mmHg): 30 (Socorro True, RN) Contraction Comments: intensity 90-110; MVU 190 (Socorro True, RN) Monitor Mode: Internal Scalp Electrode (Socorro True, RN) FHR Baseline Rate : 145 (Socorro True, RN) Variability: Moderate 6-25 bpm (Socorro True, RN) Accelerations: 15X15 (Socorro True, RN) Decelerations: Variable (Socorro True, RN) Datetime: 10/03/2016 00:46 NBP Sys/Lizbet/Mean (mmHg): 125 (QS system process) : 58 (QS system process) : 84 (QS system process) Pulse: 80 (QS system process) LaborFlag: Labor (QS system process) Datetime: 10/03/2016 00:45 Monitor Mode: Internal (Socorro True, RN) Frequency (min): 2-3 (Socorro True, RN) Duration (sec): 60-120 (Socorro True, RN) Resting Tone (Palpate): Relaxed (Socorro True, RN) Resting Tone IUP (mmHg): 30 (Socorro True, RN) Contraction Comments: Intensity 85-95; MVU 235 (Socorro True, RN) Monitor Mode: Internal Scalp Electrode (Socorro True, RN) FHR Baseline Rate : 145 (Socorro True, RN) Variability: Moderate 6-25 bpm (Socorro True, RN) Accelerations: 15X15 (Socorro True, RN) Decelerations: None (Socorro True, RN) Pitocin (milliunit): Pitocin Remains (milliunits) @ 8 (Socorro True, RN) Datetime: 10/03/2016 00:33 NBP Sys/Lizbet/Mean (mmHg): 128 (QS system process) : 75 (QS system process) : 90 (QS system process) Pulse: 83 (QS system process) Respirations: 18 (Socorro True, RN) Temperature (F): 98.2 (Socorro True, RN) Temperature (C): 36.8 (QS system process) Hygiene: Underpad Changed; Peripad Changed (Socorro True, RN) LaborFlag: Labor (QS system process) Datetime: 10/03/2016 00:32 Antibiotics: Ancef IV (Gm) @ 2 (Socorro True, RN) Datetime: 10/03/2016 00:30 Monitor Mode: Internal (Socorro True, RN) Frequency (min): 2.5-3 (Socorro True, RN) Duration (sec): 60-80 (Socorro True, RN) Resting Tone (Palpate): Relaxed (Socorro True, RN) Resting Tone IUP (mmHg): 35 (Socorro True, RN) Contraction Comments: Intensity 75-120 MVU 200 (Socorro True, RN) Monitor Mode: Internal Scalp Electrode (Socorro True, RN) FHR Baseline Rate : 145 (Socorro True, RN) Variability: Moderate 6-25 bpm (Socorro True, RN) Accelerations: 15X15 (Socorro True, RN) Decelerations: None (Socorro True, RN) Datetime: 10/03/2016 00:17 NBP Sys/Lizbet/Mean (mmHg): 122 (QS system process) : 58 (QS system process) : 83 (QS system process) Pulse: 84 (QS system process) LaborFlag: Labor (QS system process) Datetime: 10/03/2016 00:15 Monitor Mode: Internal (Socorro True, RN) Frequency (min): 2-4.5 (Socorro True, RN) Duration (sec): 80-120 (Socorro True, RN) Resting Tone (Palpate): Relaxed (Socorro True, RN) Resting Tone IUP (mmHg): 30 (Socorro True, RN) Contraction Comments: intensity 75-100; MVU 195 (Socorro True, RN) Monitor Mode: Internal Scalp Electrode (Socorro True, RN) FHR Baseline Rate : 145 (Socorro True, RN) Variability: Moderate 6-25 bpm (Socorro True, RN) Accelerations: 15X15 (Socorro True, RN) Decelerations: None (Socorro True, RN) Pitocin (milliunit): Pitocin Remains (milliunits) @ (Annotations: 8) (Socorro Wynnesel, RN) Datetime: 10/03/2016 00:10 Anesthesia Comments: Dr Beto called to replace epidural bag (Socorro Wynnesel, RN) Datetime: 10/03/2016 00:03 Pitocin (milliunit): Pitocin Remains (milliunits) @ (Annotations: 8) (Socorro Wynnesel, RN) Datetime: 10/03/2016 00:01 NBP Sys/Lizbet/Mean (mmHg): 121 (QS system process) : 57 (QS system process) : 83 (QS system process) Pulse: 90 (QS system process) LaborFlag: Labor (QS system process) Datetime: 10/03/2016 00:00 Monitor Mode: Internal (Socorro True, RN) Frequency (min): 2-4 (Socorro True, RN) Duration (sec): 80-100 (Socorro True, RN) Resting Tone (Palpate): Relaxed (Socorro True, RN) Resting Tone IUP (mmHg): 30 (Socorro True, RN) Contraction Comments: intensity 80-100; MVU 255 (Socorro True, RN) Monitor Mode: Internal Scalp Electrode (Socorro True, RN) FHR Baseline Rate : 145 (Socorro True, RN) Variability: Moderate 6-25 bpm (Socorro True, RN) Accelerations: 10X10 (Socorro True, RN) Decelerations: Late; Variable (Socorro True, RN) Pitocin (milliunit): Pitocin Remains (milliunits) @ (Annotations: 8) (Socorro True, RN) Datetime: 10/02/2016 23:52 Actions for Decelerations: Side to Side; Oxygen Applied; IV Bolus (Socorro True, RN) Patient Position/Activity: Right Lateral (Socorro True, RN) Datetime: 10/02/2016 23:50 Communication: RN Reviewed Strip (Socorro True, RN) Datetime: 10/02/2016 23:48 Amnioinfusion: Discontinued (Socorro True, RN) Communication: RN at Bedside (Socorro True, RN) Datetime: 10/02/2016 23:47 NBP Sys/Lizbet/Mean (mmHg): 132 (QS system process) : 64 (QS system process) : 92 (QS system process) Pulse: 72 (QS system process) Amnioinfusion: Fluid Returned (Socorro True, RN) LaborFlag: Labor (QS system process) Datetime: 10/02/2016 23:45 Monitor Mode: Internal (Socorro True, RN) Frequency (min): 2-3 (Socorro True, RN) Duration (sec): 80-100 (Socorro True, RN) Resting Tone (Palpate): Relaxed (Socorro True, RN) Resting Tone IUP (mmHg): 30 (Socorro True, RN) Contraction Comments: Intensity 90-100; MVU 280 (Socorro True, RN) Monitor Mode: Internal Scalp Electrode (Socorro True, RN) FHR Baseline Rate : 145 (Socorro True, RN) Variability: Moderate 6-25 bpm (Socorro True, RN) Accelerations: 15X15 (Socorro True, RN) Decelerations: None (Socorro True, RN) Pitocin (milliunit): Pitocin Remains (milliunits) @ (Annotations: 8) (Socorro Biswas, RN) Datetime: 10/02/2016 23:33 Contraction Comments: MVU 270, report to Dr Frazier on unit re: MVU, no additional orders at this time, will keep pitocin running 8 milliunits/min. POC to monitor MVUs for 2 hours, if adequate ctx for 2 hours and no cervical change to discuss c/s (Socorro Biswas, RN) Datetime: 10/02/2016 23:32 NBP Sys/Lizbet/Mean (mmHg): 134 (QS system process) : 72 (QS system process) : 95 (QS system process) Pulse: 76 (QS system process) LaborFlag: Labor (QS system process) Datetime: 10/02/2016 23:30 Monitor Mode: Internal (Socorro True, RN) Frequency (min): 1-4 (Socorro True, RN) Duration (sec): 70-120 (Socorro True, RN) Resting Tone (Palpate): Relaxed (Socorro True, RN) Resting Tone IUP (mmHg): 25 (Socorro True, RN) Contraction Comments: intensity 75-100 mmHg; MVU 215 (Socorro True, RN) Monitor Mode: Internal Scalp Electrode (Socorro True, RN) FHR Baseline Rate : 150 (Socorro True, RN) Variability: Moderate 6-25 bpm (Socorro True, RN) Accelerations: 15X15 (Socorro True, RN) Decelerations: Late (Socorro True, RN) Pitocin (milliunit): Pitocin Remains (milliunits) @ (Annotations: 8) (Socorro True, RN) Datetime: 10/02/2016 23:20 Communication Comments: Report to K. True, RN, care relinquished (Ruthann Vitrano, RN) Datetime: 10/02/2016 23:19 Patient Position/Activity: Left Tilt; Semi-Fowlers (Ruthann Vitrano, RN) Datetime: 10/02/2016 23:17 NBP Sys/Lizbet/Mean (mmHg): 129 (QS system process) : 84 (QS system process) : 102 (QS system process) Pulse: 82 (QS system process) Respirations: 17 (Ruthann Vitrano, RN) LaborFlag: Labor (QS system process) Datetime: 10/02/2016 23:16 Amnioinfusion: Started (Socorro Biswas RN) Patient Care Comments: orders for amnioinfusion 250 bolus, no maintenance fluid after bolus finishes. (Socorro True, RN) Datetime: 10/02/2016 23:15 Monitor Mode: External (Ruthann Vitrano, RN) Frequency (min): 2-4 (Ruthann Vitrano, RN) Quality: Moderate to Strong (Ruthann Vitrano, RN) Duration (sec): 60-90 (Ruthann Vitrano, RN) Duration Criteria: Less than Two 120 Second Contractions (Ruthann Vitrano, RN) Pattern: Normal: <= 5 Contractions in 10 Minutes (Ruthann Vitrano, RN) Resting Tone (Palpate): Relaxed (Ruthann Vitrano, RN) Monitor Mode: Internal Scalp Electrode (Ruthann Vitrano, RN) FHR Baseline Rate : 145 (Ruthann Vitrano, RN) Variability: Moderate 6-25 bpm (Ruthann Vitrano, RN) Accelerations: 15X15 (Ruthann Vitrano, RN) Decelerations: None (Ruthann Vitrano, RN) Pitocin (milliunit): Pitocin Remains (milliunits) @ 8 (Ruthann Vitrano, RN) Communication Comments: Orders from Dr. Frazier for Amnioinfusion bolus of 250 mL NSS (Ruthann Vitrano, RN) Datetime: 10/02/2016 23:14 Hygiene: Underpad Changed (Ruthann Vitrano, RN) Datetime: 10/02/2016 23:12 Monitor Interventions for UA: IUPC Inserted (Socorro True, RN) Datetime: 10/02/2016 23:11 Provider Reviewed Strip: Yes (Ruthann Vitrano, RN) Communication: RN at Bedside; Provider at Bedside (Ruthann Vitrano, RN) Datetime: 10/02/2016 23:06 Communication Comments: Dr. Karin on unit, reviewed strip and SVE. No new orders, continue current POC (Ruthann Vitrano, RN) Datetime: 10/02/2016 23:03 NBP Sys/Lizbet/Mean (mmHg): 127 (QS system process) : 66 (QS system process) : 90 (QS system process) Pulse: 81 (QS system process) Respirations: 16 (Ruthann Vitrano, RN) LaborFlag: Labor (QS system process) Datetime: 10/02/2016 23:01 Monitor Interventions for UA: [place] Adjusted (Ruthann Vitrano, RN) Datetime: 10/02/2016 23:00 Monitor Mode: External; Palpation (Ruthann Vitrano, RN) Monitor Interventions for UA: [place] Adjusted (Ruthann Vitrano, RN) Frequency (min): 2-3 (Urthann Vitrano, RN) Quality: Moderate to Strong (Ruthann Vitrano, RN) Duration (sec): 70-100 (Ruthann Vitrano, RN) Duration Criteria: Less than Two 120 Second Contractions (Ruthann Vitrano, RN) Pattern: Normal: <= 5 Contractions in 10 Minutes (Ruthann Vitrano, RN) Resting Tone (Palpate): Relaxed (Ruthann Vitrano, RN) Monitor Mode: Internal Scalp Electrode (Ruthann Vitrano, RN) FHR Baseline Rate : 160 (Ruthann Vitrano, RN) Variability: Moderate 6-25 bpm (Ruthann Vitrano, RN) Accelerations: 15X15 (Ruthann Vitrano, RN) Decelerations: Late; Variable (Ruthann Vitrano, RN) Pitocin (milliunit): Pitocin Remains (milliunits) @ 8 (Ruthann Vitrano, RN) Datetime: 10/02/2016 22:54 Patient Position/Activity: Hands-Knees (Ruthann Vitrano, RN) Datetime: 10/02/2016 22:52 IV/Blood Work: IV Bolus Started (Ruthann Vitrano, RN) Datetime: 10/02/2016 22:51 Pitocin (milliunit): Pitocin Decreased to (milliunits) @ 8 (Ruthann Vitrano, RN) Datetime: 10/02/2016 22:50 Patient Position/Activity: Left Tilt; Semi-Fowlers (Ruthann Vitrano, RN) Datetime: 10/02/2016 22:49 NBP Sys/Lizbet/Mean (mmHg): 119 (QS system process) : 56 (QS system process) : 80 (QS system process) Pulse: 84 (QS system process) Respirations: 16 (Ruthann Vitrano, RN) LaborFlag: Labor (QS system process) Datetime: 10/02/2016 22:45 Monitor Mode: External; Palpation (Ruthann Vitrano, RN) Frequency (min): 1.5-3 (Ruthann Vitrano, RN) Quality: Moderate to Strong (Ruthann Vitrano, RN) Duration (sec): 60-90 (Ruthann Vitrano, RN) Duration Criteria: Less than Two 120 Second Contractions (Ruthann Vitrano, RN) Pattern: Normal: <= 5 Contractions in 10 Minutes (Ruthann Vitrano, RN) Resting Tone (Palpate): Relaxed (Ruthann Vitrano, RN) Monitor Mode: Internal Scalp Electrode (Ruthann Vitrano, RN) FHR Baseline Rate : 145 (Ruthann Vitrano, RN) Variability: Moderate 6-25 bpm (Ruthann Vitrano, RN) Accelerations: 15X15 (Ruthann Vitrano, RN) Decelerations: Variable (Ruthann Vitrano, RN) Pitocin (milliunit): Pitocin Remains (milliunits) @ 10 (Ruthann Vitrano, RN) IV/Blood Work: IV Infusing per Order; New IV Bag Hung (Ruthann Vitrano, RN) Datetime: 10/02/2016 22:42 Patient Position/Activity: Right Lateral; Peanut Ball (Ruthann Vitrano, RN) Datetime: 10/02/2016 22:41 Temperature (F): 98.3 (Ruthann Vitrano, RN) Temperature (C): 36.8 (QS system process) Temperature Route: Oral (Ruthann Vitrano, RN) Patient Position/Activity: Right Lateral (Ruthann Vitrano, RN) LaborFlag: Labor (QS system process) Datetime: 10/02/2016 22:39 Patient Position/Activity: Right Tilt; Tailors (Ruthann Vitrano, RN) Datetime: 10/02/2016 22:37 Dilatation (cm): 5.0 (Ruthann Vitrano, RN) Effacement (%): 100 (Ruthann Vitrano, RN) Station: -1 (Ruthann Vitrano, RN) Exam by: Jackie Sarabia, RN (Ruthann Vitrano, RN) Datetime: 10/02/2016 22:36 Pain Assessment Comments: Pt complaining of pain/pressure in perineum (Ruthann Vitrano, RN) LaborFlag: Labor (QS system process) Datetime: 10/02/2016 22:33 NBP Sys/Lizbet/Mean (mmHg): 120 (QS system process) : 65 (QS system process) : 86 (QS system process) Pulse: 78 (QS system process) Respirations: 16 (Ruthann Vitrano, RN) LaborFlag: Labor (QS system process) Datetime: 10/02/2016 22:30 Monitor Mode: External; Palpation (Ruthann Vitrano, RN) Frequency (min): 1.5-4 (Ruthann Vitrano, RN) Quality: Moderate to Strong (Ruthann Vitrano, RN) Duration (sec): 60-100 (Ruthann Vitrano, RN) Duration Criteria: Less than Two 120 Second Contractions (Ruthann Vitrano, RN) Pattern: Normal: <= 5 Contractions in 10 Minutes (Ruthann Vitrano, RN) Resting Tone (Palpate): Relaxed (Ruthann Vitrano, RN) Monitor Mode: Internal Scalp Electrode (Ruthann Vitrano, RN) FHR Baseline Rate : 145 (Ruthann Vitrano, RN) Variability: Moderate 6-25 bpm (Ruthann Vitrano, RN) Accelerations: 15X15 (Ruthann Vitrano, RN) Decelerations: None (Ruthann Vitrano, RN) Pitocin (milliunit): Pitocin Remains (milliunits) @ 10 (Ruthann Vitrano, RN) Datetime: 10/02/2016 22:19 NBP Sys/Lizbet/Mean (mmHg): 115 (QS system process) : 61 (QS system process) : 81 (QS system process) Pulse: 80 (QS system process) Respirations: 16 (Ruthann Vitrano, RN) LaborFlag: Labor (QS system process) Datetime: 10/02/2016 22:15 Monitor Mode: External; Palpation (Ruthann Vitrano, RN) Frequency (min): 2-4 (Ruthann Vitrano, RN) Quality: Moderate to Strong (Ruthann Vitrano, RN) Duration (sec): 50-100 (Ruthann Vitrano, RN) Duration Criteria: Less than Two 120 Second Contractions (Ruthann Vitrano, RN) Pattern: Normal: <= 5 Contractions in 10 Minutes (Ruthann Vitrano, RN) Resting Tone (Palpate): Relaxed (Ruthann Vitrano, RN) Monitor Mode: Internal Scalp Electrode (Ruthann Vitrano, RN) FHR Baseline Rate : 145 (Ruthann Vitrano, RN) Variability: Moderate 6-25 bpm (Ruthann Vitrano, RN) Accelerations: 15X15 (Ruthann Vitrano, RN) Decelerations: None (Ruthann Vitrano, RN) Pitocin (milliunit): Pitocin Remains (milliunits) @ 10 (Ruthann Vitrano, RN) Datetime: 10/02/2016 22:10 Pitocin (milliunit): Pitocin Increased to (milliunits) @ 10 (Ruthann Vitrano, RN) Datetime: 10/02/2016 22:02 NBP Sys/Lizbet/Mean (mmHg): 111 (QS system process) : 58 (QS system process) : 76 (QS system process) Pulse: 82 (QS system process) Respirations: 16 (Ruthann Vitrano, RN) LaborFlag: Labor (QS system process) Datetime: 10/02/2016 22:00 Monitor Mode: External; Palpation (Ruthann Vitrano, RN) Frequency (min): 2-4 (Ruthann Vitrano, RN) Quality: Moderate to Strong (Ruthann Vitrano, RN) Duration (sec): 60-80 (Ruthann Vitrano, RN) Duration Criteria: Less than Two 120 Second Contractions (Ruthann Vitrano, RN) Pattern: Normal: <= 5 Contractions in 10 Minutes (Ruthann Vitrano, RN) Resting Tone (Palpate): Relaxed (Ruthann Vitrano, RN) Monitor Mode: Internal Scalp Electrode (Ruthann Vitrano, RN) FHR Baseline Rate : 150 (Ruthann Vitrano, RN) Variability: Moderate 6-25 bpm (Ruthann Vitrano, RN) Accelerations: 15X15 (Ruthann Vitrano, RN) Decelerations: None (Ruthann Vitrano, RN) Pitocin (milliunit): Pitocin Remains (milliunits) @ 8 (Ruthann Vitrano, RN) Datetime: 10/02/2016 21:48 NBP Sys/Lizbet/Mean (mmHg): 117 (QS system process) : 58 (QS system process) : 81 (QS system process) Pulse: 78 (QS system process) Respirations: 16 (Ruthann Vitrano, RN) LaborFlag: Labor (QS system process) Datetime: 10/02/2016 21:45 Monitor Mode: External; Palpation (Ruthann Vitrano, RN) Frequency (min): 1.5-4 (Ruthann Vitrano, RN) Quality: Moderate to Strong (Ruthann Vitrano, RN) Duration (sec): 70-100 (Ruthann Vitrano, RN) Duration Criteria: Less than Two 120 Second Contractions (Ruthann Vitrano, RN) Pattern: Normal: <= 5 Contractions in 10 Minutes (Ruthann Vitrano, RN) Resting Tone (Palpate): Relaxed (Ruthann Vitrano, RN) Monitor Mode: Internal Scalp Electrode (Ruthann Vitrano, RN) FHR Baseline Rate : 145 (Ruthann Vitrano, RN) Variability: Moderate 6-25 bpm (Ruthann Vitrano, RN) Accelerations: None (Ruthann Vitrano, RN) Decelerations: Variable (Ruthann Vitrano, RN) Pitocin (milliunit): Pitocin Remains (milliunits) @ 8 (Ruthann Vitrano, RN) Datetime: 10/02/2016 21:40 Pitocin (milliunit): Pitocin Increased to (milliunits) @ 8 (Ruthann Vitrano, RN) Datetime: 10/02/2016 21:39 Patient Position/Activity: Left Lateral; Peanut Ball (Ruthann Vitrano, RN) Datetime: 10/02/2016 21:31 NBP Sys/Lizbet/Mean (mmHg): 118 (QS system process) : 57 (QS system process) : 81 (QS system process) Pulse: 90 (QS system process) Respirations: 16 (Ruthann Vitrano, RN) LaborFlag: Labor (QS system process) Datetime: 10/02/2016 21:30 Monitor Mode: External (Ruthann Vitrano, RN) Frequency (min): 2-4.5 (Ruthann Vitrano, RN) Quality: Moderate to Strong (Ruthann Vitrano, RN) Duration (sec): 60-100 (Ruthann Vitrano, RN) Duration Criteria: Less than Two 120 Second Contractions (Ruthann Vitrano, RN) Pattern: Normal: <= 5 Contractions in 10 Minutes (Ruthann Vitrano, RN) Resting Tone (Palpate): Relaxed (Ruthann Vitrano, RN) Monitor Mode: Internal Scalp Electrode (Ruthann Vitrano, RN) FHR Baseline Rate : 145 (Ruthann Vitrano, RN) Variability: Moderate 6-25 bpm (Ruthann Vitrano, RN) Accelerations: None (Ruthann Vitrano, RN) Decelerations: None (Ruthann Vitrano, RN) Pitocin (milliunit): Pitocin Remains (milliunits) @ 6 (Ruthann Vitrano, RN) Datetime: 10/02/2016 21:18 NBP Sys/Lizbet/Mean (mmHg): 110 (QS system process) : 55 (QS system process) : 76 (QS system process) Pulse: 81 (QS system process) Respirations: 16 (Ruthann Vitrano, RN) LaborFlag: Labor (QS system process) Datetime: 10/02/2016 21:15 Monitor Mode: External (Ruthann Vitrano, RN) Frequency (min): 2-5 (Ruthann Vitrano, RN) Quality: Moderate to Strong (Ruthann Vitrano, RN) Duration (sec): 70-120 (Ruthann Vitrano, RN) Duration Criteria: Less than Two 120 Second Contractions (Ruthann Vitrano, RN) Pattern: Normal: <= 5 Contractions in 10 Minutes (Ruthann Vitrano, RN) Resting Tone (Palpate): Relaxed (Ruthann Vitrano, RN) Monitor Mode: Internal Scalp Electrode (Ruthann Vitrano, RN) FHR Baseline Rate : 145 (Ruthann Vitrano, RN) Variability: Moderate 6-25 bpm (Ruthann Vitrano, RN) Accelerations: 15X15 (Ruthann Vitrano, RN) Decelerations: None (Ruthann Vitrano, RN) Pitocin (milliunit): Pitocin Remains (milliunits) @ 6 (Ruthann Vitrano, RN) Datetime: 10/02/2016 21:08 Patient Position/Activity: Right Lateral; Peanut Ball (Ruthann Vitrano, RN) Datetime: 10/02/2016 21:01 NBP Sys/Lizbet/Mean (mmHg): 139 (QS system process) : 71 (QS system process) : 99 (QS system process) Pulse: 103 (QS system process) Respirations: 16 (Ruthann Vitrano, RN) LaborFlag: Labor (QS system process) Datetime: 10/02/2016 21:00 Monitor Mode: External; Palpation (Ruthann Vitrano, RN) Frequency (min): 2-4 (Ruthann Vitrano, RN) Quality: Moderate to Strong (Ruthann Vitrano, RN) Duration (sec): 70-100 (Ruthann Vitrano, RN) Duration Criteria: Less than Two 120 Second Contractions (Ruthann Vitrano, RN) Pattern: Normal: <= 5 Contractions in 10 Minutes (Ruthann Vitrano, RN) Resting Tone (Palpate): Relaxed (Ruthann Vitrano, RN) Monitor Mode: Internal Scalp Electrode (Ruthann Vitrano, RN) FHR Baseline Rate : 145 (Ruthann Vitrano, RN) Variability: Moderate 6-25 bpm (Ruthann Vitrano, RN) Accelerations: None (Ruthann Vitrano, RN) Decelerations: None (Ruthann Vitrano, RN) Pitocin (milliunit): Pitocin Remains (milliunits) @ 6 (Ruthann Vitrano, RN) Datetime: 10/02/2016 20:48 NBP Sys/Lizbet/Mean (mmHg): 133 (QS system process) : 68 (QS system process) : 94 (QS system process) Pulse: 96 (QS system process) Respirations: 16 (Ruthann Vitrano, RN) LaborFlag: Labor (QS system process) Datetime: 10/02/2016 20:45 Monitor Mode: External (Ruthann Vitrano, RN) Frequency (min): 2-4 (Ruthann Vitrano, RN) Quality: Moderate to Strong (Ruthann Vitrano, RN) Duration (sec): 70-100 (Ruthann Vitrano, RN) Duration Criteria: Less than Two 120 Second Contractions (Ruthann Vitrano, RN) Pattern: Normal: <= 5 Contractions in 10 Minutes (Ruthann Vitrano, RN) Resting Tone (Palpate): Relaxed (Ruthann Vitrano, RN) Monitor Mode: Internal Scalp Electrode (Ruthann Vitrano, RN) FHR Baseline Rate : 145 (Ruthann Vitrano, RN) Variability: Moderate 6-25 bpm (Ruthann Vitrano, RN) Accelerations: 15X15 (Ruthann Vitrano, RN) Decelerations: Variable (Ruthann Vitrano, RN) Pitocin (milliunit): Pitocin Remains (milliunits) @ 6 (Ruthann Vitrano, RN) Datetime: 10/02/2016 20:32 NBP Sys/Lizbet/Mean (mmHg): 125 (QS system process) : 73 (QS system process) : 95 (QS system process) Pulse: 79 (QS system process) Respirations: 16 (Ruthann Vitrano, RN) LaborFlag: Labor (QS system process) Datetime: 10/02/2016 20:31 Temperature (F): 98.3 (Ruthann Vitrano, RN) Temperature (C): 36.8 (QS system process) Temperature Route: Oral (Ruthann Vitrano, RN) LaborFlag: Labor (QS system process) Datetime: 10/02/2016 20:30 Monitor Mode: External; Palpation (Ruthann Vitrano, RN) Frequency (min): 2-4 (Ruthann Vitrano, RN) Quality: Moderate to Strong (Ruthann Vitrano, RN) Duration (sec): 60-90 (Ruthann Vitrano, RN) Duration Criteria: Less than Two 120 Second Contractions (Ruthann Vitrano, RN) Pattern: Normal: <= 5 Contractions in 10 Minutes (Ruthann Vitrano, RN) Resting Tone (Palpate): Relaxed (Ruthann Vitrano, RN) Monitor Mode: Internal Scalp Electrode (Ruthann Vitrano, RN) FHR Baseline Rate : 145 (Ruthann Vitrano, RN) Variability: Moderate 6-25 bpm (Ruthann Vitrano, RN) Accelerations: None (Ruthann Vitrano, RN) Decelerations: Variable (Ruthann Vitrano, RN) Pitocin (milliunit): Pitocin Remains (milliunits) @ 6 (Ruthann Vitrano, RN) Patient Position/Activity: Left Tilt; Tailors (Ruthann Vitrano, RN) Datetime: 10/02/2016 20:16 NBP Sys/Lizbet/Mean (mmHg): 125 (QS system process) : 70 (QS system process) : 91 (QS system process) Pulse: 81 (QS system process) Respirations: 16 (Ruthann Vitrano, RN) LaborFlag: Labor (QS system process) Datetime: 10/02/2016 20:15 Monitor Mode: External (Ruthann Vitrano, RN) Frequency (min): 2-4 (Ruthann Vitrano, RN) Quality: Moderate to Strong (Ruthann Vitrano, RN) Duration (sec): 50-90 (Ruthann Vitrano, RN) Duration Criteria: Less than Two 120 Second Contractions (Ruthann Vitrano, RN) Pattern: Normal: <= 5 Contractions in 10 Minutes (Ruthann Vitrano, RN) Resting Tone (Palpate): Relaxed (Ruthann Vitrano, RN) Monitor Mode: Internal Scalp Electrode (Ruthann Vitrano, RN) FHR Baseline Rate : 150 (Ruthann Vitrano, RN) Variability: Moderate 6-25 bpm (Ruthann Vitrano, RN) Accelerations: 15X15 (Ruthann Vitrano, RN) Decelerations: None (Ruthann Vitrano, RN) Pitocin (milliunit): Pitocin Remains (milliunits) @ 6 (Ruthann Vitrano, RN) Datetime: 10/02/2016 20:03 NBP Sys/Lizbet/Mean (mmHg): 120 (QS system process) : 65 (QS system process) : 87 (QS system process) Pulse: 82 (QS system process) Respirations: 16 (Ruthann Vitrano, RN) LaborFlag: Labor (QS system process) Datetime: 10/02/2016 20:00 Monitor Mode: External; Palpation (Ruthann Vitrano, RN) Frequency (min): 1-4 (Ruthann Vitrano, RN) Quality: Moderate to Strong (Ruthann Vitrano, RN) Duration (sec): 50-90 (Ruthann Vitrano, RN) Duration Criteria: Less than Two 120 Second Contractions (Ruthann Vitrano, RN) Pattern: Normal: <= 5 Contractions in 10 Minutes (Ruthann Vitrano, RN) Resting Tone (Palpate): Relaxed (Ruthann Vitrano, RN) Monitor Mode: Internal Scalp Electrode (Ruthann Vitrano, RN) FHR Baseline Rate : 155 (Ruthann Vitrano, RN) Variability: Moderate 6-25 bpm (Ruthann Vitrano, RN) Accelerations: 15X15 (Ruthann Vitrano, RN) Decelerations: None (Ruthann Vitrano, RN) Pitocin (milliunit): Pitocin Started (milliunits) @ 6; Pitocin 20 Units in 1000ml NS (Ruthann Sarabia RN) Instructional Method: Verbal; Patient Instructed; Family/Support Person Instructed; Verbalized Understanding (Ruthann Sarabia RN) Plan of Care: Plan of Care Discussed (Ruthann Sarabia RN) Datetime: 10/02/2016 19:59 Patient Position/Activity: Left Lateral; Peanut Ball (Ruthann Cornell, RN) Datetime: 10/02/2016 19:58 Comments: O2 d/c (Ruthann Sarabia RN) IV/Blood Work: IV Infusing per Order (Ruthann Sarabia, BLANCA) Datetime: 10/02/2016 19:56 Communication Comments: Dr. Frazier on unit, reviewed strip. Orders recieved to re start Pitocin 20 units in 1000 mL NS at 6 mU/min increasing per previous orders (Ruthann Vitrano, RN) Datetime: 10/02/2016 19:48 NBP Sys/Lizbet/Mean (mmHg): 116 (QS system process) : 62 (QS system process) : 83 (QS system process) Pulse: 73 (QS system process) Respirations: 16 (Ruthann Vitrano, RN) Pain Copin (Ruthann Vitrano, RN) LaborFlag: Labor (QS system process) Datetime: 10/02/2016 19:45 Monitor Mode: External (Ruthann Vitrano, RN) Frequency (min): 1.5-3 (Ruthann Vitrano, RN) Quality: Moderate to Strong (Ruthann Vitrano, RN) Duration (sec): 50-100 (Ruthann Vitrano, RN) Duration Criteria: Less than Two 120 Second Contractions (Ruthann Vitrano, RN) Pattern: Normal: <= 5 Contractions in 10 Minutes (Ruthann Vitrano, RN) Resting Tone (Palpate): Relaxed (Ruthann Vitrano, RN) Monitor Mode: Internal Scalp Electrode (Ruthann Vitrano, RN) FHR Baseline Rate : 155 (Ruthann Vitrano, RN) Variability: Moderate 6-25 bpm (Ruthann Vitrano, RN) Accelerations: 15X15 (Ruthann Vitrano, RN) Decelerations: None (Ruthann Vitrano, RN) Datetime: 10/02/2016 19:43 Patient Care Comments: Pt states nausea relieved (Ruthann Vitrano, RN) Datetime: 10/02/2016 19:41 Patient Position/Activity: Left Lateral (Ruthann Vitrano, RN) Datetime: 10/02/2016 19:38 Monitor Interventions for FHR: FSE Applied (Ruthann Vitrano, RN) Vaginal Bleeding: Normal Show (Ruthann Vitrano, RN) Cervix, Position: Anterior (Ruthann Vitrano, RN) Datetime: 10/02/2016 19:37 Exam by: DrGabe Frazier (Ruthann Vitrano, RN) Vaginal Exam Comments: No change (Ruthann Vitrano, RN) Datetime: 10/02/2016 19:36 Patient Position/Activity: Left Tilt; Semi-Fowlers (Ruthann Vitrano, RN) Provider Reviewed Strip: Yes (Ruthann Sarabia RN) Communication: RN at Bedside; RN Reviewed Strip; Provider at Bedside (Ruthann Sarabia RN) Datetime: 10/02/2016 19:35 Provider Reviewed Strip: Yes (Socorro Biswas RN) Communication: Provider at Bedside (Socorro Biswas RN) Communication Comments: Dr Frazier at bedside (Socorro Biswas RN) Datetime: 10/02/2016 19:32 NBP Sys/Lizbet/Mean (mmHg): 136 (QS system process) : 68 (QS system process) : 94 (QS system process) Pulse: 81 (QS system process) Respirations: 16 (Ruthann Sarabia RN) LaborFlag: Labor (QS system process) Datetime: 10/02/2016 19:30 Monitor Mode: External; Palpation (Ruthann Vitrano, RN) Frequency (min): 1.5-3 (Ruthann Vitrano, RN) Quality: Moderate to Strong (Ruthann Vitrano, RN) Duration (sec): 60-110 (Ruthann Vitrano, RN) Duration Criteria: Less than Two 120 Second Contractions (Ruthann Vitrano, RN) Pattern: Normal: <= 5 Contractions in 10 Minutes (Ruthann Vitrano, RN) Resting Tone (Palpate): Relaxed (Ruthann Vitrano, RN) Monitor Mode: External US (Ruthann Vitrano, RN) FHR Baseline Rate : 155 (Ruthann Vitrano, RN) Variability: Moderate 6-25 bpm (Ruthann Vitrano, RN) Accelerations: None (Ruthann Vitrano, RN) Decelerations: Late; Prolonged (Ruthann Vitrano, RN) Datetime: 10/02/2016 19:29 Actions for Decelerations: Hands and Knees (Ruthann Vitrano, RN) Datetime: 10/02/2016 19:27 Actions for Decelerations: Side to Side; Oxygen Applied; Pitocin Off; IV Bolus; Sterile Vaginal Exam (Ruthann Vitrano, RN) Dilatation (cm): 4.5 (Ruthann Vitrano, RN) Effacement (%): 100 (Ruthann Vitrano, RN) Station: -1 (Ruthann Vitrano, RN) Exam by: R Vitrholly RN (Ruthann Vitrano, RN) Pitocin (milliunit): Pitocin Discontinued (Ruthann Vitrano, RN) Datetime: 10/02/2016 19:26 Patient Position/Activity: Left Lateral (Ruthann Vitrano, RN) Datetime: 10/02/2016 19:23 Patient Position/Activity: Right Lateral (Ruthann Vitrano, RN) Datetime: 10/02/2016 19:19 Medication Comments: Zofran 8 mg IV slow push (Ruthann Vitrano, RN) Datetime: 10/02/2016:17 NBP Sys/Lizbet/Mean (mmHg): 144 (QS system process) : 71 (QS system process) : 100 (QS system process) Pulse: 83 (QS system process) Respirations: 16 (Ruthann Vitrano, RN) Communication Comments: Orders received from Dr. Frazier for Zofran 8 mg IV x1 now for nausea (Ruthann Vitrano, RN) LaborFlag: Labor (QS system process) Datetime: 10/02/2016 19:16 Patient Care Comments: Pt nauseated, requesting IV medication (Ruthann Vitrano, RN) Datetime: 10/02/2016 19:15 Monitor Mode: External (Ruthann Vitrano, RN) Frequency (min): 1.5-3 (Ruthann Vitrano, RN) Quality: Moderate to Strong (Ruthann Vitrano, RN) Duration (sec): 60-100 (Ruthann Vitrano, RN) Duration Criteria: Less than Two 120 Second Contractions (Ruthann Vitrano, RN) Pattern: Normal: <= 5 Contractions in 10 Minutes (Ruthann Vitrano, RN) Resting Tone (Palpate): Relaxed (Ruthann Vitrano, RN) Monitor Mode: External US (Ruthann Vitrano, RN) FHR Baseline Rate : 165 (Ruthann Vitrano, RN) Variability: Moderate 6-25 bpm (Ruthann Vitrano, RN) Accelerations: None (Ruthann Vitrano, RN) Decelerations: None (Ruthann Vitrano, RN) Pitocin (milliunit): Pitocin Remains (milliunits) @ 12 (Ruthann Vitrano, RN) Patient Position/Activity: Left Lateral (Ruthann Vitrano, RN) Datetime: 10/02/2016 19:03 NBP Sys/Lizbet/Mean (mmHg): 133 (QS system process) : 76 (QS system process) : 97 (QS system process) Pulse: 78 (QS system process) Respirations: 16 (Ruthann Vitrano, RN) LaborFlag: Labor (QS system process) Datetime: 10/02/2016 19:01 Patient Care Comments: Lea karey per pt request for nausea, denies IV medications (Ruthann Vitrano, RN) Datetime: 10/02/2016 19:00 Monitor Mode: External; Palpation (Ruthann Vitrano, RN) Frequency (min): 1.5-3.5 (Ruthann Vitrano, RN) Quality: Moderate to Strong (Ruthann Vitrano, RN) Duration (sec): 70-100 (Ruthann Vitrano, RN) Duration Criteria: Less than Two 120 Second Contractions (Ruthann Sarabia RN) Pattern: Normal: <= 5 Contractions in 10 Minutes (Ruthann Sarabia RN) Resting Tone (Palpate): Relaxed (Ruthann Sarabia RN) Monitor Mode: External US (Ruthann Sarabia RN) FHR Baseline Rate : 160 (Ruthann Sarabia RN) Variability: Moderate 6-25 bpm (Ruthann Sarabia RN) Accelerations: 10X10 (Ruthann Sarabia RN) Decelerations: Variable (Ruthann Sarabia RN) Pitocin (milliunit): Pitocin Increased to (milliunits) @ 12 (Ruthann Sarabia RN)
[2016-10-03] MEDS: PRENATAL VITAMIN W-O CA NO5/FE FUMARATE/FA CAPSULE PO SCH (09:11)
[2016-10-03] MEDS: DOCUSATE SODIUM 100 MG CAPSULE PO SCH ×2 (09:12→18:03)
--- NOTE | 2016-10-03 11:09 | L&D Current Admission ---
Current Admit Datetime Report Generated by CPN: 10/03/2016 11:09 Chief Complaint: Contractions (10/01/2016 11:04:Sandra Hall RN)
--- NOTE | 2016-10-03 11:10 | L&D General Admission ---
General Admit Datetime Report Generated by N: 10/03/2016 11:09 Para: 0 (10/01/2016 11:42:Sandra Hall RN) Baby, Number in Womb: 1 (10/01/2016 11:42:Sandra Hall RN) Medication Allergies: No Known Allergies (10/01/2016) (10/01/2016 11:05:QS system process)
--- NOTE | 2016-10-03 11:11 | L&D Discharge Summary ---
OB Discharge Summary Datetime Report Generated by CPN: 10/03/2016 11:10 DISCHARGE DIAGNOSIS Diagnosis/Symptoms: False Labor Diagnoses/Symptoms Other: IUP at 39 weeks, not in labor, membranes intact Treatment/Procedures Other: amnisure - negative Gestation: 39.2 Number of Babies in Womb: 1 Parity: 0 DIET/ACTIVITY/RESTRICTIONS Diet: Regular Activity: Normal Activity TEACHING/INSTRUCTIONS/REFERRALS Instructions Given To: patient and patient's Instructions Understood: Patient Verbalized Understanding; Support Person Verbalized Understanding Referrals: None Educational Materials- Other: kick counts, DISCHARGE INFORMATION Discharged AMA: No Discharge Date/Time: 09/27/2016 15:55 Discharged To: Home Discharge Provider Name: Fareed Talbot CNM Accompanied By: Discharge Method: Ambulatory Condition: Stable FOLLOW UP INFORMATION Follow Up With: [facility] Follow Up On: As Scheduled Follow Up Phone Number: [facility] - Comments: Pt verbalizes understanding instructions, s/s to report, when to return to hospital for evaluation, to keep scheduled appointments. No distress noted, ambulates without difficulty, denies complaints. Reactive NST GENERAL INSTR-CALL PROVIDER IF: Contractions: Contractions or cramps become more frequent than 8 in one hour or 4 in 20 minutes; Regular painful contractions every 5 minutes or less for one hour. Time your contractions from the beginning of one to the beginning of the next Pressure: Pressure in your vagina or lower abdomen that may feel like the baby is pushing down Period Like Cramps: Period-like cramps or low dull backache that may come and go Cramps/Diarrhea: Abdominal cramps that may be accompanied by diarrhea Gush of Fluid/Blood: Gush of fluid or blood from your vagina (it is normal to have spotting after vaginal exam or intercourse) Vaginal Discharge: Change in the type or amount of vaginal discharge Decreased Movement: Your baby is not moving as much as usual- 4 movements in 1 hour after drinking and resting on side Temperature: Temperature greater than 100.0(F) orally
--- NOTE | 2016-10-03 13:33 | Delivery Summary ---
Del Sum A-C Datetime Report Generated by CPN: 10/03/2016 13:33 ADMISSION DATA Chief Complaint: Uterine Contractions; Suspected Ruptured Membranes Chief Complaint Comments: c/o ctx, ?lof, back pain Indication for Induction: Not Applicable Admission Impression: Term, Intrauterine ; No Active Labor; Ruptured Membranes Admit Provider Comments: Term srom w unfavorable cervix. cervidil tonight. gbs neg DELIVERY PERSONNEL Delivery Doctor:: Talat Frazier DO Anesthesiologist:: Clarence Pérez MD COAT ROOM ATTENDANT:: Francis Simon CRNA Labor and Delivery Nurse:: Socorro Biswas RN Neonatal Nurse Practitioner:: ADDIS Muñoz Nursery Nurse:: Maddy Benavides RN Nursery Nurse:: Ruthann Esquivel RN ([facility]) Hand Miter Operator/FIELD MARKETING LEAD: Tammy Santos, Hand Miter Operator/FIELD MARKETING LEAD: Julienne Johnson, ELECTRIC METER REPAIRER APPRENTICE Additional Personnel: : Carlos Solorzano, FIELD MARKETING LEAD MATERNAL INFORMATION Delivery Anesthesia: Epidural Medications After Delivery: Pitocin Drip 20 Units/1000ml NSS Meds After Delivery Comment: pitocin 20 units in 1000 mL NSS x2 bags after delivery per protocol Estimated Blood Loss (ml): 600 Maternal Complications: Premature Rupture of Membranes Complication Details: see physician operative note LABOR SUMMARY EDC: 10/08/2016 00:00 No. Babies in Womb: 1 Attempted: No Labor Anesthesia: Epidural LABOR INFORMATION Reason for Induction: Premature Rupture of Membranes Onset of Labor: 10/03/2016 16:14 Cervical Ripening Agents: Cervidil Oxytocin: Augmentation Group B Beta Strep: Negative Antibiotics # of Doses: 3 Antibiotics Time of Last Dose: 214 Name of Antibiotic Given: Ancef 2 grams Steroids Given: Full Course Reason Steroids Not Administered: Indication; Maternal Indication MEMBRANES Membranes Rupture Method: Spontaneous Rupture of Membranes: 10/01/2016 11:21 Length of Rupture (hr): 39.18 Amniotic Fluid Color: Clear Amniotic Fluid Amount: Moderate Amniotic Fluid Odor: Normal VAGINAL DELIVERY Episiotomy: None Laceration Extension: N/A Laceration Type: None Laceration Repair: Not Applicable Sponge Count Correct: N/A Sharps Count Correct: N/A CSECTION DELIVERY Primary Indication: Prolonged Latent Phase Secondary Indication: Secondary Arrest of Dilatation CSection Urgency: Non-Scheduled CSection Incidence: Primary Labor: Labor Elective: Nonelective CSection Incision: Lower Uterine Transverse BABY A INFORMATION Delivery Date/Time: 10/03/2016 02:32 Method of Delivery: Born in Route : No : N/A Forceps: N/A Vacuum Extraction: N/A Shoulder Dystocia : No PRESENTATION/POSITION BABY A Presentation: Cephalic Cephalic Presentation: Vertex Breech Presentation: N/A PLACENTA INFORMATION BABY A Placenta Method of Delivery: Manual Removal Placenta Status: Delivered SCORES BABY A Heart Rate 1 min: >100 bpm Resp Effort 1 min: Good Cry Reflex Irritability 1 min: Cough or Sneeze or Pulls Away Muscle Tone 1 min: Active Motion Color 1 min: Blue/Pale Resuscitation Effort 1 min: Tactile Stimulation SCORE 1 MIN: 8 Heart Rate 5 min: >100 bpm Resp Effort 5 min: Good Cry Reflex Irritability 5 min: Cough or Sneeze or Pulls Away Muscle Tone 5 min: Active Motion Color 5 min: Body [place], Extremities Blue Resuscitation Effort 5 min: Tactile Stimulation SCORE 5 MIN: 9 INFORMATION BABY A Gestational Age at Delivery: 39.2 Gestational Status: Full Term- 39- 40.6 Weeks Outcome : Liveborn Infant Condition : Stable Sex: Female IDENTIFICATION BABY A Verification Date/Time: 10/03/2016 02:36 ID Band Number: [id number] Mother's Name Verified: Yes Infant RN Verifying Infant: S. Yuliyatibslyir, RN Additional Verifying Personnel: R. Jeanine, FIELD MARKETING LEAD WEIGHT/LENGTH BABY A Birthweight (gm): 3145 Infant Weight (lb): 6 Infant Weight (oz): 15 Infant Length (in): 20.00 Infant Length (cm): 50.80 CORD INFORMATION BABY A No. Cord Vessels: 3 Nuchal Cord : Around Neck x2, Loose Cord Blood Taken: Yes-For Storage (Mom's Blood type +) Infant Suction: Mouth; Nose ASSESSMENT BABY A Infant Complications: Multiple Variable Decels Infant Respirations: Appears Normal Skin to Skin: Yes Skin to Skin Time (min): 5 Sole Inker/ALS Called : No Infant Care By: Joy Benavides RN, Abel Esquivel RN Transferred To: [facility] BABY B INFORMATION : N/A
--- NOTE | 2016-10-03 15:30 | PDOC PROGRESS REPORT ---
Subjective-OB Subjective: Post Delivery Day:1 36 year old s/p primary LTCS . Portillo removed while rounding, pt. reports to be ready to walk around and shower. Denies any needs at this time. Physical Exam (OB) Vital Signs: Temp Pulse Resp BP Pulse Ox 97.6 F 87 17 140/90 H 99 10/03/16 12:08 10/03/16 12:08 10/03/16 12:08 10/03/16 12:08 10/03/16 12:08 Intake & Output 10/02/16 10/03/16 10/04/16 06:59 06:59 06:59 Intake Total 700 Output Total 1500 Balance -800 Weight 86.75 kg - General General Appearance: Appears well In distress: None - Dressing Removed: No - medipore dressing D&I, no redness, swelling or drainage noted - Lochia Lochia Amount: Small 10-25 ml Lochia Color: Rubra/Red - Abdomen Description: Tender, Soft, Round Hernia Present: No Fundal Description: Firm, Midline Fundal Height: u/u - u/2 - Respiratory Respiratory Status: No respiratory distress - Neurological Cognition: Normal Orientation: AAOx4 - Psychological Associated symptoms: Normal affect, Normal mood - bonding well with baby Objective-Diagnostic Laboratory: 10/02/16 01:52 Assessment and Plan(PN) - Assessment and Plan (1) Status post primary low transverse section Is this a current diagnosis for this admission?: YesPlan: continue stay. Will shower and ambulate. - Time Spent with Patient Time with patient: 15-25 minutes Medications reviewed and adjusted accordingly: Yes - Disposition Anticipated Discharge: Home Within: within 48 hours
[2016-10-04] MEDS: OXYCODONE-ACETAMINOPHEN 5-325 MG TABLET PO PRN ×4 (02:26→23:39)
[2016-10-04] MEDS: IBUPROFEN 800 MG TABLET PO SCH ×4 (05:09→23:02)
[2016-10-04 07:47] LABS: HGB HCT DIFFERENCE 0.7; MEAN CORPUSCULAR HEMOGLOBIN 30.7 pg (27.0-33.4); MEAN CORPUSCULAR HGB CONC 34.4 g/dL (32.0-36.0); MEAN CORPUSCULAR VOLUME 89 fl (80-97); RED BLOOD COUNT 2.91 10^6/uL (3.72-5.28); RED CELL DISTRIBUTION WIDTH 13.8 % (11.5-14.0); WHITE BLOOD COUNT 15.7 10^3/uL (4.0-10.5)
[2016-10-04 07:48] LABS: HEMOGLOBIN 8.9 g/dL (12.0-15.5)
[2016-10-04] MEDS: PRENATAL VITAMIN W-O CA NO5/FE FUMARATE/FA CAPSULE PO SCH (09:55)
[2016-10-04] MEDS: DOCUSATE SODIUM 100 MG CAPSULE PO SCH ×2 (09:56→17:48)
--- NOTE | 2016-10-04 12:07 | PDOC PROGRESS REPORT ---
Subjective-OB Subjective: Post Delivery Day: 2 36 year old. Denies any needs at this time, states lochia is stable, pain well controlled, voiding without difficulty. Physical Exam (OB) Vital Signs: Temp Pulse Resp BP Pulse Ox 98.8 F 93 16 127/72 H 99 10/04/16 08:41 10/04/16 08:41 10/04/16 08:41 10/04/16 08:41 10/04/16 08:41 Intake & Output 10/03/16 10/04/16 10/05/16 06:59 06:59 06:59 Intake Total 2375 Output Total 2250 Balance 125 - Dressing Removed: No - opsite Incision: Dressing - Lochia Lochia Amount: Small 10-25 ml Lochia Color: Rubra/Red - Abdomen Description: Soft, Round Hernia Present: No Fundal Description: Firm, Midline Fundal Height: u/u - u/2 Objective-Diagnostic Laboratory: 10/04/16 07:20 10/04/16 07:20 WBC 15.7 H RBC 2.91 L Hgb 8.9 L D Hct 26.0 L MCV 89 MCH 30.7 MCHC 34.4 RDW 13.8 Plt Count 231 Assessment and Plan(PN) - Assessment and Plan (1) Status post primary low transverse section Is this a current diagnosis for this admission?: YesPlan: routine pp care - Time Spent with Patient Time with patient: Less than 15 minutes Critical Time spent with patient: Less than 15 minutes Medications reviewed and adjusted accordingly: Yes - Disposition Anticipated Discharge: Home Within: within 24 hours
[2016-10-05] MEDS: OXYCODONE-ACETAMINOPHEN 5-325 MG TABLET PO PRN ×2 (04:57→08:38)
[2016-10-05] MEDS: IBUPROFEN 800 MG TABLET PO SCH (05:03)
[2016-10-05 09:51] VITALS: BP 127/76
--- NOTE | 2016-10-05 10:03 | PDOC DISCHARGE SUMMARY ---
Discharge Summary-OB Discharge Date: 10/05/16 - Final Diagnosis (1) Status post primary low transverse section Is this a current diagnosis for this admission?: Yes (2) Acute blood loss anemia Is this a current diagnosis for this admission?: Yes - Discharge Medication Home Medications: Vit/Iron Fumarate/FA [ Tablet] 1 tab PO DAILY 08/25/16 Docusate Sodium [Colace 100 mg Capsule] 100 mg PO BID #60 capsule 10/05/16 Ferrous Sulfate 325 mg PO BID #60 tablet. 10/05/16 Ibuprofen [Motrin 800 mg Tablet] 800 mg PO Q6 #60 tablet 10/05/16 Oxycodone HCl/Acetaminophen [Percocet 5-325 mg Tablet] 2 tab PO Q4HP PRN #30 tablet 10/05/16 Gestational Age: 39.2 Reason(s) for Admission: PROM Procedures: NST Intrapartum Procedure(s): : Low Cervical, Transverse - [place] Data Baby 1 Female at 1 minute: 8 at 5 minutes: 9 Weight: 3145 kg Home with Mother: Yes Complications: No - Diagnosis Test Laboratory: Temp Pulse Resp BP Pulse Ox 98.3 F 82 17 127/76 H 99 10/05/16 09:44 10/05/16 09:44 10/05/16 09:44 10/05/16 09:44 10/05/16 09:44 10/02/16 10/02/16 10/04/16 01:00 01:52 07:20 RBC 4.08 2.91 L Hgb 12.4 8.9 L D Hct 35.4 L 26.0 L Urine Opiates Screen NEGATIVE - Discharge information/Instructions Discharge Activity: Balance Activity w/Rest, No Driving, No Lifting Over 10 Pounds, Pelvic Rest, No tub bath Discharge Diet: Regular Disposition: HOME, SELF-CARE Follow up with: [facility] in: 1, Weeks
[2016-10-05] MEDS: DOCUSATE SODIUM 100 MG CAPSULE PO SCH (10:14)
[2016-10-05] MEDS: PRENATAL VITAMIN W-O CA NO5/FE FUMARATE/FA CAPSULE PO SCH (10:14)
--- NOTE | 2016-11-12 09:15 | OPERATIVE REPORT E ---
Operative Report NAME: BERNADINE RODRIGUEZ : 1980 AGE: 36Y DATE OF SURGERY: 10/03/2016 ROOM: 228 PREOPERATIVE DIAGNOSES: 1. A 39-week intrauterine . 2. Arrest of dilatation. 3. Prolonged rupture of membranes. POSTOPERATIVE DIAGNOSES: 1. A 39-week intrauterine . 2. Arrest of dilatation. 3. Prolonged rupture of membranes. PROCEDURE: Primary low transverse section. SURGEON: Talat Frazier D.O. GOLD WHEEL BLOCKER AND POLISHER: None. ANESTHESIA: Epidural. ESTIMATED BLOOD LOSS: 600 mL. PATHOLOGY: Placenta. COMPLICATIONS: Right hysterotomy extension to broad ligament. FINDINGS: 1. A viable female at 2:32 a.m. on 10/03/2015. Apgars 8 at 1 and 9 at 5. 2. Loose nuchal cord x2. 3. Right hysterotomy extension into broad ligament that was hemostatic following repair. PROCEDURE: The patient was taken to the operating room where her epidural anesthesia was found to be adequate. She was placed in the dorsal supine position with a leftward tilt upon the operating room table. She was then prepped and draped in a normal sterile fashion. A scalpel was then used to make a Pfannenstiel skin incision. The skin incision was carried down through the subcutaneous tissue to the layer of the fascia. The fascia was then incised in the midline, and the fascial incision was then extended bilaterally using Bovie cautery. The superior fascial edge was grasped with Shadi clamps, elevated, and rectus muscles dissected off sharply and bluntly. Attention was then turned to the inferior fascial edge which was grasped with Shadi clamps and elevated and the rectus muscle dissected off sharply and bluntly. Rectus muscles were then in the midline, peritoneum identified and entered bluntly with the surgeon's hands. Bladder blade was inserted. A scalpel was then used to make a low-transverse hysterotomy incision. The infant was found to be in cephalic position and delivered through this incision without difficulty and atraumatically. The nose and mouth were suctioned, the cord was clamped and cut, and the was handed off to the awaiting nurses. Cord blood was obtained. The placenta was then manually removed from the uterus. The uterus was then exteriorized and cleared of all clots and debris. It was noted prior to starting the repair, there was an extension of the right-sided hysterotomy incision of the right broad ligament. The hysterotomy incision including the extension were repaired using 2 layers of 1-0 Vicryl in a running, locking fashion. Following closure, there was excellent hemostasis noted. There was a small hematoma noted in the right broad ligament. This was observed for approximately 6 minutes and found to be stable. The uterus was then returned to the abdomen. Again, the hysterotomy incision and right broad ligament were observed and revealed excellent hemostasis. The rectus muscles were then reapproximated using 1-0 Vicryl interrupted sutures. The fascia was then closed using 1-0 Vicryl in a running, nonlocking fashion. The subcutaneous space was made hemostatic using Bovie cautery. The skin was then closed with absorbable carter, covered with an OpSite, and then with a pressure dressing. At this point in time the procedure was terminated. All sponge, lap, and needle counts were correct x2. The patient tolerated the procedure well. The patient was taken to the recovery room in stable condition. DICTATING PHYSICIAN: Talat Frazier DO [id number] PHY#: [id number] ID: [id number] JOB#: [id number] ACCT: [id number] cc:Talat Frazier D.O. >
== END 2016-10-05 12:03 | disposition home or self-care (01) | DRG 765 ==
LOC: LC 00:37 → LR 01:28 → 2S 10-03 05:06
PROVIDERS: ADMIT Obstetrics & Gynecology; ATTEND Obstetrics & Gynecology
PROC: 4A1HXCZ Monitoring of Products of Conception, Cardiac Rate, External Approach (ICD-10-PCS; 2016-10-02)
PROC: 10D00Z1 Extraction of Products of Conception, Low, Open Approach (ICD-10-PCS; principal; 2016-10-03)
DX: O62.1 Secondary uterine inertia (principal); D62 Acute posthemorrhagic anemia; O42.12 Full-term premature rupture of membranes, onset of labor more than 24 hours following rupture; O34.13 Maternal care for benign tumor of corpus uteri, third trimester; D25.9 Leiomyoma of uterus, unspecified; O99.89 Other specified diseases and conditions complicating pregnancy, childbirth and the puerperium; N83.7 Hematoma of broad ligament; O76 Abnormality in fetal heart rate and rhythm complicating labor and delivery; O69.81X0 Labor and delivery complicated by cord around neck, without compression, not applicable or unspecified; O99.02 Anemia complicating childbirth; O99.334 Smoking (tobacco) complicating childbirth; F17.210 Nicotine dependence, cigarettes, uncomplicated; Z3A.39 39 weeks gestation of pregnancy; Z37.0 Single live birth
CPT/HCPCS: 1961; 36415; 80307; 81005; 84112; 85025; 85027; 86592; 86850; 86900; 86901; 88307; 94760; 94799; J0690; J1170; J1885; J2175; J2250; J2270; J2300; J2370; J2405; J2550; J2590; J3010; J3490; Q0114

== ENCOUNTER 2016-10-10 16:28 | Emergency (ER) | payer OTHER ==
[2016-10-10 17:51] VITALS: BP 149/94
--- NOTE | 2016-10-10 17:52 | ER Document Report ---
ED Medical Screen (RME) - General Chief Complaint: Edema Stated Complaint: DIFFICULTY BREATHING Mode of Arrival: Ambulatory Information source: Patient Notes: Patient presents to the emergency department one week emergency C- section sent over by OB for retaining fluids shortness of breath. TRAVEL OUTSIDE OF THE [place] IN LAST 30 DAYS: No - Related Data Allergies/Adverse Reactions: No Known Allergies Allergy (Verified 10/10/16 17:51) Past Medical History - Social History Chew tobacco use (# tins/day): No Frequency of alcohol use: None Drug Abuse: None Renal/ Medical History: Denies: Hx Peritoneal Dialysis Physical Exam - Vital signs Vitals: Temp Pulse Resp BP Pulse Ox 98.1 F 71 20 149/94 H 100 10/10/16 17:50 10/10/16 17:50 10/10/16 17:50 10/10/16 17:50 10/10/16 17:50 Course - Vital Signs Vital signs: Temp Pulse Resp BP Pulse Ox 98.1 F 71 20 149/94 H 100 10/10/16 17:50 10/10/16 17:50 10/10/16 17:50 10/10/16 17:50 10/10/16 17:50
[2016-10-10 18:11] LABS: ABSOLUTE EOSINOPHILS # (AUTO) 0.2 10^3/uL (0.0-0.6); ABSOLUTE LYMPHOCYTES (AUTO) 2.1 10^3/uL (0.5-4.7); ABSOLUTE NEUT (AUTO) 8.2 10^3/uL (1.7-8.2); BASOPHILS % (AUTO) 0.3 % (0-2); EOSINOPHILS % (AUTO) 1.6 % (0-6); HEMATOCRIT 32.6 % (36.0-47.0); HEMOGLOBIN 10.6 g/dL (12.0-15.5); HGB HCT DIFFERENCE -0.8; MEAN CORPUSCULAR HEMOGLOBIN 29.4 pg (27.0-33.4); MEAN CORPUSCULAR HGB CONC 32.4 g/dL (32.0-36.0); MEAN CORPUSCULAR VOLUME 91 fl (80-97); MONOCYTES % (AUTO) 8.6 % (3-13); RED BLOOD COUNT 3.59 10^6/uL (3.72-5.28); RED CELL DISTRIBUTION WIDTH 13.7 % (11.5-14.0); SEGMENTED NEUTROPHILS % (AUTO) 71.5 % (42-78); WHITE BLOOD COUNT 11.4 10^3/uL (4.0-10.5)
[2016-10-10 18:33] LABS: APPEARANCE,URINE CLEAR; BILIRUBIN,URINE NEGATIVE (NEGATIVE); GLUCOSE, URINE NEGATIVE (NEGATIVE); KETONES,URINE NEGATIVE (NEGATIVE); LEUKOCYTE ESTERASE,URINE TRACE (NEGATIVE); NITRITE,URINE NEGATIVE (NEGATIVE); PROTEIN,URINE NEGATIVE (NEGATIVE); URINE SPECIFIC GRAVITY 1.009; UROBILINOGEN,URINE NEGATIVE mg/dL (<2.0)
[2016-10-10 18:35] LABS: ALANINE AMINOTRANSFERASE 51 U/L (9-52); ALBUMIN 2.9 g/dL (3.5-5.0); ALKALINE PHOSPHATASE 188 U/L (38-126); ANION GAP 10 (5-19); ASPARTATE AMINO TRANSFERASE 35 U/L (14-36); BILIRUBIN,TOTAL 0.3 mg/dL (0.2-1.3); BLOOD UREA NITROGEN 13 mg/dL (7-20); CALCIUM 8.7 mg/dL (8.4-10.2); CARBON DIOXIDE 27 mmol/L (22-30); CHLORIDE 107 mmol/L (98-107); GLUCOSE 88 mg/dL (75-110); LDH 710 U/L (313-618); POTASSIUM 4.1 mmol/L (3.6-5.0); SODIUM 143.7 mmol/L (137-145); TOTAL PROTEIN 5.4 g/dL (6.3-8.2); URIC ACID 7.1 mg/dL (2.5-7.0)
== END 2016-10-10 19:20 | disposition left against medical advice (07) ==
LOC: ER 16:28
DX: Z53.9 Procedure and treatment not carried out, unspecified reason (principal); R06.02 Shortness of breath; R60.9 Edema, unspecified
CPT/HCPCS: 36415; 80053; 81001; 83615; 84550; 85025; 99281